=== PATIENT | female | born 1975 | race Caucasian/White ===

== ENCOUNTER 2020-09-12 00:22 | Emergency (ER) | payer OTHER, SELFPAY ==
--- OUTSIDE RECORDS SUMMARY | 2020-09-12 00:25 | XMS REPORT | Continuity of Care Document ---
:1975 Author Organization [facility] t Address [address] [place] [address] Care Team Providers Name Role Phone Du Maldonado DO Attending Clinician Kaiden STANLEY Attending Clinician Ronan SABILLON Attending Clinician Doctor Unassigned, Name Attending Clinician Unavailable Problems This patient has no known problems. Allergies, Adverse Reactions, Alerts This patient has no known allergies or adverse reactions. Medications This patient has no known medications. Procedures This patient has no known procedures. Encounters Start End Encounter Admission Attending Care Care Encounter Source Date/Time Date/Time Type Type Clinicians Facility Department ID 2020-08-12 2020-08-12 Patient ASHER Maldonado [id number] 00:00:00 00:00:00 Outreach [facility] [id number] Du [facility] [id number] [place] [phone] [id number] 2020-08-07 2020-08-07 Emergency ASHER Richey [id number] 08:57:00 09:43:00 Jose L Ray [id number] [place] [id number] [place] [id number] [id number] 2020-06-21 2020-06-21 Patient ASHER Ferraro [id number] 00:00:00 00:00:00 Secure Msg [facility] [id number] [place] [id number] [place] [phone] [place] [address] 2019-12-16 2019-12-16 Refill Doctor [facility] [id number] 00:00:00 00:00:00 Unassigned, [place] [id number] [place] [id number] [place] [phone] [place] [address] Building Results This patient has no known results.
[2020-09-12] MEDS ORDERED: MORPHINE 4 MG/ML SYR ONE (02:38)
[2020-09-12] MEDS ORDERED: NA CHLORIDE 0.9% 1,000 ML ONE (02:38)
[2020-09-12] MEDS ORDERED: ONDANSETRON 4 MG/2 ML VIAL ONE (02:38)
[2020-09-12] MEDS ORDERED: FAMOTIDINE 20 MG/2 ML VIAL IV ONE (02:38)
[2020-09-12 03:23] LABS: Absolute Lymphocytes (CBC) 1.5 K/uL (0.7-4.9); Basophils % 0.4 % (0-1.3); Hematocrit 38.8 % (36.0-45.0); Lymphocytes % 24.4 % (15.3-44.8); MPV 10.5 fL (7.6-11.3); RBC Red Blood Cell Count 4.79 M/uL (3.86-4.86)
[2020-09-12 03:30] LABS: ALT/SGPT 30 U/L (12-78); AST/SGOT 15 U/L (15-37); Albumin 3.5 g/dL (3.4-5.0); Alkaline Phosphatase 114 U/L (45-117); BUN Blood Urea Nitrogen 10 mg/dL (7-18); Bicarbonate 26 mmol/L (21-32); Bilirubin Direct 0.1 mg/dL (0-0.2); Bilirubin Total 0.4 mg/dL (0.2-1.0); Glucose Level 83 mg/dL (74-106); Lipase 172 U/L (73-393); Potassium 3.6 mmol/L (3.5-5.1); Protein, Total 7.1 g/dL (6.4-8.2); Sodium Level 142 mmol/L (136-145)
[2020-09-12 04:20] LABS: Urine Specific Gravity/Preg >1.030 (1.005-1.030)
--- NOTE | 2020-09-12 04:40 | EDPHYS ---
Physician Documentation [facility] Name: Mary Quach Age: 45 yrs Sex: Female : 1975 Arrival Date: 09/12/2020 Time: 00:26 Bed 16 Private MD: ED Physician Ramakrishna Edouard HPI: 09/12 02:30 This 45 yrs old Female presents to ER via Ambulatory with complaints of mh7 Nausea/Vomiting. 02:30 The patient presents to the emergency department with nausea, that is moderate, mh7 vomiting, that is intermittent, described as clear fluid, diarrhea, that is intermittent, 2 times since the onset of symptoms, abdominal pain, of the epigastric area, described as intermittent, vague,\E\ waxing and waning, and does not radiate. Onset: The symptoms/episode began/occurred yesterday. Possible causes: bad food exposure, possibly bad restaurant food. The symptoms are aggravated by nothing. The symptoms are alleviated by nothing. Associated signs and symptoms: Pertinent positives: abdominal pain, diarrhea, nausea, vomiting, Pertinent negatives: anorexia, belching, constipation, dysuria, fever, flatulence, GI bleeding, hematuria, vaginal discharge. Severity of symptoms: At their worst the symptoms were moderate last night, in the emergency department the symptoms are unchanged. 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 - Social history:: Smoking status: Patient denies any tobacco usage or history of. ROS: 02:30 Constitutional: Negative for fever, chills, and weight loss, Eyes: Negative for injury, mh7 pain, redness, and discharge, ENT: Negative for injury, pain, and discharge, Neck: Negative for injury, pain, and swelling, Cardiovascular: Negative for chest pain, palpitations, and edema, Respiratory: Negative for shortness of breath, cough, wheezing, and pleuritic chest pain, Back: Negative for injury and pain, : Negative for injury, bleeding, discharge, and swelling, MS/Extremity: Negative for injury and deformity, Skin: Negative for injury, rash, and discoloration, Neuro: Negative for headache, weakness, numbness, tingling, and seizure, Psych: Negative for depression, anxiety, suicide ideation, homicidal ideation, and hallucinations, Allergy/Immunology: Negative for hives, rash, and allergies, Endocrine: Negative for neck swelling, polydipsia, polyuria, polyphagia, and marked weight changes, Hematologic/Lymphatic: Negative for swollen nodes, abnormal bleeding, and unusual bruising. Exam: 02:30 Constitutional: This is a well developed, well nourished patient who is awake, alert, mh7 and in no acute distress. Head/Face: Normocephalic, atraumatic. Eyes: Pupils equal round and reactive to light, extra-ocular motions intact. Lids and lashes normal. Conjunctiva and sclera are non-icteric and not injected. Cornea within normal limits. Periorbital areas with no swelling, redness, or edema. Neck: Trachea midline, no thyromegaly or masses palpated, and no cervical lymphadenopathy. Supple, full range of motion without nuchal rigidity, or vertebral point tenderness. No Meningismus. Chest/axilla: Normal chest wall appearance and motion. Nontender with no deformity. No lesions are appreciated. Cardiovascular: Regular rate and rhythm with a normal S1 and S2. No gallops, murmurs, or rubs. Normal PMI, no JVD. No pulse deficits. Respiratory: Lungs have equal breath sounds bilaterally, clear to auscultation and percussion. No rales, rhonchi or wheezes noted. No increased work of breathing, no retractions or nasal flaring. 02:30 Back: No spinal tenderness. No costovertebral tenderness. Full range of motion. Skin: Warm, dry with normal turgor. Normal color with no rashes, no lesions, and no evidence of cellulitis. MS/ Extremity: Pulses equal, no cyanosis. Neurovascular intact. Full, normal range of motion. Neuro: Awake and alert, GCS 15, oriented to person, place, time, and situation. Cranial nerves II-XII grossly intact. Motor strength 5/5 in all extremities. Sensory grossly intact. Cerebellar exam normal. Normal gait. Psych: Awake, alert, with orientation to person, place and time. Behavior, mood, and affect are within normal limits. 02:30 Abdomen/GI: Inspection: obese Bowel sounds: normal, in all quadrants, Palpation: moderate abdominal tenderness, in the epigastric area, mass, is not appreciated, rebound tenderness, is not appreciated, voluntary guarding, is not appreciated, involuntary guarding, is not appreciated, no appreciated organomegaly, Rectal exam: the exam is deferred, because of patient request, Indicators: McBurney's point is not tender, Macias's sign is negative, Rovsing's sign is negative, Obturator sign is negative, Psoas sign is negative, Liver: no appreciated palpable abnormalities, Hernia: not appreciated. Vital Signs: 00:51 BP 126 / 72; Pulse 74; Resp 18; Temp 97.8; Pulse Ox 98% on R/A; Weight 72.57 kg; Height em 5 ft. 0 in. (152.40 cm); Pain 9/10; 02:30 BP 127 / 66; Pulse 59; Resp 19; Pulse Ox 98% on R/A; Pain 9/10; em 03:42 BP 154 / 72; Pulse 62; Resp 18; Pulse Ox 98% ; ea 04:37 BP 115 / 66; Pulse 60; Resp 18; Pulse Ox 99% on R/A; ea 00:51 Body Mass Index 31.25 (72.57 kg, 152.40 cm) em MDM: 04:38 Differential diagnosis: Nonspecific abd pain, gastritis, pancreatitis, diverticulitis, mh7 viral gastroenteritis, gastroenteritis. Data reviewed: vital signs, nurses notes, lab test result(s), CBC, electrolytes, urinalysis, EKG, radiologic studies, CT scan. Data interpreted: Pulse oximetry: on room air is 98 %. Interpretation: normal. Counseling: I had a detailed discussion with the patient and/or guardian regarding: the historical points, exam findings, and any diagnostic results supporting the discharge/admit diagnosis, the presence of at least one elevated blood pressure reading (>120/80) during this emergency department visit, lab results, radiology results, the need for outpatient follow up, to return to the emergency department if symptoms worsen or persist or if there are any questions or concerns that arise at home. Response to treatment: the patient's symptoms have resolved after treatment, the patient's blood pressure is in an acceptable range, mental status has returned to baseline, the patient no longer shows bradycardia, the patient is not short of breath, the patient is not tachycardic, the patient's pain is gone, the patient's temperature has normalized. 04:39 Patient medically screened. [facility] 09/12 02:12 Order name: Basic Metabolic Panel; Complete Time: 03:34 [facility] 09/12 02:12 Order name: CBC with Diff; Complete Time: 03:34 09/12 02:12 Order name: Hepatic Function; Complete Time: 03:34 [facility] 09/12 02:12 Order name: Lipase; Complete Time: 03:34 [facility] 09/12 02:20 Order name: Urine --Ancillary (enter results); Complete Time: 04:36 tt3 09/12 03:37 Order name: CT Abd/Pelvis - IV Contrast Only [facility] 09/12 02:12 Order name: IV Saline Lock; Complete Time: 02:38 [facility] 09/12 02:12 Order name: Labs collected and sent; Complete Time: 02:38 [facility] 09/12 02:12 Order name: Urine Dipstick-Ancillary (obtain specimen); Complete Time: 02:19 [facility] 09/12 02:12 Order name: Urine Test (obtain specimen); Complete Time: 02:20 [facility] 09/12 02:12 Order name: EKG - Nurse/Tech; Complete Time: 02:29 Administered Medications: 02:35 Drug: NS 0.9% 1000 ml Route: IV; Rate: 1000 ml; Site: right antecubital; em 04:49 Follow up: IV Status: Completed infusion; IV Intake: 1000ml em 02:35 Drug: Pepcid (famotidine) 20 mg Route: IVP; Site: right antecubital; em 03:10 Follow up: Response: No adverse reaction em 02:37 Drug: Zofran (Ondansetron) 4 mg Route: IVP; Site: right antecubital; em 03:10 Follow up: Response: No adverse reaction em 02:39 Drug: morphine 4 mg Route: IVP; Site: right antecubital; em 03:10 Follow up: Response: No adverse reaction; Marked relief of symptoms; Pain is decreased; em RASS: Alert and Calm (0) Disposition: 09/12/20 04:39 Discharged to Home. Impression: Gastroenteritis. - Condition is Stable. - Discharge Instructions: Viral Gastroenteritis, Adult, [id number]. - Prescriptions for Zofran ODT 4 mg Oral tablet,disintegrating - place 1 tablet by TRANSLINGUAL route every 8 hours As needed; 6 tablet. Bentyl 20 mg Oral Tablet - take 1 tablet by ORAL route every 6 hours As needed; 20 tablet. Pepcid 20 mg Oral Tablet - take 1 tablet by ORAL route every 12 hours for 5 days; 10 tablet. Cipro 500 mg Oral Tablet - take 1 tablet by ORAL route every 12 hours for 5 days; 10 tablet. - Work release form, Medication Reconciliation Form, Thank You Letter, Antibiotic Education, Prescription Opioid Use form. - Follow up: Private Physician; When: 1 - 2 days; Reason: Worsening of condition, Recheck today's complaints, Continuance of care, Re-evaluation by your physician. - Problem is new. - Symptoms have improved. Signatures: Dispatcher [employer] Rashad Matos, RN RN Mitali Kingsley RN RN Ramakrishna Warner MD MD mh7 Corrections: (The following items were deleted from the chart) 04:52 04:39 09/12/2020 04:39 Discharged to Home. Impression: Gastroenteritis. Condition is ea Stable. Forms are Medication Reconciliation Form, Thank You Letter, Antibiotic Education, Prescription Opioid Use. Follow up: Private Physician; When: 1 - 2 days; Reason: Worsening of condition, Recheck today's complaints, Continuance of care, Re-evaluation by your physician. Problem is new. Symptoms have improved. mh7
--- NOTE | 2020-09-12 04:40 | ER ---
Nurse's Notes [facility] Name: Mary Quach Age: 45 yrs Sex: Female : 1975 Arrival Date: 09/12/2020 Time: 00:26 Bed 16 Private MD: Diagnosis: Gastroenteritis Presentation: 09/12 00:51 Chief complaint: Patient states: ate [employer] at 0900 yesterday morning, has had N/V em and some diarrhea, also reports upper abdominal pain, denies fever. Coronavirus screen: Client denies travel out of the [place] in the last 14 days. Ebola Screen: Patient negative for fever greater than or equal to 101.5 degrees Fahrenheit, and additional compatible Ebola Virus Disease symptoms Patient denies exposure to infectious person. Patient denies travel to an Ebola-affected area in the 21 days before illness onset. No symptoms or risks identified at this time. Initial Sepsis Screen: Does the patient meet any 2 criteria? No. Patient's initial sepsis screen is negative. Does the patient have a suspected source of infection? No. Patient's initial sepsis screen is negative. Risk Assessment: Do you want to hurt yourself or someone else? Patient reports no desire to harm self or others. Onset of symptoms was September 12, 2020. 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 - Social history:: Smoking status: Patient denies any tobacco usage or history of. Screenin:51 Abuse screen: Denies threats or abuse. Nutritional screening: No deficits noted. em Tuberculosis screening: No symptoms or risk factors identified. Fall Risk None identified. Assessment: 00:55 General: Appears in no apparent distress. uncomfortable, Behavior is calm, cooperative, em appropriate for age. Pain: Complains of pain in epigastric area, right upper quadrant and left upper quadrant Pain currently is 9 out of 10 on a pain scale. Neuro: Level of Consciousness is awake, alert, obeys commands, Oriented to person, place, time, situation. Cardiovascular: Capillary refill < 3 seconds Patient's skin is warm and dry. Respiratory: Airway is patent Respiratory effort is even, unlabored, Respiratory pattern is regular, symmetrical. GI: Abdomen is round non-distended, Reports diarrhea, nausea, Patient currently denies vomiting. Derm: Skin is intact, is healthy with good turgor, Skin is pink, warm \T\ dry. Musculoskeletal: Capillary refill < 3 seconds, Range of motion: intact in all extremities. 03:42 Reassessment: Patient and/or family updated on plan of care and expected duration. Pain ea level reassessed. Patient is alert, oriented x 3, equal unlabored respirations, skin warm/dry/pink. 04:37 Reassessment: Patient and/or family updated on plan of care and expected duration. Pain ea level reassessed. Patient is alert, oriented x 3, equal unlabored respirations, skin warm/dry/pink. Provider at bedside updating pt on plan of care. 04:46 Reassessment: Patient and/or family updated on plan of care and expected duration. Pain ea level reassessed. Patient is alert, oriented x 3, equal unlabored respirations, skin warm/dry/pink. Discharge instruction given to patient, verbalized the understanding of instruction. Pt left ED ambulatory tolerating well. Vital Signs: 00:51 BP 126 / 72; Pulse 74; Resp 18; Temp 97.8; Pulse Ox 98% on R/A; Weight 72.57 kg; Height em 5 ft. 0 in. (152.40 cm); Pain 9/10; 02:30 BP 127 / 66; Pulse 59; Resp 19; Pulse Ox 98% on R/A; Pain 9/10; em 03:42 BP 154 / 72; Pulse 62; Resp 18; Pulse Ox 98% ; ea 04:37 BP 115 / 66; Pulse 60; Resp 18; Pulse Ox 99% on R/A; ea 00:51 Body Mass Index 31.25 (72.57 kg, 152.40 cm) em ED Course: 00:26 Patient arrived in ED. am4 00:51 Patient has correct armband on for positive identification. Bed in low position. Call em light in reach. Adult w/ patient. 00:54 Triage completed. em 00:55 Arm band placed on. em 01:58 Ramakrishna Edouard MD is Attending Physician. [facility] 02:12 Rashad Franco, RN is Primary Nurse. em 02:26 EKG done, by ED staff, reviewed by Ramakrishna Edouard MD. em 02:35 Initial lab(s) drawn, by me, sent to lab. Inserted saline lock: 20 gauge in right em antecubital area, using aseptic technique. Blood collected. 04:12 CT Abd/Pelvis - IV Contrast Only In Process Unspecified. EDMS 04:45 No provider procedures requiring assistance completed. IV discontinued, intact, ea bleeding controlled, No redness/swelling at site. Pressure dressing applied. Administered Medications: 02:35 Drug: NS 0.9% 1000 ml Route: IV; Rate: 1000 ml; Site: right antecubital; em 04:49 Follow up: IV Status: Completed infusion; IV Intake: 1000ml em 02:35 Drug: Pepcid (famotidine) 20 mg Route: IVP; Site: right antecubital; em 03:10 Follow up: Response: No adverse reaction em 02:37 Drug: Zofran (Ondansetron) 4 mg Route: IVP; Site: right antecubital; em 03:10 Follow up: Response: No adverse reaction em 02:39 Drug: morphine 4 mg Route: IVP; Site: right antecubital; em 03:10 Follow up: Response: No adverse reaction; Marked relief of symptoms; Pain is decreased; em RASS: Alert and Calm (0) Intake: 04:49 IV: 1000ml; Total: 1000ml. em Outcome: 04:39 Discharge ordered by . [facility] 04:46 Discharged to home ambulatory, with family. ea 04:46 Condition: stable 04:46 Discharge instructions given to patient, Instructed on discharge instructions, follow up and referral plans. medication usage, Demonstrated understanding of instructions, follow-up care, medications, Prescriptions given X 3. 04:52 Patient left the ED. ea Signatures: Dispatcher [employer] Rashad Matos RN RN em Antunez, Elena, RN RN ea Holmes, Maurice, MD MD [facility] Melani Jose am4
[2020-09-12 04:58] VITALS: TEMP 97.8
[2020-09-12 05:04] VITALS: BP 115/66; O2SAT 99
--- NOTE | 2020-09-13 11:53 | RAD REPORT ---
EXAM DESCRIPTION: CT - Abdomen Pelvis W Contrast - 09/12/2020 6:28 am CLINICAL HISTORY: 5 years Female, Abd pain;Nausea / vomiting COMPARISON: None TECHNIQUE: Contiguous axial CT images of the abdomen and pelvis were obtained. Sagittal and coronal reformats were reviewed. This exam was performed according to our departmental dose-optimization pr ogram, which includes automated exposure control, adjustment of the mA and/or kV according to patient size and/or use of iterative reconstruction technique. FINDINGS: Lung bases: Clear. Liver: Unremarkable. No focal liver lesion. Gallbladder: Cholecystectomy clips seen in gallbladder fossa. Spleen: Unremarkable Pancreas: Pancreas is unremarkable. Adrenal glands: Within normal limits. Kidneys/ureters: Within normal limits Stomach/small bowel/colon: Small hiatal hernia. Stomach is otherwise unremarkable. A few mildly promi nent fluid-filled loops of small bowel in the left hemiabdomen. No obstruction. Colon is unremarkable . Appendix: No evidence of appendicitis. Peritoneum: No free fluid. Vascular structures: within normal limits Lymph nodes: No abnormal lymph nodes. Bladder: Unremarkable. Pelvic organs: No acute abnormality Bones: No acute osseous abnormality. Soft tissues: Unremarkable.. IMPRESSION: Mildly prominent fluid-filled loops of small bowel are nonspecific but may be related to enteritis. There is no obstruction. No abdominal or pelvic fluid collections. Small hiatal hernia. Electronically signed by: Julius Givens DO 09/12/2020 4:20 AM CDT Due to temporary technical issues with the PACS/Fluency reporting system, reports are being signed by the in house radiologist without review as a courtesy to ensure prompt reporting. The interpreting r adiologist is fully responsible for the content of the report.
[2020-09-13 12:14] LABS: Urine Blood NEGATIVE (Negative); Urine Glucose NEGATIVE (Negative); Urine Protein NEGATIVE (Negative); Urine Specific Gravity >1.030 (1.005-1.030)
[2020-09-14 14:49] LABS: Urine Blood Negative (Negative); Urine Glucose Negative (Negative); Urine Protein Negative (Negative); Urine Specific Gravity >=1.030 (1.005-1.030)
== END 2020-09-12 04:52 | disposition home or self-care (01) ==
LOC: ER 00:22
DX: K52.9 Noninfective gastroenteritis and colitis, unspecified (principal)
CPT/HCPCS: 36415; 74177; 80048; 80076; 81003; 81025; 83690; 85025; 93005; 96361; 96374; 96375; 99284; J2405; J7030; Q9967

== ENCOUNTER 2020-11-07 16:05 | Emergency (ER) | payer SELFPAY ==
--- NOTE | 2020-11-07 17:06 | RAD REPORT ---
EXAM DESCRIPTION: RAD - Chest Single View - 11/07/2020 4:55 pm CLINICAL HISTORY: COUGH Chest pain. COMPARISON: No comparisons FINDINGS: Portable technique limits examination quality. The lungs are grossly clear. The heart is normal in size. No displaced fractures. IMPRESSION: No acute intrathoracic process suspected.
[2020-11-07] MEDS ORDERED: NA CHLORIDE 0.9% 1,000 ML ONE (17:28)
[2020-11-07 17:53] LABS: Absolute Lymphocytes (CBC) 2.5 K/uL (0.7-4.9); Basophils % 1.2 % (0-1.3); Hematocrit 41.6 % (36.0-45.0); Lymphocytes % 29.8 % (15.3-44.8); MPV 10.8 fL (7.6-11.3); RBC Red Blood Cell Count 5.19 M/uL (3.86-4.86)
[2020-11-07 18:10] LABS: ALT/SGPT 40 U/L (12-78); AST/SGOT 20 U/L (15-37); Albumin 3.9 g/dL (3.4-5.0); Alkaline Phosphatase 134 U/L (45-117); BUN Blood Urea Nitrogen 9 mg/dL (7-18); Bicarbonate 24 mmol/L (21-32); Bilirubin Direct < 0.1 mg/dL (0-0.2); Bilirubin Total 0.4 mg/dL (0.2-1.0); Glucose Level 80 mg/dL (74-106); Lipase 143 U/L (73-393); Potassium 3.2 mmol/L (3.5-5.1); Protein, Total 7.9 g/dL (6.4-8.2); Sodium Level 138 mmol/L (136-145)
[2020-11-07 19:55] LABS: Urine Blood Trace-lysed (Negative); Urine Glucose Negative (Negative); Urine Protein Negative (Negative); Urine Specific Gravity >=1.030 (1.005-1.030); Urine pH 5.5 (5.0-7.0)
[2020-11-07 20:14] LABS: Urine Specific Gravity/Preg >1.030 (1.005-1.030)
--- NOTE | 2020-11-07 20:15 | RAD REPORT ---
EXAM DESCRIPTION: CTAbdomen Pelvis W Contrast - 11/07/2020 7:58 pm CLINICAL HISTORY: Abdominal pain. ABD PAIN COMPARISON: Abdomen Pelvis W Contrast dated 09/12/2020 TECHNIQUE: Biphasic CT imaging of the abdomen and pelvis was performed with 100 ml non-ionic IV cont rast. All CT scans are performed using dose optimization technique as appropriate and may include automated exposure control or mA/KV adjustment according to patient size. FINDINGS: The lung bases are clear.Small hiatal hernia. Cholecystectomy clips. The liver, spleen, pancreas, adrenal glands and kidneys are within normal limits. No bowel obstruction, free air, free fluid or abscess. The appendix is normal. No evidence of signi ficant lymphadenopathy. No suspicious bony findings. IMPRESSION: No acute intra-abdominal or pelvic finding.
[2020-11-07 21:30] LABS: Urine Bacteria >50 /HPF (<20); Urine RBC NONE SEEN /HPF (NONE SEEN)
--- NOTE | 2020-11-07 21:40 | ER ---
Nurse's Notes [facility] Name: Mary Quach Age: 45 yrs Sex: Female : 1975 Arrival Date: 11/07/2020 Time: 16:07 Bed 16 Private MD: Diagnosis: Diarrhea, unspecified;Cough;Urinary tract infection, site not specified;Unspecified abdominal pain Presentation: 11/07 16:20 Chief complaint: Patient states: Got her 2nd Pfizer vaccine last . Started to ll1 have green diarrhea on Sunday with abdominal pain. Stool turned black today. Cough started today, dry cough. No fever. Coronavirus screen: Client denies travel out of the [place] in the last 14 days. cough unrelated to allergies, diarrhea, sore throat, Client presents with at least one sign or symptom that may indicate coronavirus-19. Standard/surgical mask placed on the client. Ebola Screen: Patient denies travel to an Ebola-affected area in the 21 days before illness onset. Initial Sepsis Screen: Does the patient meet any 2 criteria? No. Patient's initial sepsis screen is negative. Does the patient have a suspected source of infection? Yes: Productive cough/pneumonia. Risk Assessment: Do you want to hurt yourself or someone else? Patient reports no desire to harm self or others. Onset of symptoms was November 05, 2020. 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 - Social history:: Smoking status: Patient denies any tobacco usage or history of. Screenin:36 Abuse screen: Denies threats or abuse. Denies injuries from another. Nutritional zb screening: No deficits noted. Tuberculosis screening: No symptoms or risk factors identified. Fall Risk None identified. Assessment: 17:36 General: Appears in no apparent distress. uncomfortable, Behavior is calm, cooperative, zb Reports chills for 1-2 days, feeling ill for 1-2 days, fatigue for 1-2 days. Pain: Complains of pain in abdomen and neck. Neuro: Level of Consciousness is awake, alert, obeys commands, Oriented to person, place, time, situation. Cardiovascular: Capillary refill < 3 seconds Patient's skin is warm and dry. Respiratory: Reports cough that is non-productive, hacking, persistent Airway is patent Respiratory effort is even, unlabored, Respiratory pattern is regular, symmetrical, Breath sounds are clear bilaterally. the patient has mild shortness of breath. GI: Abdomen is round Abdomen is tender to palpation in epigastric area and umbilical area Reports lower abdominal pain, upper abdominal pain, bloating, diarrhea, nausea. Derm: Skin is intact, is healthy with good turgor, Skin is dry, Skin is normal, Skin temperature is warm. Musculoskeletal: Circulation, motion, and sensation intact. Range of motion: intact in all extremities. 18:46 Reassessment: Patient appears in no apparent distress at this time. Patient and/or zb family updated on plan of care and expected duration. Pain level reassessed. Patient is alert, oriented x 3, equal unlabored respirations, skin warm/dry/pink. 19:30 Reassessment: Patient appears in no apparent distress at this time. Patient and/or zb family updated on plan of care and expected duration. Pain level reassessed. Patient is alert, oriented x 3, equal unlabored respirations, skin warm/dry/pink. 20:26 Reassessment: Patient appears in no apparent distress at this time. Patient and/or zb family updated on plan of care and expected duration. Pain level reassessed. Patient is alert, oriented x 3, equal unlabored respirations, skin warm/dry/pink. 21:30 Reassessment: Patient appears in no apparent distress at this time. Patient and/or zb family updated on plan of care and expected duration. Pain level reassessed. Patient is alert, oriented x 3, equal unlabored respirations, skin warm/dry/pink. 22:00 Reassessment: Patient appears in no apparent distress at this time. Patient and/or zb family updated on plan of care and expected duration. Pain level reassessed. Patient is alert, oriented x 3, equal unlabored respirations, skin warm/dry/pink. Vital Signs: 16:20 BP 126 / 102; Pulse 79; Resp 17; Temp 98.9; Pulse Ox 100% ; Weight 72.57 kg; Height 4 ll1 ft. 8 in. (142.24 cm); Pain 8/10; 18:00 BP 117 / 81; Pulse 62; Resp 16; Pulse Ox 100% on R/A; zb 18:48 BP 109 / 89; Pulse 64; Resp 16; Pulse Ox 100% on R/A; zb 20:26 BP 129 / 59; Pulse 67; Resp 16; Pulse Ox 98% on R/A; zb 21:30 BP 117 / 80; Pulse 68; Resp 16; Pulse Ox 100% on R/A; zb 16:20 Body Mass Index 35.87 (72.57 kg, 142.24 cm) ll1 ED Course: 16:07 Patient arrived in ED. as 16:18 Arm band placed on Patient placed in an exam room, on a stretcher. ll1 16:23 Triage completed. ll1 16:25 Lambert Johns NP is PHCP. pm1 16:25 Primo Kern MD is Attending Physician. pm1 16:32 Gaye Calvin RN is Primary Nurse. zb 16:55 CXR XRAY In Process Unspecified. EDMS 18:11 Inserted saline lock: 20 gauge in left antecubital area, using aseptic technique. dh3 19:16 Patient has correct armband on for positive identification. Placed in gown. Bed in low zb position. Call light in reach. shelter monitor on. Pulse ox on. NIBP on. 19:58 CT Abd/Pelvis - IV Contrast Only In Process Unspecified. EDMS 22:01 No provider procedures requiring assistance completed. IV discontinued, intact, zb bleeding controlled, No redness/swelling at site. Pressure dressing applied. Administered Medications: 18:23 Drug: NS 0.9% 1000 ml Route: IV; Rate: 1000 ml; Site: right antecubital; zb 21:55 Follow up: Response: No adverse reaction; IV Status: Completed infusion; IV Intake: zb 1000ml 22:01 Not Given (Duplicate Order): Rocephin (cefTRIAXone) 1 grams IV at calculated rate once; zb Given slow IV push per pharmacy instructions 22:01 Drug: Rocephin (cefTRIAXone) 1 grams Route: IM; Site: right gluteus; zb 22:15 Follow up: Response: No adverse reaction zb Intake: 21:55 IV: 1000ml; Total: 1000ml. zb Outcome: 21:39 Discharge ordered by . pm1 22:02 Discharged to home ambulatory. zb 22:02 Condition: stable 22:02 Discharge instructions given to patient, family, Instructed on discharge instructions, follow up and referral plans. medication usage, Demonstrated understanding of instructions, follow-up care, medications, Prescriptions given X 2. 22:09 Patient left the ED. zb Signatures: Dispatcher [employer] Lynne Rodrigues Patrick, FIXED INCOME DIRECTOR FIXED INCOME DIRECTOR pm1 Radha Rock 3 Cedrick Mohamud RN RN ll1 Gaye Calvin RN RN andry
--- NOTE | 2020-11-07 21:40 | EDPHYS ---
Physician Documentation [facility] Name: Mary Quach Age: 45 yrs Sex: Female : 1975 Arrival Date: 11/07/2020 Time: 16:07 Bed 16 Private MD: ED Physician Primo Kern HPI: 11/07 16:49 This 45 yrs old Female presents to ER via Ambulatory with complaints of pm1 Cough, Black/Tarry Stools. 16:49 The patient or guardian reports cough, with no sputum. Onset: The symptoms/episode pm1 began/occurred today. Severity of symptoms: in the emergency department the symptoms are actually worse. Modifying factors: The symptoms are alleviated by nothing, the symptoms are aggravated by patient believes due to second covid vaccine. Associated signs and symptoms: Pertinent positives: Abdominal pain and diarrhea onset Sunday. Reports greenish diarrhea at onset with dark diarrhea today. The patient has not experienced similar symptoms in the past. The patient has not recently seen a physician. 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 - Social history:: Smoking status: Patient denies any tobacco usage or history of. ROS: 16:49 Constitutional: Negative for fever, chills, and weight loss, Eyes: Negative for injury, pm1 pain, redness, and discharge, ENT: Negative for injury, pain, and discharge, Neck: Negative for injury, pain, and swelling, Cardiovascular: Negative for chest pain, palpitations, and edema, Back: Negative for injury and pain, MS/Extremity: Negative for injury and deformity, Skin: Negative for injury, rash, and discoloration, Neuro: Negative for headache, weakness, numbness, tingling, and seizure. 16:49 : Negative for injury, bleeding, discharge, and swelling. 16:49 Respiratory: Positive for cough, Negative for shortness of breath, sputum production, wheezing. 16:49 Abdomen/GI: Positive for abdominal pain, diarrhea, Negative for nausea and vomiting. Exam: 16:49 Constitutional: This is a well developed, well nourished patient who is awake, alert, pm1 and in no acute distress. Head/Face: Normocephalic, atraumatic. Eyes: Pupils equal round and reactive to light, extra-ocular motions intact. Lids and lashes normal. Conjunctiva and sclera are non-icteric and not injected. Cornea within normal limits. Periorbital areas with no swelling, redness, or edema. ENT: Nares patent. No nasal discharge, no septal abnormalities noted. Tympanic membranes are normal and external auditory canals are clear. Oropharynx with no redness, swelling, or masses, exudates, or evidence of obstruction, uvula midline. Mucous membranes moist. 16:49 Back: No spinal tenderness. No costovertebral tenderness. Full range of motion. Skin: Warm, dry with normal turgor. Normal color with no rashes, no lesions, and no evidence of cellulitis. MS/ Extremity: Pulses equal, no cyanosis. Neurovascular intact. Full, normal range of motion. 16:49 Cardiovascular: Rate: normal, Rhythm: regular, Pulses: no pulse deficits are appreciated. 16:49 Respiratory: Exam negative for acute changes, respiratory distress, shortness of breath, Breath sounds: are clear throughout. 16:49 Abdomen/GI: Inspection: obese Palpation: abdomen is soft and non-tender, in all quadrants. 16:49 Neuro: Exam negative for acute changes, Orientation: is normal, Mentation: is normal, Motor: is normal, moves all fours. 20:45 Abdomen/GI: Rectal exam: rectal tone normal, Stool: brown, guaiac negative, pm1 hemorrhoid(s), external, without bleeding, without inflammation, without thrombosis, without pain, tenderness, is not appreciated, Sherry ALANIS Chaperoned. Vital Signs: 16:20 BP 126 / 102; Pulse 79; Resp 17; Temp 98.9; Pulse Ox 100% ; Weight 72.57 kg; Height 4 ll1 ft. 8 in. (142.24 cm); Pain 8/10; 18:00 BP 117 / 81; Pulse 62; Resp 16; Pulse Ox 100% on R/A; zb 18:48 BP 109 / 89; Pulse 64; Resp 16; Pulse Ox 100% on R/A; zb 20:26 BP 129 / 59; Pulse 67; Resp 16; Pulse Ox 98% on R/A; zb 21:30 BP 117 / 80; Pulse 68; Resp 16; Pulse Ox 100% on R/A; zb 16:20 Body Mass Index 35.87 (72.57 kg, 142.24 cm) ll1 MDM: 16:26 Patient medically screened. pm1 21:37 Data reviewed: vital signs. Data interpreted: Pulse oximetry: on room air is 98 %. pm1 Interpretation: normal. 21:37 Counseling: I had a detailed discussion with the patient and/or guardian regarding: the pm1 historical points, exam findings, and any diagnostic results supporting the discharge/admit diagnosis, lab results, radiology results, the need for outpatient follow up, to return to the emergency department if symptoms worsen or persist or if there are any questions or concerns that arise at home. 11/07 16:35 Order name: Flu; Complete Time: 19:33 pm 11/07 16:35 Order name: Strep; Complete Time: 19:33 pm 11/07 16:35 Order name: Basic Metabolic Panel; Complete Time: 18:25 pm 11/07 16:35 Order name: CBC with Diff; Complete Time: 18:25 pm1 11/07 16:35 Order name: Hepatic Function; Complete Time: 18:25 pm 11/07 16:35 Order name: Lipase; Complete Time: 18:25 pm 11/07 18:36 Order name: Throat Culture [facility] 11/07 18:50 Order name: SARS-COV-2 RT PCR; Complete Time: 19:33 [facility] 11/07 19:54 Order name: Urine Dipstick-Ancillary; Complete Time: 19:55 [facility] 11/07 19:56 Order name: Urine --Ancillary (enter results); Complete Time: 20:40 11/07 20:41 Order name: [place] 11/07 20:41 Order name: Urine Microscopic Only; Complete Time: 21:36 pm 11/07 20:42 Order name: Occult Blood--Ancillary [facility] 11/07 16:35 Order name: CXR XRAY; Complete Time: 18:25 pm 11/07 16:35 Order name: Droplet/Contact Precautions; Complete Time: 17:36 pm 11/07 16:35 Order name: Labs collected and sent; Complete Time: 17:36 pm1 11/07 16:35 Order name: O2 Per Protocol; Complete Time: 17:36 pm1 11/07 16:35 Order name: IV Saline Lock; Complete Time: 18:23 pm1 11/07 16:35 Order name: CT Abd/Pelvis - IV Contrast Only; Complete Time: 20:40 pm1 11/07 21:31 Order name: Urine Culture EDMS Administered Medications: 18:23 Drug: NS 0.9% 1000 ml Route: IV; Rate: 1000 ml; Site: right antecubital; zb 21:55 Follow up: Response: No adverse reaction; IV Status: Completed infusion; IV Intake: zb 1000ml 22:01 Not Given (Duplicate Order): Rocephin (cefTRIAXone) 1 grams IV at calculated rate once; zb Given slow IV push per pharmacy instructions 22:01 Drug: Rocephin (cefTRIAXone) 1 grams Route: IM; Site: right gluteus; zb 22:15 Follow up: Response: No adverse reaction zb Disposition: 11/07/20 21:39 Discharged to Home. Impression: Unspecified abdominal pain, Diarrhea, unspecified, Cough, Urinary tract infection, site not specified. - Condition is Stable. - Discharge Instructions: Abdominal Pain, Adult, Food Choices to Help Relieve Diarrhea, Adult, Diarrhea, Adult, Urinary Tract Infection, Adult, Cough, Adult. - Prescriptions for Bentyl 20 mg Oral Tablet - take 1 tablet by ORAL route every 6 hours As needed; 20 tablet. Bactrim DS 800- 160 mg Oral Tablet - take 1 tablet by ORAL route every 12 hours for 10 days; 20 tablet. - Medication Reconciliation Form, Thank You Letter, Antibiotic Education, Prescription Opioid Use, Work release form form. - Follow up: Emergency Department; When: As needed; Reason: Worsening of condition. Follow up: Private Physician; When: 2 - 3 days; Reason: Recheck today's complaints, Continuance of care, Re-evaluation by your physician. - Problem is new. - Symptoms have improved. Addendum: 11/09/2020 19:26 Co-signature as Attending Physician, Primo Kern MD. r n Signatures: Dispatcher [employer] EDMS Primo Kern MD MD rn Marinas, Patrick, DRIVER EDUCATION INSTRUCTOR DRIVER EDUCATION INSTRUCTOR pm1 Cedrick Mohamud RN RN ll1 Brown, Gaye, RN RN zb Corrections: (The following items were deleted from the chart) 11/07 17:58 16:36 CORONAVIRUS+MR.LAB.BRZ ordered. EDMS EDMS 22:09 21:39 11/07/2020 21:39 Discharged to Home. Impression: Unspecified abdominal zb painDiarrhea, unspecified; Cough; Urinary tract infection, site not specified. Condition is Stable. Forms are Medication Reconciliation Form, Thank You Letter, Antibiotic Education, Prescription Opioid Use. Follow up: Emergency Department; When: As needed; Reason: Worsening of condition. Follow up: Private Physician; When: 2 - 3 days; Reason: Recheck today's complaints, Continuance of care, Re-evaluation by your physician. Problem is new. Symptoms have improved. pm1
[2020-11-07] MEDS ORDERED: CEFTRIAXONE/SWI 1gm 1 GM/10 ML SYR ONE (22:03)
[2020-11-07 22:44] VITALS: BP 129/59; O2SAT 98
[2020-11-07 22:46] VITALS: TEMP 98.9
== END 2020-11-07 22:09 | disposition home or self-care (01) ==
LOC: ER 16:05
DX: N39.0 Urinary tract infection, site not specified (principal); R19.7 Diarrhea, unspecified; R05 Cough; Z20.822 Contact with and (suspected) exposure to COVID-19; I10 Essential (primary) hypertension
CPT/HCPCS: 36415; 71045; 74177; 80048; 80076; 81003; 81015; 81025; 83690; 85025; 87070; 87081; 87086; 87088; 87804; 96360; 96361; 96372; 99284; J0696; J7030; Q9967; U0003

== ENCOUNTER 2021-01-04 15:05 | Emergency (ER) | payer SELFPAY ==
--- OUTSIDE RECORDS SUMMARY | 2021-01-04 15:16 | XMS REPORT | Continuity of Care Document ---
:[address] [facility] t Address [address] [place] [address] Care Team Providers Name Role Phone Susana DUFF, A Primary Care Physician Susana DUFF, A Attending Clinician Andree RN, L Attending Clinician Unavailable Doctor Unassigned, Name Attending Clinician Unavailable Problems Condition Condition Condition Status Onset Resolution Last Treating Co mments Source Name Details Category Date Date Treatment Clinician Date Chest pain Chest pain Disease Active U nivers 5-02 ity of 00:00: [place] [facility] Branch Frequent Frequent Disease Active Unive rs headaches headaches 4-03 ity of 00:00: [place] 00 [facility] Hematochez Hematochez Disease Active 2017-05 Overview : Univers ia ia 0-19 Added ity of 00:00: automatic [place] 00 ally from Medical request Branch for surgery [id number] Hydrops of Hydrops of Disease Active 2017-05 Overview : Univers gallbladde gallbladde 0-19 Added it y of r r 00:00: automatic 00 ally from Medical request Branch for surgery [id number] 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 squamous 5-27 hpv ity of cells of cells of 00:00: negative; [place] as undetermin undetermin 00 routine M edical ed ed retesting Branch significan significan in 3 ce (ASCUS) ce (ASCUS) years on on Papanicola Papanicola ou smear ou smear of cervix of cervix Obese Obese Disease Active Univers 5-18 ity of 00:00: [place] [facility] Tobacco Tobacco Disease Active Univers use use 5-18 ity of disorder disorder 00:00: Medical [place] Encounter Encounter Disease Active 2006-05 Overview: Univers for for 0-08 Seeking ity of counseling counseling 00:00: ICD10 Medical Diagnosis Branch Term Clinical Resource Manager Utility Migraines Migraines Disease Active Uni vers ity of [facility] Allergies, Adverse Reactions, Alerts This patient has no known allergies or adverse reactions. Social History Social Habit Start Date Stop Date Quantity Comments Source Exposure to Yes [facility] SARS-CoV-2 [facility] (event) Miranda Tobacco use and 2020-09-30 2020-09-30 Never used Universit y of exposure 00:00:00 00:00:00 [facility] Alcohol intake 2020-09-30 2020-09-30 Ex-drinker [facility] 00:00:00 00:00:00 (finding) [facility] Tobacco Comment 2019-09-27 2019-09-27 second hand smoke Un iversity of 00:00:00 00:00:00 [facility] Alcohol Comment 2015-10-13 2015-10-13 social drinks Univer sity of 00:00:00 00:00:[address] [facility] Sex Ass[birth year] Universit y of 00:00:00 00:00:00 [facility] Smoking Status Start Date Stop Date Source Never smoker [facility] Medications Ordered Filled Start Stop Current Ordering Indication Dosage Frequency Signature Comments Components Source Medication Medication Date Date Medication? Clinician (SIG) Name Name metoclopram Yes Gastroenter 10mg Take 1 Univers jefferson HCl 4-22 itis tablet by ity of (REGLAN) 10 00:00: mouth [place] mg tablet 00 every 6 Medical (six) Branch hours as needed for Nausea and Vomiting (N/V). ciprofloxac Yes TAKE 1 Univ ers in HCl 500 4-18 TABLET BY ity of mg tablet 00:00: MOUTH [place] 00 EVERY 12 Medical HOURS FOR Branch 5 DAYS dicyclomine Yes TAKE 1 Univ ers 20 mg 4-18 TABLET BY ity of tablet 00:00: MOUTH [place] 00 EVERY 6 Medical HOURS Branch NEEDED famotidine Yes TAKE 1 Unive rs 20 mg 4-18 TABLET BY ity of tablet 00:00: MOUTH [place] 00 EVERY 12 Medical HOURS FOR Branch 5 DAYS azithromyci Yes Cat scratch 250mg Take 1 Univers n 250 mg 3-13 tablet by ity of tablet 00:00: mouth [place] 00 daily. Medical Take 500 Branch mg day 1, then 250 mg days 2 to 5. tiZANidine Yes Frequent 2mg Take 1 U nivers 2 mg 8-20 headaches capsule by ity of capsule 00:00: mouth 3 00 (three) Medical times Branch daily as needed for Muscle Spasms (tension headache). ondansetron Yes Vomiting, 4mg Take 1 Univers (ZOFRAN 8-18 intractabil tablet by ity of ODT) 4 mg 00:00: ity of mouth [place] disintegrat 00 vomiting every 8 M edical ing tablet not (eight) Branch specified, hours as presence of needed for nausea not Nausea and specified, Vomiting unspecified (N/V). vomiting type Immunizations Ordered Filled Immunization Date Status Comments [facility] e Immunization Name Name Td 2020-08-07 Completed University of 00:00:00 [facility] Vital Signs Vital Name Observation Time Observation Value Comments Source Systolic blood 2020-10-01 01:49:00 154 mm[Hg] [facility] Diastolic blood 2020-10-01 01:49:00 100 mm[Hg] [facility] Procedures This patient has no known procedures. Plan of Care Planned Activity Planned Date Details Comments Source Future Scheduled 2028-04-01 Screening for [facility] Test 00:00:00 malignant neoplasm Medical B ranch of colon (procedure) [code = 061397205] Future Scheduled 2028-04-01 Screening for [facility] Test 00:00:00 malignant neoplasm Medical B ranch of colon (procedure) [code = 669297366] Future Scheduled 2021-01-26 INFLUENZA VACCINE [facility] Test 00:00:00 (Season Ended) [code Medical Branch = INFLUENZA VACCINE (Season Ended)] Future Scheduled 2018-10-12 Screening for [facility] Test 00:00:00 malignant neoplasm Medical B ranch of cervix (procedure) [code = [id number]] Future Scheduled 2015 Screening for [facility] Test 00:00:00 malignant neoplasm Medical B ranch of breast (procedure) [code = 933193572] Future Scheduled 1994 DTaP,Tdap,and Td Univers [facility] Test 00:00:00 Vaccines (1 - Tdap) Medical Branch [code = DTaP,Tdap,and Td Vaccines (1 - Tdap)] Future Scheduled 1993 Hepatitis C [facility] Test 00:00:00 screening Medical Branch (procedure) [code = [id number]] Future Scheduled 1991 SARS-CoV-2 [facility] Test 00:00:00 (COVID-19) Vaccine Medical B ranch (1) [code = SARS-CoV-2 (COVID-19) Vaccine (1)] Future Scheduled 1987 Depression screening Uni [facility] Test 00:00:00 (procedure) [code = Medical Branch [id number]] Encounters Start End Encounter Admission Attending Care Care Encounter Source Date/Time Date/Time Type Type Clinicians Facility Department ID 2021-01-03 2021-01-03 Telephone Susana, [facility] [id number] 00:00:00 00:00:00 [facility] [id number] [place] [id number] Yolanda [phone] nal [address] 2020-11-30 2020-11-30 Telephone Andree La [id number] 00:00:00 00:00:00 , Pamela Judd [id number] [place] [id number] 2020-11-22 2020-11-22 Orders Doctor KATELIN [id number] 00:00:00 00:00:00 Only Unassigned, VERÓNICA [id number] [place] [facility] [id number] 2020-11-10 2020-11-10 Telephone Susana, [facility] [id number] 00:00:00 00:00:00 [facility] [id number] [place] [id number] Professio [phone] nal [address] Results This patient has no known results.
[2021-01-04 18:29] LABS: SARS-COV-2 RT PCR NEGATIVE (NEGATIVE)
--- NOTE | 2021-01-04 19:00 | EDPHYS ---
Physician Documentation [facility] Name: Maranda Quach Age: 45 yrs Sex: Female : 1975 Arrival Date: 01/04/2021 Time: 15:08 Bed Waiting Private MD: ED Physician Primo Kern HPI: 01/04 16:09 This 45 yrs old Female presents to ER via Ambulatory with complaints of jr8 Congestion, Headache. 16:09 This is a 45-year-old female patient that presented to the emergency room for jr8 congestion, headache, diarrhea for the past 24 hours. Denies any other symptoms at this time. Stated that she has been vaccinated for Covid but has been around positive contacts.. Severity of symptoms: At their worst the symptoms were mild in the emergency department the symptoms are unchanged. The patient has not experienced similar symptoms in the past. The patient has not recently seen a physician. 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 - Social history:: Smoking status: Patient denies any tobacco usage or history of. ROS: 16:09 Constitutional: Negative for fever, chills, and weight loss. jr8 16:09 ENT: Positive for rhinorrhea, sinus congestion. 16:09 Respiratory: Positive for cough, Negative for dyspnea on exertion, shortness of breath, sputum production, wheezing. 16:09 Neuro: Positive for headache. 16:09 All other systems are negative. Exam: 16:09 Constitutional: This is a well developed, well nourished patient who is awake, alert, jr8 and in no acute distress. Eyes: Pupils equal round and reactive to light, extra-ocular motions intact. Lids and lashes normal. Conjunctiva and sclera are non-icteric and not injected. Cornea within normal limits. Periorbital areas with no swelling, redness, or edema. ENT: Nares patent. No nasal discharge, no septal abnormalities noted. Tympanic membranes are normal and external auditory canals are clear. Oropharynx with no redness, swelling, or masses, exudates, or evidence of obstruction, uvula midline. Mucous membranes moist. Neck: Trachea midline, no thyromegaly or masses palpated, and no cervical lymphadenopathy. Supple, full range of motion without nuchal rigidity, or vertebral point tenderness. No Meningismus. Cardiovascular: Regular rate and rhythm with a normal S1 and S2. No gallops, murmurs, or rubs. Normal PMI, no JVD. No pulse deficits. Respiratory: Lungs have equal breath sounds bilaterally, clear to auscultation and percussion. No rales, rhonchi or wheezes noted. No increased work of breathing, no retractions or nasal flaring. Abdomen/GI: Soft, non-tender, with normal bowel sounds. No distension or tympany. No guarding or rebound. No evidence of tenderness throughout. Back: No spinal tenderness. No costovertebral tenderness. Full range of motion. Skin: Warm, dry with normal turgor. Normal color with no rashes, no lesions, and no evidence of cellulitis. MS/ Extremity: Pulses equal, no cyanosis. Neurovascular intact. Full, normal range of motion. Neuro: Awake and alert, GCS 15, oriented to person, place, time, and situation. Cranial nerves II-XII grossly intact. Motor strength 5/5 in all extremities. Sensory grossly intact. Cerebellar exam normal. Normal gait. Vital Signs: 15:31 Pulse 71; Resp 20; Temp 97.8(TE); Pulse Ox 100% on R/A; Weight 74.84 kg; Height 5 ft. 0 kg in. (152.40 cm); Pain 10/10; 15:31 Body Mass Index 32.22 (74.84 kg, 152.40 cm) kg MDM: 15:47 Patient medically screened. [facility] 18:59 Data reviewed: vital signs, nurses notes, lab test result(s), and as a result, I will [facility] discharge patient. Data interpreted: Pulse oximetry: on room air is 100 %. Interpretation: normal. Counseling: I had a detailed discussion with the patient and/or guardian regarding: the historical points, exam findings, and any diagnostic results supporting the discharge/admit diagnosis, lab results, the need for outpatient follow up, a family practitioner, to return to the emergency department if symptoms worsen or persist or if there are any questions or concerns that arise at home. 01/04 18:29 Order name: COVID-19/FLU A+B; Complete Time: 18:59 EDMS Administered Medications: No medications were administered Disposition: 19:01 Co-signature as Attending Physician, Primo Kern MD I agree with the assessment and rn plan of care. Attestation: The patient's history, exam findings, diagnostics, and a summary of any interventions or procedures was reviewed in detail with Zaheer DUFF. Disposition Summary: 01/04/21 19:00 Discharge Ordered Location: Home jr8 Problem: new jr8 Symptoms: have improved jr8 Condition: Stable jr8 Diagnosis - Viral infection, unspecified jr8 Followup: jr8 - With: Private Physician - When: 2 - 3 days - Reason: Recheck today's complaints, Continuance of care, Re-evaluation by your physician Discharge Instructions: - Discharge Summary Sheet jr8 - Viral Respiratory Infection jr8 Forms: - Medication Reconciliation Form jr8 - Thank You Letter jr8 - Antibiotic Education jr8 - Prescription Opioid Use jr8 Prescriptions: - Prednisone 20 mg Oral Tablet - take 1 tablet by ORAL route once daily for 5 days; 5 tablet; Refills: 0, jr8 Product Selection Permitted Signatures: Dispatcher [employer] EDMS Primo Kern MD MD rn Zaheer Greenwood PA PA jr8 Ani Luciano, RN RN kg Corrections: (The following items were deleted from the chart) 16:52 15:37 CORONAVIRUS+MR.LAB.BRZ ordered. EDMS EDMS 16:53 15:37 Influenza Screen (A \T\ B)+BA.LAB.BRZ ordered. EDMS EDMS
--- NOTE | 2021-01-04 19:00 | ER ---
Nurse's Notes [facility] Name: Maranda Quach Age: 45 yrs Sex: Female : 1975 Arrival Date: 01/04/2021 Time: 15:08 Bed Waiting Private MD: Diagnosis: Viral infection, unspecified Presentation: 01/04 15:31 Chief complaint: Patient states: Runny nose, cough, head ache x 1 day. Coronavirus kg screen: Client denies travel out of the [place] in the last 14 days. At this time, unable to obtain information related to travel outside the [place] Client presents with at least one sign or symptom that may indicate coronavirus-19. Standard/surgical mask placed on the client. Provider contacted for isolation considerations. Ebola Screen: Patient negative for fever greater than or equal to 101.5 degrees Fahrenheit, and additional compatible Ebola Virus Disease symptoms Patient denies exposure to infectious person. Patient denies travel to an Ebola-affected area in the 21 days before illness onset. Initial Sepsis Screen: Does the patient meet any 2 criteria? No. Patient's initial sepsis screen is negative. Does the patient have a suspected source of infection? No. Patient's initial sepsis screen is negative. Risk Assessment: Do you want to hurt yourself or someone else? Patient reports no desire to harm self or others. Onset of symptoms was January 04, 2021. 15:31 Method Of Arrival: Ambulatory kg 15:31 Acuity: CHAVEZ 4 kg 15:35 Chief complaint:. kg Triage Assessment: 15:32 General: Appears in no apparent distress. Behavior is calm, cooperative, appropriate kg for age. Pain: Complains of pain in Head Pain currently is 10 out of 10 on a pain scale. at worst was 10 out of 10 on a pain scale. level that patient reports is acceptable is 3 out of 10 on a pain scale. Quality of pain is described as aching, Pain began. Respiratory: Reports cough that is productive, Breath sounds are clear bilaterally. 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 - Social history:: Smoking status: Patient denies any tobacco usage or history of. Screenin:35 Abuse screen: Denies threats or abuse. Denies injuries from another. Nutritional kg screening: No deficits noted. Tuberculosis screening: No symptoms or risk factors identified. Fall Risk None identified. Assessment: 15:35 Cardiovascular: Capillary refill. Respiratory: Airway is patent. kg 19:25 Reassessment: Unable to locate patient for discharge instructions. lp1 Vital Signs: 15:31 Pulse 71; Resp 20; Temp 97.8(TE); Pulse Ox 100% on R/A; Weight 74.84 kg; Height 5 ft. 0 kg in. (152.40 cm); Pain 10/10; 15:31 Body Mass Index 32.22 (74.84 kg, 152.40 cm) kg ED Course: 15:08 Patient arrived in ED. mr 15:17 Zaheer Greenwood PA is PHCP. jr8 15:17 Primo Kern MD is Attending Physician. jr8 15:32 Triage completed. kg 15:32 Arm band placed on right wrist. kg 15:35 Patient has correct armband on for positive identification. kg 15:35 No provider procedures requiring assistance completed. kg Administered Medications: No medications were administered Outcome: 19:00 Discharge ordered by . jr8 19:36 Patient left the ED. lp1 Signatures: Aubree Dahl mr Sunita Layton, RN RN lp1 Zaheer Greenwood PA PA jr8 Ani Luciano RN RN kg
[2021-01-04 19:50] VITALS: TEMP 97.8; O2SAT 100
== END 2021-01-04 19:36 | disposition home or self-care (01) ==
LOC: ER 15:05
DX: B34.9 Viral infection, unspecified (principal); Z20.822 Contact with and (suspected) exposure to COVID-19; I10 Essential (primary) hypertension
CPT/HCPCS: 0240U; 99281

== ENCOUNTER 2021-01-07 05:24 | Emergency (ER) | payer SELFPAY ==
--- OUTSIDE RECORDS SUMMARY | 2021-01-07 05:27 | XMS REPORT | Continuity of Care Document ---
:1975 Author Organization [facility] t Address [address] [place] [address] Care Team Providers Name Role Phone Susana DUFF, A Primary Care Physician Susana DUFF, A Attending Clinician Andree RN, L Attending Clinician Unavailable Doctor Unassigned, Name Attending Clinician Unavailable Problems Condition Condition Condition Status Onset Resolution Last Treating Co mments Source Name Details Category Date Date Treatment Clinician Date Chest pain Chest pain Disease Active 2019- U nivers 5-02 ity of 00:00: [place] 00 Medical Branch Frequent Frequent Disease Active Unive rs headaches headaches 4-03 ity of 00:00: 00 Medical Branch Hematochez Hematochez Disease Active 2017-05 Overview : Univers ia ia 0-19 Added ity of 00:00: automatic [place] 00 ally from Medical request Branch for surgery [id number] Hydrops of Hydrops of Disease Active 2017-05 Overview : Univers gallbladde gallbladde 0-19 Added it y of r r 00:00: automatic ally from Medical request Branch for surgery [id number] 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 squamous 5-27 hpv ity of cells of cells of 00:00: negative; [place] as undetermin undetermin 00 routine M edical ed ed retesting Branch significan significan in 3 ce (ASCUS) ce (ASCUS) years on on Papanicola Papanicola ou smear ou smear of cervix of cervix Obese Obese Disease Active Univers 5-18 ity of 00:00: [place] [facility] Tobacco Tobacco Disease Active Univers use use 5-18 ity of disorder disorder 00:00: [address] Encounter Encounter Disease Active 2006-05 Overview: Univers for for 0-08 Seeking ity of counseling counseling 00:00: ICD10 Medical Diagnosis Branch 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 Social History Social Habit Start Date Stop Date Quantity Comments Source Exposure to Yes [facility] ([facility] [place] Tobacco use and 2020-09-30 2020-09-30 Never used Universit y of exposure 00:00:00 00:00:00 [facility] Alcohol intake 2020-09-30 2020-09-30 Ex-drinker University 00:00:00 00:00:00 (finding) [facility] Tobacco Comment 2019-09-27 2019-09-27 second hand smoke Un iversity of 00:00:00 00:00:00 [facility] Alcohol Comment 2015-10-13 2015-10-13 social drinks Univer sity of 00:00:00 00:00:00 occasionally [facility] Sex Assigned At [birth year] Universit y of 00:00:00 00:00:00 [facility] Smoking Status Start Date Stop Date Source Never smoker [facility] Medications Ordered Filled Start Stop Current [...] by ity of capsule 00:00: mouth 3 [place] 00 (three) Medical times Branch daily as [...] Immunizations Ordered Filled Immunization Date Status Comments [facility] e Immunization Name Name Td 2020-08-07 Completed University of 00:00:00 [facility] Vital Signs Vital Name Observation Time Observation Value Comments Source Systolic blood 2020-10-01 01:49:00 154 mm[Hg] [facility] Diastolic blood 2020-10-01 01:49:00 100 mm[Hg] [facility] Procedures This patient has no known procedures. Plan of Care Planned Activity Planned Date Details Comments Source Future Scheduled 2028-04-01 Screening for [facility] Test 00:00:00 malignant neoplasm Medical B ranch of colon (procedure) [code = 491692214] Future Scheduled 2028-04-01 Screening for [facility] Test 00:00:00 malignant neoplasm Medical B ranch of colon (procedure) [code = [id number]] Future Scheduled 2021-01-26 INFLUENZA VACCINE [facility] Test 00:00:00 (Season Ended) [code Medical Branch = INFLUENZA VACCINE (Season Ended)] Future Scheduled 2018-10-12 Screening for [facility] Test 00:00:00 malignant neoplasm Medical B ranch of cervix (procedure) [code = [id number]] Future Scheduled 2015 Screening for [facility] Test 00:00:00 malignant neoplasm Medical B ranch of breast (procedure) [code = [id number]] Future Scheduled 1994 DTaP,Tdap,and Td Univers [facility] Test 00:00:00 Vaccines (1 - Tdap) Medical Branch [code = DTaP,Tdap,and Td Vaccines (1 - Tdap)] Future Scheduled 1993 Hepatitis C [facility] Test 00:00:00 screening Medical Branch (procedure) [code = [id number]] Future Scheduled 1991 SARS-CoV-2 [facility] Test 00:00:00 (COVID-19) Vaccine Medical B ranch (1) [code = SARS-CoV-2 (COVID-19) Vaccine (1)] Future Scheduled 1987 Depression screening Uni [facility] Test 00:00:00 (procedure) [code = Medical Branch [id number]] Encounters Start End Encounter Admission Attending Care Care Encounter Source Date/Time Date/Time Type Type Clinicians Facility Department ID 2021-01-03 2021-01-03 Telephone Susana, [facility] [id number] 00:00:00 00:00:00 [facility] [id number] [place] [id number] Yolanda [id number] [address] 2020-11-30 2020-11-30 Telephone Andree La [id number] 00:00:00 00:00:00 , Pamela Judd [id number] Danay [id number] 2020-11-22 2020-11-22 Orders Doctor KATELIN [id number] 00:00:00 00:00:00 Only Unassigned, VERÓNICA [id number] [facility] [id number] 2020-11-10 2020-11-10 Telephone Susana, [facility] [id number] 00:00:00 00:00:00 [facility] [id number] [place] [id number] [facility] [phone] [facility] [address] Results This patient has no known results.
[2021-01-07] MEDS ORDERED: HYDROCODONE/CHLORPHEN 5 ML/OSYR ONE (07:42)
[2021-01-07 10:05] LABS: SARS-COV-2 RT PCR NEGATIVE (NEGATIVE)
--- NOTE | 2021-01-07 10:08 | ER ---
Nurse's Notes [facility] Name: Maranda Quach Age: 45 yrs Sex: Female : 1975 Arrival Date: 01/07/2021 Time: 05:27 Bed DIS8 Private MD: Diagnosis: Acute upper respiratory infection, unspecified Presentation: 01/07 06:02 Chief complaint: Patient states: Reports coughing up phlem x2-3 days, pain to right ear lp1 with ringing sensation; Denies fever, previous visit was tested for COVID, negative results. Coronavirus screen: Client denies travel out of the [place] in the last 14 days. The client reports previous COVID testing was negative. Ebola Screen: No symptoms or risks identified at this time. Risk Assessment: Do you want to hurt yourself or someone else? Patient reports no desire to harm self or others. Onset of symptoms was January 07, 2021. 06:02 Method Of Arrival: Ambulatory lp1 06:02 Acuity: CHAVEZ 4 lp1 06:05 Initial Sepsis Screen: Does the patient meet any 2 criteria? No. Patient's initial lp1 sepsis screen is negative. Does the patient have a suspected source of infection? No. Patient's initial sepsis screen is negative. Triage Assessment: 06:07 General: Appears in no apparent distress. Behavior is calm, cooperative. Pain: Denies lp1 pain. Neuro: Level of Consciousness is awake, alert, obeys commands. Cardiovascular: Patient's skin is warm and dry. Respiratory: Reports cough that is persistent Respiratory effort is even, unlabored. Respiratory: Patient reports coughing that makes her vomit the patient has mild shortness of breath. GI: Abdomen is non-distended. Derm: Skin is pink, warm \T\ dry. 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 - Social history:: Smoking status: Patient denies any tobacco usage or history of. Screenin:04 Abuse screen: Denies threats or abuse. Denies injuries from another. Nutritional lp1 screening: No deficits noted. Tuberculosis screening: No symptoms or risk factors identified. Fall Risk None identified. Vital Signs: 06:05 BP 127 / 78; Pulse 71; Resp 18; Temp 97.5(TE); Pulse Ox 100% on R/A; Weight 74.84 kg lp1 (R); Height 5 ft. 0 in. (152.40 cm); Pain 0/10; 06:05 Body Mass Index 32.22 (74.84 kg, 152.40 cm) lp1 ED Course: 05:27 Patient arrived in ED. bp1 06:04 Triage completed. lp1 06:04 Arm band placed on right wrist. lp1 06:08 Patient has correct armband on for positive identification. lp1 06:36 Lambert Johns NP is PHCP. pm1 06:36 Jorge Adames MD is Attending Physician. pm1 07:16 Ayesha Reyes RN is Primary Nurse. ss 10:20 No provider procedures requiring assistance completed. Patient did not have IV access ss during this emergency room visit. Administered Medications: 07:28 Drug: Tussionex Pennkinetic ER (chlorpheniramine-hydrocodone) Suspension 5 ml Route: PO;ss Outcome: 10:08 Discharge ordered by . pm1 10:20 Discharged to home ambulatory. ss 10:20 Condition: good 10:20 Discharge instructions given to patient, Instructed on discharge instructions, follow up and referral plans. medication usage, Demonstrated understanding of instructions, follow-up care, medications, Prescriptions given X 3. 10:21 Patient left the ED. ss Signatures: Ayesha Reyes RN RN Sunita Layton RN RN lp1 Lambert Johns NP TRANSMISSION WORKER pm1 Tiffanie Connell bp1 Corrections: (The following items were deleted from the chart) 06:07 06:02 Chief complaint: Patient states: Reports coughing up phlem, pain to right ear lp1 with ringing sensation; Denies fever, previous visit was tested for COVID, negative results lp1
--- NOTE | 2021-01-07 10:09 | EDPHYS ---
Physician Documentation [facility] Name: Maranda Quach Age: 45 yrs Sex: Female : 1975 Arrival Date: 01/07/2021 Time: 05:27 Bed DIS8 Private MD: ED Physician Jorge Adames HPI: 01/07 06:48 This 45 yrs old Female presents to ER via Ambulatory with complaints of Cough.pm1 06:48 The patient or guardian reports cough, with productive sputum, that is white. Onset: pm1 The symptoms/episode began/occurred 4 day(s) ago. Severity of symptoms: in the emergency department the symptoms are actually worse. Modifying factors: The symptoms are alleviated by nothing, the symptoms are aggravated by smoke, Possible exposure to Covid 4 days ago from coworkers currently. Associated signs and symptoms: Pertinent positives: sore throat, Pertinent negatives: chest pain, ear ache, fever, Shortness of breath. Patient without vomiting, actually reports sputum with coughing. The patient has been recently seen at the [facility] Emergency Department, for similar complaints 3 days ago and swabbed for Covid. Covid result was negative. Patient was seen here in the ER 3 days ago with cough and congestion for 1 day. Patient was swabbed for Covid and result was negative. Patient was discharged home with a prescription for prednisone. Patient did not take the prescription for prednisone. Patient returns back today with cough and congestion for 4 days. Productive cough white sputum. Patient without any shortness of breath chest pain nausea vomiting. Patient reports small quantity of diarrhea. Patient has been vaccinated with two shot vaccine. 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 - Social history:: Smoking status: Patient denies any tobacco usage or history of. ROS: 06:48 Constitutional: Negative for fever, chills, and weight loss. pm1 06:48 Cardiovascular: Negative for chest pain, palpitations, and edema. 06:48 Back: Negative for injury and pain, MS/Extremity: Negative for injury and deformity, Skin: Negative for injury, rash, and discoloration, Neuro: Negative for headache, weakness, numbness, tingling, and seizure. 06:48 ENT: Positive for sore throat, Right ear pain. 06:48 Respiratory: Positive for cough, with white sputum, Negative for shortness of breath. 06:48 Abdomen/GI: Positive for diarrhea, Negative for abdominal pain, vomiting, constipation. 06:48 All other systems are negative. Exam: 06:48 Constitutional: This is a well developed, well nourished patient who is awake, alert, pm1 and in no acute distress. Head/Face: Normocephalic, atraumatic. 06:48 Neck: Trachea midline, no thyromegaly or masses palpated, and no cervical lymphadenopathy. Supple, full range of motion without nuchal rigidity, or vertebral point tenderness. No Meningismus. 06:48 Back: No spinal tenderness. No costovertebral tenderness. Full range of motion. Skin: Warm, dry with normal turgor. Normal color with no rashes, no lesions, and no evidence of cellulitis. MS/ Extremity: Pulses equal, no cyanosis. Neurovascular intact. Full, normal range of motion. 06:48 ENT: External ear(s): are unremarkable, Ear canal(s): are normal, TM's: are normal, Mouth: Lips: normal, moist, Oral mucosa: normal, pink and intact, moist, Posterior pharynx: is normal, airway is patent, Airway: normal, no evidence of obstruction, patent, Tonsils: are normal in appearance, no enlargement, no erythema, no exudate, no ulcerations, peritonsillar mass, is not appreciated, pooling of secretions, is not appreciated. 06:48 Cardiovascular: Exam negative for acute changes, Rate: normal, Rhythm: regular, Pulses: no pulse deficits are appreciated, Heart sounds: normal, normal S1and S2. 06:48 Respiratory: Exam negative for acute changes, respiratory distress, shortness of breath, Breath sounds: are clear throughout. 06:48 Abdomen/GI: Inspection: abdomen appears normal, Palpation: abdomen is soft and non-tender, in all quadrants. 06:48 Neuro: Exam negative for acute changes, Orientation: is normal, Mentation: is normal, Motor: is normal, moves all fours, Gait: is steady, at a normal pace, without difficulty. Vital Signs: 06:05 BP 127 / 78; Pulse 71; Resp 18; Temp 97.5(TE); Pulse Ox 100% on R/A; Weight 74.84 kg lp1 (R); Height 5 ft. 0 in. (152.40 cm); Pain 0/10; 06:05 Body Mass Index 32.22 (74.84 kg, 152.40 cm) lp1 MDM: 06:37 Patient medically screened. [facility] 07:11 Data reviewed: vital signs. Data interpreted: Pulse oximetry: on room air is 100 %. pm1 Interpretation: normal. 09:58 ED course: Discussed with patient strep result, negative. And pending flu and Covid pm1 results. Would like to have those results so patient can self quarantine as necessary prior to discharge. 10:08 Counseling: I had a detailed discussion with the patient and/or guardian regarding: the pm1 historical points, exam findings, and any diagnostic results supporting the discharge/admit diagnosis, lab results, the need for outpatient follow up, to return to the emergency department if symptoms worsen or persist or if there are any questions or concerns that arise at home. 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 No results found. pm1 01/07 06:46 Order name: Strep; Complete Time: 09:53 pm1 01/07 09:50 Order name: Throat Culture EDMS 01/07 10:05 Order name: COVID-19/FLU A+B; Complete Time: 10:08 EDMS Administered Medications: 07:28 Drug: Tussionex Pennkinetic ER (chlorpheniramine-hydrocodone) Suspension 5 ml Route: PO;ss Disposition Summary: 01/07/21 10:08 Discharge Ordered Location: Home pm1 Problem: new pm1 Symptoms: have improved pm1 Condition: Stable pm1 Diagnosis - Acute upper respiratory infection, unspecified pm1 Followup: pm1 - With: Emergency Department - When: As needed - Reason: Worsening of condition Followup: pm1 - With: Private Physician - When: 2 - 3 days - Reason: Recheck today's complaints, Continuance of care, Re-evaluation by your physician Discharge Instructions: - Discharge Summary Sheet pm1 - Upper Respiratory Infection, Adult pm1 Forms: - Medication Reconciliation Form pm1 - Thank You Letter pm1 - Antibiotic Education pm1 - Prescription Opioid Use pm1 Prescriptions: - Ventolin HFA 90 mcg/actuation Inhalation HFA aerosol inhaler - inhale 1 puff by INHALATION route every 4-6 hours As needed; 1 Inhaler; pm1 Refills: 0, Product Selection Permitted - Guaifenesin AC 10-100 mg/5 mL Oral Liquid - take 10 milliliters by ORAL route every 4 hours As needed; 240 milliliter; pm1 Refills: 0, Product Selection Permitted - Prednisone 20 mg Oral Tablet - take 3 tablets by ORAL route once daily for 5 days; 15 tablet; Refills: 0, pm1 Product Selection Permitted Addendum: 01/10/2021 07:05 Co-signature as Attending Physician, Jorge Adames MD I agree with the assessment and c rosa plan of care. Signatures: Dispatcher [employer] EDJorge Hernandez MD MD cha Smirch, Shelby RN RN ss Sunita Layton RN RN lp1 Lambert Johns NP UNDERWRITING CONSULTANT pm1 Corrections: (The following items were deleted from the chart) 01/07 09:23 06:47 CORONAVIRUS+MR.LAB.BRZ ordered. EDMS EDMS 09:24 06:47 Influenza Screen (A \T\ B)+BA.LAB.BRZ ordered. EDMS EDMS
[2021-01-07 10:30] VITALS: BP 127/78; TEMP 97.5; O2SAT 100
== END 2021-01-07 10:21 | disposition home or self-care (01) ==
LOC: ER 05:24
DX: J06.9 Acute upper respiratory infection, unspecified (principal); Z20.822 Contact with and (suspected) exposure to COVID-19; I10 Essential (primary) hypertension
CPT/HCPCS: 0240U; 87070; 87081; 99283

== ENCOUNTER 2021-03-29 03:56 | Emergency (ER) | payer SELFPAY ==
[2021-03-29 04:52] LABS: Absolute Lymphocytes (CBC) 1.8 K/uL (0.7-4.9); Basophils % 0.6 % (0-1.3); Lymphocytes % 33.7 % (15.3-44.8); MPV 9.4 fL (7.6-11.3)
[2021-03-29 05:07] LABS: Albumin 3.9 g/dL (3.4-5.0); Bilirubin Direct 0.1 mg/dL (0-0.2); Bilirubin Total 0.5 mg/dL (0.2-1.0); Protein, Total 7.8 g/dL (6.4-8.2)
[2021-03-29 05:12] LABS: Potassium 3.7 mmol/L (3.5-5.1)
[2021-03-29 05:28] LABS: Urine Blood Negative (Negative); Urine Glucose Negative (Negative); Urine Protein Negative (Negative); Urine Specific Gravity >=1.030 (1.005-1.030)
[2021-03-29 05:38] LABS: Urine Specific Gravity/Preg >1.030 (1.005-1.030)
[2021-03-29] MEDS ORDERED: ONDANSETRON 4 MG/2 ML VIAL ONE (05:39)
[2021-03-29] MEDS ORDERED: NA CHLORIDE 0.9% 1,000 ML ONE (05:39)
[2021-03-29] MEDS ORDERED: CEFTRIAXONE 1000 MG/VIAL ONE (06:24)
[2021-03-29] MEDS ORDERED: MORPHINE 4 MG/ML SYR ONE (06:24)
--- NOTE | 2021-03-29 06:48 | ER ---
Nurse's Notes [facility] Name: Maranda Quach Age: 46 yrs Sex: Female : 1975 Arrival Date: 03/29/2021 Time: 03:59 Bed 14 [facility] MD: Diagnosis: Diarrhea, unspecified Presentation: 03/29 04:12 Chief complaint: Patient states: was working out in the heat today, reports N/V/D and em upper abdominal pain. Coronavirus screen: Vaccine status: Patient reports receiving the 2nd dose of the covid vaccine. Ebola Screen: Patient negative for fever greater than or equal to 101.5 degrees Fahrenheit, and additional compatible Ebola Virus Disease symptoms Patient denies exposure to infectious person. Patient denies travel to an Ebola-affected area in the 21 days before illness onset. No symptoms or risks identified at this time. Initial Sepsis Screen: Does the patient meet any 2 criteria? No. Patient's initial sepsis screen is negative. Does the patient have a suspected source of infection? No. Patient's initial sepsis screen is negative. Risk Assessment: Do you want to hurt yourself or someone else? Patient reports no desire to harm self or others. Onset of symptoms was March 29, 2021. 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 - Social history:: Smoking status: Patient denies any tobacco usage or history of. Patient/guardian denies using alcohol, street drugs, The patient lives with family. - Family history:: not pertinent. Screenin:25 Abuse screen: Denies threats or abuse. Denies injuries from another. Nutritional dc2 screening: No deficits noted. Tuberculosis screening: No symptoms or risk factors identified. Never had TB. Fall Risk None identified. No fall in past 12 months (0 pts). No secondary diagnosis (0 pts). No IV (0 pts). Ambulatory Aid- None/Bed Rest/Nurse Assist (0 pts). Gait- Normal/Bed Rest/Wheelchair (0 pts) Mental Status- Oriented to own ability (0 pts). Total Cohen Fall Scale indicates No Risk (0-24 pts). Assessment: 04:20 General: Appears in no apparent distress. Behavior is calm, cooperative. Pain: dc2 Complains of pain in epigastric area after eating. Neuro: No deficits noted. Level of Consciousness is awake, alert, obeys commands, Oriented to person, place, time, situation. Cardiovascular: No deficits noted. Denies chest pain, shortness of breath. Respiratory: No deficits noted. Airway is patent Breath sounds are clear bilaterally. GI: Abdomen is non-distended, obese, Bowel sounds present X 4 quads. Reports upper abdominal pain, nausea, vomiting, since Eating about 2 hours ago, co pain to epigastric area. 04:20 : No signs and/or symptoms were reported regarding the genitourinary system. Derm: No dc2 deficits noted. No signs and/or symptoms reported regarding the dermatologic system. Musculoskeletal: No deficits noted. No signs and/or symptoms reported regarding the musculoskeletal system. Vital Signs: 04:12 BP 154 / 76; Pulse 84; Resp 16; Temp 97.8; Pulse Ox 100% ; Weight 72.57 kg; Height 5 em ft. 0 in. (152.40 cm); 05:30 BP 121 / 63; Pulse 55; Resp 16; Pulse Ox 100% on R/A; Pain 8/10; dc2 06:30 BP 101 / 46; Pulse 49; Resp 16; Pulse Ox 100% ; Pain 0/10; dc2 04:12 Body Mass Index 31.25 (72.57 kg, 152.40 cm) em ED Course: 03:59 Patient arrived in ED. ja2 04:14 Triage completed. em 04:14 Arm band placed on. em 04:15 Arcelia Mcgarry, RN is Primary Nurse. dc2 04:16 Cassandra Estevez MD is Attending Physician. ma2 04:25 Patient has correct armband on for positive identification. Placed in gown. Bed in low dc2 position. Call light in reach. Side rails up X 1. monitoring tech on. Pulse ox on. NIBP on. 04:25 Door closed. Lights dimmed. dc2 04:25 Inserted saline lock: 20 gauge in left antecubital area, using aseptic technique. Blood dc2 collected. 04:31 Basic Metabolic Panel Sent. dc2 04:31 CBC with Diff Sent. dc2 04:31 Hepatic Function Sent. dc2 04:31 Lipase Sent. dc2 04:35 No provider procedures requiring assistance completed. dc2 05:[address] via wheelchair. dc2 06:08 CT Abd/Pelvis - IV Contrast Only In Process Unspecified. EDMS 06:30 No apparent distress. Resting quietly. Awaiting lab results, Awaiting radiology dc2 results. Awaiting disposition. 06:59 IV discontinued, intact, bleeding controlled, No redness/swelling at site. Pressure dc2 dressing applied. Administered Medications: 04:30 Drug: Zofran (Ondansetron) 4 mg Route: IVP; Site: left antecubital; dc2 05:30 Follow up: Response: Nausea is decreased dc2 04:40 Drug: NS 0.9% 1000 ml Route: IV; Rate: 1 bolus; Infused Over: 1 hrs; Site: left dc2 antecubital; Delivery: Primary tubing; 06:19 Follow up: IV Status: Completed infusion; IV Intake: 1000ml dc2 05:25 Drug: morphine 4 mg Route: IVP; Site: left antecubital; dc2 06:19 Follow up: Response: Pain is decreased dc2 05:25 Drug: Rocephin (cefTRIAXone) 1 grams Route: IV; Rate: calculated rate; Infused Over: 5 dc2 mins; Site: left antecubital; Delivery: Primary tubing; 06:19 Follow up: Response: No adverse reaction dc2 Intake: 06:19 IV: 1000ml; Total: 1000ml. dc2 Outcome: 06:47 Discharge ordered by . ma2 06:59 Discharged to home ambulatory. dc2 06:59 Condition: stable 06:59 Discharge instructions given to patient, Instructed on discharge instructions, follow up and referral plans. Demonstrated understanding of instructions, follow-up care, medications, Prescriptions given X 4. 07:00 Patient left the ED. dc2 Signatures: Dispatcher [employer] Rashad Matos, RN RN Cassandra Messina MD MD ma2 Alexander, Jessica ja2 MalgorzataArcelia RN RN dc2 Corrections: (The following items were deleted from the chart) 05:44 05:30 BP 121 / 163; Pulse 55bpm; Resp 16bpm; Pulse Ox 100% RA; Pain 8/10; dc2 dc2
--- NOTE | 2021-03-29 06:49 | EDPHYS ---
Physician Documentation [facility] Name: Maranda Quach Age: 46 yrs Sex: Female : 1975 Arrival Date: 03/29/2021 Time: 03:59 Bed 14 Private MD: ED Physician Cassandra Estevez HPI: 03/29 05:07 This 46 yrs old Female presents to ER via Ambulatory with complaints of ma2 Nausea/Vomiting. 05:07 The patient presents to the emergency department with nausea, vomiting, diarrhea. ma2 Onset: The symptoms/episode began/occurred gradually, 2 day(s) ago. Associated signs and symptoms: Pertinent negatives: belching, dysuria, GI bleeding, hematuria. Severity of symptoms: At their worst the symptoms were moderate in the emergency department the symptoms are unchanged. The patient has experienced a previous episode. 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 - Social history:: Smoking status: Patient denies any tobacco usage or history of. Patient/guardian denies using alcohol, street drugs, The patient lives with family. - Family history:: not pertinent. ROS: 05:07 Constitutional: Negative for fever, chills, and weight loss. ma2 05:07 All other systems are negative. Exam: 05:07 Constitutional: This is a well developed, well nourished patient who is awake, alert, ma2 and in no acute distress. ENT: Nares patent. No nasal discharge, no septal abnormalities noted. Tympanic membranes are normal and external auditory canals are clear. Oropharynx with no redness, swelling, or masses, exudates, or evidence of obstruction, uvula midline. Mucous membranes moist. Neck: Trachea midline, no thyromegaly or masses palpated, and no cervical lymphadenopathy. Supple, full range of motion without nuchal rigidity, or vertebral point tenderness. No Meningismus. Chest/axilla: Normal chest wall appearance and motion. Nontender with no deformity. No lesions are appreciated. Cardiovascular: Regular rate and rhythm with a normal S1 and S2. No gallops, murmurs, or rubs. Normal PMI, no JVD. No pulse deficits. Respiratory: Lungs have equal breath sounds bilaterally, clear to auscultation and percussion. No rales, rhonchi or wheezes noted. No increased work of breathing, no retractions or nasal flaring. Abdomen/GI: Soft, non-tender, with normal bowel sounds. No distension or tympany. No guarding or rebound. No evidence of tenderness throughout. Skin: Warm, dry with normal turgor. Normal color with no rashes, no lesions, and no evidence of cellulitis. MS/ Extremity: Pulses equal, no cyanosis. Neurovascular intact. Full, normal range of motion. Neuro: Awake and alert, GCS 15, oriented to person, place, time, and situation. Cranial nerves II-XII grossly intact. Motor strength 5/5 in all extremities. Sensory grossly intact. Cerebellar exam normal. Normal gait. Vital Signs: 04:12 BP 154 / 76; Pulse 84; Resp 16; Temp 97.8; Pulse Ox 100% ; Weight 72.57 kg; Height 5 em ft. 0 in. (152.40 cm); 05:30 BP 121 / 63; Pulse 55; Resp 16; Pulse Ox 100% on R/A; Pain 8/10; dc2 06:30 BP 101 / 46; Pulse 49; Resp 16; Pulse Ox 100% ; Pain 0/10; dc2 04:12 Body Mass Index 31.25 (72.57 kg, 152.40 cm) em MDM: 04:16 Patient medically screened. [facility] 05:07 Differential diagnosis: Nonspecific abd pain, gastritis, viral gastroenteritis, ma2 gastroenteritis. 06:47 Data reviewed: vital signs, nurses notes. Counseling: I had a detailed discussion with [facility] the patient and/or guardian regarding: the historical points, exam findings, and any diagnostic results supporting the discharge/admit diagnosis, the presence of at least one elevated blood pressure reading (>120/80) during this emergency department visit, the need for outpatient follow up. Response to treatment: the patient's symptoms have resolved after treatment. 03/29 04:07 Order name: Basic Metabolic Panel; Complete Time: 05:17 [facility] 03/29 04:07 Order name: CBC with Diff; Complete Time: 05:17 [facility] 03/29 04:07 Order name: Hepatic Function; Complete Time: 05:17 va2 03/29 04:07 Order name: Lipase; Complete Time: 05:17 va2 03/29 05:27 Order name: Urine Dipstick-Ancillary; Complete Time: 05:46 EDMS 03/29 05:28 Order name: Urine --Ancillary (enter results); Complete Time: 05:46 2 03/29 04:07 Order name: IV Saline Lock; Complete Time: 04:31 va2 03/29 04:07 Order name: Labs collected and sent; Complete Time: 04:31 va2 03/29 04:07 Order name: Urine Dipstick-Ancillary (obtain specimen); Complete Time: 06:12 va2 03/29 05:04 Order name: CT Abd/Pelvis - IV Contrast Only va2 03/29 04:07 Order name: Urine Test (obtain specimen); Complete Time: 06:12 ma2 Administered Medications: 04:30 Drug: Zofran (Ondansetron) 4 mg Route: IVP; Site: left antecubital; dc2 05:30 Follow up: Response: Nausea is decreased dc2 04:40 Drug: NS 0.9% 1000 ml Route: IV; Rate: 1 bolus; Infused Over: 1 hrs; Site: left dc2 antecubital; Delivery: Primary tubing; 06:19 Follow up: IV Status: Completed infusion; IV Intake: 1000ml dc2 05:25 Drug: morphine 4 mg Route: IVP; Site: left antecubital; dc2 06:19 Follow up: Response: Pain is decreased dc2 05:25 Drug: Rocephin (cefTRIAXone) 1 grams Route: IV; Rate: calculated rate; Infused Over: 5 dc2 mins; Site: left antecubital; Delivery: Primary tubing; 06:19 Follow up: Response: No adverse reaction dc2 Disposition Summary: 03/29/21 06:47 Discharge Ordered Location: Home ma2 Condition: Stable ma2 Diagnosis - Diarrhea, unspecified ma2 Followup: ma2 - With: Private Physician - When: Tomorrow - Reason: If symptoms return, Continuance of care Discharge Instructions: - Discharge Summary Sheet ma2 - Diarrhea, Adult ma2 Forms: - Medication Reconciliation Form ma2 - Thank You Letter ma2 - Antibiotic Education ma2 - Prescription Opioid Use ma2 - Work release form dc2 Prescriptions: - Flagyl 500 mg Oral Tablet - take 1 tablet by ORAL route every 12 hours for 7 days; 14 tablet; Refills: 0, ma2 Product Selection Permitted - Zofran 4 mg Oral Tablet - take 1 tablet by ORAL route every 12 hours As needed; 20 tablet; Refills: 0, ma2 Product Selection Permitted - Cipro 500 mg Oral Tablet - take 1 tablet by ORAL route every 12 hours for 7 days; 14 tablet; Refills: 0, ma2 Product Selection Permitted - Pepcid 20 mg Oral Tablet - take 1 tablet by ORAL route once daily for 10 days; 10 tablet; Refills: 0, ma2 Product Selection Permitted Signatures: Dispatcher [employer] Rashad Matos RN RN em Alzahri, Mohammad, MD MD va2 Arcelia Mcgarry RN RN ar2
[2021-03-29] MEDS ORDERED: ONDANSETRON 4 MG (ODT) TAB ONE (07:23)
[2021-03-29 07:30] VITALS: TEMP 97.8; O2SAT 100
[2021-03-29 07:36] VITALS: BP 101/46
--- NOTE | 2021-03-29 10:26 | RAD REPORT ---
EXAM DESCRIPTION: CT - Abdomen Pelvis W Contrast - 03/29/2021 6:29 am CLINICAL HISTORY: The patient is 46 years old and is Female; ABD PAIN TECHNIQUE: Axial computed tomography images of the abdomen and pelvis with intravenous contrast. S agittal and coronal reformatted images were created and reviewed. This CT exam was performed using one or more of the following dose reduction techniques: automated exposure control, adjustment of t he mA and/or kV according to patient size, and/or use of iterative reconstruction technique. COMPARISON: CT of the abdomen and pelvis November 07, 2020 FINDINGS: LUNG BASES: Unremarkable. No mass. No consolidation. MEDIASTINUM: Small hiatal h ernia is present.ABDOMEN: LIVER: Unremarkable. No mass. GALLBLADDER AND BILE DUCTS: Surgi jake clips are present in the right upper quadrant, consistent with previous cholecystectomy. PANCRE : No ductal dilation. No mass. SPLEEN: A small splenule is present within left upper quadra nt. The spleen is unremarkable. ADRENALS: Unremarkable. No mass. KIDNEYS AND URETERS: Unrem arkable. The kidneys enhance symmetrically. No obstructing renal or ureteral calculus is seen. No hyd ronephrosis or hydroureter. No perinephric fluid or stranding. STOMACH AND BOWEL: The stomach is fluid-filled with fluid and air. The small bowel is normal in caliber. Stool is present throughout co julianne. There is no mucosal thickening or evidence of bowel obstruction.PELVIS: APPENDIX: The appe ndix is normal in caliber without surrounding inflammation. BLADDER: The bladder is incompletely distended. REPRODUCTIVE: Unremarkable as visualized.ABDOMEN and PELVIS: INTRAPERITONEAL SPACE: Unremarkable. No free air. No significant fluid collection. BONES/JOINTS: No acute fractur e. SOFT TISSUES: The soft tissues are normal. VASCULATURE: Unremarkable. No abdominal aorti c aneurysm. LYMPH NODES: Unremarkable. No enlarged lymph nodes. IMPRESSION: No acute findings on this contrasted CT of the abdomen and pelvis to explain the patient 's symptoms. Electronically signed by: Lakisha Ruiz MD 03/29/2021 6:15 AM CDT Due to temporary technical issues with the PACS/Fluency reporting system, reports are being signed by the in house radiologist without review as a courtesy to ensure prompt reporting. The interpreting r adiologist is fully responsible for the content of the report.
== END 2021-03-29 07:00 | disposition home or self-care (01) ==
LOC: ER 03:56
DX: R19.7 Diarrhea, unspecified (principal); I10 Essential (primary) hypertension
CPT/HCPCS: 36415; 74177; 80048; 80076; 81003; 81025; 83690; 85025; 96361; 96374; 96375; 99285; J2405; J7030; Q9967

== ENCOUNTER 2021-04-16 04:44 | Emergency (ER) | payer SELFPAY ==
--- OUTSIDE RECORDS SUMMARY | 2021-04-16 04:47 | XMS REPORT | Continuity of Care Document ---
:1975 Author Organization [facility] t Address [address] [place] [address] Care Team Providers Name Role Phone Israel DUFF, A Primary Care Physician SEDRICK Attending Clinician Unavailable ISRAEL, Annalise Attending Clinician Unavailable Annalise Jiang Attending Clinician Andree RN, L Attending Clinician Unavailable Doctor Unassigned, Name Attending Clinician Unavailable JERRY CARRILLO Attending Clinician Unavailable KING HATHAWAY Attending Clinician Unavailable KING HATHAWAY Attending Clinician Unavailable Evans CRUZ Attending Clinician Unavailable JOHNATHAN, F Attending Clinician Unavailable ROBB ALEGRE Attending Clinician Unavailable CALEB Attending Clinician Unavailable Annalise TERRY Attending Clinician Unavailable TERRI BROWN Attending Clinician Unavailable Silviano SIMS Attending Clinician Unavailable CALEB Admitting Clinician Unavailable Payers Payer Name Policy Type Policy Number Effective Date Expiration Date S ource [employer] [id number] 2019 00:00:00 Problems Condition Condition Condition Status Onset Resolution Last Treating Co mments Source Name Details Category Date Date Treatment Clinician Date Chest pain Chest pain Disease Active 2019- U nivers 5-02 ity of 00:00: [address] Frequent Frequent Disease Active Unive rs headaches headaches 4-03 ity of 00:00: [address] Hematochez Hematochez Disease Active 2017-05 Overview : Univers ia ia 0-19 Added ity of 00:00: automatic ally from Medical request Branch for surgery [id number] Hydrops of Hydrops of Disease Active 2017-05 Overview : Univers delia lin 0-19 Added it y of r r 00:00: automatic 00 ally from Medical request Branch for surgery [id number] 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 squamous 5- hpv ity of cells of cells of 00:00: negative; [place] as undetermin undetermin 00 routine M edical ed ed retesting Branch significan significan in 3 ce (ASCUS) ce (ASCUS) years on on Papanicola Papanicola ou smear ou smear of cervix of cervix Obese Obese Disease Active Univers 5-18 ity of 00:00: [place] 00 Medical [place] Tobacco Tobacco Disease Active Univers use use -18 ity of disorder disorder 00:00: [place] [id number] Medical [place] Encounter Encounter Disease Active 2006-05 Overview: Univers for for 0-08 Seeking ity of counseling counseling 00:00: ICD10 Medical Diagnosis Branch Term 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 Migraines Migraines Disease Active Uni vers ity of [facility] Allergies, Adverse Reactions, Alerts Allergy Allergy Status Severity Reaction(s) Onset Inactive Treating Comm ents Source Name Type Date Date Clinician NO KNOWN Drug Active Univers ALLERGIE Class ity of S [facility] Social History Social Habit Start Date Stop Date Quantity Comments Source Exposure to Yes [place] of SARS-CoV-2 [facility] (event) [place] Tobacco use and 2020-09-30 2020-09-30 Never used Universit y of exposure 00:00:00 00:00:00 [facility] Alcohol intake 2020-09-30 2020-09-30 Ex-drinker University of 00:00:00 00:00:00 (finding) [facility] Tobacco Comment 2019-09-27 2019-09-27 second hand smoke Un iversity of 00:00:00 00:00:00 [facility] Alcohol Comment 2015-10-13 2015-10-13 social drinks Univer sity of 00:00:00 00:00:00 occasionally [facility] Sex Assigned At [birth year] Universit y of 00:00:00 00:00:00 [place] [facility] Smoking Status Start Date Stop Date Source Never smoker [facility] Branch Medications Ordered Filled Start Stop Current Ordering [...] Immunizations Ordered Filled Immunization Date Status Comments [facility] e Immunization Name Name Td 2020-08-07 Completed [facility] 00:00:00 [facility] Vital Signs Vital Name Observation Time Observation Value Comments Source Systolic blood 2020-10-01 01:49:00 154 mm[Hg] Univer sity [facility] Diastolic blood 2020-10-01 01:49:00 100 mm[Hg] Unive rsity of [place] pressure Medical Branch Procedures This patient has no known procedures. Plan of Care Planned Activity Planned Date Details Comments Source Future Scheduled 2028-04-01 Screening for [facility] Test 00:00:00 malignant neoplasm Medical [place] of colon (procedure) [code = 184517054] Future Scheduled 2028-04-01 Screening for [facility] Test 00:00:00 malignant neoplasm Medical [place] of colon (procedure) [code = [id number]] Future Scheduled 2021-01-26 INFLUENZA VACCINE [facility] Test 00:00:00 (Season Ended) [code Medical Branch = INFLUENZA VACCINE (Season Ended)] Future Scheduled 2018-10-12 Screening for [facility] Test 00:00:00 malignant neoplasm Medical [facility] of cervix (procedure) [code = [id number]] Future Scheduled 2015 Screening for [facility] Test 00:00:00 malignant neoplasm Medical [facility] of breast (procedure) [code = [id number]] Future Scheduled 1994 DTaP,Tdap,and Td Univers [facility] Test 00:00:00 Vaccines (1 - Tdap) Medical Branch [code = DTaP,Tdap,and Td Vaccines (1 - Tdap)] Future Scheduled 1993 Hepatitis C [facility] Test 00:00:00 screening Medical Branch (procedure) [code = [id number]] Future Scheduled 1991 SARS-CoV-2 [facility] Test 00:00:00 (COVID-19) Vaccine Medical B ranch (1) [code = SARS-CoV-2 (COVID-19) Vaccine (1)] Future Scheduled 1987 Depression screening [facility] Test 00:00:00 (procedure) [code = Medical Branch [id number]] Encounters Start End Encounter Admission Attending Care Care Encounter Source Date/Time Date/Time Type Type Clinicians Facility Department ID 2021-03-27 Emergency [facility] [id number] [facility] [id number] Univers 09:38:46 ity [facility] 2021-03-25 Emergency [facility] [id number] Univers 13:06:43 ity [facility] 2021-03-25 Emergency [facility] [id number] Univers 04:44:08 ity of [facility] 2021-03-25 Emergency [facility] [id number] Univers 03:20:04 ity of [facility] 2021-03-24 Emergency [facility] [id number] Univers 23:32:49 ity [facility] 2021-03-29 2021-03-29 Outpatient R SEDRICK, [facility] [id number] Univers 15:30:00 15:30:00 ABIMAEL [id number] ity [facility] 2021-03-29 2021-03-29 Outpatient R SEDRICK, [facility] [id number] Univers 15:30:00 15:30:00 ABIMAEL [facility] 2021-01-07 2021-01-07 Outpatient R ISRAEL, [facility] [id number] Univers 11:30:00 11:30:00 SARIKA [facility] 2021-01-07 2021-01-07 Outpatient R ISRAEL, [facility] [id number] Univers 08:30:00 08:30:00 SARIKA [id number] ity [facility] 2021-01-05 2021-01-05 Outpatient R ISRAEL, [facility] [id number] Univers 08:30:00 08:30:00 SARIKA [id number] [facility] 2021-01-05 2021-01-05 Outpatient R ISRAEL, [facility] [id number] Univers 08:30:00 08:30:00 SARIKA [facility] 2021-01-03 2021-01-03 Telephone Israel, [facility] [id number] 00:00:00 00:00:00 Sarika [facility] [id number] [place] [id number] Profjanes [id number] nal [address] 2020-11-30 2020-11-30 Telephone Andree La [id number] 00:00:00 00:00:00 , Pamela Judd [id number] [place] [id number] 2020-11-22 2020-11-22 Orders Doctor KATELIN [id number] 00:00:00 00:00:00 Only Unassigned, VERÓNICA [id number] [place] [facility] [id number] 2020-11-16 2020-11-16 Outpatient R GERARDO [facility] [id number] Univers 11:00:00 11:00:00 KRANTHI [id number] [facility] 2020-11-16 2020-11-16 Outpatient R GERARDO [facility] [id number] Univers 11:00:00 11:00:00 KRANTHI [facility] 2020-11-10 2020-11-10 [facility] [id number] Univers 16:00:00 16:00:00 SARIKA [id number] [facility] 2020-11-10 2020-11-10 [facility] [id number] Univers 16:00:00 16:00:00 [facility] 2020-11-10 2020-11-10 [facility] [id number] 00:00:00 00:00:00 Sarika Woody [facility] [id number] [place] [id number] [facility] [id number] nal 044 [address] 2020-09-30 2020-09-30 Outpatient R ISRAEL [facility] [id number] Univers 16:00:00 16:00:00 SARIKA [id number] [facility] 2020-09-30 2020-09-30 [facility] [id number] Univers 16:00:00 16:00:00 SARIKA [facility] 2020-09-16 2020-09-16 Outpatient R [facility] [id number] Univers 16:40:00 16:40:00 [id number] [facility] 2020-09-16 2020-09-16 Outpatient R [facility] [id number] Univers 16:40:00 16:40:00 ity [facility] 2020-09-10 2020-09-10 Outpatient R [facility] [id number] Univers 08:00:00 08:00:00 [id number] ity [facility] 2020-09-08 2020-09-08 Outpatient R [facility] [id number] Univers 13:00:00 13:00:00 [id number] ity [facility] 2020-09-08 2020-09-08 Outpatient R ISRAEL, [facility] [id number] Univers 13:00:00 13:00:00 SARIKA [facility] 2020-08-20 2020-08-20 Outpatient R ISRAEL, [facility] [id number] Univers 15:00:00 15:00:00 SARIKA [id number] ity [facility] 2020-08-20 2020-08-20 Outpatient R ISRAEL, [facility] [id number] Univers 15:00:00 15:00:00 SARIKA [facility] 2020-03-05 2020-03-05 Outpatient R ISRAEL, [facility] [id number] Univers 08:00:00 08:00:00 SARIKA ity [facility] 2020-03-05 2020-03-05 Outpatient R ISRAEL, [facility] [id number] Univers 08:00:00 08:00:00 SARIKA [facility] 2020-03-04 2020-03-04 Outpatient R ANENE, [facility] [id number] Univers 11:30:00 11:30:00 ABIMAEL ity [facility] 2020-03-04 2020-03-04 Outpatient R ANENE, [facility] [id number] Univers 11:30:00 11:30:00 ABIMAEL y [facility] 2020-03-01 2020-03-01 Outpatient R ANENE, [facility] [id number] Univers 16:15:00 16:15:00 ABIMAEL ity [facility] 2020-03-01 2020-03-01 Outpatient R ANENE, [facility] [id number] Univers 16:15:00 16:15:00 ABIAMEL itazam of [facility] 2020-02-26 2020-02-26 Outpatient ISRAEL, [facility] [id number] Univers 10:40:00 10:40:00 SARIKA ity of [facility] 2020-02-13 2020-02-13 Outpatient DMITRI HATHAWAY [facility] [id number] Univers 13:40:00 13:40:00 DMITRI HATHAWAY [id number] ity [facility] 2020-02-13 2020-02-13 Outpatient R DMITRI HATHAWAY [facility] [id number] Univers 13:40:00 13:40:00 RIVAS, DMITRI ity of [facility] 2020-01-30 2020-01-30 Outpatient R ANTHONY, [facility] [id number] Univers 14:00:00 14:00:00 KARTHIK ity [facility] 2020-01-15 2020-01-15 Outpatient R [facility] [id number] Univers 17:00:00 17:00:00 ity [facility] 2020-01-15 2020-01-15 Outpatient R HUMAN, [facility] [id number] Univers 17:00:00 17:00:00 ADELE ity [facility] 2020-01-09 2020-01-09 Outpatient R CODEY, [facility] [id number] Univers 09:30:00 09:30:00 KATELIN [id number] ity [facility] 2020-01-09 2020-01-09 Outpatient R CODEY, [facility] [id number] Univers 09:30:00 09:30:00 KATELIN ity [facility] 2020-01-07 2020-01-07 Outpatient R [facility] [id number] Univers 09:40:00 09:40:00 [id number] ity of [facility] 2020-01-07 2020-01-07 Outpatient R [facility] [id number] Univers 09:40:00 09:40:00 ity of [facility] 2020-01-07 2020-01-07 Outpatient R SEDRICK, [facility] [id number] Univers 09:40:00 09:40:00 ABIMAEL ity [facility] 2019-12-18 2019-12-18 Outpatient R GERARDO, [facility] [id number] Univers 08:30:00 08:30:00 KRANTHI [id number] ity [facility] 2019-12-18 2019-12-18 Outpatient R GERARDO, [facility] [id number] Univers 08:30:00 08:30:00 KRANTHI ity [facility] 2019-12-14 2019-12-14 Outpatient R [facility] [id number] Univers 16:00:00 16:00:00 [id number] ity [facility] 2019-12-14 2019-12-14 Outpatient R SEDRICK, [facility] [id number] Univers 16:00:00 16:00:00 ABIMAEL rober [facility] 2019-12-05 2019-12-05 Outpatient R CODEY, [facility] [id number] Univers 09:45:00 09:45:00 KATELIN ity [facility] 2019-12-05 2019-12-05 Outpatient R CODEY, [facility] [id number] Univers 09:45:00 09:45:00 KATELIN rober [facility] 2019-11-25 2019-11-25 Outpatient R [facility] [id number] Univers 16:20:00 16:20:00 [id number] ity [facility] 2019-11-25 2019-11-25 Outpatient R [facility] [id number] Univers 16:20:00 16:20:00 ity [facility] 2019-11-25 2019-11-25 Outpatient R SEDRICK, [facility] [id number] Univers 09:40:00 09:40:00 ABIMAEL ity [facility] 2019-11-14 2019-11-14 Outpatient R CODEY, [facility] [id number] Univers 10:15:00 10:15:00 KATELIN rober [facility] 2019-11-14 2019-11-14 Outpatient R CODEY, [facility] [id number] Univers 09:45:00 09:45:00 KATELIN [id number] ity [facility] 2019-11-14 2019-11-14 Outpatient R CODEY, [facility] [id number] Univers 09:45:00 09:45:00 KATELIN ity [facility] 2019-11-13 2019-11-13 Outpatient R [facility] [id number] Univers 08:40:00 08:40:00 [id number] ity of [facility] 2019-11-13 2019-11-13 Outpatient R [facility] [id number] Univers 08:40:00 08:40:00 ity of [facility] 2019-11-06 2019-11-06 Outpatient CODEY [facility] [id number] Univers 08:00:00 08:00:00 KATELIN [id number] ity [facility] 2019-11-06 2019-11-06 Outpatient R CODEY [facility] [id number] Univers 00:00:00 00:00:00 KATELIN ity [facility] 2019-10-31 2019-10-31 Outpatient R CODEY [facility] [id number] Univers 11:15:00 11:15:00 KATELIN ity [facility] 2019-10-31 2019-10-31 [facility] [id number] Univers 11:15:00 11:15:00 [facility] 2019-10-10 Outpatient R GERARDO [facility] [id number] Univers 13:15:00 13:15:00 KRANTHI [id number] ity [facility] 2019-10-10 2019-10-10 Outpatient R LOUISEMERYLPHI [facility] [id number] Univers 13:15:00 13:15:00 KRANTHI [facility] 2019-09-27 2019-09-27 Outpatient X DELFINA ELLIS [facility] [id number] Univers 05:53:51 14:24:00 ity [facility] 2019-09-16 2019-09-16 Outpatient R [facility] [id number] Univers 16:40:00 16:40:00 ity of [facility] 2019-09-16 2019-09-16 Outpatient R [facility] [id number] Univers 16:20:00 16:20:00 [id number] ity of [facility] 2019-09-16 2019-09-16 Outpatient R [facility] [id number] Univers 16:20:00 16:20:00 ity of [facility] 2019-08-29 2019-08-29 Outpatient R HARRISON [facility] [id number] Univers 09:30:00 09:30:00 WONDIFUL [id number] ity o f [facility] 2019-08-29 2019-08-29 Outpatient R HARRISON [facility] [id number] Univers 09:30:00 09:30:00 WONDIFUL ity o f [facility] 2019-08-20 2019-08-20 Outpatient R [facility] [id number] Univers 12:20:00 12:20:00 [id number] [facility] 2019-08-20 Outpatient R [facility] [id number] Univers 12:20:00 12:20:00 [facility] 2019-08-06 2019-08-06 Outpatient R GERARDO [facility] [id number] Univers 16:30:00 16:30:00 KRANTHI [id number] [facility] 2019-08-06 2019-08-06 Outpatient R GERARDO [facility] [id number] Univers 16:30:00 16:30:00 KRANTHI [facility] 2019-07-18 2019-07-18 Emergency X Osmel BROWN [facility] ERT [id number] Univers 13:49:36 15:20:00 [facility] 2019-03-06 2019-03-06 [facility] [id number] Univers 14:55:12 14:55:12 RACIEL [facility] Results This patient has no known results.
[2021-04-16] MEDS ORDERED: TETANUS & DIPHTHERIA TOX,ADULT 0.5 ML VIAL ONE (05:03)
[2021-04-16] MEDS ORDERED: IBUPROFEN 400 MG TAB ONE (05:30)
--- NOTE | 2021-04-16 05:59 | EDPHYS ---
Physician Documentation [facility] Name: Maranda Quach Age: 46 yrs Sex: Female : 1975 Arrival Date: 04/16/2021 Time: 04:48 Bed 20 Private MD: ED Physician Ramakrishna Edouard HPI: 04/16 05:09 This 46 yrs old Female presents to ER via Ambulatory with complaints of Wrist Injury. [facility] 05:10 The patient was bitten on the Left forearm, by a cat, while trying to stop animals from [facility] fighting, at a neighbor's home. Onset: The symptoms/episode began/occurred yesterday. Animal information: The animal was reported to appear healthy. Animal's vaccinations are up to date. The animal is known and can be quarantined. Secondary to the bite the patient reports an abrasion, pain. Associated signs and symptoms: Pertinent positives: pain at site, swelling at site, tenderness, Pertinent negatives: bony tenderness, erythema at site, fever, fluctuance, loss of consciousness, motor deficit, numbness distal to wound, suspected foreign body. Severity of symptoms: At their worst the symptoms were mild, last night, in the emergency department the symptoms have improved, moderately. 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 - Social history:: Smoking status: Patient denies any tobacco usage or history of. ROS: 05:10 Constitutional: Negative for fever, chills, and weight loss, Eyes: Negative for injury, mh7 pain, redness, and discharge, ENT: Negative for injury, pain, and discharge, Neck: Negative for injury, pain, and swelling, Cardiovascular: Negative for chest pain, palpitations, and edema, Respiratory: Negative for shortness of breath, cough, wheezing, and pleuritic chest pain, Abdomen/GI: Negative for abdominal pain, nausea, vomiting, diarrhea, and constipation, Back: Negative for injury and pain, : Negative for injury, bleeding, discharge, and swelling, Neuro: Negative for headache, weakness, numbness, tingling, and seizure, Psych: Negative for depression, anxiety, suicide ideation, homicidal ideation, and hallucinations, Allergy/Immunology: Negative for hives, rash, and allergies, Endocrine: Negative for neck swelling, polydipsia, polyuria, polyphagia, and marked weight changes, Hematologic/Lymphatic: Negative for swollen nodes, abnormal bleeding, and unusual bruising. Exam: 05:10 Constitutional: This is a well developed, well nourished patient who is awake, alert, mh7 and in no acute distress. Head/Face: Normocephalic, atraumatic. Neuro: Awake and alert, GCS 15, oriented to person, place, time, and situation. Cranial nerves II-XII grossly intact. Motor strength 5/5 in all extremities. Sensory grossly intact. Cerebellar exam normal. Normal gait. Psych: Awake, alert, with orientation to person, place and time. Behavior, mood, and affect are within normal limits. 05:10 Musculoskeletal/extremity: Extremities: noted in the Left forearm: abrasion, pain, mh7 tenderness, ROM: intact in all extremities, Circulation is intact in all extremities. Sensation intact. Compartment Syndrome exam of affected extremity: is normal. no numbness, no tingling, no sensation deficit, no palor, no weak pulses, Joints: All joints appear normal with full range of motion. Weight bearing: able to fully bear weight, without difficulty, Tendon exam: specific tendon testing normal through active and passive range of motion 05:10 Skin: injury, abrasion(s), small abrasion noted, of the Left forearm. 7 Vital Signs: 05:00 BP 135 / 55; Pulse 71; Resp 16 S; Temp 98.1(O); Pulse Ox 100% on R/A; Weight 72.57 kg bb (R); Height 5 ft. 0 in. (152.40 cm) (R); Pain 9/10; 06:15 BP 157 / 70; Pulse 67; Resp 20; Temp 98.2; Pulse Ox 100% on R/A; cc4 05:00 Body Mass Index 31.25 (72.57 kg, 152.40 cm) bb MDM: 05:55 Differential diagnosis: superficial laceration, tendon injury, cellulitis, Foreign mh7 body, animal bite. Rabies Status: Rabies immunization is not indicated. Data reviewed: vital signs, nurses notes, radiologic studies, plain films. Counseling: I had a detailed discussion with the patient and/or guardian regarding: the historical points, exam findings, and any diagnostic results supporting the discharge/admit diagnosis, radiology results, the need for outpatient follow up, to return to the emergency department if symptoms worsen or persist or if there are any questions or concerns that arise at home. Response to treatment: the patient's symptoms have markedly improved after treatment. 05:58 Patient medically screened. [facility] 04/16 05:03 Order name: Forearm Left XRAY [facility] Administered Medications: 05:05 Drug: Tetanus-Diphtheria Toxoid Adult 0.5 ml {Client Finance Analyst: Gist. Exp: cc4 10/08/2022. Lot #: [id number]. } Route: IM; Site: right deltoid; 06:15 Follow up: Response: No adverse reaction cc4 05:38 Drug: Motrin (ibuprofen) 800 mg Route: PO; cc4 06:15 Follow up: Response: No adverse reaction; Pain is decreased cc4 06:15 Drug: Augmentin (Amoxicillin-Clavulanate) 500 mg Route: PO; cc4 06:26 Follow up: Response: No adverse reaction 4 Disposition Summary: 04/16/21 05:58 Discharge Ordered Location: Home [facility] Problem: new [facility] Symptoms: have improved [facility] Condition: Stable [facility] Diagnosis - Bitten by cat - Left forearm [facility] Followup: [facility] - With: Private Physician - When: 1 - 2 days - Reason: Worsening of condition, Recheck today's complaints, Continuance of care, Re-evaluation by your physician Followup: [facility] - With: Rodriguez Cooper MD - When: 2 - 3 days - Reason: Worsening of condition, Recheck today's complaints Discharge Instructions: - Discharge Summary Sheet [facility] - Animal Bite, Adult, [id number] Forms: - Medication Reconciliation Form [facility] - Thank You Letter [facility] - Antibiotic Education [facility] - Prescription Opioid Use [facility] - Work release form cc4 Prescriptions: - Augmentin 500-125 mg Oral Tablet - take 1 tablet by ORAL route every 8 hours for 10 days; 30 tablet; Refills: 0, 7 Product Selection Permitted - Ibuprofen 600 mg Oral Tablet - take 1 tablet by ORAL route every 8 hours As needed take with food; 15 tablet; mh7 Refills: 0, Product Selection Permitted Signatures: Dispatcher [employer] Sarah Godfrey, RN RN Ramakrishna Mcdaniel MD MD mh7 Gemma Varela RN RN cc4
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
[2021-04-16] MEDS ORDERED: AMOX/K CLAV 875 MG TAB ONE (06:12)
[2021-04-16 06:53] VITALS: O2SAT 100
[2021-04-16 06:54] VITALS: BP 157/70; TEMP 98.2
--- NOTE | 2021-04-16 10:58 | RAD REPORT ---
EXAM DESCRIPTION: RAD - Forearm Left - 04/16/2021 5:23 am CLINICAL HISTORY: ANIMAL BITE COMPARISON: No comparisons FINDINGS: No fracture, dislocation or radiopaque foreign body is appreciated. No soft tissue gas.
== END 2021-04-16 06:33 | disposition home or self-care (01) ==
LOC: ER 04:44
DX: S50.872A Other superficial bite of left forearm, initial encounter (principal); W55.01XA Bitten by cat, initial encounter; I10 Essential (primary) hypertension; Z23 Encounter for immunization
CPT/HCPCS: 90471; 90714; 99283

== ENCOUNTER 2021-04-17 19:14 | Inpatient (IN) | payer SELFPAY ==
--- OUTSIDE RECORDS SUMMARY | 2021-04-17 19:18 | XMS REPORT | Continuity of Care Document ---
:[address] [facility] t Address 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 [id number] 2019 00:00:00 Problems Condition Condition Condition Status Onset Resolution Last Treating Co mments Source Name Details Category Date Date Treatment Clinician Date Chest pain Chest pain Disease Active 2019- U nivers 5-02 ity of 00:00: [address] Frequent Frequent Disease Active Unive rs headaches headaches 4-03 ity of 00:00: [address] Hematochez Hematochez Disease Active 2017-05 Overview : Univers ia ia 0-19 Added ity of 00:00: automatic ally from Medical request Branch for surgery [id number] Hydrops of Hydrops of Disease Active 2017-05 Overview : Univers delia lin 0-19 Added it y of r r 00:00: automatic 00 ally from Medical request Branch for surgery [id number] Atypical Atypical Disease Active Overview: Un loren [...] 5-18 ity of 00:00: [place] 00 Medical [place] Tobacco Tobacco Disease Active Univers use use -18 ity of disorder disorder 00:00: [place] [address] Medical [place] Encounter Encounter Disease Active 2006-05 Overview: Univers for for 0-08 Seeking ity of counseling counseling 00:00: ICD10 Medical Diagnosis Branch Term [employer] Migraines Migraines Disease Active Uni vers ity of [facility] Allergies, Adverse Reactions, Alerts Allergy Allergy Status Severity Reaction(s) Onset Inactive Treating Comm ents Source Name Type Date Date Clinician NO KNOWN Drug Active Univers ALLERGIE Class ity of S [facility] Social History Social Habit Start Date Stop Date Quantity Comments Source Exposure to Yes [place] of SARS-CoV-2 [facility] (event) [place] Tobacco use and 2020-09-30 2020-09-30 Never used Universit y of exposure 00:00:00 00:00:00 [facility] Alcohol intake 2020-09-30 2020-09-30 Ex-drinker University of 00:00:00 00:00:00 (finding) [facility] Tobacco Comment 2019-09-27 2019-09-27 second hand smoke Un iversity of 00:00:00 00:00:00 [facility] Alcohol Comment 2015-10-13 2015-10-13 social drinks Univer sity of 00:00:00 00:00:00 occasionally [facility] [place] Sex Ass[birth year] At [birth year] Universit y of 00:00:00 00:00:00 [place] [facility] Smoking Status Start Date Stop Date Source Never smoker [facility] Branch Medications Ordered Filled Start Stop Current [...] Immunizations Ordered Filled Immunization Date Status Comments [facility] e Immunization Name Name Td 2020-08-07 Completed [facility] 00:00:00 [facility] Vital Signs Vital Name Observation Time Observation Value Comments Source Systolic blood 2020-10-01 01:49:00 154 mm[Hg] Univer sity [facility] Diastolic blood 2020-10-01 01:49:00 100 mm[Hg] Unive rsity of [place] pressure Medical Branch Procedures This patient has no known procedures. Plan of Care Planned Activity Planned Date Details Comments Source Future Scheduled 2028-04-01 Screening for [facility] Test 00:00:00 malignant neoplasm Medical [place] of colon (procedure) [code = 928511768] Future Scheduled 2028-04-01 Screening for [facility] Test 00:00:00 malignant neoplasm Medical [place] of colon (procedure) [code = 445395976] Future Scheduled 2021-01-26 INFLUENZA VACCINE [facility] Test 00:00:00 (Season Ended) [code Medical Branch = INFLUENZA VACCINE (Season Ended)] Future Scheduled 2018-10-12 Screening for [facility] Test 00:00:00 malignant neoplasm Medical [facility] [place] of cervix (procedure) [code = 514952425] Future Scheduled 2015 Screening for [facility] Test 00:00:00 malignant neoplasm Medical B ranch of breast (procedure) [code = [id number]] Future Scheduled 1994 DTaP,Tdap,and Td Univers [facility] Test 00:00:00 Vaccines (1 - Tdap) Medical Branch [code = DTaP,Tdap,and Td Vaccines (1 - Tdap)] Future Scheduled 1993 Hepatitis C [facility] Test 00:00:00 screening Medical Branch (procedure) [code = 021553566] Future Scheduled 1991 SARS-CoV-2 [facility] Test 00:00:00 (COVID-19) Vaccine Medical B ranch (1) [code = SARS-CoV-2 (COVID-19) Vaccine (1)] Future Scheduled 1987 Depression screening [facility] Test 00:00:00 (procedure) [code = Medical Branch [id number]] Encounters Start End Encounter Admission Attending Care Care Encounter Source Date/Time Date/Time Type Type Clinicians Facility Department ID 2021-03-27 Emergency [facility] [id number] [facility] [id number] Univers 09:38:46 ity [facility] 2021-03-25 Emergency [facility] [id number] Univers 13:06:43 ity [facility] 2021-03-25 Emergency [facility] [id number] Univers 04:44:08 ity of [facility] 2021-03-25 Emergency [facility] [id number] Univers 03:20:04 ity of [facility] 2021-03-24 Emergency [facility] [id number] Univers 23:32:49 ity [facility] 2021-03-29 2021-03-29 Outpatient R SEDRICK, [facility] [id number] Univers 15:30:00 15:30:00 ABIMAEL [id number] ity [facility] 2021-03-29 2021-03-29 Outpatient R SEDRICK, [facility] [id number] Univers 15:30:00 15:30:00 ABIMAEL [facility] 2021-01-07 2021-01-07 Outpatient R ISRAEL, [facility] [id number] Univers 11:30:00 11:30:00 SARIKA [facility] 2021-01-07 2021-01-07 Outpatient R ISRAEL, [facility] [id number] Univers 08:30:00 08:30:00 SARIKA [id number] ity [facility] 2021-01-05 2021-01-05 Outpatient R ISRAEL, [facility] [id number] Univers 08:30:00 08:30:00 SARIKA [id number] [facility] 2021-01-05 2021-01-05 Outpatient R ISRAEL, [facility] [id number] Univers 08:30:00 08:30:00 SARIKA [facility] 2021-01-03 2021-01-03 Telephone [place], [facility] [id number] 00:00:00 00:00:00 Sarika [facility] [id number] [place] [id number] Profjanes [id number] nal [address] 2020-11-30 2020-11-30 Telephone Andree La [id number] 00:00:00 00:00:00 , Pamela Judd [id number] Danay [id number] 2020-11-22 2020-11-22 Orders Doctor KATELIN [id number] 00:00:00 00:00:00 Only Unassigned, VERÓNICA [id number] [place] [facility] [id number] 2020-11-16 2020-11-16 Outpatient R GERARDO [facility] [id number] Univers 11:00:00 11:00:00 KRANTHI [id number] [facility] 2020-11-16 2020-11-16 Outpatient R GERARDO [facility] [id number] Univers 11:00:00 11:00:00 KRANTHI [facility] 2020-11-10 2020-11-10 [facility] [id number] Univers 16:00:00 16:00:00 SARIKA [id number] [facility] 2020-11-10 2020-11-10 [facility] [id number] Univers 16:00:00 16:00:00 [facility] 2020-11-10 2020-11-10 [facility] [id number] 00:00:00 00:00:00 Sarika Woody [facility] [id number] [place] [id number] [facility] [id number] nal 0[address] 2020-09-30 2020-09-30 Outpatient R ISRAEL [facility] [id number] Univers 16:00:00 16:00:00 SARIKA [id number] [facility] 2020-09-30 2020-09-30 [facility] [id number] Univers 16:00:00 16:00:00 SARIKA [facility] 2020-09-16 2020-09-16 Outpatient R [facility] [id number] Univers 16:40:00 16:40:00 [id number] [facility] 2020-09-16 2020-09-16 Outpatient R [facility] [id number] Univers 16:40:00 16:40:00 ity [facility] 2020-09-10 2020-09-10 Outpatient R [facility] [id number] Univers 08:00:00 08:00:00 [id number] ity [facility] 2020-09-08 2020-09-08 Outpatient R [facility] [id number] Univers 13:00:00 13:00:00 [id number] ity [facility] 2020-09-08 2020-09-08 Outpatient R ISRAEL, [facility] [id number] Univers 13:00:00 13:00:00 SARIKA [facility] 2020-08-20 2020-08-20 Outpatient R ISRAEL, [facility] [id number] Univers 15:00:00 15:00:00 SARIKA [id number] ity [facility] 2020-08-20 2020-08-20 Outpatient R ISRAEL, [facility] [id number] Univers 15:00:00 15:00:00 SARIKA [facility] 2020-03-05 2020-03-05 Outpatient R ISRAEL, [facility] [id number] Univers 08:00:00 08:00:00 SARIKA ity [facility] 2020-03-05 2020-03-05 Outpatient R ISRAEL, [facility] [id number] Univers 08:00:00 08:00:00 SARIKA [facility] 2020-03-04 2020-03-04 Outpatient R ANENE, [facility] [id number] Univers 11:30:00 11:30:00 ABIMAEL ity [facility] 2020-03-04 2020-03-04 Outpatient R ANENE, [facility] [id number] Univers 11:30:00 11:30:00 ABIMAEL y [facility] 2020-03-01 2020-03-01 Outpatient R ANENE, [facility] [id number] Univers 16:15:00 16:15:00 ABIMAEL ity [facility] 2020-03-01 2020-03-01 Outpatient R ANENE, [facility] [id number] Univers 16:15:00 16:15:00 ABIMAEL itazam of [facility] 2020-02-26 2020-02-26 Outpatient ISRAEL, [facility] [id number] Univers 10:40:00 10:40:00 SARIKA ity of [facility] 2020-02-13 2020-02-13 Outpatient DMITRI HATHAWAY [facility] [id number] Univers 13:40:00 13:40:00 DMITRI HATHAWAY [id number] ity [facility] 2020-02-13 2020-02-13 Outpatient R DMITRI HATHAWAY [facility] [id number] Univers 13:40:00 13:40:00 RIVAS, DMITRI ity of [facility] 2020-01-30 2020-01-30 Outpatient R ANTHONY, [facility] [id number] Univers 14:00:00 14:00:00 KARTHIK ity [facility] 2020-01-15 2020-01-15 Outpatient R [facility] [id number] Univers 17:00:00 17:00:00 ity [facility] 2020-01-15 2020-01-15 Outpatient R HUMAN, [facility] [id number] Univers 17:00:00 17:00:00 ADELE ity [facility] 2020-01-09 2020-01-09 Outpatient R CODEY, [facility] [id number] Univers 09:30:00 09:30:00 KATELIN [id number] ity [facility] 2020-01-09 2020-01-09 Outpatient R CODEY, [facility] [id number] Univers 09:30:00 09:30:00 KATELIN ity [facility] 2020-01-07 2020-01-07 Outpatient R [facility] [id number] Univers 09:40:00 09:40:00 [id number] ity of [facility] 2020-01-07 2020-01-07 Outpatient R [facility] [id number] Univers 09:40:00 09:40:00 ity of [facility] 2020-01-07 2020-01-07 Outpatient R SEDRICK, [facility] [id number] Univers 09:40:00 09:40:00 ABIMAEL ity [facility] 2019-12-18 2019-12-18 Outpatient R GERARDO, [facility] [id number] Univers 08:30:00 08:30:00 KRANTHI [id number] ity [facility] 2019-12-18 2019-12-18 Outpatient R GERARDO, [facility] [id number] Univers 08:30:00 08:30:00 KRANTHI ity [facility] 2019-12-14 2019-12-14 Outpatient R [facility] [id number] Univers 16:00:00 16:00:00 [id number] ity [facility] 2019-12-14 2019-12-14 Outpatient R SEDRICK, [facility] [id number] Univers 16:00:00 16:00:00 ABIMAEL rober [facility] 2019-12-05 2019-12-05 Outpatient R CODEY, [facility] [id number] Univers 09:45:00 09:45:00 KATELIN ity [facility] 2019-12-05 2019-12-05 Outpatient R CODEY, [facility] [id number] Univers 09:45:00 09:45:00 KATELIN rober [facility] 2019-11-25 2019-11-25 Outpatient R [facility] [id number] Univers 16:20:00 16:20:00 [id number] ity [facility] 2019-11-25 2019-11-25 Outpatient R [facility] [id number] Univers 16:20:00 16:20:00 ity [facility] 2019-11-25 2019-11-25 Outpatient R SEDRICK, [facility] [id number] Univers 09:40:00 09:40:00 ABIMAEL ity [facility] 2019-11-14 2019-11-14 Outpatient R CODEY, [facility] [id number] Univers 10:15:00 10:15:00 KATELIN rober [facility] 2019-11-14 2019-11-14 Outpatient R CODEY, [facility] [id number] Univers 09:45:00 09:45:00 KATELIN [id number] ity [facility] 2019-11-14 2019-11-14 Outpatient R CODEY, [facility] [id number] Univers 09:45:00 09:45:00 KATELIN ity [facility] 2019-11-13 2019-11-13 Outpatient R [facility] [id number] Univers 08:40:00 08:40:00 [id number] ity of [facility] 2019-11-13 2019-11-13 Outpatient R [facility] [id number] Univers 08:40:00 08:40:00 ity of [facility] 2019-11-06 2019-11-06 Outpatient CODEY [facility] [id number] Univers 08:00:00 08:00:00 KATELIN [id number] ity [facility] 2019-11-06 2019-11-06 Outpatient R CODEY [facility] [id number] Univers 00:00:00 00:00:00 KATELIN ity [facility] 2019-10-31 2019-10-31 Outpatient R CODEY [facility] [id number] Univers 11:15:00 11:15:00 KATELIN ity [facility] 2019-10-31 2019-10-31 [facility] [id number] Univers 11:15:00 11:15:[facility] 2019-10-10 Outpatient R GERARDO [facility] [id number] Univers 13:15:00 13:15:00 KRANTHI [id number] ity [facility] 2019-10-10 2019-10-10 Outpatient R LOUISEMERYLPHI [facility] [id number] Univers 13:15:00 13:15:00 KRANTHI [facility] 2019-09-27 2019-09-27 Outpatient X DELFINA [facility]LL[facility] [id number] Univers 05:53:51 14:24:00 ity [facility] 2019-09-16 2019-09-16 Outpatient R [facility] [id number] Univers 16:40:00 16:40:00 ity of [facility] 2019-09-16 2019-09-16 Outpatient R [facility] [id number] Univers 16:20:00 16:20:00 [id number] ity of [facility] 2019-09-16 2019-09-16 Outpatient R [facility] [id number] Univers 16:20:00 16:20:00 ity of [facility] 2019-08-29 2019-08-29 Outpatient R HARRISON [facility] [id number] Univers 09:30:00 09:30:00 WONDIFUL [id number] ity o f [facility] 2019-08-29 2019-08-29 Outpatient R HARRISON [facility] [id number] Univers 09:30:00 09:30:00 WONDIFUL ity o f [facility] 2019-08-20 2019-08-20 Outpatient R [facility] [id number] Univers 12:20:00 12:20:00 [id number] [facility] 2019-08-20 2019-08-20 Outpatient R [facility] [id number] Univers 12:20:00 12:20:00 [facility] 2019-08-06 2019-08-06 Outpatient R GERARDO [facility] [id number] Univers 16:30:00 16:30:00 KRANTHI [id number] [facility] 2019-08-06 2019-08-06 Outpatient R GERARDO [facility] [id number] Univers 16:30:00 16:30:00 KRANTHI [facility] 2019-07-18 2019-07-18 Emergency X Osmel BROWN [facility] ERT [id number] Univers 13:49:36 15:20:00 [facility] 2019-03-06 2019-03-06 [facility] [id number] Univers 14:55:12 14:55:12 RACIEL [facility] Results This patient has no known results.
[2021-04-17] MEDS ORDERED: MORPHINE 2 MG/ML SYR ONE (23:03)
[2021-04-17] MEDS ORDERED: ONDANSETRON 4 MG/2 ML VIAL ONE (23:03)
[2021-04-17] MEDS ORDERED: METRONIDAZOLE 500mg IVPB 500 MG/100 ML BAG IV ONE (23:04)
[2021-04-17] MEDS ORDERED: NA CHLORIDE 0.9% 1,000 ML ONE (23:04)
[2021-04-17] MEDS ORDERED: NA CHLORIDE 0.9% 100 ML ONE (23:04)
[2021-04-17] MEDS ORDERED: CEFTRIAXONE 1000 MG/VIAL ONE (23:04)
--- NOTE | 2021-04-17 23:39 | EDPHYS ---
Physician Documentation [facility] Name: Maranda Quach Age: 46 yrs Sex: Female : 1975 Arrival Date: 04/17/2021 Time: 19:18 Bed 25 Private MD: ED Physician Ramakrishna Edouard HPI: 04/17 22:36 This 46 yrs old Female presents to ER via Ambulatory with complaints of Meds from [facility] yesterday's visit not working. 22:36 The patient presents with cellulitis of the left arm, the patient presents with a mh7 swollen area of the left arm. Description: erythematous, swollen, warm. Onset: The symptoms/episode began/occurred yesterday. Possible cause(s): cat bite. Associated signs and symptoms: Pertinent positives: erythema, fever, nausea, swelling, vomiting, Pertinent negatives: discharge, drainage, foreign body sensation, headache, shortness of breath. Modifying factors: the symptoms are alleviated by nothing, the symptoms are aggravated by movement, touching. Severity of symptoms: At their worst the symptoms were moderate, last night, in the emergency department the symptoms are unchanged. The patient has been recently seen at the [facility] Emergency Department, this week. Historical: - Allergies: 20:02 No Known Allergies; vg1 - Home Meds: 20:02 None [Active]; vg1 - PMHx: 20:02 Cataracts; Hypertension; Seizures; vg1 - PSHx: 20:02 Cholecystectomy; cataract surgery; vg1 - Immunization history:: Client reports receiving the 2nd dose of the Covid vaccine. - Social history:: Smoking status: Patient denies any tobacco usage or history of. ROS: 22:36 Eyes: Negative for injury, pain, redness, and discharge, ENT: Negative for injury, mh7 pain, and discharge, Neck: Negative for injury, pain, and swelling, Cardiovascular: Negative for chest pain, palpitations, and edema, Respiratory: Negative for shortness of breath, cough, wheezing, and pleuritic chest pain, Back: Negative for injury and pain, : Negative for injury, bleeding, discharge, and swelling, Neuro: Negative for headache, weakness, numbness, tingling, and seizure, Psych: Negative for depression, anxiety, suicide ideation, homicidal ideation, and hallucinations, Allergy/Immunology: Negative for hives, rash, and allergies, Endocrine: Negative for neck swelling, polydipsia, polyuria, polyphagia, and marked weight changes, Hematologic/Lymphatic: Negative for swollen nodes, abnormal bleeding, and unusual bruising. Exam: 22:36 Head/Face: Normocephalic, atraumatic. Eyes: Pupils equal round and reactive to light, mh7 extra-ocular motions intact. Lids and lashes normal. Conjunctiva and sclera are non-icteric and not injected. Cornea within normal limits. Periorbital areas with no swelling, redness, or edema. Neck: Trachea midline, no thyromegaly or masses palpated, and no cervical lymphadenopathy. Supple, full range of motion without nuchal rigidity, or vertebral point tenderness. No Meningismus. Chest/axilla: Normal chest wall appearance and motion. Nontender with no deformity. No lesions are appreciated. 22:36 Respiratory: Lungs have equal breath sounds bilaterally, clear to auscultation and percussion. No rales, rhonchi or wheezes noted. No increased work of breathing, no retractions or nasal flaring. Abdomen/GI: Soft, non-tender, with normal bowel sounds. No distension or tympany. No guarding or rebound. No evidence of tenderness throughout. Back: No spinal tenderness. No costovertebral tenderness. Full range of motion. 22:36 Neuro: Awake and alert, GCS 15, oriented to person, place, time, and situation. Cranial nerves II-XII grossly intact. Motor strength 5/5 in all extremities. Sensory grossly intact. Cerebellar exam normal. Normal gait. Psych: Awake, alert, with orientation to person, place and time. Behavior, mood, and affect are within normal limits. 22:36 Constitutional: The patient appears in no acute distress, alert, awake, uncomfortable. 22:36 Cardiovascular: Rate: tachycardic, Rhythm: regular, Pulses: no pulse deficits are appreciated, Heart sounds: normal, normal S1and S2, Edema: is not appreciated, JVD: is not appreciated. 22:36 Musculoskeletal/extremity: Extremities: noted in the Left forearm: abrasion, erythema, pain, swelling, tenderness, ROM: limited active range of motion due to pain, in the Left forearm, limited passive range of motion due to pain, in the Left forearm, Circulation is intact in all extremities. Sensation intact. Compartment Syndrome exam of affected extremity: is normal. no numbness, no tingling, no sensation deficit, no palor, no weak pulses, Joints: All joints appear normal with full range of motion. Weight bearing: able to fully bear weight, without difficulty, Tendon exam: specific tendon testing normal through active and passive range of motion 22:36 Skin: cellulitis, that is moderate, well demarcated, on the Left forearm, induration, is not appreciated. Vital Signs: 19:59 BP 108 / 94; Pulse 105; Resp 18; Temp 99.6; Pulse Ox 99% ; Weight 72.57 kg; Height 5 vg1 ft. 0 in. (152.40 cm); Pain 10/10; 23:26 BP 132 / 78; Pulse 80; Resp 20; Temp 98.7(O); Pulse Ox 100% on R/A; Pain 9/10; kc4 04/18 00:56 BP 103 / 67; Pulse 78; Resp 18; Temp 98.7(O); Pulse Ox 100% on R/A; Pain 4/10; kc4 04/17 19:59 Body Mass Index 31.25 (72.57 kg, 152.40 cm) vg1 [place] Coma Score: 04/17 23:47 Eye Response: spontaneous(4). Verbal Response: oriented(5). Motor Response: obeys kc4 commands(6). Total: 15. MDM: 23:36 Differential diagnosis: abscess, allergic reaction, cellulitis, insect bite. Data [facility] reviewed: vital signs, nurses notes, old medical records, lab test result(s). Data interpreted: Pulse oximetry: on room air is 100 %. Interpretation: normal. Counseling: I had a detailed discussion with the patient and/or guardian regarding: the historical points, exam findings, and any diagnostic results supporting the discharge/admit diagnosis, lab results, radiology results, the need for further work-up and treatment in the hospital. Response to treatment: the patient's symptoms have mildly improved after treatment. 23:38 Patient medically screened. [facility] 04/17 22:36 Order name: CBC with Diff [facility] 04/17 22:36 Order name: Basic Metabolic Panel; Complete Time: 00:25 [facility] 04/17 22:36 Order name: LFT's; Complete Time: 00:25 [facility] 04/17 22:36 Order name: Protime (+inr); Complete Time: 00:25 [facility] 04/17 22:36 Order name: Ptt, Activated; Complete Time: 00:25 [facility] 04/17 22:36 Order name: Blood Culture Adult (2) [facility] 04/17 22:36 Order name: Lactate; Complete Time: 00:25 [facility] 04/17 23:21 Order name: CBC with Automated Diff; Complete Time: 00:25 [facility] 04/17 23:33 Order name: COVID-19 SARS RT PCR (Document "Date of Onset" if Symptomatic) [facility] 04/18 03:37 Order name: CBC with Automated Diff [facility] 04/18 04:06 Order name: Comprehensive Metabolic Panel [facility] 04/18 04:06 Order name: Lipid Profile [facility] 04/18 04:06 Order name: T4 Free [facility] 04/18 04:06 Order name: Magnesium [facility] 04/17 22:36 Order name: Saline Lock; Complete Time: 23:20 [facility] 04/18 04:06 Order name: Thyroid Stimulating Hormone [facility] 04/18 04:08 Order name: Procalcitonin [facility] Administered Medications: 23:20 Drug: NS 0.9% 1000 ml Route: IV; Rate: 1000 ml; Site: right antecubital; [facility] 04/18 01:05 Follow up: Response: No adverse reaction [facility] 01:06 Follow up: IV Status: Completed infusion [facility] 04/17 23:20 Drug: Rocephin (cefTRIAXone) 1 grams Route: IV; Rate: per protocol; Site: right [facility]; 04/18 01:05 Follow up: Response: No adverse reaction [facility] 04/17 23:20 Drug: Flagyl (metroNIDAZOLE) 500 mg Volume: 100 ml; Route: IVPB; Rate: 200 ml/hr; kc4 Infused Over: 30 mins; Site: right antecubital; 04/18 01:04 Follow up: Response: No adverse reaction; IV Status: Completed infusion [facility] 04/17 23:20 Drug: morphine 2 mg Route: IVP; Site: right antecubital; [facility] 04/18 01:04 Follow up: Response: No adverse reaction [facility] 04/17 23:20 Drug: Zofran (Ondansetron) 4 mg Route: IVP; Site: right antecubital; [facility] 04/18 01:04 Follow up: Response: No adverse reaction kc4 Disposition Summary: 04/17/21 23:38 Hospitalization Ordered Hospitalization Status: Inpatient Admission 7 Provider: Easton Abraham Condition: Stable mh7 Problem: new mh7 Symptoms: have improved mh7 Bed/Room Type: Standard [facility] Location: Telemetry/MedSurg (Inpatient)(04/18/21 12:58) dw Room Assignment: 222(04/18/21 12:58) dw Diagnosis - Cellulitis, Left Forearm mh7 Forms: - Medication Reconciliation Form 7 - SBAR form 7 Signatures: Dispatcher [employer] EDCarmen Chong bd Patricia Del Angel RN Nalini Solitario RN RN Eddi Esparza FNP-C FNP-Cla1 Cami Grant RN RN vg1 Ramakrishna Edouard MD MD mh7 Priscilla Sanches kc4 Corrections: (The following items were deleted from the chart) 00:54 04/17 23:38 Telemetry/MedSurg (Inpatient) 7 04/18 00:54 04/17 23:38 7 04/18 12:58 00:54 BR ER HOLD mw bd 12:58 00:54 ERHOLD- mw bd 12:58 12:58 Telemetry/MedSurg (Inpatient) bd dw 12:58 12:58 222 bd dw
--- NOTE | 2021-04-17 23:39 | ER ---
Nurse's Notes [facility] Name: Maranda Quach Age: 46 yrs Sex: Female : 1975 Arrival Date: 04/17/2021 Time: 19:18 Bed 25 Private MD: Diagnosis: Cellulitis, Left Forearm Presentation: 04/17 19:59 Chief complaint: Patient states: Was seen yesterday for a cat bite and was given vg1 antibiotics and Motrin but still states now Left arm and left hand appears to be swollen and red. States nausea, denies vomiting. Coronavirus screen: Vaccine status: Patient reports receiving the 2nd dose of the covid vaccine. Client denies travel out of the [place] in the last 14 days. Ebola Screen: Patient negative for fever greater than or equal to 101.5 degrees Fahrenheit, and additional compatible Ebola Virus Disease symptoms. Initial Sepsis Screen: Does the patient meet any 2 criteria? No. Patient's initial sepsis screen is negative. Does the patient have a suspected source of infection? No. Patient's initial sepsis screen is negative. Risk Assessment: Do you want to hurt yourself or someone else? Patient reports no desire to harm self or others. Onset of symptoms was April 16, 2021. 19:59 Method Of Arrival: Ambulatory vg1 19:59 Acuity: CHAVEZ 3 vg1 Triage Assessment: 20:02 General: Appears in no apparent distress. uncomfortable, Behavior is calm, cooperative. vg1 Pain: Complains of pain in left arm Pain currently is 10 out of 10 on a pain scale. Pain began 1 day ago. Derm: Skin is red, Skin temperature is hot. Historical: - Allergies: 20:02 No Known Allergies; vg1 - Home Meds: 20:02 None [Active]; vg1 - PMHx: 20:02 Cataracts; Hypertension; Seizures; vg1 - PSHx: 20:02 Cholecystectomy; cataract surgery; vg1 - Immunization history:: Client reports receiving the 2nd dose of the Covid vaccine. - Social history:: Smoking status: Patient denies any tobacco usage or history of. Screenin/22 00:57 Abuse screen: Denies threats or abuse. Denies injuries from another. Nutritional kc4 screening: On no prescribed diet Difficulty chewing/swallowing? No. Tuberculosis screening: No symptoms or risk factors identified. Never had TB. Possible symptoms: None Risk factors: None. Fall Risk None identified. No fall in past 12 months (0 pts). No secondary diagnosis (0 pts). No IV (0 pts). Ambulatory Aid- None/Bed Rest/Nurse Assist (0 pts). Gait- Normal/Bed Rest/Wheelchair (0 pts) Mental Status- Oriented to own ability (0 pts). Total Cohen Fall Scale indicates No Risk (0-24 pts). Assessment: 04/17 23:21 General: Appears in no apparent distress. uncomfortable, unkempt, Behavior is calm, kc4 cooperative, appropriate for age. Pain: Complains of pain in left arm Pain does not radiate. Pain radiates to left arm Pain currently is 8 out of 10 on a pain scale. at worst was 9 out of 10 on a pain scale. level that patient reports is acceptable is 2 out of 10 on a pain scale. Quality of pain is described as burning, pulsating, Pain began gradually, Is continuous, Alleviated by. Neuro: No deficits noted. Level of Consciousness is awake, alert, obeys commands, Oriented to person, place, time, situation, Appropriate for age Blind Stitch Machine Operator are equal bilaterally Gait is steady, Reports. Cardiovascular: No deficits noted. Respiratory: No deficits noted. GI: No deficits noted. No signs and/or symptoms were reported involving the gastrointestinal system. : No deficits noted. No signs and/or symptoms were reported regarding the genitourinary system. EENT: No deficits noted. No signs and/or symptoms were reported regarding the EENT system. Derm: Skin is pink, warm \T\ dry. Skin temperature is. Injury Description: left forearm redness and swelling, warm to touch. complaints of 9/10 pain. Vital Signs: 19:59 BP 108 / 94; Pulse 105; Resp 18; Temp 99.6; Pulse Ox 99% ; Weight 72.57 kg; Height 5 vg1 ft. 0 in. (152.40 cm); Pain 10/10; 23:26 BP 132 / 78; Pulse 80; Resp 20; Temp 98.7(O); Pulse Ox 100% on R/A; Pain 9/10; kc4 04/18 00:56 BP 103 / 67; Pulse 78; Resp 18; Temp 98.7(O); Pulse Ox 100% on R/A; Pain 4/10; kc4 04/17 19:59 Body Mass Index 31.25 (72.57 kg, 152.40 cm) 1 [place] Coma Score: 04/17 23:47 Eye Response: spontaneous(4). Verbal Response: oriented(5). Motor Response: obeys kc4 commands(6). Total: 15. ED Course: 19:18 Patient arrived in ED. 20:02 Triage completed. 1 20:02 Arm band placed on. 1 22:20 Priscilla Sanches is Primary Nurse. kc4 22:22 Ramakrishna Edouard MD is Attending Physician. 7 23:00 Inserted saline lock: 20 gauge in right antecubital area, using aseptic technique. kc4 Blood collected. 23:26 No provider procedures requiring assistance completed. kc4 23:27 Patient has correct armband on for positive identification. Placed in gown. Bed in low kc4 position. Call light in reach. Side rails up X 1. 23:27 CBC with Automated Diff Sent. kc4 23:27 Lactate Sent. kc4 23:27 Blood Culture Adult (2) Sent. kc4 23:27 Protime (+inr) Sent. kc4 23:27 Ptt, Activated Sent. kc4 23:27 LFT's Sent. kc4 23:27 Basic Metabolic Panel Sent. kc4 23:27 CBC with Diff Sent. kc4 23:37 Easton Abraham DO is Hospitalizing Provider. [facility] 04/18 00:57 Resting quietly. kc4 01:05 Blood Culture Adult (2) Sent. kc4 Administered Medications: 04/17 23:20 Drug: NS 0.9% 1000 ml Route: IV; Rate: 1000 ml; Site: right antecubital; [facility] 04/18 01:05 Follow up: Response: No adverse reaction [facility] 01:06 Follow up: IV Status: Completed infusion [facility] 04/17 23:20 Drug: Rocephin (cefTRIAXone) 1 grams Route: IV; Rate: per protocol; Site: right 4 antecubital; 04/18 01:05 Follow up: Response: No adverse reaction [facility] 04/17 23:20 Drug: Flagyl (metroNIDAZOLE) 500 mg Volume: 100 ml; Route: IVPB; Rate: 200 ml/hr; kc4 Infused Over: 30 mins; Site: right antecubital; 04/18 01:04 Follow up: Response: No adverse reaction; IV Status: Completed infusion 4 04/17 23:20 Drug: morphine 2 mg Route: IVP; Site: right antecubital; kc4 04/18 01:04 Follow up: Response: No adverse reaction kc4 04/17 23:20 Drug: Zofran (Ondansetron) 4 mg Route: IVP; Site: right antecubital; kc4 04/18 01:04 Follow up: Response: No adverse reaction kc4 Intake: 04/17 23:47 PO: 300ml (Water); Total: 300ml. kc4 Outcome: 23:38 Decision to Hospitalize by Provider. [facility] 04/18 14:18 Patient left the ED. iw Signatures: Madiha Gomez RN RN iw Cami Grant RN RN 1 Ramakrishna Edouadr MD MD [facility] Mis Kraus Kourtney kc4
[2021-04-17 23:55] LABS: Absolute Lymphocytes (CBC) 1.8 K/uL (0.7-4.9); Basophils % 0.4 % (0-1.3); Hematocrit 40.4 % (36.0-45.0); Lymphocytes % 18.1 % (15.3-44.8); MPV 10.2 fL (7.6-11.3); RBC Red Blood Cell Count 4.96 M/uL (3.86-4.86)
[2021-04-17 23:58] LABS: Protime INR 1.12
[2021-04-18 00:06] LABS: ALT/SGPT 30 U/L (12-78); AST/SGOT 15 U/L (15-37); Albumin 3.6 g/dL (3.4-5.0); Alkaline Phosphatase 125 U/L (45-117); BUN Blood Urea Nitrogen 5 mg/dL (7-18); Bicarbonate 24 mmol/L (21-32); Bilirubin Direct 0.2 mg/dL (0-0.2); Bilirubin Total 0.8 mg/dL (0.2-1.0); Glucose Level 96 mg/dL (74-106); Protein, Total 7.9 g/dL (6.4-8.2); Sodium Level 138 mmol/L (136-145)
--- NOTE | 2021-04-18 00:13 | P.HP ---
Certification for Inpatient Patient admitted to: Inpatient With expected LOS: >2 Midnights Patient will require the following post-hospital care: None Practitioner: I am a practitioner with admitting privileges, knowledge of patient current condition, hospital course, and medical plan of care. Services: Services provided to patient in accordance with Admission requirements found in Title 42 Section 412.3 of the Code of Federal Regulations Patient History Date of Service: 04/18/21 Reason for admission: LUE cellulitis History of Present Illness: 46-year-old female with no significant past medical history presents the emergency department after sustaining a cat bite late on the night of 04/16/2021. Patient was seen in the emergency department that night and started on Augmentin, swelling and redness have increased significantly since then. Patient was evaluated in the emergency department white blood cell count 10 patient with significant clinical cellulitis of the left upper extremity including cellulitis left hand with fingers held in passive flexion, tenderness to the palmar aspect of the fingers and resistance to extension, mild swelling noted. Case was discussed with plastic surgery who will see patient in the morning, n.p.o. after midnight and continue with IV antibiotics. - Past Medical/Surgical History -: None -: Cholecystectomy -: Cataract surgery - Family History Family History: Reviewed- Non-Contributory - Social History Smoking Status: Never smoker Alcohol use: No CD- Drugs: No Caffeine use: Yes Place of Residence: Home Review of Systems 10-point ROS is otherwise unremarkable General: Fever, Chills, Malaise Musculoskeletal: Arm Pain, As per HPI Physical Examination - Physical Exam General: Alert, In no apparent distress, Oriented x3 HEENT: Atraumatic, PERRLA, Mucous membr. moist/pink, EOMI, Sclerae nonicteric Neck: Supple, 2+ carotid pulse no bruit, No LAD, Without JVD or thyroid abnormality Respiratory: Clear to auscultation bilaterally, Normal air movement Cardiovascular: Regular rate/rhythm, Normal S1 S2 Gastrointestinal: Normal bowel sounds, No tenderness Musculoskeletal: No tenderness Integumentary: Tenderness/swelling, Erythema, Warmth Neurological: Normal speech, Normal strength at 5/5 x4 extr, Normal tone, Normal affect - Studies Laboratory Data (last 24 hrs) 04/17/21 23:06: PT 12.9 H, INR 1.12, APTT 27.5 04/17/21 23:06: Sodium 138, Potassium 4.0, BUN 5 L, Creatinine 0.61, Glucose 96, Total Bilirubin 0.8, AST 15, ALT 30, Alkaline Phosphatase 125 H 04/17/21 23:06: WBC 10.00, Hgb 13.5, Hct 40.4, Plt Count 187 Assessment and Plan - Plan Assessment: Cellulitis of the left upper extremity status post cat bite 04/16/21failed outpatient therapy with Augmentin Plan Cellulitis of the left upper extremity status post cat bite 04/16/21failed outpatient therapy with Augmentin: Continue broad-spectrum antibiotic therapy with Rocephin 2 g once daily and Flagyl 500 mg IV 3 times daily, as needed pain medications, n.p.o. after midnight for possible surgical intervention with plastic surgery. Anticipate clinical improvement over the course the next 48 to 72 hours. DVT PPX: SCDs Code status: Full code Discharge Plan: Home Plan to discharge in: Greater than 2 days - Advance Directives Does patient have a Living Will: No Does patient have a Durable POA for Healthcare: No - Code Status/Comfort Care Code Status Assessed: Yes (Full code) Critical Care: No Time Spent Managing Pts Care (In Minutes): 55
[2021-04-18] MEDS ORDERED: ACETAMINOPHEN 500 MG TAB PO PRN (01:37)
[2021-04-18] MEDS: METRONIDAZOLE 500mg IVPB 500 MG/100 ML BAG IV SCH ×3 (01:37→18:52)
[2021-04-18] MEDS ORDERED: ONDANSETRON 4 MG/2 ML VIAL IV PRN (01:37)
[2021-04-18] MEDS: NA CHLORIDE 0.9% 1,000 ML IV SCH ×3 (01:37→20:07)
[2021-04-18] MEDS ORDERED: MORPHINE 2 MG/ML SYR IV PRN (01:37)
[2021-04-18 02:57] VITALS: BMI 31.2
[2021-04-18] MEDS ORDERED: NA CHLORIDE 0.9% 1,000 ML ONE ×2 (03:24→12:08)
[2021-04-18 03:36] LABS: Absolute Lymphocytes (CBC) 1.7 K/uL (0.7-4.9); Basophils % 0.5 % (0-1.3); Hematocrit 38.5 % (36.0-45.0); Lymphocytes % 22.1 % (15.3-44.8); RBC Red Blood Cell Count 4.65 M/uL (3.86-4.86)
[2021-04-18 03:58] LABS: ALT/SGPT 28 U/L (12-78); AST/SGOT 12 U/L (15-37); Albumin 3.1 g/dL (3.4-5.0); Alkaline Phosphatase 112 U/L (45-117); BUN Blood Urea Nitrogen 5 mg/dL (7-18); Bicarbonate 23 mmol/L (21-32); Bilirubin Total 0.5 mg/dL (0.2-1.0); Glucose Level 89 mg/dL (74-106); HDL Cholesterol 48 mg/dL (40-60); LDL Cholesterol, Calculated 63 (<130); Magnesium 2.1 mg/dL (1.8-2.4); Potassium 3.8 mmol/L (3.5-5.1); Sodium Level 142 mmol/L (136-145)
--- NOTE | 2021-04-18 06:18 | P.PN ---
Subjective Date of Service: 04/18/21 Primary Care Provider: None Chief Complaint: LUE cellulitis Subjective: Other (Overall stable.) Physical Examination - Vital Signs Temperature: 98.8 F Blood Pressure: 138/80 Pulse: 72 Respirations: 18 Pulse Ox (%): 100 - Studies Laboratory Data (last 24 hrs) 04/17/21 23:06: PT 12.9 H, INR 1.12, APTT 27.5 04/17/21 23:06: Sodium 138, Potassium 4.0, BUN 5 L, Creatinine 0.61, Glucose 96, Total Bilirubin 0.8, AST 15, ALT 30, Alkaline Phosphatase 125 H 04/17/21 23:06: WBC 10.00, Hgb 13.5, Hct 40.4, Plt Count 187 Assessment & Plan Discharge Plan: Home Plan to discharge in: 72 Hours Physician Review Additional Text: COVID: negative Physical exam: General: Alert, In no apparent distress, Oriented x3 HEENT: Atraumatic, PERRLA, Mucous membr. moist/pink, EOMI, Sclerae nonicteric Neck: Supple, 2+ carotid pulse no bruit, No LAD, Without JVD or thyroid abnormality Respiratory: Clear to auscultation bilaterally, Normal air movement Cardiovascular: Regular rate/rhythm, Normal S1 S2 Gastrointestinal: Normal bowel sounds, No tenderness Musculoskeletal: No tenderness Integumentary: Tenderness/swelling, Erythema, Warmth to the left upper extremity. Neurological: Normal speech, Normal strength at 5/5 x4 extr, Normal tone, Normal affect Impression: Cellulitis of the left upper extremity status post cat bite 04/16/21failed outpatient therapy with Augmentin Plan Cellulitis of the left upper extremity status post cat bite 04/16/21failed outpatient therapy with Augmentin: Continue IV antibiotic therapyRocephin and Flagyl. Continue with medication for pain. Patient currently n.p.o. in preparation for evaluation by plastic surgery. Patient will likely require intervention. Await recommendations from plastic surgery. Will consult infectious disease for further recommendation. DVT PPX: SCDs Code status: Full code Discharge Plan: Home at discharge Time Spent Managing Pts Care (In Minutes): 55
[2021-04-18] MEDS ORDERED: HYDROCODONE/APAP 7.5/325 MG TAB PO PRN (10:47)
[2021-04-18] MEDS ORDERED: TRAMADOL HCL 50 MG TAB PO PRN (10:47)
--- NOTE | 2021-04-18 11:21 | P.CNS ---
Date of Consult: 04/18/21 Primary Care Provider: None Chief Complaint: LUE cellulitis History of Present Illness: Patient is a 46 year old female with no significant PMH who presented to the ED secondary to worsening left hand pain and swelling. Patient was bitten by a cat Sunday night, she then presented to the ED on Sunday where she was given a rabies shot and prescribed oral Augmentin. However, her pain continued to worsen and she was unable to move her fingers/wrist and as such represented to the ED today. She denies N/V/D/fevers/chest pain/SOB. Allergies No Known Allergies Allergy (Verified 04/18/21 01:37) Home Medications: NK [No Home Meds] 04/18/21 - Past Medical/Surgical History -: None -: Cholecystectomy -: Cataract surgery - Social History Alcohol use: No CD- Drugs: No Caffeine use: Yes Place of Residence: Home Review of Systems 10-point ROS is otherwise unremarkable Physical Examination Temp Pulse Resp BP Pulse Ox 98.8 F 72 18 138/80 100 04/18/21 10:47 04/18/21 10:47 04/18/21 10:47 04/18/21 10:47 04/18/21 10:47 General: Alert, In no apparent distress, Oriented x3, Oriented x2 HEENT: Atraumatic, Normocephalic Neck: 2+ carotid pulse no bruit Respiratory: Clear to auscultation bilaterally, Normal air movement Cardiovascular: Regular rate/rhythm, Normal S1 S2 Gastrointestinal: Normal bowel sounds, Soft and benign Musculoskeletal: Other (decreased ROM to left fingers and wrist. ) Integumentary: Other (left hand swelling and erythema ) Laboratory Data (last 24 hrs) 04/17/21 23:06: PT 12.9 H, INR 1.12, APTT 27.5 04/17/21 23:06: Sodium 138, Potassium 4.0, BUN 5 L, Creatinine 0.61, Glucose 96, Total Bilirubin 0.8, AST 15, ALT 30, Alkaline Phosphatase 125 H 04/17/21 23:06: WBC 10.00, Hgb 13.5, Hct 40.4, Plt Count 187 Conclusions/Impression: Assessment/Plan: left upper extremity cellulites secondary to cat bite Need to cover Pasterella species, patient failed outpatient treated with oral Augmentin. Recommend started IV Unasyn.3g q6hr. Pending surgery evaluation. -medical management per primary team -Plan of care discuses with Dr. Orta Thank you for consultation
[2021-04-18] MEDS ORDERED: MORPHINE 2 MG/ML SYR ONE (11:55)
[2021-04-18] MEDS ORDERED: METRONIDAZOLE 500mg IVPB 500 MG/100 ML BAG IV ONE (11:56)
[2021-04-18] MEDS: CEFTRIAXONE 2,000 MG in NA CHLORIDE 0.9% 100 ML IV SCH (12:12)
[2021-04-18] MEDS ORDERED: POTASSIUM CL SA 10 MEQ TAB PO ONE (13:00)
[2021-04-18] MEDS ORDERED: KCL 20 MEQ/100 mL IVPB 20 MEQ/100 ML BAG IV SCH (14:00)
[2021-04-19] MEDS: METRONIDAZOLE 500mg IVPB 500 MG/100 ML BAG IV SCH ×3 (01:37→18:14)
[2021-04-19 02:41] LABS: Urine Appearance Clear (Clear); Urine Bilirubin Negative (Negative); Urine Blood Negative (Negative); Urine Color Yellow (Yellow); Urine Glucose Negative (Negative); Urine Protein Negative (Negative); Urine Specific Gravity 1.025 (1.005-1.030); Urine Urobilinogen 0.2 mg/dL (0.2-1.0)
[2021-04-19 02:42] LABS: Urine Microscopic Reflex NO UMIC
[2021-04-19 04:05] LABS: Absolute Lymphocytes (CBC) 1.4 K/uL (0.7-4.9); Basophils % 0.5 % (0-1.3); Hematocrit 34.7 % (36.0-45.0); Lymphocytes % 28.3 % (15.3-44.8); MPV 9.3 fL (7.6-11.3); RBC Red Blood Cell Count 4.24 M/uL (3.86-4.86)
[2021-04-19 04:29] LABS: ALT/SGPT 21 U/L (12-78); AST/SGOT 8 U/L (15-37); Albumin 2.8 g/dL (3.4-5.0); Alkaline Phosphatase 105 U/L (45-117); BUN Blood Urea Nitrogen 8 mg/dL (7-18); Bicarbonate 24 mmol/L (21-32); Bilirubin Total 0.5 mg/dL (0.2-1.0); Glucose Level 85 mg/dL (74-106); Magnesium 2.2 mg/dL (1.8-2.4); Potassium 3.8 mmol/L (3.5-5.1); Protein, Total 6.4 g/dL (6.4-8.2); Sodium Level 142 mmol/L (136-145)
[2021-04-19] MEDS ORDERED: POTASSIUM CL SA 10 MEQ TAB PO ONE (05:00)
--- NOTE | 2021-04-19 05:55 | P.PN ---
Subjective Date of Service: 04/19/21 Primary Care Provider: None Chief Complaint: LUE cellulitis Subjective: Improving Physical Examination - Vital Signs Temperature: 97.7 F Blood Pressure: 115/56 Pulse: 65 Respirations: 18 Pulse Ox (%): 98 Assessment & Plan Discharge Plan: Home Plan to discharge in: 48 Hours Physician Review Additional Text: COVID: negative Physical exam: General: Alert, In no apparent distress, Oriented x3 HEENT: Atraumatic, PERRLA, Mucous membr. moist/pink, EOMI, Sclerae nonicteric Neck: Supple, 2+ carotid pulse no bruit, No LAD, Without JVD or thyroid abnormality Respiratory: Clear to auscultation bilaterally, Normal air movement Cardiovascular: Regular rate/rhythm, Normal S1 S2 Gastrointestinal: Normal bowel sounds, No tenderness Musculoskeletal: No tenderness Integumentary: Swelling to the left upper extremity improved. No significant warmth. Neurological: Normal speech, Normal strength at 5/5 x4 extr, Normal tone, Normal affect Impression: Cellulitis of the left upper extremity status post cat bite 04/16/21failed outpatient therapy with Augmentin Plan Cellulitis of the left upper extremity status post cat bite 04/16/21failed outpatient therapy with Augmentin: Continue IV Rocephin and Flagyl. Continue to elevate left upper extremity when sitting or lying. Continue to provide medication for pain as needed. Plastic surgery planning for surgical intervention today. Await further recommendations from plastic surgery on plan of care. Possible discharge in the next 48 hours. DVT PPX: SCDs Code status: Full code Discharge Plan: Home at discharge Time Spent Managing Pts Care (In Minutes): 55
[2021-04-19] MEDS ORDERED: POTASSIUM CL 40 MEQ in NA CHLORIDE 0.9% 500 ML IV SCH (06:00)
[2021-04-19] MEDS ORDERED: NA CHLORIDE 0.9% 100 ML ONE (08:58)
[2021-04-19] MEDS: NA CHLORIDE 0.9% 1,000 ML IV SCH ×2 (09:12→18:16)
[2021-04-19] MEDS ORDERED: ACETAMINOPHEN 500 MG TAB ONE (11:39)
[2021-04-19] MEDS ORDERED: CELECOXIB 100 MG CAPSULE ONE (11:39)
[2021-04-19] MEDS: CEFTRIAXONE 2,000 MG in NA CHLORIDE 0.9% 100 ML IV SCH (12:16)
--- NOTE | 2021-04-19 12:47 | P.PN ---
Subjective Date of Service: 04/19/21 Primary Care Provider: None Chief Complaint: LUE cellulitis Patient seen examined at bedside, doing better today. Still has the strange motion at risk, unable to extend or flex. However patient has regained all ROM to fingers. Review of Systems 10-point ROS is otherwise unremarkable Physical Examination - Vital Signs Temperature: 98.3 F Blood Pressure: 122/61 Pulse: 71 Respirations: 18 Pulse Ox (%): 100 - Studies Laboratory Last Values WBC 10.00 K/uL (4.3-10.9) 04/17/21 23:06 RBC 4.96 M/uL (3.86-4.86) H 04/17/21 23:06 Hgb 13.5 g/dL (12.0-15.0) 04/17/21 23:06 Hct 40.4 % (36.0-45.0) 04/17/21 23:06 MCV 81.6 fL (80-100) 04/17/21 23:06 MCH 27.3 pg (27.0-35.0) 04/17/21 23:06 MCHC 33.5 g/dL (32.0-36.0) 04/17/21 23:06 RDW 14.1 % (12.1-15.2) 04/17/21 23:06 Plt Count 187 K/uL (152-406) 04/17/21 23:06 MPV 10.2 fL (7.6-11.3) 04/17/21 23:06 Neutrophils % 74.5 % (41.7-73.7) H 04/17/21 23:06 Lymphocytes % 18.1 % (15.3-44.8) 04/17/21 23:06 Monocytes % 6.7 % (3.3-12.3) 04/17/21 23:06 Eosinophils % 0.3 % (0-4.4) 04/17/21 23:06 Basophils % 0.4 % (0-1.3) 04/17/21 23:06 Absolute Neutrophils 7.5 K/uL (1.8-8.0) 04/17/21 23:06 Absolute Lymphocytes 1.8 K/uL (0.7-4.9) 04/17/21 23:06 Absolute Monocytes 0.7 K/uL (0.1-1.3) 04/17/21 23:06 Absolute Eosinophils 0.0 K/uL (0-0.5) 04/17/21 23:06 Absolute Basophils 0.0 K/uL (0-0.5) 04/17/21 23:06 PT 12.9 SECONDS (9.5-12.5) H 04/17/21 23:06 INR 1.12 04/17/21 23:06 APTT 27.5 SECONDS (24.3-36.9) 04/17/21 23:06 Sodium 138 mmol/L (136-145) 04/17/21 23:06 Potassium 4.0 mmol/L (3.5-5.1) 04/17/21 23:06 Chloride 106 mmol/L (98-107) 04/17/21 23:06 Carbon Dioxide 24 mmol/L (21-32) 04/17/21 23:06 BUN 5 mg/dL (7-18) L 04/17/21 23:06 Creatinine 0.61 mg/dL (0.55-1.3) 04/17/21 23:06 Estimated GFR > 90 mL/min (=/>90) 04/17/21 23:06 Glucose 96 mg/dL (74-106) 04/17/21 23:06 Lactic Acid 0.8 mmol/L (0.4-2.0) 04/17/21 22:36 Calcium 9.1 mg/dL (8.5-10.1) 04/17/21 23:06 Total Bilirubin 0.8 mg/dL (0.2-1.0) 04/17/21 23:06 Direct Bilirubin 0.2 mg/dL (0-0.2) 04/17/21 23:06 AST 15 U/L (15-37) 04/17/21 23:06 ALT 30 U/L (12-78) 04/17/21 23:06 Alkaline Phosphatase 125 U/L (45-117) H 04/17/21 23:06 Serum Total Protein 7.9 g/dL (6.4-8.2) 04/17/21 23:06 Albumin 3.6 g/dL (3.4-5.0) 04/17/21 23:06 Globulin 4.3 g/dL (2.3-3.5) H 04/17/21 23:06 Albumin/Globulin Ratio 0.8 (1.1-1.8) L 04/17/21 23:06 SARS-CoV-2 Rap RNA(RT-PCR) Negative (NEGATIVE) 04/17/21 00:00 Assessment And Plan - Plan Physical exam: General: Alert, In no apparent distress, Oriented x3, Oriented x2 HEENT: Atraumatic, Normocephalic Neck: 2+ carotid pulse no bruit Respiratory: Clear to auscultation bilaterally, Normal air movement Cardiovascular: Regular rate/rhythm, Normal S1 S2 Gastrointestinal: Normal bowel sounds, Soft and benign Musculoskeletal: Other (decreased ROM to left fingers and wrist. ) Integumentary: Other (left hand swelling and erythema ) Conclusions/Impression: Assessment/Plan: left upper extremity cellulites secondary to cat bite Need to cover Pasterella species, patient failed outpatient treated with oral Augmentin. Recommend started IV Unasyn 3g q6hr. Pending surgery evaluation. -medical management per primary team -Plan of care discuses with Dr. Orta Thank you for consultation Physician Review Additional Text: COVID: negative Physical exam: General: Alert, In no apparent distress, Oriented x3 HEENT: Atraumatic, PERRLA, Mucous membr. moist/pink, EOMI, Sclerae nonicteric Neck: Supple, 2+ carotid pulse no bruit, No LAD, Without JVD or thyroid abnormality Respiratory: Clear to auscultation bilaterally, Normal air movement Cardiovascular: Regular rate/rhythm, Normal S1 S2 Gastrointestinal: Normal bowel sounds, No tenderness Musculoskeletal: No tenderness Integumentary: Swelling to the left upper extremity improved. No significant warmth. Neurological: Normal speech, Normal strength at 5/5 x4 extr, Normal tone, Normal affect Impression: Cellulitis of the left upper extremity status post cat bite 04/16/21failed outpatient therapy with Augmentin Plan Cellulitis of the left upper extremity status post cat bite 04/16/21failed outpatient therapy with Augmentin: Continue IV Rocephin and Flagyl. Continue to elevate left upper extremity when sitting or lying. Continue to provide medication for pain as needed. Plastic surgery planning for surgical intervention today. Await further recommendations from plastic surgery on plan of care. Possible discharge in the next 48 hours. DVT PPX: SCDs Code status: Full code Discharge Plan: Home at discharge
[2021-04-19] MEDS ORDERED: MIDAZOLAM HCL 2 MG/2 ML INJ ONE (13:20)
[2021-04-19] MEDS ORDERED: propofoL 200 MG/20 ML VIAL IV ONE (13:20)
[2021-04-19] MEDS ORDERED: LIDOCAINE 2% MPF 5 ML VIAL ONE (13:21)
[2021-04-19] MEDS ORDERED: FENTANYL CITR 100 MCG/2 ML ONE (13:21)
[2021-04-19] MEDS ORDERED: ONDANSETRON 4 MG/2 ML VIAL ONE (13:27)
[2021-04-19] MEDS ORDERED: dexAMETHasone 10 MG/ML VIAL ONE (13:42)
[2021-04-19] MEDS ORDERED: SILVER SULFADIAZINE 1% 25 GM TOP ONE (13:48)
[2021-04-19] MEDS: HYDROMORPHONE HCL 1 MG/ML INJ ONE ×2 (14:26→14:36)
[2021-04-19] MEDS ORDERED: CODEINE 30MG/APAP 300MG TAB PO PRN (14:44)
[2021-04-20] MEDS: METRONIDAZOLE 500mg IVPB 500 MG/100 ML BAG IV SCH (00:38)
--- NOTE | 2021-04-20 00:40 | OP ---
Surgeon: Rodriguez Cooper MD Preoperative Diagnosis: Cat bite to the left hand. Postoperative Diagnosis: Cat bite to the left hand with tenosynovitis of fourth and fifth apartments . Procedure Performed: Debridement of skin and subcutaneous tissue, fourth and fifth compartments. Anesthesia: General. Description Of Procedure: After satisfactory general anesthesia, left hand was prepped with Betadine scrub, Betadine paint, dry sterile drapes applied in usual manner. Arm was elevated. Tourniquet wa s inflated to 250. Hand was placed on Roto Lock table. An incision was made cutting out the 3 cat b ites. Then proximal and distal extension was made. tissue was encountered, cultured for aerobes and anaerobes. Fourth and fifth compartment were opened that level. Then the wou nd was irrigated with 3 L of Betadine solution. Tourniquet was released. Electrocautery was used fo r hemostasis. Wound was covered with Silvadene cream, 2 inch Maxi, Kerlix. The patient tolerated p rocedure well and returned to Recovery. JACK/AYANA Voice ID: [id number] Report ID: [id number]
[2021-04-20 04:45] LABS: Absolute Lymphocytes (CBC) 0.8 K/uL (0.7-4.9); Basophils % 0.1 % (0-1.3); Hematocrit 34.7 % (36.0-45.0); Lymphocytes % 9.7 % (15.3-44.8); MPV 9.4 fL (7.6-11.3); RBC Red Blood Cell Count 4.23 M/uL (3.86-4.86)
[2021-04-20 04:55] LABS: ALT/SGPT 21 U/L (12-78); AST/SGOT 8 U/L (15-37); Albumin 2.6 g/dL (3.4-5.0); Alkaline Phosphatase 107 U/L (45-117); BUN Blood Urea Nitrogen 11 mg/dL (7-18); Bicarbonate 22 mmol/L (21-32); Bilirubin Total 0.2 mg/dL (0.2-1.0); Glucose Level 130 mg/dL (74-106); Magnesium 2.2 mg/dL (1.8-2.4); Potassium 4.3 mmol/L (3.5-5.1); Protein, Total 6.4 g/dL (6.4-8.2); Sodium Level 141 mmol/L (136-145)
[2021-04-20 05:35] LABS: Blood Morphology Comment NOT SEEN (NOT SEEN); Platelet Estimate ADEQ
--- NOTE | 2021-04-20 05:57 | P.PN ---
Subjective Date of Service: 04/20/21 Primary Care Provider: None Chief Complaint: LUE cellulitis Subjective: Improving, Doing well Physical Examination - Vital Signs Temperature: 97.1 F Blood Pressure: 112/58 Pulse: 54 Respirations: 16 Pulse Ox (%): 96 Assessment & Plan Discharge Plan: Home Plan to discharge in: 48 Hours Physician Review Additional Text: COVID: negative Surgery 04/19/2021: Surgeon: Rodriguez Cooper MD Preoperative Diagnosis: Cat bite to the left hand. Postoperative Diagnosis: Cat bite to the left hand with tenosynovitis of fourth and fifth apartments. Procedure Performed: Debridement of skin and subcutaneous tissue, fourth and fifth compartments. Anesthesia: General. Physical exam: General: Alert, In no apparent distress, Oriented x3 HEENT: Atraumatic, PERRLA, Mucous membr. moist/pink, EOMI, Sclerae nonicteric Neck: Supple, 2+ carotid pulse no bruit, No LAD, Without JVD or thyroid abnormality Respiratory: Clear to auscultation bilaterally, Normal air movement Cardiovascular: Regular rate/rhythm, Normal S1 S2 Gastrointestinal: Normal bowel sounds, No tenderness Musculoskeletal: No tenderness Integumentary: Left upper extremity bandaged. Bandages in place. Edema to the hand improved. Neurological: Normal speech, Normal strength at 5/5 x4 extr, Normal tone, Normal affect Impression: Cat bite to the left hand with tenosynovitis of the fourth and fifth compartmentsfailed outpatient therapy status post debridement of skin/subcutaneous tissue particularly to the fourth and fifth compartments Plan Cat bite to the left hand with tenosynovitis of the fourth and fifth compartmentsfailed outpatient therapy status post debridement of skin/subcutaneous tissue particularly to the fourth and fifth compartments: Spoke with plastic surgery and infectious disease yesterday. Infectious disease recommends to change IV antibiotic therapy to Unasyn. Patient had debridement yesterday. Patient to have another debridement on Sunday with closure. This morning patient was adamant about leaving today. She needed to be with her family for the . I explained the importance of staying in the hospital to continue IV antibiotic therapy and eventual debridement with closure. This was addressed in detail with plastic surgery. He recommended patient to remain in the hospital. Patient plans to leave AGAINST MEDICAL ADVICE. It will be important for the patient to return on Sunday to the ER for debridement and closure. Patient will need to be n.p.o. after midnight on . Will provide Augmentin oral when the patient leaves AGAINST MEDICAL ADVICE. DVT PPX: SCDs Code status: Full code Discharge Plan: Home at discharge Time Spent Managing Pts Care (In Minutes): 55
[2021-04-20] MEDS: NA CHLORIDE 0.9% 1,000 ML IV SCH (06:46)
--- NOTE | 2021-04-20 07:42 | P.DS ---
Admission Date: 04/18/21 Discharge Date: 04/20/21 Primary Care Provider: None Disposition: AMA-LEFT AGAINST MEDICAL ADVIC Discharge Condition: GOOD Reason for Admission: LUE cellulitis Consultations: Plastic Surgery-Dr. Cooper Infectious disease-Dr. Orta Procedures: COVID: negative Surgery 04/19/2021: Surgeon: Rodriguez Cooper MD Preoperative Diagnosis: Cat bite to the left hand. Postoperative Diagnosis: Cat bite to the left hand with tenosynovitis of fourth and fifth apartments. Procedure Performed: Debridement of skin and subcutaneous tissue, fourth and fifth compartments. Anesthesia: General. Medical Problem List: Cat bite to the left hand with tenosynovitis of the fourth and fifth compartmentsfailed outpatient therapy status post debridement of skin/subcutaneous tissue particularly to the fourth and fifth compartments Brief History of Present Illness: 46-year-old female presented to the emergency room after a cat bite that occurred on 04/16/2021. She was seen in the emergency room at that time. She was sent home with Augmentin. Patient continued to have increased redness and swelling. The patient was reevaluated in the emergency room. Patient was admitted for IV antibiotic therapy and plastic surgery evaluation. Hospital Course: Patient presented with cat bite to the left hand. Patient was initially treated in the emergency room and sent home with antibiotic therapy. Pain, swelling persisted. Patient was reevaluated in the emergency room and admitted for IV antibiotic therapy and further evaluation with plastic surgery. Patient found to have tenosynovitis of the fourth and fifth compartments of the left hand. Plastic surgery recommended surgical intervention. Patient had debridement of skin and subcutaneous tissue particularly to the fourth and fifth compartments. Patient continued to do well with IV antibiotic therapy. Patient wanted to leave AGAINST MEDICAL ADVICE as she wanted to be with her family during the . This was addressed with plastic surgery. Plastic surgery recommended that the patient remain in the hospital to continue current plan of care. I addressed this in detail with the patient. I explained the importance of continued IV antibiotic therapy and to remain in the hospital until she had further debridement and closure on Sunday. Patient understood the risks of leaving the hospital but preferred to leave AGAINST MEDICAL ADVICE. Patient will be sent home with Augmentin 875 mg 1 pill twice daily for 7 days. The patient will need to return to the ER early Sunday morning around 5 or 6 AM for admission to plastic surgery for eventual debridement and closure of the wound. Patient will need to be nothing by mouth after midnight on in preparation for procedure. Vital Signs/Physical Exam: Temp Pulse Resp BP Pulse Ox 97.1 F 54 16 112/58 L 96 04/20/21 07:40 04/20/21 07:40 04/20/21 07:40 04/20/21 07:40 04/20/21 07:40 General: Alert, In no apparent distress, Oriented x3, Cooperative HEENT: Atraumatic Neck: Supple Respiratory: Clear to auscultation bilaterally, Normal air movement Cardiovascular: Normal pulses, Regular rate/rhythm Gastrointestinal: Normal bowel sounds Integumentary: Other (Wound to the left hand bandage. Less swelling noted to the left hand.) Neurological: Normal speech, Normal strength at 5/5 x4 extr, Normal tone Laboratory Data at Discharge: WBC 8.30 K/uL (4.3-10.9) D 04/20/21 04:05 Hgb 11.7 g/dL (12.0-15.0) L 04/20/21 04:05 Hct 34.7 % (36.0-45.0) L 04/20/21 04:05 Plt Count 168 K/uL (152-406) D 04/20/21 04:05 PT 12.9 SECONDS (9.5-12.5) H 04/17/21 23:06 INR 1.12 04/17/21 23:06 APTT 27.5 SECONDS (24.3-36.9) 04/17/21 23:06 Sodium 141 mmol/L (136-145) 04/20/21 04:05 Potassium 4.3 mmol/L (3.5-5.1) 04/20/21 04:05 BUN 11 mg/dL (7-18) 04/20/21 04:05 Creatinine 0.56 mg/dL (0.55-1.3) 04/20/21 04:05 Glucose 130 mg/dL (74-106) H 04/20/21 04:05 Magnesium 2.2 mg/dL (1.8-2.4) 04/20/21 04:05 Total Bilirubin 0.2 mg/dL (0.2-1.0) 04/20/21 04:05 AST 8 U/L (15-37) L 04/20/21 04:05 ALT 21 U/L (12-78) 04/20/21 04:05 Alkaline Phosphatase 107 U/L (45-117) 04/20/21 04:05 Triglycerides 78 mg/dL (<150) 04/18/21 03:08 Cholesterol 127 mg/dL (<200) 04/18/21 03:08 HDL Cholesterol 48 mg/dL (40-60) 04/18/21 03:08 Cholesterol/HDL Ratio 2.65 04/18/21 03:08 Home Medications: Amoxicillin/Potassium Clav [Augmentin 875-125 Tablet] 1 each PO BID #14 tablet 04/20/21 New Medications: Amoxicillin/Potassium Clav [Augmentin 875-125 Tablet] 1 each PO BID #14 tablet Physician Discharge Instructions: Patient presented with cat bite to the left hand. Patient was initially treated in the emergency room and sent home with antibiotic therapy. Pain, swelling persisted. Patient was reevaluated in the emergency room and admitted for IV antibiotic therapy and further evaluation with plastic surgery. Patient found to have tenosynovitis of the fourth and fifth compartments of the left hand. Plastic surgery recommended surgical intervention. Patient had debridement of skin and subcutaneous tissue particularly to the fourth and fifth compartments. Patient continued to do well with IV antibiotic therapy. Patient wanted to leave AGAINST MEDICAL ADVICE as she wanted to be with her family during the . This was addressed with plastic surgery. Plastic surgery recommended that the patient remain in the hospital to continue current plan of care. I addressed this in detail with the patient. I explained the importance of continued IV antibiotic therapy and to remain in the hospital until she had further debridement and closure on Sunday. Patient understood the risks of leaving the hospital but preferred to leave AGAINST MEDICAL ADVICE. Patient will be sent home with Augmentin 875 mg 1 pill twice daily for 7 days. The patient will need to return to the ER early Sunday morning around 5 or 6 AM for admission to plastic surgery for eventual debridement and closure of the wound. Patient will need to be nothing by mouth after midnight on in preparation for procedure. Diet: AHA Activity: Ad mary Followup: NONE,NONE [Primary Care Provider] - Time spent managing pt's care (in minutes): 55
[2021-04-20 08:54] VITALS: BP 132/74; TEMP 98.1
[2021-04-20] MEDS ORDERED: AMPICILLIN/SULBACT 3 GM in NA CHLORIDE 0.9% 100 ML IVPB SCH (09:00)
[2021-04-20 13:15] VITALS: O2SAT 100
--- NOTE | 2021-04-25 15:11 | OP ---
Surgeon: Rodriguez Cooper MD Preoperative Diagnosis: Open wound of the left hand. Postoperative Diagnosis: Open wound of the left hand. Procedure Performed: Debridement of skin and subcutaneous tissue, simple closure, 10 cm wound. Anesthesia: General. Description Of Procedure: After satisfactory induction of general anesthesia, left arm was prepped w ith Betadine scrub, Betadine paint, dry sterile drapes applied in usual manner. The arm was elevated , exsanguinated with an Esmarch, tourniquet inflated to 250 mmHg. Hand was placed on Roto Lock table . Tenotomy scissors were used to debride skin and subcutaneous tissue as needed. The wound was cure tted and jet lavage, irrigated with 3 L of Betadine solution. Tourniquet released. Electrocautery w as used for hemostasis. Wound was closed with 4-0 Prolene vertical mattress, dressed with Xeroform a nd Kerlix. The patient tolerated the procedure well and returned to Recovery. JACK/AYANA Voice ID: [id number] Report ID: [id number]
== END 2021-04-20 10:16 | disposition left against medical advice (07) | DRG 983 ==
LOC: ER 19:14 → ERHOLD 04-18 00:16 → 2ND 04-18 13:45
PROVIDERS: ADMIT Family Medicine; ATTEND Family Medicine
PROC: 0LD80ZZ Extraction of Left Hand Tendon, Open Approach (ICD-10-PCS; 2021-04-19)
PROC: 0JDK3ZZ Extraction of Left Hand Subcutaneous Tissue and Fascia, Percutaneous Approach (ICD-10-PCS; principal; 2021-04-19 12:30)
DX: L03.114 Cellulitis of left upper limb (principal); S41.152A Open bite of left upper arm, initial encounter; M65.9 Synovitis and tenosynovitis, unspecified; W55.01XA Bitten by cat, initial encounter; Z20.822 Contact with and (suspected) exposure to COVID-19; Z53.29 Procedure and treatment not carried out because of patient's decision for other reasons
CPT/HCPCS: 36415; 80048; 80053; 80061; 80076; 81003; 81025; 83605; 83735; 84145; 84439; 84443; 85025; 85610; 85730; 87040; 87070; 87075; 87205; 88304; 96365; 96366; 96375; 99283; J0295; J0696; J1100; J1170; J2250; J2270; J2405; J2704; J3010; J3480; J7030; J7040; U0003

== ENCOUNTER 2021-04-22 06:00 | Day surgery (SDC) | payer SELFPAY ==
--- OUTSIDE RECORDS SUMMARY | 2021-04-22 06:03 | XMS REPORT | Continuity of Care Document ---
:1975 Author Organization [facility] t Address 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 [id number] 2019 00:00:00 Problems Condition Condition Condition Status Onset Resolution Last Treating Co mments Source Name Details Category Date Date Treatment Clinician Date Chest pain Chest pain Disease Active 2019- U nivers 5-02 ity of 00:00: [address] Frequent Frequent Disease Active Unive rs headaches headaches 4-03 ity of 00:00: [address] Hematochez Hematochez Disease Active 2017-05 Overview : Univers ia ia 0-19 Added ity of 00:00: automatic [place] 00 ally from Medical request Branch for surgery [id number] Hydrops of Hydrops of Disease Active 2017-05 Overview : Univers delia lin 0-19 Added it y of r r 00:00: automatic 00 ally from Medical request Branch for surgery [id number] Atypical Atypical Disease Active Overview: Un loren [...] 5-18 ity of 00:00: [place] 00 [facility] [place] Tobacco Tobacco Disease Active Univers use use -18 ity of disorder disorder 00:00: [place] [address] [facility] [place] Encounter Encounter Disease Active 2006-05 Overview: Univers for for 0-08 Seeking ity of counseling counseling 00:00: ICD10 Medical Diagnosis 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 (event) [place] Tobacco use and 2020-09-30 2020-09-30 Never used Universit y of exposure 00:00:00 00:00:00 [facility] Alcohol intake 2020-09-30 2020-09-30 Ex-drinker University of 00:00:00 00:00:00 (finding) [facility] Tobacco Comment 2019-09-27 2019-09-27 second hand smoke Un iversity of 00:00:00 00:00:00 [facility] Alcohol Comment 2015-10-13 2015-10-13 social drinks Univer sity of 00:00:00 00:00:00 occasionally [facility] Sex Assigned At [birth year] Universit y of 00:00:00 00:00:00 [facility] Smoking Status Start Date Stop Date Source Never smoker [facility] Branch Medications Ordered Filled Start Stop Current [...] Immunizations Ordered Filled Immunization Date Status Comments Sour e Immunization Name Name Td 2020-08-07 Completed [facility] 00:00:00 [facility] Vital Signs Vital Name Observation Time Observation Value Comments Source Systolic blood 2020-10-01 01:49:00 154 mm[Hg] Univer sity [facility] Branch Diastolic blood 2020-10-01 01:49:00 100 mm[Hg] Unive rsity of [place] pressure Medical Branch Procedures This patient has no known procedures. Plan of Care Planned Activity Planned Date Details Comments Source Future Scheduled 2028-04-01 Screening for [facility] Test 00:00:00 malignant neoplasm Medical [facility] ranch of colon (procedure) [code = 684683809] Future Scheduled 2028-04-01 Screening for [facility] Test 00:00:00 malignant neoplasm Medical B ranch of colon (procedure) [code = [id number]] Future Scheduled 2021-01-26 INFLUENZA VACCINE Univer [facility] Test 00:00:00 (Season Ended) [code Medical Branch = INFLUENZA VACCINE (Season Ended)] Future Scheduled 2018-10-12 Screening for [facility] Test 00:00:00 malignant neoplasm Medical B ranch of cervix (procedure) [code = [id number]] Future Scheduled 2015 Screening for [facility] Test 00:00:00 malignant neoplasm Medical B ranch of breast (procedure) [code = [id number]] Future Scheduled 1994 DTaP,Tdap,and Td Univers [facility] Test 00:00:00 Vaccines (1 - Tdap) Medical Branch [code = DTaP,Tdap,and Td Vaccines (1 - Tdap)] Future Scheduled 1993 Hepatitis C [facility] Test 00:00:00 screening Medical Branch (procedure) [code = [id number]] Future Scheduled 1991 SARS-CoV-2 [facility] Test 00:00:00 (COVID-19) Vaccine Medical B ranch (1) [code = SARS-CoV-2 (COVID-19) Vaccine (1)] Future Scheduled 1987 Depression screening [facility] Test 00:00:00 (procedure) [code = Medical Branch [id number]] Encounters Start End Encounter Admission Attending Care Care Encounter Source Date/Time Date/Time Type Type Clinicians Facility Department ID 2021-03-27 Emergency [facility] [id number] Univers 05:46:[address] [facility] 2021-03-26 Emergency [facility] [id number] Univers 09:38:[address] [facility] 2021-03-25 Emergency [facility] [id number] Univers 13:06:[address] [facility] 2021-03-25 Emergency [facility] [id number] Univers 04:44:[address] [facility] 2021-03-25 Emergency [facility] [id number] Univers 03:20:[address] [facility] 2021-03-24 Emergency [facility] [id number] [facility]-29 2021-03-29 Outpatient R SEDRICK, [facility] [id number] Univers 15:30:00 15:30:00 [facility] [id number] [facility] 2021-03-29 Outpatient R SEDRICK, [facility] [id number] Univers 15:30:00 15:30:00 ABIMAEL [facility] 2021-01-07 2021-01-07 Outpatient R ISRAEL, [facility] [id number] Univers 11:30:00 11:30:00 SARIKA [facility] 2021-01-07 2021-01-07 Outpatient R ISRAEL, [facility] [id number] Univers 08:30:00 08:30:00 SARIKA [id number] [facility] 2021-01-05 2021-01-05 Outpatient R ISRAEL, [facility] [id number] Univers 08:30:00 08:30:00 SARIKA [id number] [facility] 2021-01-05 2021-01-05 Outpatient R ISRAEL, [facility] [id number] Univers 08:30:00 08:30:00 SARIKA [facility] 2021-01-03 2021-01-03 [facility] [id number] 00:00:00 00:00:00 Sarika [facility] [id number] [place] [id number] Profjanes [id number] nal [address] 2020-11-30 2020-11-30 Telephone Andree [place] [id number] 00:00:00 00:00:00 , Pamela Judd [id number] Danay [id number] 2020-11-22 2020-11-22 Orders Doctor KATELIN [id number] 00:00:00 00:00:00 Only Unassigned, VERÓNICA [id number] [place] [facility] [id number] 2020-11-16 2020-11-16 Outpatient R GERARDO [facility] [id number] Univers 11:00:00 11:00:00 KRANTHI [id number] [facility] 2020-11-16 2020-11-16 Outpatient R GERARDO [facility] [id number] Univers 11:00:00 11:00:00 KRANTHI [facility] 2020-11-10 2020-11-10 Outpatient R ISRAEL [facility] [id number] Univers 16:00:00 16:00:00 SARIKA [id number] [facility] 2020-11-10 2020-11-10 [facility] [id number] Univers 16:00:00 16:00:00 SARIKA [facility] 2020-11-10 2020-11-10 [facility] [id number] 00:00:00 00:00:00 Sarika Annalise [facility] [id number] [place] [id number] Yolanda [id number] nal 0[address] 2020-09-30 2020-09-30 Outpatient R ISRAEL [facility] [id number] Univers 16:00:00 16:00:00 SARIKA [id number] [facility] 2020-09-30 2020-09-30 [facility] [id number] Univers 16:00:00 16:00:00 SARIKA [facility] 2020-09-16 2020-09-16 Outpatient R [facility] [id number] Univers 16:40:00 16:40:00 [id number] [facility] 2020-09-16 2020-09-16 Outpatient R [facility] [id number] Univers 16:40:00 16:40:00 ity of [facility] 2020-09-10 2020-09-10 Outpatient R [facility] [id number] Univers 08:00:00 08:00:00 [id number] ity of [facility] 2020-09-08 2020-09-08 Outpatient R [facility] [id number] Univers 13:00:00 13:00:00 [id number] ity of [facility] 2020-09-08 2020-09-08 Outpatient R ISRAEL, [facility] [id number] Univers 13:00:00 13:00:[address] [facility] 2020-08-20 2020-08-20 Outpatient R ISRAEL, [facility] [id number] Univers 15:00:00 15:00:[id number] [facility] 2020-08-20 2020-08-20 Outpatient R ISRAEL, [facility] [id number] Univers 15:00:00 15:00:[address] [facility] 2020-03-05 2020-03-05 Outpatient R ISRAEL, [facility] [id number] Univers 08:00:00 08:00:[address] [facility] 2020-03-05 2020-03-05 Outpatient R ISRAEL, [facility] [id number] Univers 08:00:00 08:00:[address] [facility] 2020-03-04 2020-03-04 Outpatient R ANENE, [facility] [id number] Univers 11:30:00 11:30:[address] [facility] 2020-03-04 2020-03-04 Outpatient R ANENE, [facility] [id number] Univers 11:30:00 11:30:[address] [facility] 2020-03-01 2020-03-01 Outpatient R ANENE, [facility] [id number] Univers 16:15:00 16:15:[address] [facility] 2020-03-01 2020-03-01 Outpatient R ANENE, [facility] [id number] Univers 16:15:00 16:15:[address] [facility] 2020-02-26 2020-02-26 Outpatient ISRAEL, [facility] [id number] Univers 10:40:00 10:40:00 SARIKA ity of [facility] 2020-02-13 2020-02-13 Outpatient DMITRI HATHAWAY [facility] [id number] Univers 13:40:00 13:40:[address] [id number] ity [facility] 2020-02-13 2020-02-13 Outpatient R DMITRI HATHAWAY [facility] [id number] Univers 13:40:00 13:40:[address] [facility] 2020-01-30 2020-01-30 Outpatient R ANTHONY, [facility] [id number] Univers 14:00:00 14:00:[address] [facility] 2020-01-15 2020-01-15 Outpatient R [facility] [id number] Univers 17:00:00 17:00:[address] [facility] 2020-01-15 2020-01-15 Outpatient R HUMAN, [facility] [id number] Univers 17:00:00 17:00:[address] [facility] 2020-01-09 2020-01-09 Outpatient R CODEY, [facility] [id number] Univers 09:30:00 09:30:[id number] [facility] 2020-01-09 2020-01-09 Outpatient R CODEY, [facility] [id number] Univers 09:30:00 09:30:[address] [facility] 2020-01-07 2020-01-07 Outpatient R [facility] [id number] Univers 09:40:00 09:40:00 [id number] ity of [facility] 2020-01-07 2020-01-07 Outpatient R [facility] [id number] Univers 09:40:00 09:40:00 ity of [facility] 2020-01-07 2020-01-07 Outpatient R SEDRICK, [facility] [id number] Univers 09:40:00 09:40:[address] [facility] 2019-12-18 2019-12-18 Outpatient R GERARDO [facility] [id number] Univers 08:30:00 08:30:[id number] [facility] 2019-12-18 2019-12-18 Outpatient R GERARDO [facility] [id number] Univers 08:30:00 08:30:[address] [facility] 2019-12-14 2019-12-14 Outpatient R [facility] [id number] Univers 16:00:00 16:00:[id number] [facility] 2019-12-14 2019-12-14 Outpatient R SEDRICK, [facility] [id number] Univers 16:00:00 16:00:[address] [facility] 2019-12-05 2019-12-05 Outpatient R CODEY, [facility] [id number] Univers 09:45:00 09:45:[id number] [facility] 2019-12-05 2019-12-05 Outpatient R CODEY, [facility] [id number] Univers 09:45:00 09:45:[address] [facility] 2019-11-25 2019-11-25 Outpatient R [facility] [id number] Univers 16:20:00 16:20:[address] [facility] 2019-11-25 2019-11-25 Outpatient R [facility] [id number] Univers 16:20:00 16:20:[address] [facility] 2019-11-25 2019-11-25 Outpatient R SEDRICK [facility] [id number] Univers 09:40:00 09:40:[address] [facility] 2019-11-14 2019-11-14 Outpatient R CODEY, [facility] [id number] Univers 10:15:00 10:15:[address] [facility] 2019-11-14 2019-11-14 Outpatient R CODEY, [facility] [id number] Univers 09:45:00 09:45:[id number] [facility] 2019-11-14 2019-11-14 Outpatient R CODEY, [facility] [id number] Univers 09:45:00 09:45:[address] [facility] 2019-11-13 2019-11-13 Outpatient R [facility] [id number] Univers 08:40:00 08:40:00 [id number] ity of [facility] 2019-11-13 2019-11-13 Outpatient R [facility] [id number] Univers 08:40:00 08:40:00 ity of [facility] 2019-11-06 2019-11-06 Outpatient CODEY [facility] [id number] Univers 08:00:00 08:00:[id number] [facility] 2019-11-06 2019-11-06 [facility] [id number] Univers 00:00:00 00:00:[address] [facility] 2019-10-31 2019-10-31 Outpatient R CODEY [facility] [id number] Univers 11:15:00 11:15:00 KATELIN ity of [facility] 2019-10-31 2019-10-31 [facility] [id number] Univers 11:15:00 11:15:00 KATELIN [facility] 2019-10-10 2019-10-10 Outpatient R GERARDO [facility] [id number] Univers 13:15:00 13:15:00 KRANTHI [id number] [facility] 2019-10-10 2019-10-10 Outpatient R LOUISEMERYLPHI [facility] [id number] Univers 13:15:00 13:15:00 KRANTHI [facility] 2019-09-27 2019-09-27 Outpatient X DELFINA ELLIS [facility] [id number] Univers 05:53:51 14:24:[address] [facility] 2019-09-16 2019-09-16 Outpatient R [facility] [id number] Univers 16:40:00 16:40:00 ity of [facility] 2019-09-16 2019-09-16 Outpatient R [facility] [id number] Univers 16:20:00 16:20:00 [id number] ity of [facility] 2019-09-16 2019-09-16 Outpatient R [facility] [id number] Univers 16:20:00 16:20:00 ity of [facility] 2019-08-29 2019-08-29 Outpatient R HARRISON, [facility] [id number] Univers 09:30:00 09:30:00 WONDIFUL [id number] ity o f [facility] 2019-08-29 2019-08-29 Outpatient R HARRISON [facility] [id number] Univers 09:30:00 09:30:00 WONDIFUL ity o f [facility] 2019-08-20 2019-08-20 Outpatient R [facility] [id number] Univers 12:20:00 12:20:00 [id number] [facility] 2019-08-20 2019-08-20 Outpatient R [facility] [id number] Univers 12:20:00 12:20:00 [facility] 2019-08-06 2019-08-06 Outpatient R HANYPHI [facility] [id number] Univers 16:30:00 16:30:00 KRANTHI [id number] [facility] 2019-08-06 2019-08-06 Outpatient R GERARDO [facility] [id number] Univers 16:30:00 16:30:00 KRANTHI [facility] 2019-07-18 2019-07-18 Emergency X Osmel BROWN [facility] ERT [id number] Univers 13:49:36 15:20:00 [facility] 2019-03-06 2019-03-06 [facility] [id number] Univers 14:55:12 14:55:12 RACIEL [facility] Results This patient has no known results.
--- NOTE | 2021-04-22 07:08 | ER ---
Nurse's Notes [facility] Name: Maranda Quach Age: 46 yrs Sex: Female : 1975 Arrival Date: 04/22/2021 Time: 06:05 Bed 20 Private MD: Diagnosis: Arm Laceration Left/ Open wound of forearm Presentation: 04/22 06:21 Chief complaint: Patient states: she is here to have surgery to left arm by Dr carlie Gray at 0830 she was told by Dr Sena to check into the ED between 5 and 6 am. Coronavirus screen: At this time, the client does not indicate any symptoms associated with coronavirus-19. Ebola Screen: No symptoms or risks identified at this time. 06:21 Method Of Arrival: Ambulatory carlie 06:30 Acuity: CHAVEZ 4 cc4 07:15 Initial Sepsis Screen: Does the patient meet any 2 criteria? No. Patient's initial vg1 sepsis screen is negative. Does the patient have a suspected source of infection? No. Patient's initial sepsis screen is negative. Risk Assessment: Do you want to hurt yourself or someone else? Patient reports no desire to harm self or others. Onset of symptoms was April 22, 2021. Triage Assessment: 08:03 Bite description: bite sustained to Left forearm by a cat, animal information: vg1 vaccination(s) is unknown. General: Appears in no apparent distress. comfortable. Historical: - Allergies: 06:24 No Known Allergies; bb - Home Meds: 06:24 None [Active]; bb - PMHx: 06:24 Cataracts; Hypertension; Seizures; bb - PSHx: 06:24 cataract surgery; Cholecystectomy; bb - Immunization history:: Adult Immunizations up to date, Client reports receiving the 2nd dose of the Covid vaccine. - Social history:: Smoking status: unknown. Screenin:30 Abuse screen: Denies threats or abuse. Nutritional screening: No deficits noted. cc4 Tuberculosis screening: No symptoms or risk factors identified. Fall Risk None identified. Assessment: 06:30 General: Appears in no apparent distress. comfortable, Reports being here for surgery cc4 this am; reports being NPO since 2330 04/21/2021; reports s/p I \T\ D surgery of left wrist \T\ left forearm 04/20/2021 \T\ here for debridement \T\ closure this morning; michael dressing CDI left forearm \T\ hand; reports being bitten \T\ scratched by cats last week; moving left fingers freely with no difficulty.. Behavior is calm, cooperative. Pain: Complains of pain in left wrist Pain does not radiate. Pain currently is 7 out of 10 on a pain scale. Quality of pain is described as aching, Pain began one week ago with bites \T\ scratches by cat. Is chronic, Alleviated by medications. Neuro: No deficits noted. Level of Consciousness is awake, alert, obeys commands, Oriented to person, place, time, situation. Cardiovascular: No deficits noted. Heart tones S1 S2. Respiratory: No deficits noted. Airway is patent Respiratory effort is even, unlabored, Respiratory pattern is regular, symmetrical. GI: No signs and/or symptoms were reported involving the gastrointestinal system. : No signs and/or symptoms were reported regarding the genitourinary system. EENT: No signs and/or symptoms were reported regarding the EENT system. Derm: Skin Michael dressing CDI to left forearm/hand with no drainage noted. Musculoskeletal: Capillary refill < 3 seconds, Range of motion: intact in all extremities, Moving left fingers freely with no difficulty. 06:40 Reassessment: # 20 g angiocath inserted left AC x 1 attempt \T\ converted to saline lock, cc4 vangie. well. 07:00 Reassessment: Report given to ANNABELLE Almanza. cc4 07:15 Reassessment: Patient appears in no apparent distress at this time. No changes from vg1 previously documented assessment. Patient and/or family updated on plan of care and expected duration. Pain level reassessed. Patient is alert, oriented x 3, equal unlabored respirations, skin warm/dry/pink. Vital Signs: 06:21 BP 139 / 94; Pulse 76; Resp 16 S; Temp 98.1(O); Pulse Ox 100% on R/A; Weight 68.04 kg bb (R); Height 5 ft. 0 in. (152.40 cm) (R); Pain 7/10; 06:30 BP 149 / 92; Pulse 78; Resp 20 S; Pulse Ox 100% on R/A; cc4 06:21 Body Mass Index 29.29 (68.04 kg, 152.40 cm) ED Course: 06:05 Patient arrived in ED. 06:12 Jorge Hannah PA is PHCP. cp 06:12 Ramakrishna Edouard MD is Attending Physician. cp 06:24 Arm band placed on Patient placed in an exam room, on a stretcher, on oxygen. bb 06:34 Gemma Varela, RN is Primary Nurse. cc4 06:55 Jorge Hannah PA is PHCP. cp 06:55 Ramakrishna Edouard MD is Attending Physician. cp 07:02 Inserted saline lock: 20 gauge in right antecubital area, using aseptic technique. oe 07:06 Rodriguez Cooper MD is Hospitalizing Provider. cp 07:11 Triage completed. cc4 07:48 BMP Sent. mh5 07:48 CBC with Diff Sent. mh5 07:48 EKG done, by ED staff, reviewed by Jorge DUFF. mh5 07:49 Patient has correct armband on for positive identification. Placed in gown. Call light mh5 in reach. Side rails up X 1. Pulse ox on. NIBP on. 07:50 Initial lab(s) drawn, by general labor forklift operator, sent to lab. Urine collected: clean catch specimen, mh5 clear. 08:02 No provider procedures requiring assistance completed. Patient admitted, IV remains in vg1 place. Administered Medications: No medications were administered Outcome: 07:08 Decision to Hospitalize by Provider. cp 08:03 Admitted to OR accompanied by nurse, via wheelchair. vg1 08:03 Condition: stable 08:03 Instructed on the need for admit. 08:04 Patient left the ED. vg1 Signatures: Sarah Petty, RN RN Jorge Gonzalez PA PA cp Espinosa, Orlando oe Martinez, Maria 5 Cami Grant RN RN vg1 Mis Kraus Gemma Varela, RN RN cc4
--- NOTE | 2021-04-22 07:08 | EDPHYS ---
Physician Documentation [facility] Name: Maranda Quach Age: 46 yrs Sex: Female : 1975 Arrival Date: 04/22/2021 Time: 06:05 Bed 20 Private MD: ED Physician Ramakrishna Edouard HPI: 04/22 06:30 This 46 yrs old Female presents to ER via Ambulatory with complaints of Open Wound to cp Left Wrist. 06:30 Patient presents to ED for recheck of: open wound to left wrist from infected cat bite cp sustained 04-15-2021. Patient reports having surgery by DR Cooper several days ago and returns for surgery today by DR Cooper. Historical: - Allergies: 06:24 No Known Allergies; bb - Home Meds: 06:24 None [Active]; bb - PMHx: 06:24 Cataracts; Hypertension; Seizures; bb - PSHx: 06:24 cataract surgery; Cholecystectomy; bb - Immunization history:: Adult Immunizations up to date, Client reports receiving the 2nd dose of the Covid vaccine. - Social history:: Smoking status: unknown. ROS: 06:33 Skin: Positive for open wound to left wrist. cp 06:33 Eyes: Negative for injury, pain, redness, and discharge. cp 06:33 Constitutional: Negative for body aches, chills, fever. 06:33 Cardiovascular: Negative for chest pain, palpitations. 06:33 Respiratory: Negative for cough, shortness of breath, wheezing. 06:33 Neuro: Negative for altered mental status, headache, weakness. 06:33 All other systems are negative. Exam: 06:35 Constitutional: The patient appears in no acute distress, alert, awake, cp non-diaphoretic, non-toxic, well developed, well nourished. 06:35 Head/Face: Normocephalic, atraumatic. cp 06:35 Eyes: Periorbital structures: appear normal, Conjunctiva: normal, no exudate, no injection, Lids and lashes: appear normal, bilaterally. 06:35 ENT: External ear(s): are unremarkable, Nose: is normal, Mouth: Lips: moist, Oral mucosa: moist, Posterior pharynx: Airway: no evidence of obstruction, patent. 06:35 Chest/axilla: Inspection: normal, Palpation: is normal, no crepitus, no tenderness. 06:35 Cardiovascular: Rate: normal, Rhythm: regular. 06:35 Respiratory: the patient does not display signs of respiratory distress, Respirations: normal, no use of accessory muscles, no retractions, labored breathing, is not present, Breath sounds: are clear throughout, no decreased breath sounds, no stridor, no wheezing. 06:35 Abdomen/GI: Exam negative for discomfort, distension, guarding, Inspection: abdomen appears normal. 06:35 Musculoskeletal/extremity: large open wound noted to dorsum of left wrist, packed, noted mild erythema and purulent drainage. 06:35 Neuro: Orientation: to person, place \T\ time. Mentation: is normal. 07:47 ECG was reviewed by the Attending Physician. Vital Signs: 06:21 BP 139 / 94; Pulse 76; Resp 16 S; Temp 98.1(O); Pulse Ox 100% on R/A; Weight 68.04 kg bb (R); Height 5 ft. 0 in. (152.40 cm) (R); Pain 7/10; 06:30 BP 149 / 92; Pulse 78; Resp 20 S; Pulse Ox 100% on R/A; cc4 06:21 Body Mass Index 29.29 (68.04 kg, 152.40 cm) bb MDM: 06:59 Patient medically screened. 07:02 Physician consultation: Rodriguez Cooper MD was called at 07:02, was contacted at 07:02, regarding patient's condition, wants patient admitted to outpatient surgery. 07:08 Data reviewed: vital signs, nurses notes, and as a result, I will admit patient. 04/22 06:59 Order name: CBC with Diff 04/22 06:59 Order name: BMP 04/22 06:59 Order name: PT-INR; Complete Time: 17:51 04/22 06:59 Order name: Ptt, Activated; Complete Time: 17:51 04/22 07:00 Order name: CBC with Automated Diff; Complete Time: 17:51 EDMS 04/22 17:51 Interpretation: Normal except: MCH 26.8. 04/22 07:00 Order name: Basic Metabolic Panel; Complete Time: 17:51 EDMS 04/22 17:51 Interpretation: Reviewed. 04/22 06:59 Order name: Urine Dipstick-Ancillary (obtain specimen); Complete Time: 07:31 cp 04/22 06:59 Order name: Urine Test (obtain specimen); Complete Time: 07:31 cp 04/22 06:59 Order name: IV; Complete Time: 07:08 cp 04/22 07:08 Order name: EKG; Complete Time: 07:09 cp 04/22 07:08 Order name: EKG - Nurse/Tech; Complete Time: 07:48 cp 04/22 07:31 Order name: Urine Dipstick-Ancillary; Complete Time: 17:51 EDCT 04/22 07:32 Order name: Urine --Ancillary (enter results); Complete Time: 17:51 em1 EC:47 Rate is 65 beats/min. Rhythm is regular. NV interval is normal. QRS interval is normal. cp QT interval is normal. T waves are Inverted in leads III, aVR. Interpreted by me. Reviewed by me. Administered Medications: No medications were administered Disposition: 04/23 06:09 Co-signature as Attending Physician, Ramakrishna Edouard MD. [email or web address] Disposition Summary: 04/22/21 07:08 Hospitalization Ordered Hospitalization Status: Observation cp Provider: Rodriguez Cooper cp Location: DAY SURGERY OTHER cp Condition: Stable cp Problem: an ongoing problem cp Symptoms: are unchanged cp Bed/Room Type: Standard cp Room Assignment: cp Diagnosis - Arm Laceration Left/ Open wound of forearm cp Forms: - Medication Reconciliation Form cp - SBAR form cp Addendum: 05/26/2021 20:31 Co-signature as Attending Physician, Ramakrishna Edouard MD. [facility] Signatures: Dispatcher [employer] Sarah Godfrey RN RN Jorge Gonzalez PA PA cp Ramakrishna Edouard MD MD [email or web address] Corrections: (The following items were deleted from the chart) 04/22 17:50 17:46 Patient presents to ED for recheck of: open wound to left wrist from infected cat cp bite sustained, cp
[2021-04-22 07:31] LABS: Urine Blood Negative (Negative); Urine Glucose Negative (Negative); Urine Protein Negative (Negative); Urine Specific Gravity >=1.030 (1.005-1.030); Urine pH 6.5 (5.0-7.0)
[2021-04-22 07:38] LABS: Absolute Lymphocytes (CBC) 1.7 K/uL (0.7-4.9); Hematocrit 38.8 % (36.0-45.0); Lymphocytes % 26.8 % (15.3-44.8); MPV 9.6 fL (7.6-11.3); RBC Red Blood Cell Count 4.74 M/uL (3.86-4.86)
[2021-04-22 07:50] LABS: Urine Specific Gravity/Preg >1.030 (1.005-1.030)
[2021-04-22 07:54] LABS: BUN Blood Urea Nitrogen 9 mg/dL (7-18); Bicarbonate 26 mmol/L (21-32); Glucose Level 82 mg/dL (74-106); Potassium 3.9 mmol/L (3.5-5.1); Sodium Level 141 mmol/L (136-145)
[2021-04-22] MEDS ORDERED: Ringers Lactate 1,000 ML IV ONE (07:56)
[2021-04-22 08:01] LABS: Protime INR 1.07
[2021-04-22] MEDS ORDERED: propofoL 200 MG/20 ML VIAL IV ONE ×2 (08:21→08:37)
[2021-04-22] MEDS ORDERED: FENTANYL CITR 100 MCG/2 ML ONE ×2 (08:22→08:58)
[2021-04-22] MEDS ORDERED: LIDOCAINE 2% MPF 5 ML VIAL ONE ×2 (08:22→08:37)
[2021-04-22] MEDS ORDERED: dexAMETHasone 10 MG/ML VIAL ONE (08:45)
[2021-04-22] MEDS ORDERED: ONDANSETRON 4 MG/2 ML VIAL ONE ×2 (08:45→09:49)
[2021-04-22] MEDS ORDERED: KETOROLAC 30 MG/ML INJ ONE (08:46)
[2021-04-22] MEDS ORDERED: GLYCOPYRROLATE 0.2 MG/ML SYR ONE (08:48)
[2021-04-22] MEDS ORDERED: EPHEDRINE SULF 50 MG/ML VIAL ONE (08:50)
[2021-04-22] MEDS: HYDROMORPHONE HCL 1 MG/ML INJ ONE ×2 (09:34→09:39)
[2021-04-22] MEDS ORDERED: HYDROMORPHONE HCL 1 MG/ML INJ ONE (09:49)
[2021-04-22 09:55] VITALS: TEMP 96.4
[2021-04-22 10:01] VITALS: BP 133/87; O2SAT 99
--- NOTE | 2021-05-30 09:50 | OP ---
Surgeon: Rodriguez Cooper MD Preoperative Diagnosis: Open wound of the left hand. Postoperative Diagnosis: Open wound of the left hand. Procedure Performed: Debridement of skin and subcu tissue, simple closure. Anesthesia: General. Description Of Procedure: After satisfactory of general anesthesia, the hand was prepped with Betadi ne scrub, Betadine paint, dry sterile drapes applied in usual manner. The hand placed on Roto Lock t able. Scalpel was used to debride skin edges and the wound was closed with 4 Prolene vertical mattre ss simple sutures. Dressed with Xeroform, 2 inch Maxi. The patient tolerated procedure well and re turned to recovery. JACK/MODEvans Voice ID: [id number] Report ID: [id number]
== END 2021-04-22 11:44 | disposition home or self-care (01) ==
LOC: ER 06:00 → OR 07:08 → ER 11:45 → OR 17:00
PROVIDERS: ATTEND Specialist
PROC: 0HDGXZZ Extraction of Left Hand Skin, External Approach (ICD-10-PCS; principal; 2021-04-22 08:30)
DX: S61.402A Unspecified open wound of left hand, initial encounter (principal)
CPT/HCPCS: 36415; 80048; 81003; 81025; 85025; 85610; 85730; 93005; 99285; J1100; J1170; J2405; J2704; J3010; J7120

== ENCOUNTER 2021-05-31 03:59 | Emergency (ER) | payer SELFPAY ==
--- OUTSIDE RECORDS SUMMARY | 2021-05-31 04:03 | XMS REPORT | Continuity of Care Document ---
:1975 Author Organization [facility] t Address [address] [place] [address] Care Team Providers Name Role Phone Annalise Jiang Primary Care Physician DARRYN, R Attending Clinician Unavailable Darryn HAWKNP, R Attending Clinician Elie ALANIS Attending Clinician Unavailable Reji ZHONG Attending Clinician Unavailable Jerrod WICK AND BASE ASSEMBLER, G Attending Clinician Annalise Jiang Attending Clinician SEDRICK Attending Clinician Unavailable Annalise WOOD Attending Clinician Unavailable Andree ALANIS, L Attending Clinician Unavailable Doctor Unassigned, Name Attending Clinician Unavailable JERRY CARRILLO Attending Clinician Unavailable KING HATHAWAY Attending Clinician Unavailable KING HATHAWAY Attending Clinician Unavailable Evans CRUZ Attending Clinician Unavailable Hemant MANN Attending Clinician Unavailable ROBB ALEGRE Attending Clinician Unavailable CALEB Attending Clinician Unavailable Annalise TERRY Attending Clinician Unavailable TERRI BROWN Attending Clinician Unavailable Silviano SIMS Attending Clinician Unavailable CALEB Admitting Clinician Unavailable Payers Payer Name Policy Type Policy Number Effective Date Expiration Date S ource [employer] [id number] 2019 00:00:00 Problems Condition Condition Condition Status Onset Resolution Last Treating Co mments Source Name Details Category Date Date Treatment Clinician Date Chest pain Chest pain Disease Active U nivers 5-02 ity of 00:00: [place] 00 Medical Branch Frequent Frequent Disease Active Unive rs headaches headaches 4-03 ity of 00:00: Medical Branch Hematochez Hematochez Disease Active 2017-05 Overview : Univers ia ia 0-19 Formattin ity of 00:00: g of this 00 note Medical might be Branch different from the original. Added automatic ally from request for surgery [id number] Hydrops of Hydrops of Disease Active 2017-05 Overview : Univers gallbladde gallbladde 0-19 Formattin ity of r r 00:00: g of this note Medical might be Branch different from the original. 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 Papanicola Papanicola hpv ou smear ou smear negative; of cervix of cervix routine retesting in 3 years Obese Obese Disease Active Univers 5-18 ity of 00:00: Medical Branch Tobacco Tobacco Disease Active Univers use use 5-18 ity of disorder disorder 00:00: Medical We[place] Encounter Encounter Disease Active 2006-05 Overview: Univers for for 0-08 Formattin ity of counseling counseling 00:00: g of this note Medical might be Branch different from the original. 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 Migraines Migraines Disease Active Uni vers ity of [facility] Allergies, Adverse Reactions, Alerts Allergy Allergy Status Severity Reaction(s) Onset Inactive Treating Comm ents Source Name Type Date Date Clinician NO KNOWN Drug Active Univers ALLERGIE Class ity of S [facility] Social History Social Habit Start Date Stop Date Quantity Comments Source History SDOH University o f Alcohol Frequency [place] M edical Branch History SDOH University o f Alcohol Std [place] Medical Drinks Branch History SDOK University o f Alcohol Binge [place] Medic al Branch Exposure to Yes University of SARS-CoV-2 [place] Medical (event) Branch Alcohol intake 2021-05-30 2021-05-30 0 /d University of 00:00:00 00:00:00 [facility] Tobacco Comment 2019-09-27 2019-09-27 second hand smoke Un iversity of 00:00:00 00:00:00 [facility] Tobacco use and 2019-03-01 2019-03-01 Never used Universit y of exposure 00:00:00 00:00:00 [facility] Alcohol Comment 2015-10-13 2015-10-13 social drinks Univ sity of 00:00:00 00:00:00 occasionally [facility] Sex Assigned At [birth year] Universit y of 00:00:00 00:00:00 [facility] Smoking Status Start Date Stop Date Source Never smoker [facility] Medications Ordered Filled Start Stop Current Ordering Indication Dosage Frequency Signature Comments Components Source Medication Medication Date Date Medication? Clinician (SIG) Name Name ondansetron 2021- No 4mg 4 mg, Univ ers (ZOFRAN-ODT 1-03 01-03 Oral, ity of ) 19:15: 19:15 ONCE, 1 [place] disintegrat 00 :00 dose, On Medi jake ing tablet 05/30/21 Bra nch 4 mg at 1315, Routine albuterol Yes [id number] 2{puff} Inhale 2 Univers 90 1-03 Puffs ity of mcg/actuati 00:00: every 4 [place] as on inhaler 00 (four) Medical hours as Branch needed for Wheezing or Shortness of Breath. benzonatate Yes [id number] 100mg Take 1 Univers 100 mg 1-03 capsule by ity of capsule 00:00: mouth 3 [place] 00 (three) Medical times Branch daily as needed for Cough. albuterol Yes [id number] 2{puff} Inhale 2 Univers 90 1-03 Puffs ity of mcg/actuati 00:00: every 4 [place] as on inhaler 00 (four) Medical hours as Branch needed for Wheezing or Shortness of Breath. benzonatate Yes [id number] 100mg Take 1 Univers 100 mg 1-03 capsule by ity of capsule 00:00: mouth 3 [place] 00 (three) Medical times Branch daily as needed for Cough. acetaminoph 2020-05 No 650mg 650 mg, U nivers en - Oral, ity of (TYLENOL) 18:45: 17:46 ONCE, 1 [place] tablet 650 00 :00 dose, On Medic al mg Wed Branch 05/25/21 at 1245, ARIANNA sulfamethox 2020-0 Yes 1{tbl} Take 1 Un loren azole-trime 6-16 tablet by ity of thoprim 16:17: mouth 2 [place] (BACTRIM 06 (two) Medical DS) 800-160 times Branch mg per daily. tablet sulfamethox 2020-0 Yes 1{tbl} Take 1 Un loren azole-trime 6-16 tablet by ity of thoprim 16:17: mouth 2 [place] (BACTRIM 06 (two) Medical DS) 800-160 times Branch mg per daily. tablet sulfamethox 2020-0 Yes 1{tbl} Take 1 Un loren azole-trime 6-16 tablet by ity of thoprim 16:17: mouth 2 [place] (BACTRIM 06 (two) Medical DS) 800-160 times Branch mg per daily. tablet sulfamethox 2020-0 Yes 1{tbl} Take 1 Un loren azole-trime 6-16 tablet by ity of thoprim 16:17: mouth 2 [place] (BACTRIM 06 (two) Medical DS) 800-160 times Branch mg per daily. tablet ondansetron 2020-0 Yes [id number] 4mg Take 1 Univers (ZOFRAN) 4 6-16 tablet by ity of mg tablet 00:00: mouth [place] 00 every 8 Medical (eight) Branch hours as needed for Nausea and Vomiting (N/V). ondansetron 2020-0 Yes [id number] 4mg Take 1 Univers (ZOFRAN) 4 6-16 tablet by ity of mg tablet 00:00: mouth [place] 00 every 8 Medical (eight) Branch hours as needed for Nausea and Vomiting (N/V). ondansetron 2020-0 Yes [id number] 4mg Take 1 Univers (ZOFRAN) 4 6-16 tablet by ity of mg tablet 00:00: mouth [place] 00 every 8 Medical (eight) Branch hours as needed for Nausea and Vomiting (N/V). ondansetron 2020-0 Yes [id number] 4mg Take 1 Univers (ZOFRAN) 4 6-16 tablet by ity of mg tablet 00:00: mouth [place] 00 every 8 Medical (eight) Branch hours as needed for Nausea and Vomiting (N/V). metoclopram Yes Gastroenter 10mg Take 1 Univers [...] 250 mg days 2 to 5. tiZANidine 2019-0 Yes Frequent 2mg Take 1 U nivers 2 mg 8-20 headaches capsule by ity of capsule 00:00: mouth 3 [place] 00 (three) Medical times Branch daily as needed for Muscle Spasms (tension headache). ondansetron 2019-0 Yes Vomiting, 4mg Take 1 Univers (ZOFRAN 8-18 intractabil tablet by ity of ODT) 4 mg 00:00: ity of mouth [place] disintegrat 00 vomiting every 8 M edical ing tablet not (eight) Branch specified, hours as presence of needed for nausea not Nausea and specified, Vomiting unspecified (N/V). vomiting type Immunizations Ordered Filled Immunization Date Status Comments [facility] e Immunization Name Name SARS-COV-2 COVID-19 2020-11-04 Completed Unive rsity of PFIZER VACCINE 00:00:00 [facility] SARS-COV-2 COVID-19 2020-11-04 Completed Unive rsity of PFIZER VACCINE 00:00:00 [facility] SARS-COV-2 COVID-19 2020-11-04 Completed Unive rsity of PFIZER VACCINE 00:00:00 [facility] SARS-COV-2 COVID-19 2020-11-04 Completed Unive rsity of PFIZER VACCINE 00:00:00 [facility] SARS-COV-2 COVID-19 2020-10-14 Completed Unive rsity of PFIZER VACCINE 00:00:00 [facility] SARS-COV-2 COVID-19 2020-10-14 Completed Unive rsity of PFIZER VACCINE 00:00:00 [facility] SARS-COV-2 COVID-19 2020-10-14 Completed Unive rsity of PFIZER VACCINE 00:00:00 [facility] SARS-COV-2 COVID-19 2020-10-14 Completed Unive rsity of PFIZER VACCINE 00:00:00 [facility] Td 2020-08-07 Completed University of 00:00:00 [facility] Td 2020-08-07 Completed University of 00:00:00 [facility] Td 2020-08-07 Completed University of 00:00:00 [facility] Td 2020-08-07 Completed University of 00:00:00 [facility] Td 2020-08-07 Completed University of 00:00:00 [facility] Vital Signs Vital Name Observation Time Observation Value Comments Source Systolic blood 2021-05-30 17:55:00 105 mm[Hg] Univer sity of pressure [facility] Diastolic blood 2021-05-30 17:55:00 87 mm[Hg] Unive rsity of pressure [facility] Heart rate 2021-05-30 17:55:00 73 /min [facility] Body temperature 2021-05-30 17:55:00 36.67 Elle [facility] Respiratory rate 2021-05-30 17:55:00 18 /min [facility] Body weight 2021-05-30 17:55:00 72.576 kg [facility] BMI 2021-05-30 17:55:00 31.25 kg/m2 [facility] Oxygen saturation in 2021-05-30 17:55:00 99 /min [facility] Arterial blood by [facility] Pulse oximetry Branch Systolic blood 2021-05-25 16:22:00 150 mm[Hg] Univer sity of pressure [facility] Diastolic blood 2021-05-25 16:22:00 105 mm[Hg] Unive rsity of [facility] Heart rate 2021-05-25 16:22:00 98 /min [facility] Body temperature 2021-05-25 16:22:00 37.89 Elle [facility] Respiratory rate 2021-05-25 16:22:00 18 /min [facility] Body weight 2021-05-25 16:22:00 72.576 kg [facility] BMI 2021-05-25 16:22:00 31.25 kg/m2 [facility] Oxygen saturation in 2021-05-25 16:22:00 99 /min [facility] Arterial blood by [facility] Pulse oximetry Branch Systolic blood 2020-10-01 01:49:00 154 mm[Hg] Univer sity of [facility] Diastolic blood 2020-10-01 01:49:00 100 mm[Hg] [facility] Procedure Date / Time Performed Performing Clinician Sour e XR CHEST 2 VW 2021-05-30 18:20:11 Michael Senior [place] o [facility] CONSENT/REFUSAL FOR 2021-05-30 17:42:16 Doctor Unassigned, No [facility] [place] DIAGNOSIS AND Name Medical Branch TREATMENT CONSENT/REFUSAL FOR 2021-05-25 16:17:07 Doctor Unassigned, No [facility] [place] DIAGNOSIS AND Name Medical Branch TREATMENT Plan of Care Planned Activity Planned Date Details Comments Source Future Scheduled 2028-04-01 Screening for University [facility] [place] [facility] Test 00:00:00 malignant neoplasm Medical B ranch of colon (procedure) [code = 089748367] Future Scheduled 2028-04-01 Screening for University [facility] [place] [facility] Test 00:00:00 malignant neoplasm Medical B ranch of colon (procedure) [code = [id number]] Future Scheduled 2021-01-26 [facility]:00 (Season Ended) [code Medical Branch = INFLUENZA VACCINE (Season Ended)] Future Scheduled 2018-10-12 Screening for University [facility] [place] [facility] Test 00:00:00 malignant neoplasm Medical B ranch of cervix (procedure) [code = 549942824] Future Scheduled 2015 Screening for University [facility] [place] [facility] Test 00:00:00 malignant neoplasm Medical B ranch of breast (procedure) [code = [id number]] Future Scheduled 1994 DTaP,Tdap,and Td [facility] 00:00:00 Vaccines (1 - Tdap) Medical Branch [code = DTaP,Tdap,and Td Vaccines (1 - Tdap)] Future Scheduled 1993 Hepatitis C [facility] Test 00:00:00 screening Medical Branch (procedure) [code = [id number]] Future Scheduled 1991 SARS-CoV-2 [facility] Test 00:00:00 (COVID-19) Vaccine Medical B ranch (1) [code = SARS-CoV-2 (COVID-19) Vaccine (1)] Future Scheduled 1987 Depression screening Uni [facility] Test 00:00:00 (procedure) [code = Medical Branch [id number]] Encounters Start End Encounter Admission Attending Care Care Encounter Source Date/Time Date/Time Type Type Clinicians Facility Department ID 2021-03-27 Emergency [facility] [id number] Univers 05:46:40 ity of [facility] 2021-03-26 Emergency [facility] [id number] Univers 09:38:46 ity of [facility] 2021-03-25 Emergency [facility] [id number] Univers 13:06:43 ity of [facility] 2021-03-25 Emergency [facility] [id number] Univers 04:44:08 ity of [facility] 2021-03-25 Emergency [facility] [id number] Univers 03:20:04 ity of [facility] 2021-03-24 Emergency [facility] [id number] Univers 23:32:49 ity of [facility] 2021-05-30 2021-05-30 Outpatient R [facility] [id number] Univers 14:45:00 14:45:00 [id number] ity of [facility] 2021-05-30 2021-05-30 Outpatient R [facility] [id number] Univers 14:45:00 14:45:00 ity of [facility] 2021-05-30 2021-05-30 Emergency X DARRYN, [facility] ERT [id number] Univers 11:57:00 13:19:00 MICHAEL ity of [place] [facility] 2021-05-30 2021-05-30 Emergency [facility] [id number] Univers 11:57:00 13:19:00 Michael Lashanda MATHEW [id number] i ty of [facility] [id number] [place] [phone] [address] 2021-05-30 2021-05-30 KATELIN Herrera [id number] Univers 00:00:00 00:00:00 (Out) Mango SANCHES [id number] ity of [facility] [id number] [place] [phone] [address] 2021-05-25 2021-05-25 Emergency [facility] [id number] Univers 10:23:00 12:28:00 ROSALBA [facility] 2021-05-25 2021-05-25 Emergency [facility] [id number] Univers 10:23:00 12:28:00 Rosalba CARMONA [id number] ity of [place] [id number] [id number] [address] 2021-05-04 2021-05-04 [facility] [id number] Univers 00:00:00 00:00:00 Sarika A [facility] [id number] i ty of [place] [id number] [place] as ANNABELLA?BLEA [phone] [address] MEDICAL OFFICE BUILDING 2021-03-29 2021-03-29 [facility] [id number] Univers 15:30:00 15:30:00 ABIMAEL [id number] [facility] 2021-03-29 2021-03-29 Outpatient [facility] [id number] Univers 15:30:00 15:30:00 ABIMAEL [facility] 2021-01-07 2021-01-07 [facility] [id number] Univers 11:30:00 11:30:00 SARIKA [facility] 2021-01-07 2021-01-07 Outpatient R ISRAEL [facility] [id number] Univers 08:30:00 08:30:00 SARIKA [id number] [facility] 2021-01-05 2021-01-05 Outpatient R ISRAEL, [facility] [id number] Univers 08:30:00 08:30:00 SARIKA [id number] [facility] 2021-01-05 2021-01-05 [facility] [id number] Univers 08:30:00 08:30:00 SARIKA [facility] 2021-01-03 2021-01-03 Telephone [facility] [id number] 00:00:00 00:00:00 Sarika Formerly [facility] [id number] [place] [id number] Professio [phone] nal [address] 2020-11-30 2020-11-30 Telephone Andree La [id number] 00:00:00 00:00:00 , Pamela Judd [id number] [place] [id number] [id number] [id number] 2020-11-22 2020-11-22 Orders Doctor KATELIN [id number] 00:00:00 00:00:00 Only Unassigned, VERÓNICA [id number] [place] [facility] [id number] [id number] [id number] 2020-11-16 2020-11-16 Outpatient Lashanda CARRILLO [facility] [id number] Univers 11:00:00 11:00:00 KRANTHI [id number] [facility] 2020-11-16 2020-11-16 Outpatient Lashanda CARRILLO [facility] [id number] Univers 11:00:00 11:00:00 KRANTHI [facility] 2020-11-10 2020-11-10 Outpatient R ISRAEL [facility] [id number] Univers 16:00:00 16:00:00 SARIKA [id number] [facility] 2020-11-10 2020-11-10 Outpatient R ISRAEL [facility] [id number] Univers 16:00:00 16:00:00 SARIKA [facility] 2020-11-10 2020-11-10 [place] [facility] [id number] 00:00:00 00:00:00 Sarika [facility]ly [facility] [id number] [place] [id number] Professio [phone] nal [address] 2020-09-30 2020-09-30 Outpatient R ISRAEL [facility] [id number] Univers 16:00:00 16:00:00 SARIKA [id number] [facility] 2020-09-30 2020-09-30 [facility] [id number] Univers 16:00:00 16:00:00 SARIKA [facility] 2020-09-16 2020-09-16 Outpatient R [facility] [id number] Univers 16:40:00 16:40:00 [id number] [facility] 2020-09-16 2020-09-16 Outpatient R [facility] [id number] Univers 16:40:00 16:40:00 [facility] 2020-09-10 2020-09-10 Outpatient R [facility] [id number] Univers 08:00:00 08:00:00 [id number] [facility] 2020-09-08 2020-09-08 Outpatient R [facility] [id number] Univers 13:00:00 13:00:00 [id number] [facility] 2020-09-08 2020-09-08 [facility] [id number] Univers 13:00:00 13:00:00 SARIKA [facility] 2020-08-20 2020-08-20 [facility] [id number] Univers 15:00:00 15:00:00 SARIKA [id number] ity [facility] 2020-08-20 2020-08-20 Outpatient R ISRAEL, [facility] [id number] Univers 15:00:00 15:00:00 SARIKA ity [facility] 2020-03-05 2020-03-05 Outpatient R ISRAEL, [facility] [id number] Univers 08:00:00 08:00:00 SARIKA ity [facility] 2020-03-05 2020-03-05 Outpatient R ISRAEL, [facility] [id number] Univers 08:00:00 08:00:00 SARIKA ity [facility] 2020-03-04 2020-03-04 Outpatient R SEDRICK, [facility] [id number] Univers 11:30:00 11:30:00 ABIMAEL ity [facility] 2020-03-04 2020-03-04 Outpatient R CHAITANYANE, [facility] [id number] Univers 11:30:00 11:30:00 ABIMAEL ity [facility] 2020-03-01 2020-03-01 Outpatient R CHAITANYANE, [facility] [id number] Univers 16:15:00 16:15:00 ABIMAEL ity [facility] 2020-03-01 2020-03-01 Outpatient R ANENE, [facility] [id number] Univers 16:15:00 16:15:00 ABIMAEL ity [facility] 2020-02-26 2020-02-26 Outpatient ISRAEL, [facility] [id number] Univers 10:40:00 10:40:00 SARIKA ity [facility] 2020-02-13 2020-02-13 Outpatient DMITRI HATHAWAY [facility] [id number] Univers 13:40:00 13:40:00 DMITRI HATHAWAY [id number] ity [facility] 2020-02-13 2020-02-13 Outpatient DMITRI CAIN [facility] [id number] Univers 13:40:00 13:40:00 DMITRI HATHAWAY ity [facility] 2020-01-30 2020-01-30 Outpatient Lashanda CRUZ [facility] [id number] Univers 14:00:00 14:00:00 KARTHIK ity [facility] 2020-01-15 2020-01-15 Outpatient R [facility] [id number] Univers 17:00:00 17:00:00 ity of [facility] 2020-01-15 2020-01-15 Outpatient R HUMAN, [facility] [id number] Univers 17:00:00 17:00:00 ADELE ity [facility] 2020-01-09 2020-01-09 Outpatient R CODEY, [facility] [id number] Univers 09:30:00 09:30:00 KATELIN [id number] ity [facility] 2020-01-09 2020-01-09 Outpatient R CODEY, [facility] [id number] Univers 09:30:00 09:30:00 KATELIN ity [facility] 2020-01-07 2020-01-07 Outpatient R [facility] [id number] Univers 09:40:00 09:40:00 [id number] ity [facility] 2020-01-07 2020-01-07 Outpatient R [facility] [id number] Univers 09:40:00 09:40:00 ity of [facility] 2020-01-07 2020-01-07 Outpatient R SEDRICK, [facility] [id number] Univers 09:40:00 09:40:00 ABIMAEL itazam [facility] 2019-12-18 2019-12-18 Outpatient R GERARDO, [facility] [id number] Univers 08:30:00 08:30:00 KRANTHI [id number] ity [facility] 2019-12-18 2019-12-18 Outpatient R GERARDO, [facility] [id number] Univers 08:30:00 08:30:00 KRANTHI ity [facility] 2019-12-14 2019-12-14 Outpatient R [facility] [id number] Univers 16:00:00 16:00:00 Lloyd ity [facility] 2019-12-14 2019-12-14 Outpatient R SEDRICK, [facility] [id number] Univers 16:00:00 16:00:00 ABIMAEL ity [facility] 2019-12-05 2019-12-05 Outpatient R CODEY, [facility] [id number] Univers 09:45:00 09:45:00 KATELIN ity [facility] 2019-12-05 2019-12-05 Outpatient R CODEY [facility] [id number] Univers 09:45:00 09:45:00 KATELIN rober [facility] 2019-11-25 2019-11-25 Outpatient R [facility] [id number] Univers 16:20:00 16:20:00 [id number] ity [facility] 2019-11-25 2019-11-25 Outpatient R [facility] [id number] Univers 16:20:00 16:20:00 ity [facility] 2019-11-25 2019-11-25 Outpatient R SEDRICK, [facility] [id number] Univers 09:40:00 09:40:00 ABIMAEL itazam [facility] 2019-11-14 2019-11-14 Outpatient R CODEY [facility] [id number] Univers 10:15:00 10:15:00 KATELIN rober [facility] 2019-11-14 2019-11-14 Outpatient R CODEY [facility] [id number] Univers 09:45:00 09:45:00 KATELIN [id number] ity [facility] 2019-11-14 2019-11-14 Outpatient R CODEY [facility] [id number] Univers 09:45:00 09:45:00 KATELIN rober [facility] 2019-11-13 2019-11-13 Outpatient R [facility] [id number] Univers 08:40:00 08:40:00 [id number] ity [facility] 2019-11-13 2019-11-13 Outpatient R [facility] [id number] Univers 08:40:00 08:40:00 ity [facility] 2019-11-06 2019-11-06 Outpatient CODEY [facility] [id number] Univers 08:00:00 08:00:00 KATELIN [id number] ity [facility] 2019-11-06 2019-11-06 Outpatient R CODEY, [facility] [id number] Univers 00:00:00 00:00:00 KATELIN itazam [facility] 2019-10-31 2019-10-31 Outpatient R CODEY, [facility] [id number] Univers 11:15:00 11:15:00 KATELIN ity [facility] 2019-10-31 2019-10-31 Outpatient R CODEY [facility] [id number] Univers 11:15:00 11:15:00 [facility] 2019-10-10 Outpatient R GERARDO [facility] [id number] Univers 13:15:00 13:15:00 KRANTHI [id number] ity [facility] 2019-10-10 2019-10-10 Outpatient R GERARDO [facility] [id number] Univers 13:15:00 13:15:00 [facility] 2019-09-27 2019-09-27 Outpatient X CALEB DELFINA [facility] [id number] Univers 05:53:51 14:24:00 ity [facility] 2019-09-16 2019-09-16 Outpatient R [facility] [id number] Univers 16:40:00 16:40:00 ity of [facility] 2019-09-16 2019-09-16 Outpatient R [facility] [id number] Univers 16:20:00 16:20:00 [id number] ity [facility] 2019-09-16 2019-09-16 Outpatient R [facility] [id number] Univers 16:20:00 16:20:00 ity of [facility] 2019-08-29 2019-08-29 Outpatient R HARRISON [facility] [id number] Univers 09:30:00 09:30:00 WONDIFUL [id number] ity o f [facility] 2019-08-29 2019-08-29 Outpatient R HARRISON [facility] [id number] Univers 09:30:00 09:30:00 WONDIFUL ity o f [facility] 2019-08-20 2019-08-20 Outpatient R [facility] [id number] Univers 12:20:00 12:20:00 [id number] ity [facility] 2019-08-20 2019-08-20 Outpatient R [facility] [id number] Univers 12:20:00 12:20:00 ity [facility] 2019-08-06 2019-08-06 Outpatient R LOUISEMERYLPHI [facility] [id number] Univers 16:30:00 16:30:00 KRANTHI [id number] [facility] 2019-08-06 2019-08-06 Outpatient Lashanda CARRILLO [facility] [id number] Univers 16:30:00 16:30:00 KRANTHI [facility] 2019-07-18 2019-07-18 Emergency X Osmel BROWN [facility] ERT [id number] Univers 13:49:36 15:20:00 [facility] 2019-03-06 2019-03-06 Outpatient Lashanda SIMS [facility] [id number] Univers 14:55:12 14:55:12 RACIEL [facility] Results This patient has no known results.
[2021-05-31 04:53] LABS: Absolute Lymphocytes (CBC) 1.8 K/uL (0.7-4.9); Hematocrit 43.6 % (36.0-45.0); Lymphocytes % 34.4 % (15.3-44.8); MPV 9.6 fL (7.6-11.3); RBC Red Blood Cell Count 5.32 M/uL (3.86-4.86)
[2021-05-31 04:54] LABS: Protime INR 0.98
[2021-05-31] MEDS ORDERED: ONDANSETRON 4 MG/2 ML VIAL ONE (07:25)
[2021-05-31] MEDS ORDERED: MORPHINE 4 MG/ML SYR ONE (07:25)
[2021-05-31 07:40] LABS: ALT/SGPT 33 U/L (12-78); AST/SGOT 14 U/L (15-37); Albumin 3.3 g/dL (3.4-5.0); Alkaline Phosphatase 123 U/L (45-117); BUN Blood Urea Nitrogen 7 mg/dL (7-18); Bicarbonate 28 mmol/L (21-32); Bilirubin Direct 0.1 mg/dL (0-0.2); Bilirubin Total 0.4 mg/dL (0.2-1.0); Glucose Level 121 mg/dL (74-106); Magnesium 2.3 mg/dL (1.8-2.4); NT PRO-BNP 44 pg/mL (<125); Potassium 4.4 mmol/L (3.5-5.1); Protein, Total 7.2 g/dL (6.4-8.2); Sodium Level 139 mmol/L (136-145); Troponin (Emerg Dept Use Only) < 0.02 ng/mL (0.0-0.045)
--- NOTE | 2021-05-31 07:46 | ER ---
Nurse's Notes [facility] Name: Maranda Quach Age: 46 yrs Sex: Female : 1975 Arrival Date: 05/31/2021 Time: 04:02 Bed 10 Private MD: Diagnosis: Coronavirus infection, unspecified;Chest pain, unspecified Presentation: 05/31 04:09 Chief complaint: Patient states: sternal chest pain that started yesterday morning. as6 Coronavirus screen: Client presents with at least one sign or symptom that may indicate coronavirus-19. Standard/surgical mask placed on the client. Ebola Screen: No symptoms or risks identified at this time. Initial Sepsis Screen: Does the patient meet any 2 criteria? No. Patient's initial sepsis screen is negative. Does the patient have a suspected source of infection? No. Patient's initial sepsis screen is negative. Risk Assessment: Do you want to hurt yourself or someone else? Patient reports no desire to harm self or others. Onset of symptoms was May 30, 2021. 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 - Social history:: Smoking status: Patient denies any tobacco usage or history of. Screenin:02 Abuse screen: Denies threats or abuse. Nutritional screening: No deficits noted. al4 Tuberculosis screening: No symptoms or risk factors identified. Fall Risk No fall in past 12 months (0 pts). IV access (20 points). Ambulatory Aid- None/Bed Rest/Nurse Assist (0 pts). Gait- Normal/Bed Rest/Wheelchair (0 pts) Mental Status- Oriented to own ability (0 pts). Total Cohen Fall Scale indicates No Risk (0-24 pts). Assessment: 05:59 General: Appears in no apparent distress. comfortable, Behavior is calm, cooperative, al4 appropriate for age, patient states she has been coughing up yellow phlegm for a couple days and her chest hurts worse when she coughs. patient thinks pain could be related to coughing. pain is described as soreness and does not radiate. pt denies n/v/d. pain started yesterday around 0800. Pain: Complains of pain in chest Pain does not radiate. Pain began yesterday. Neuro: Level of Consciousness is awake, alert, obeys commands, Oriented to person, place, time, situation. Cardiovascular: Heart tones present Capillary refill < 3 seconds Patient's skin is warm and dry. Chest pain is aggravated by coughing. Respiratory: Airway is patent Respiratory effort is even, unlabored, Respiratory pattern is regular, symmetrical. GI: No signs and/or symptoms were reported involving the gastrointestinal system. : No signs and/or symptoms were reported regarding the genitourinary system. EENT: No signs and/or symptoms were reported regarding the EENT system. Derm: No signs and/or symptoms reported regarding the dermatologic system. Musculoskeletal: No signs and/or symptoms reported regarding the musculoskeletal system. 07:00 Reassessment: Patient is alert, oriented x 3, equal unlabored respirations, skin al4 warm/dry/pink. 07:43 Reassessment: Patient and/or family updated on plan of care and expected duration. Pain jd3 level reassessed. Patient is alert, oriented x 3, equal unlabored respirations, skin warm/dry/pink. General: Appears in no apparent distress. comfortable, Behavior is calm, cooperative, appropriate for age. Pain: Complains of pain in chest. Neuro: Level of Consciousness is awake, alert, obeys commands, Oriented to person, place, time, situation. Cardiovascular: Capillary refill < 3 seconds Patient's skin is warm and dry. Chest pain is aggravated by coughing. Respiratory: Reports cough that is non-productive, dry, persistent Airway is patent Respiratory effort is even, unlabored, Respiratory pattern is regular, symmetrical. 08:19 Reassessment: Patient appears in no apparent distress at this time. Patient and/or jd3 family updated on plan of care and expected duration. Pain level reassessed. Patient is alert, oriented x 3, equal unlabored respirations, skin warm/dry/pink. Patient states feeling better. Vital Signs: 04:09 BP 113 / 60; Pulse 61; Resp 18 S; Temp 97.2(TE); Pulse Ox 100% on R/A; Weight 72.57 kg as6 (R); Height 5 ft. 3 in. (160.02 cm) (R); Pain 7/10; 06:05 BP 111 / 65; Pulse 60; Resp 18 S; Pulse Ox 100% on R/A; al4 07:44 BP 106 / 61; Pulse 71; Resp 18 S; Pulse Ox 98% on R/A; jd3 04:09 Body Mass Index 28.34 (72.57 kg, 160.02 cm) as6 ED Course: 04:02 Patient arrived in ED. ag3 04:12 Triage completed. as6 04:13 Arm band placed on. as6 04:33 Inserted saline lock: 20 gauge in right antecubital area, using aseptic technique. as6 Blood collected. 05:31 XRAY Chest (1 view) In Process Unspecified. EDMS 06:01 Stacy Boudreaux FNP-C is PHCP. kb 06:01 Domo Mo MD is Attending Physician. kb 06:02 Patient has correct armband on for positive identification. Pulse ox on. NIBP on. al4 06:02 Patient maintains SpO2 saturation greater than 95% on room air. al4 06:33 COVID-19 SARS RT PCR (Document "Date of Onset" if Symptomatic) Sent. al4 07:08 Raghavendra Adame RN is Primary Nurse. jd3 07:44 Attending Physician role handed off by Domo Mo MD rn 07:44 Primo Kern MD is Attending Physician. rn 08:18 No provider procedures requiring assistance completed. IV discontinued, intact, jd3 bleeding controlled, No redness/swelling at site. Pressure dressing applied. 08:26 Primary Nurse role handed off by Raghavendra Adame RN jd3 Administered Medications: 07:29 Drug: morphine 4 mg Route: IVP; Site: right antecubital; jd3 08:19 Follow up: Response: No adverse reaction; RASS: Alert and Calm (0) jd3 07:29 Drug: Zofran (Ondansetron) 4 mg Route: IVP; Site: right antecubital; jd3 08:20 Follow up: Response: No adverse reaction jd3 Outcome: 07:45 Discharge ordered by . kb 08:19 Discharged to home ambulatory, with family. jd3 08:19 Condition: stable 08:19 Discharge instructions given to patient, Instructed on discharge instructions, follow up and referral plans. Demonstrated understanding of instructions, follow-up care. 08:19 Patient left the ED. jd3 08:26 Patient left the ED. jd3 Signatures: Dispatcher [employer] EDMS Stacy Boudreaux, THREAD MACHINE OPERATOR-C THREAD MACHINE OPERATOR-Ckb Primo Kern MD MD rn Davies, Jonathon, RN RN jRachna Villalobos3 Ortiz Pace RN RN as6 Henry Cruz al4 Corrections: (The following items were deleted from the chart) 07:10 05:59 Respiratory: Airway is patent Respiratory effort is even, unlabored, Respiratory al4 pattern is regular, symmetrical, Breath sounds are clear bilaterally. al4
--- NOTE | 2021-05-31 07:46 | EDPHYS ---
Physician Documentation [facility] Name: Maranda Quach Age: 46 yrs Sex: Female : 1975 Arrival Date: 05/31/2021 Time: 04:02 Bed 10 Private MD: ED Physician Primo Kern HPI: 05/31 06:14 This 46 yrs old Female presents to ER via Ambulatory with complaints of Chest Pain. kb 06:14 The patient or guardian reports chest pain that is located primarily in the substernal kb area. Onset: yesterday. The pain does not radiate. Associated signs and symptoms: Pertinent positives: cough, vomiting. The chest pain is described as aching. Duration: The patient or guardian reports a single episode, that is still ongoing. Modifying factors: The symptoms are alleviated by nothing. the symptoms are aggravated by nothing. Severity of pain: At its worst the pain was mild moderate in the emergency department the pain is unchanged. The patient has experienced a previous episode. The patient has not recently seen a physician. Pt reports chest pain since 0800 yesterday. States the pain is better if she rubs her chest. Reports cough that causes vomiting with phlem. 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 - Social history:: Smoking status: Patient denies any tobacco usage or history of. ROS: 06:14 Constitutional: Negative for fever, chills, and weight loss. kb 06:14 Cardiovascular: Positive for chest pain, Negative for edema, orthopnea, palpitations, paroxysmal nocturnal dyspnea. 06:14 Respiratory: Positive for cough, Negative for dyspnea on exertion, hemoptysis, orthopnea, pleurisy, shortness of breath, wheezing. 06:14 Abdomen/GI: Positive for vomiting, Negative for abdominal pain. 06:14 All other systems are negative. Exam: 06:14 Constitutional: This is a well developed, well nourished patient who is awake, alert, kb and in no acute distress. Head/Face: Normocephalic, atraumatic. ENT: Moist Mucous membranes Cardiovascular: Regular rate and rhythm with a normal S1 and S2. No gallops, murmurs, or rubs. No pulse deficits. Respiratory: Respirations even and unlabored. No increased work of breathing. Talking in full sentences Abdomen/GI: Soft, non-tender. No distention Skin: Warm, dry with normal turgor. Normal color. MS/ Extremity: Pulses equal, no cyanosis. Neurovascular intact. Full, normal range of motion. Neuro: Awake and alert, GCS 15, oriented to person, place, time, and situation. Moves all extremities. Normal gait. Psych: Awake, alert, with orientation to person, place and time. Behavior, mood, and affect are within normal limits. Vital Signs: 04:09 BP 113 / 60; Pulse 61; Resp 18 S; Temp 97.2(TE); Pulse Ox 100% on R/A; Weight 72.57 kg as6 (R); Height 5 ft. 3 in. (160.02 cm) (R); Pain 7/10; 06:05 BP 111 / 65; Pulse 60; Resp 18 S; Pulse Ox 100% on R/A; al4 07:44 BP 106 / 61; Pulse 71; Resp 18 S; Pulse Ox 98% on R/A; jd3 04:09 Body Mass Index 28.34 (72.57 kg, 160.02 cm) as6 MDM: 06:01 Patient medically screened. kb 06:14 Data reviewed: vital signs, nurses notes. Data interpreted: Pulse oximetry: on room air kb is 100 %. Interpretation: normal. 07:44 Counseling: I had a detailed discussion with the patient and/or guardian regarding: the kb historical points, exam findings, and any diagnostic results supporting the discharge/admit diagnosis, lab results, radiology results, the need for outpatient follow up, a family practitioner, to return to the emergency department if symptoms worsen or persist or if there are any questions or concerns that arise at home. 05/31 04:13 Order name: Basic Metabolic Panel; Complete Time: 07:41 as6 05/31 04:13 Order name: CBC with Diff; Complete Time: 06:01 as6 05/31 04:13 Order name: LFT's; Complete Time: 07:41 as6 /04 04:13 Order name: Magnesium; Complete Time: 07:41 05/31 04:13 Order name: NT PRO-BNP; Complete Time: 07:41 05/31 04:13 Order name: PT-INR; Complete Time: 06:01 05/31 04:13 Order name: Troponin (emerg Dept Use Only); Complete Time: 07:41 05/31 04:13 Order name: XRAY Chest (1 view); Complete Time: 08:16 05/31 04:13 Order name: EKG; Complete Time: 04:14 05/31 04:37 Order name: COVID-19 SARS RT PCR (Document "Date of Onset" if Symptomatic) [facility] 05/31 04:38 Order name: SARS-COV-2 RT PCR; Complete Time: 06:01 [facility] 05/31 04:13 Order name: Cardiac monitoring; Complete Time: 05:59 05/31 04:13 Order name: EKG - Nurse/Tech; Complete Time: 05:59 05/31 04:13 Order name: IV Saline Lock; Complete Time: 05:59 05/31 04:13 Order name: Labs collected and sent; Complete Time: 05:59 05/31 04:13 Order name: O2 Per Protocol; Complete Time: 05:59 05/31 04:13 Order name: O2 Sat Monitoring; Complete Time: 05:59 05/31 05:13 Order name: Labs - recollect needed: Green tube; Complete Time: 05:59 05/31 06:11 Order name: Labs - recollect needed: green top; Complete Time: 07:08 mw2 Administered Medications: 07:29 Drug: morphine 4 mg Route: IVP; Site: right antecubital; jd3 08:19 Follow up: Response: No adverse reaction; RASS: Alert and Calm (0) jd3 07:29 Drug: Zofran (Ondansetron) 4 mg Route: IVP; Site: right antecubital; jd3 08:20 Follow up: Response: No adverse reaction jd3 Disposition: 07:46 Co-signature as Attending Physician, Primo Kern MD I agree with the assessment and rn plan of care. Attestation: The patient's history, exam findings, diagnostics, and a summary of any interventions or procedures was reviewed in detail with Stacy GUSMAN. Disposition Summary: 05/31/21 07:45 Discharge Ordered Location: Home kb Condition: Stable kb Diagnosis - Coronavirus infection, unspecified kb - Chest pain, unspecified kb Followup: kb - With: Emergency Department - When: As needed - Reason: Worsening of condition Followup: kb - With: Private Physician - When: 2 - 3 days - Reason: Recheck today's complaints, Continuance of care, Re-evaluation by your physician Discharge Instructions: - Discharge Summary Sheet kb - Nonspecific Chest Pain, Adult, [id number] kb - Viral Respiratory Infection, [id number] kb - COVID-19 kb - Form - Return To Work dh3 Forms: - Medication Reconciliation Form kb - Thank You Letter kb - Antibiotic Education kb - Prescription Opioid Use kb - Work release form jd3 Signatures: Dispatcher [employer] Stacy Garcia FNP-C FNP-Primo Aquino MD MD rn Pena, Laura RN RN lp1 Raghavendra Adame RN RN jd3 John Murphy mw2 Ortiz Pace, RN RN as6
--- NOTE | 2021-05-31 08:07 | RAD REPORT ---
EXAM DESCRIPTION: Afia Single View05/31/2021 5:31 am CLINICAL HISTORY: Chest pain COMPARISON: October 2020 FINDINGS: The lungs appear clear of acute infiltrate. The heart is normal size IMPRESSION: No acute abnormalities displayed
[2021-05-31 08:29] VITALS: TEMP 97.2
[2021-05-31 08:32] VITALS: BP 106/61; O2SAT 98
--- NOTE | 2021-05-31 11:15 | EKG ---
Test Date: 2021-05-31 Test Time: 04:21:14 Drilling Fluids Specialist: MEASUREMENT RESULTS: Intervals: Rate: 67 AL: 148 QRSD: 80 QT: 422 QTc: 445 Spencer: P: 14 AL: 148 QRS: 33 T: 46 INTERPRETIVE STATEMENTS: Normal sinus rhythm Possible Anterior infarct, age undetermined Abnormal ECG Compared to ECG 05/31/2021 04:20:40 Atrial premature complex(es) no longer present Aberrant conduction of supraventricular beat(s) no longer present Myocardial infarct finding still present Electronically Signed On 05-31-21 11:14:01 BROKE WORKER by David Robert
== END 2021-05-31 08:26 | disposition home or self-care (01) ==
LOC: ER 03:59
DX: U07.1 COVID-19 (principal); I10 Essential (primary) hypertension
CPT/HCPCS: 36415; 71045; 80048; 80076; 83735; 83880; 84484; 85025; 85610; 93005; 96374; 96375; 99284; J2405; U0003

== ENCOUNTER 2021-06-05 21:18 | Emergency (ER) | payer SELFPAY ==
--- OUTSIDE RECORDS SUMMARY | 2021-06-05 21:21 | XMS REPORT | Continuity of Care Document ---
:1975 Author Organization [facility] t Address [address] [place] [address] Care Team Providers Name Role Phone Annalise Jiang Primary Care Physician CATES, R Attending Clinician Unavailable Darryn JULIO R Attending Clinician Elie ALANIS Attending Clinician Unavailable Reji ZHONG Attending Clinician Unavailable Jerrod EVENT TECHNICIAN, G Attending Clinician Annalise Jiang Attending Clinician [...] Clinician Unavailable TERRI BROWN Attending Clinician Unavailable Malik SIMS Attending Clinician Unavailable CATES, R Admitting Clinician Unavailable CALEB Admitting Clinician Unavailable Payers Payer Name Policy Type Policy Number Effective Date Expiration Date S ource [employer] [id number] 2019 00:00:00 Problems Condition Condition Condition Status [...] Formattin ity of 00:00: g of this [place] 00 note Medical might be Branch different from the original. Added automatic ally from request for surgery [id number] Hydrops of Hydrops of Disease Active 2017-05 Overview : Univers gallbladde gallbladde 0-19 Formattin ity of r r 00:00: g of this [place] 00 note Medical might be Branch different from the original. Added automatic ally from request for surgery [id number] Atypical Atypical Disease Active Overview: Un loren [...] 5-18 ity of 00:00: [place] 00 Medical Branch Tobacco Tobacco Disease Active Univers use use 5-18 ity of disorder disorder 00:00: 00 Medical Branch Encounter Encounter Disease Active 2006-05 Overview: Univers for for 0-08 Formattin ity of counseling counseling 00:00: g of this [place] 00 note Medical might be Branch different from the original. Seeking ICD10 Diagnosis Term Home Care Physical Therapist Utility Migraines Migraines Disease Active Uni vers ity of [facility] Allergies, Adverse Reactions, Alerts Allergy Allergy Status Severity Reaction(s) Onset Inactive Treating Comm ents Source Name Type Date Date Clinician NO KNOWN Drug Active Univers ALLERGIE Class ity of S [facility] Social History Social Habit Start Date Stop Date Quantity Comments Source History SDOH University o f Alcohol Frequency [place] M edical Branch History SDOH University o f Alcohol Std [place] Medical Drinks Branch History SDNM University o f Alcohol Binge [place] Medic al Branch Exposure to Yes University of SARS-CoV-2 [place] Medical (event) Branch Alcohol intake 2021-05-30 2021-05-30 0 /d University of 00:00:00 00:00:00 [facility] Tobacco Comment 2019-09-27 2019-09-27 second hand smoke Un iversity of 00:00:00 00:00:00 [facility] Tobacco use and 2019-03-01 2019-03-01 Never used Universit y of exposure 00:00:00 00:00:00 [facility] Alcohol Comment 2015-10-13 2015-10-13 social drinks Univer sity of 00:00:00 00:00:00 occasionally [facility] Sex Assigned At [birth year] Universit y of 00:00:00 00:00:00 [facility] Smoking Status Start Date Stop Date Source Never smoker [facility] Medications Ordered Filled Start Stop Current Ordering Indication Dosage Frequency Signature Comments Components Source Medication Medication Date Date Medication? Clinician (SIG) Name Name ondansetron 2021- No 4mg 4 mg, Univ ers (ZOFRAN-ODT 05-30- Oral, ity of ) 19:15: 19:15 ONCE, 1 [place] disintegrat 00 :00 dose, On Medi jake ing tablet 05/30/21 Bra nch 4 mg at 1315, Routine albuterol Yes [id number] 2{puff} Inhale 2 Univers 90 1-03 Puffs ity of mcg/actuati 00:00: every 4 [place] as on inhaler 00 (four) Medical hours as Branch needed for Wheezing or Shortness of Breath. benzonatate Yes [id number] 100mg Take 1 Univers 100 mg 1-03 capsule by ity of capsule 00:00: mouth 3 [place] 00 (three) Medical times Branch daily as needed for Cough. albuterol Yes [id number] 2{puff} Inhale 2 Univers 90 1-03 Puffs ity of mcg/actuati 00:00: every 4 [place] as on inhaler 00 (four) Medical hours as Branch needed for Wheezing or Shortness of Breath. benzonatate Yes [id number] 100mg Take 1 Univers 100 mg 1-03 capsule by ity of capsule 00:00: mouth 3 [place] 00 (three) Medical times Branch daily as needed for Cough. acetaminoph 2020-05- No 650mg 650 mg, U nivers en 05-25 Oral, ity of (TYLENOL) 18:45: 17:46 ONCE, 1 [place] tablet 650 00 :00 dose, On Medic al mg Wed Branch 05/25/21 at 1245, ARIANNA sulfamethox Yes 1{tbl} Take 1 Un loren azole-trime 6-16 tablet by ity of thoprim 16:17: mouth 2 [place] (BACTRIM 06 (two) Medical DS) 800-160 times Branch mg per daily. tablet sulfamethox 2020-0 Yes 1{tbl} Take 1 Un loren azole-trime 6-16 tablet by ity of thoprim 16:17: mouth 2 [place] (BACTRIM 06 (two) Medical DS) 800-160 times Branch mg per daily. tablet sulfamethox 0 Yes 1{tbl} Take 1 Un loren azole-trime 6-16 tablet by ity of thoprim 16:17: mouth 2 [place] (BACTRIM 06 (two) Medical DS) 800-160 times Branch mg per daily. tablet sulfamethox 0 Yes 1{tbl} Take 1 Un loren azole-trime 6-16 tablet by ity of thoprim 16:17: mouth 2 [place] (BACTRIM 06 (two) Medical DS) 800-160 times Branch mg per daily. tablet ondansetron 2020-0 Yes [id number] 4mg Take 1 Univers (ZOFRAN) 4 6-16 tablet by ity of mg tablet 00:00: mouth [place] 00 every 8 Medical (eight) Branch hours as needed for Nausea and Vomiting (N/V). ondansetron 2020-0 Yes [id number] 4mg Take 1 Univers (ZOFRAN) 4 6-16 tablet by ity of mg tablet 00:00: mouth [place] 00 every 8 Medical (eight) Branch hours as needed for Nausea and Vomiting (N/V). ondansetron 2020-0 Yes [id number] 4mg Take 1 Univers (ZOFRAN) 4 6-16 tablet by ity of mg tablet 00:00: mouth [place] 00 every 8 Medical (eight) Branch hours as needed for Nausea and Vomiting (N/V). ondansetron 2020-0 Yes [id number] 4mg Take 1 Univers (ZOFRAN) 4 6-16 [...] 250 mg days 2 to 5. tiZANidine 0 Yes Frequent 2mg Take 1 U nivers 2 mg 8-20 headaches capsule by ity of capsule 00:00: mouth 3 [place] 00 (three) Medical times Branch daily as needed for Muscle Spasms (tension headache). ondansetron 0 Yes Vomiting, 4mg Take 1 Univers (ZOFRAN 8-18 intractabil tablet by ity of ODT) 4 mg 00:00: ity of mouth [place] disintegrat 00 vomiting every 8 M edical ing tablet not (eight) Branch specified, hours as presence of needed for nausea not Nausea and specified, Vomiting unspecified (N/V). vomiting type Immunizations Ordered Filled Immunization Date Status Comments [facility] e Immunization Name Name SARS-COV-2 COVID-19 2020-11-04 Completed Unive rsity of PFIZER VACCINE 00:00:00 [facility] [facility] SARS-COV-2 COVID-19 2020-11-04 Completed Unive rsity of PFIZER VACCINE 00:00:00 [facility] [facility] SARS-COV-2 COVID-19 2020-11-04 Completed Unive rsity of PFIZER VACCINE 00:00:00 [facility] [facility] SARS-COV-2 COVID-19 2020-11-04 Completed Unive rsity of PFIZER VACCINE 00:00:00 [facility] [facility] SARS-COV-2 COVID-19 2020-10-14 Completed Unive rsity of PFIZER VACCINE 00:00:00 [facility] [facility] SARS-COV-2 COVID-19 2020-10-14 Completed Unive rsity of PFIZER VACCINE 00:00:00 [facility] [facility] SARS-COV-2 COVID-19 2020-10-14 Completed Unive rsity of PFIZER VACCINE 00:00:00 [facility] [facility] SARS-COV-2 COVID-19 2020-10-14 Completed Unive rsity of PFIZER VACCINE 00:00:00 [facility] [facility] Td 2020-08-07 Completed University of 00:00:00 [facility] Td 2020-08-07 Completed University of 00:00:00 [facility] Td 2020-08-07 Completed University of 00:00:00 [facility] Td 2020-08-07 Completed University of 00:00:00 [facility] Td 2020-08-07 Completed University of 00:00:00 [facility] Vital Signs Vital Name Observation Time Observation Value Comments Source Systolic blood 2021-05-30 17:55:00 105 mm[Hg] Univer sity of pressure [facility] Diastolic blood 2021-05-30 17:55:00 87 mm[Hg] Unive rsity of pressure [facility] Heart rate 2021-05-30 17:55:00 73 /min [facility] Body temperature 2021-05-30 17:55:00 36.67 Elle [facility] Respiratory rate 2021-05-30 17:55:00 18 /min [facility] Body weight 2021-05-30 17:55:00 72.576 kg [facility] BMI 2021-05-30 17:55:00 31.25 kg/m2 [facility] Oxygen saturation in 2021-05-30 17:55:00 99 /min University of Arterial blood by [facility] Pulse oximetry Branch Systolic blood 2021-05-25 16:22:00 150 mm[Hg] Univer sity of pressure [facility] Diastolic blood 2021-05-25 16:22:00 105 mm[Hg] Unive rsity of [facility] Heart rate 2021-05-25 16:22:00 98 /min [facility] Body temperature 2021-05-25 16:22:00 37.89 Elle [facility] Respiratory rate 2021-05-25 16:22:00 18 /min [facility] Body weight 2021-05-25 16:22:00 72.576 kg [facility] BMI 2021-05-25 16:22:00 31.25 kg/m2 [facility] Oxygen saturation in 2021-05-25 16:22:00 99 /min [facility] Arterial blood by [facility] Pulse oximetry Branch Systolic blood 2020-10-01 01:49:00 154 mm[Hg] Univer sity of [facility] Diastolic blood 2020-10-01 01:49:00 100 mm[facility]Hg] [facility] Procedure Date / Time Performed Performing Clinician Sourmalik e XR CHEST 2 VW 2021-05-30 18:20:11 Michael Cates [place] o f [facility] CONSENT/REFUSAL FOR 2021-05-30 17:42:16 Doctor Unassigned, No Un iversity of [place] DIAGNOSIS AND Name [place] TREATMENT CONSENT/REFUSAL FOR 2021-05-25 16:17:07 Doctor Unassigned, No Un [facility] of [place] DIAGNOSIS AND Name [facility] [place] TREATMENT Plan of Care Planned Activity Planned Date Details Comments Source Future Scheduled 2028-04-01 Screening for University [facility] Test 00:00:00 malignant neoplasm Medical B [place] of colon (procedure) [code = 894374131] Future Scheduled 2028-04-01 Screening for University [facility] Test 00:00:00 malignant neoplasm Medical B ranch of colon (procedure) [code = 553556335] Future Scheduled 2021-01-26 INFLUENZA VACCINE Univer [facility] [place] [facility] Test 00:00:00 (Season Ended) [code Medical Branch = INFLUENZA VACCINE (Season Ended)] Future Scheduled 2018-10-12 Screening for University [facility] Test 00:00:00 malignant neoplasm Medical B [place] of cervix (procedure) [code = 550783321] Future Scheduled 2015 Screening for [facility] [place] Test 00:00:00 malignant neoplasm Medical B ranch of breast (procedure) [code = 262234615] Future Scheduled 1994 DTaP,Tdap,and Td Univers [facility] Test 00:00:00 Vaccines (1 - Tdap) Medical Branch [code = DTaP,Tdap,and Td Vaccines (1 - Tdap)] Future Scheduled 1993 Hepatitis C [facility] Test 00:00:00 screening Medical Branch (procedure) [code = 934037630] Future Scheduled 1991 SARS-CoV-2 [facility] Test 00:00:00 (COVID-19) Vaccine Medical B ranch (1) [code = SARS-CoV-2 (COVID-19) Vaccine (1)] Future Scheduled 1987 Depression screening Uni [facility] Test 00:00:00 (procedure) [code = Medical Branch [id number]] Encounters Start End Encounter Admission Attending Care Care Encounter Source Date/Time Date/Time Type Type Clinicians Facility Department ID 2021-03-27 Emergency [facility] [id number] Univers 05:46:[address] [facility] 2021-03-26 Emergency [facility] [id number] Univers 09:38:[address] [facility] 2021-03-25 Emergency [facility] [id number] Univers 13:06:[address] [facility] 2021-03-25 Emergency [facility] [id number] Univers 04:44:[address] [facility] 2021-03-25 Emergency [facility] [id number] Univers 03:20:[address] [facility] 2021-03-24 Emergency [facility] [id number] Univers 23:32:[address] [facility] 2021-05-30 2021-05-30 Outpatient R [facility] [id number] Univers 14:45:00 14:45:[id number] [facility] 2021-05-30 2021-05-30 Outpatient R [facility] [id number] Univers 14:45:00 14:45:[address] [facility] 2021-05-30 2021-05-30 Emergency X DARRYN, [facility] ERT [id number] Univers 11:57:00 13:19:[address] [facility] 2021-05-30 2021-05-30 Emergency [facility] [id number] Univers 11:57:00 13:19:00 Michael Lashanda MATHEW [id number] i ty of [facility] [id number] [phone] [address] 2021-05-30 2021-05-30 KATELIN Herrera [id number] Univers 00:00:00 00:00:00 (Out) Mango VERÓNICA [id number] [facility] [id number] [place] [id number] [address] 2021-05-25 2021-05-[address] [facility] ERT [id number] Univers 10:23:00 12:28:00 ROSALBA [facility] 2021-05-25 2021-05-25 Emergency [facility] [id number] Univers 10:23:00 12:28:00 Rosalba G MATHEW [id number] ity of [place] [id number] [facility] [id number] [address] 2021-05-04 2021-05-04 [place] [facility] [id number] Univers 00:00:00 00:00:00 Sarika A [facility] [id number] i ty of [place] [id number] [place] as ANNABELLA?BLEA [id number] [address] MEDICAL OFFICE BUILDING 2021-03-29 2021-03-29 Outpatient Lashanda DUBOSE [facility] [id number] Univers 15:30:00 15:30:00 ABIMAEL [id number] [facility] 2021-03-29 2021-03-29 [facility] [id number] Univers 15:30:00 15:30:00 ABIMAEL [facility] 2021-01-07 2021-01-07 Outpatient R ISRAEL [facility] [id number] Univers 11:30:00 11:30:00 SARIKA [facility] 2021-01-07 2021-01-07 Outpatient R ISRAEL [facility] [id number] Univers 08:30:00 08:30:00 SARIKA [id number] [facility] 2021-01-05 2021-01-05 Outpatient R ISRAEL, [facility] [id number] Univers 08:30:00 08:30:00 SARIKA [id number] [facility] 2021-01-05 2021-01-05 [facility] [id number] Univers 08:30:00 08:30:00 SARIKA [facility] 2021-01-03 2021-01-03 [facility]phone [facility] [id number] 00:00:00 00:00:00 Sarika [facility] [id number] [place] [id number] Professio [phone] nal [address] 2020-11-30 2020-11-30 Telephone Andree La [id number] 00:00:00 00:00:00 , Pamela Judd [id number] [place] [id number] [id number] 2020-11-22 2020-11-22 Orders Doctor KATELIN [id number] 00:00:00 00:00:00 Only Unassigned, VERÓNICA [id number] [place] [facility] [id number] 2020-11-16 2020-11-16 Outpatient Lashanda CARRILLO [facility] [id number] Univers 11:00:00 11:00:00 KRANTHI [id number] [facility] 2020-11-16 2020-11-16 Outpatient Lashanda CARRILLO [facility] [id number] Univers 11:00:00 11:00:00 KRANTHI [facility] 2020-11-10 2020-11-10 Outpatient R ISRAEL [facility] [id number] Univers 16:00:00 16:00:00 SARIKA [id number] [facility] 2020-11-10 2020-11-10 Outpatient R ISRAEL [facility] [id number] Univers 16:00:00 16:00:00 SARIKA [facility] 2020-11-10 2020-11-10 [place] [facility] [id number] 00:00:00 00:00:00 Sarika [facility] [id number] [place] [id number] [facility] [phone] nal [address] 2020-09-30 2020-09-30 [facility] [id number] Univers 16:00:00 16:00:00 SARIKADORI [id number] [facility] 2020-09-30 2020-09-30 [facility] [id number] Univers 16:00:00 16:00:00 SARIKA [facility] 2020-09-16 2020-09-16 Outpatient R [facility] [id number] Univers 16:40:00 16:40:00 [id number] [facility] 2020-09-16 2020-09-16 Outpatient R [facility] [id number] Univers 16:40:00 16:40:00 [facility] 2020-09-10 2020-09-10 Outpatient R [facility] [id number] Univers 08:00:00 08:00:00 [id number] [facility] 2020-09-08 2020-09-08 Outpatient R [facility] [id number] Univers 13:00:00 13:00:00 [id number] [facility] 2020-09-08 2020-09-08 [facility] [id number] Univers 13:00:00 13:00:00 SARIKA [facility] 2020-08-20 2020-08-20 [facility] [id number] Univers 15:00:00 15:00:[id number] [facility] 2020-08-20 2020-08-20 Outpatient R ISRAEL, [facility] [id number] Univers 15:00:00 15:00:[address] [facility] 2020-03-05 2020-03-05 Outpatient R ISRAEL, [facility] [id number] Univers 08:00:00 08:00:[address] [facility] 2020-03-05 2020-03-05 Outpatient R ISRAEL, [facility] [id number] Univers 08:00:00 08:00:[address] [facility] 2020-03-04 2020-03-04 Outpatient R SEDRICK, [facility] [id number] Univers 11:30:00 11:30:[address] [facility] 2020-03-04 2020-03-04 Outpatient R SEDRICK, [facility] [id number] Univers 11:30:00 11:30:[address] [facility] 2020-03-01 2020-03-01 Outpatient R ANENE, [facility] [id number] Univers 16:15:00 16:15:[address] [facility] 2020-03-01 2020-03-01 Outpatient R ANENE, [facility] [id number] Univers 16:15:00 16:15:[address] [facility] 2020-02-26 2020-02-26 Outpatient ISRAEL, [facility] [id number] Univers 10:40:00 10:40:[address] [facility] 2020-02-13 2020-02-13 Outpatient DMITRI HATHAWAY [facility] [id number] Univers 13:40:00 13:40:[address] [id number] ity [facility] 2020-02-13 2020-02-13 Outpatient R DMITRI HATHAWAY [facility] [id number] Univers 13:40:00 13:40:[address] [facility] 2020-01-30 2020-01-30 Outpatient R ANTHONY, [facility] [id number] Univers 14:00:00 14:00:[address] [facility] 2020-01-15 2020-01-15 Outpatient R [facility] [id number] Univers 17:00:00 17:00:[address] [facility] 2020-01-15 2020-01-15 Outpatient R HUMAN, [facility] [id number] Univers 17:00:00 17:00:[address] [facility] 2020-01-09 2020-01-09 Outpatient R CODEY, [facility] [id number] Univers 09:30:00 09:30:[id number] [facility] 2020-01-09 2020-01-09 Outpatient R CODEY, [facility] [id number] Univers 09:30:00 09:30:[address] [facility] 2020-01-07 2020-01-07 Outpatient R [facility] [id number] Univers 09:40:00 09:40:[id number] [facility] 2020-01-07 2020-01-07 Outpatient R [facility] [id number] Univers 09:40:00 09:40:[address] [facility] 2020-01-07 2020-01-07 Outpatient R SEDRICK, [facility] [id number] Univers 09:40:00 09:40:[address] [facility] 2019-12-18 2019-12-18 Outpatient R GERARDO, [facility] [id number] Univers 08:30:00 08:30:[id number] [facility] 2019-12-18 2019-12-18 Outpatient R GERARDO, [facility] [id number] Univers 08:30:00 08:30:[address] [facility] 2019-12-14 2019-12-14 Outpatient R [facility] [id number] Univers 16:00:00 16:00:[id number] [facility] 2019-12-14 2019-12-14 Outpatient R SEDRICK, [facility] [id number] Univers 16:00:00 16:00:[address] [facility] 2019-12-05 2019-12-05 Outpatient R CODEY, [facility] [id number] Univers 09:45:00 09:45:[address] [facility] 2019-12-05 2019-12-05 Outpatient R WALKER, [facility] [id number] Univers 09:45:00 09:45:[address] [facility] 2019-11-25 2019-11-25 Outpatient R [facility] [id number] Univers 16:20:00 16:20:[id number] [facility] 2019-11-25 2019-11-25 Outpatient R [facility] [id number] Univers 16:20:00 16:20:[address] [facility] 2019-11-25 2019-11-25 Outpatient R SEDRICK, [facility] [id number] Univers 09:40:00 09:40:[address] [facility] 2019-11-14 2019-11-14 Outpatient R CODEY, [facility] [id number] Univers 10:15:00 10:15:[address] [facility] 2019-11-14 2019-11-14 Outpatient R CODEY, [facility] [id number] Univers 09:45:00 09:45:[id number] [facility] 2019-11-14 2019-11-14 Outpatient R WALKER, [facility] [id number] Univers 09:45:00 09:45:[address] [facility] 2019-11-13 2019-11-13 Outpatient R [facility] [id number] Univers 08:40:00 08:40:[id number] [facility] 2019-11-13 2019-11-13 Outpatient R [facility] [id number] Univers 08:40:00 08:40:[address] [facility] 2019-11-06 2019-11-06 Outpatient WALKER, [facility] [id number] Univers 08:00:00 08:00:[id number] [facility] 2019-11-06 2019-11-06 Outpatient R CODEY, [facility] [id number] Univers 00:00:00 00:00:[address] [facility] 2019-10-31 2019-10-31 Outpatient R CODEY, [facility] [id number] Univers 11:15:00 11:15:[address] [facility] 2019-10-31 2019-10-31 Outpatient Lashanda ALEGRE [facility] [id number] Univers 11:15:00 11:15:00 [facility] 2019-10-10 2019-10-10 Outpatient R GERARDO [facility] [id number] Univers 13:15:00 13:15:00 KRANTHI [id number] [facility] 2019-10-10 2019-10-10 Outpatient R GERARDO [facility] [id number] Univers 13:15:00 13:15:00 KRANTHI [facility] 2019-09-27 2019-09-27 Outpatient Jonathan CALEB [facility] [id number] Univers 05:53:51 14:24:[address] [facility] 2019-09-16 2019-09-16 Outpatient R [facility] [id number] Univers 16:40:00 16:40:[address] [facility] 2019-09-16 2019-09-16 Outpatient R [facility] [id number] Univers 16:20:00 16:20:00 [id number] [facility] 2019-09-16 2019-09-16 Outpatient R [facility] [id number] Univers 16:20:00 16:20:[address] [facility] 2019-08-29 2019-08-29 [facility] [id number] Univers 09:30:00 09:30:00 WONDIFUL ity o f [facility] 2019-08-29 2019-08-29 Outpatient R HARRISON [facility] [id number] Univers 09:30:00 09:30:00 W[address]IF[address] ity o f [facility] 2019-08-20 2019-08-20 Outpatient R [facility] [id number] -20 Univers 12:20:00 12:20:[id number] [facility] 2019-08-20 2019-08-20 Outpatient R [facility] [id number] [facility] 12:20:00 12:20:[address] [facility] 2019-08-06 2019-08-06 [facility] [id number] [facility] 16:30:00 16:30:00 KRANTHI [id number] [facility] 2019-08-06 2019-08-06 Outpatient Lashanda CARRILLO [facility] [id number] [facility] 16:30:00 16:30:00 KRANTHI [facility] 2019-07-18 2019-07-18 Emergency X Osmel BROWN [facility] ERT [id number] [facility] 13:49:36 15:20:00 [facility] 2019-03-06 2019-03-06 Outpatient R BETHANY [facility] [id number] [facility] 14:55:12 14:55:12 RACIEL [facility] Results This patient has no known results.
--- NOTE | 2021-06-05 23:01 | ER ---
Nurse's Notes [facility] Name: Maranda Quach Age: 46 yrs Sex: Female : 1975 Arrival Date: 06/05/2021 Time: 21:20 Bed Waiting Private MD: Diagnosis: Presentation: 06/05 21:46 Chief complaint: Patient states: pt tested positive for covid on 05/31/21. worsening lg3 symptoms. cough, congestion, SOB and tightness when coughing. reports hot and cold flashes but denies fever. currently taking 2 Tylenol every 2 hours at home with no relief. Coronavirus screen: Client denies travel out of the [place] in the last 14 days. chills, congestion, cough unrelated to allergies, fatigue, headache, muscle pain, runny nose, shortness of breath, Client presents with at least one sign or symptom that may indicate coronavirus-19. Standard/surgical mask placed on the client. Client reports previous positive COVID test result. Date of collection: May 31, 2021. Ebola Screen: No symptoms or risks identified at this time. Initial Sepsis Screen: Does the patient meet any 2 criteria? No. Patient's initial sepsis screen is negative. Does the patient have a suspected source of infection? No. Patient's initial sepsis screen is negative. Risk Assessment: Do you want to hurt yourself or someone else? Patient reports no desire to harm self or others. Onset of symptoms was May 25, 2021. 21:46 Method Of Arrival: Ambulatory lg3 21:46 Acuity: CHAVEZ 4 lg3 Triage Assessment: 21:51 General: Appears in no apparent distress. uncomfortable, Behavior is calm, cooperative. lg3 Pain: Complains of pain in mid-sternal area Pain does not radiate. Pain currently is 8 out of 10 on a pain scale. Neuro: Level of Consciousness is awake, alert, obeys commands, Oriented to person, place, time, situation, Gait is steady, Speech is normal. Cardiovascular: Capillary refill < 3 seconds JVD is absent Patient's skin is warm and dry. Respiratory: Airway is patent Trachea midline Respiratory effort is even, unlabored, Respiratory pattern is regular, symmetrical. GI: No signs and/or symptoms were reported involving the gastrointestinal system. : No signs and/or symptoms were reported regarding the genitourinary system. Derm: No signs and/or symptoms reported regarding the dermatologic system. Musculoskeletal: No signs and/or symptoms reported regarding the musculoskeletal system. 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 - Social history:: Smoking status: Patient denies any tobacco usage or history of. Vital Signs: 21:46 BP 138 / 76; Pulse 81; Resp 16; Temp 97.4(TE); Pulse Ox 100% on R/A; Weight 72.57 kg lg3 (R); Height 5 ft. 0 in. (152.40 cm) (R); Pain 8/10; 21:46 Body Mass Index 31.25 (72.57 kg, 152.40 cm) lg3 ED Course: 21:20 Patient arrived in ED. bp1 21:51 Triage completed. lg3 21:51 Arm band placed on Patient notified of wait time. lg3 Administered Medications: No medications were administered Outcome: 22:59 Patient left the ED. lg3 Signatures: Mary Worrell, RN RN lg3 Tiffanie Connell
[2021-06-05 23:05] VITALS: BP 138/76; TEMP 97.4; O2SAT 100
== END 2021-06-05 22:59 | disposition left against medical advice (07) ==
LOC: ER 21:18
DX: Z53.21 Procedure and treatment not carried out due to patient leaving prior to being seen by health care provider (principal)
CPT/HCPCS: 99281

== ENCOUNTER 2021-08-23 14:06 | Emergency (ER) | payer SELFPAY ==
--- OUTSIDE RECORDS SUMMARY | 2021-08-23 14:10 | XMS REPORT | Continuity of Care Document ---
:1975 Author Organization [facility] t Address [address] [place] [address] Care Team Providers Name Role Phone Annalise Jiang Primary Care Physician CATES, R Attending Clinician Unavailable Darryn JULIO R Attending Clinician Elie ALANIS Attending Clinician Unavailable Reji ZHONG Attending Clinician Unavailable Jerrod NEONATAL DOCTOR, G Attending Clinician Annalise Jiang Attending Clinician [...] Clinician Unavailable Silviano SIMS Attending Clinician Unavailable CATES, R Admitting Clinician Unavailable CALEB Admitting Clinician Unavailable Payers Payer Name Policy Type Policy Number Effective Date Expiration Date S ource [employer] [id number] 2019 00:00:00 Problems Condition Condition Condition Status [...] Formattin ity of 00:00: g of this note Medical might be Branch different from the original. Added automatic ally from request for surgery [id number] Hydrops of Hydrops of Disease Active 2017-05 Overview : Univers gallbladde gallbladde 0-19 Formattin ity of r r 00:00: g of this [place] note Medical might be Branch different from the original. Added automatic ally from request for surgery [id number] Atypical Atypical Disease Active Overview: Un loren [...] Active Univers 5-18 ity of 00:00: [place] [facility] Tobacco Tobacco Disease Active Univers use use 5-18 ity of disorder disorder 00:00: [place] [facility] [place] Encounter Encounter Disease Active 2006-05 Overview: Univers for for 0-08 Formattin ity of counseling counseling 00:00: g of this note Medical might be Branch different from the original. 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 Migraines Migraines Disease Active Uni vers ity of [facility] Allergies, Adverse Reactions, Alerts Allergy Allergy Status Severity Reaction(s) Onset Inactive Treating Comm ents Source Name Type Date Date Clinician NO KNOWN Drug Active Univers ALLERGIE Class ity of S [facility] Social History Social Habit Start Date Stop Date Quantity Comments Source History SDOH University o f Alcohol Frequency [place] [facility] ed[facility] History SDOH University o f Alcohol Std [place] [facility] Drinks Branch History [facility] University o f Alcohol Binge [place] [facility] al Branch Exposure to Yes University of SARS-CoV-2 [place] [facility] (event) Branch Alcohol intake 2021-05-30 2021-05-30 0 /d University of 00:00:00 00:00:00 [facility] Tobacco Comment 2019-09-27 2019-09-27 second hand smoke Un iversity of 00:00:00 00:00:00 [facility] Tobacco use and 2019-03-01 2019-03-01 Never used Universit y of exposure 00:00:00 00:00:00 [facility] Alcohol Comment 2015-10-13 2015-10-13 social drinks [facility] sity of 00:00:00 00:00:00 occasionally [facility] Sex Assigned At [birth year] Universit y of 00:00:00 00:00:00 [facility] Smoking Status Start Date Stop Date Source Never smoker [facility] Medications Ordered Filled Start Stop Current Ordering Indication Dosage Frequency Signature Comments Components Source Medication Medication Date Date Medication? Clinician (SIG) Name Name ondansetron No 4mg 4 mg, Univ ers (ZOFRAN-ODT 05-30-03 Oral, ity of ) 19:15: 19:15 ONCE, 1 [place] disintegrat 00 :00 dose, On Medi jake ing tablet 05/30/21 Bra nch 4 mg at 1315, Routine albuterol Yes [id number] 2{puff} Inhale 2 Univers 90 1-03 Puffs ity of mcg/actuati 00:00: every 4 [place] as on inhaler 00 (four) Medical hours as Branch needed for Wheezing or Shortness of Breath. benzonatate Yes [id number] 100mg Take 1 Univers 100 mg 1-03 capsule by ity of capsule 00:00: mouth 3 [place] 00 (three) Medical times Branch daily as needed for Cough. albuterol Yes [id number] 2{puff} Inhale 2 Univers 90 1-03 Puffs ity of mcg/actuati 00:00: every 4 [place] as on inhaler 00 (four) Medical hours as Branch needed for Wheezing or Shortness of Breath. benzonatate Yes [id number] 100mg Take 1 Univers 100 mg 1-03 capsule by ity of capsule 00:00: mouth 3 [place] 00 (three) Medical times Branch daily as needed for Cough. acetaminoph 2020-05- No 650mg 650 mg, U nivers en 2 12- Oral, ity of (TYLENOL) 18:45: 17:46 ONCE, 1 [place] tablet 650 00 :00 dose, On Medic al mg Wed Branch 05/25/21 at 1245, ARIANNA sulfamethox Yes 1{tbl} Take 1 Un loren azole-trime 6-16 tablet by ity of thoprim 16:17: mouth 2 [place] (BACTRIM 06 (two) Medical DS) 800-160 times Branch mg per daily. tablet sulfamethox 0 Yes 1{tbl} Take 1 Un loren azole-trime 6-16 tablet by ity of thoprim 16:17: mouth 2 [place] (BACTRIM 06 (two) Medical DS) 800-160 times Branch mg per daily. tablet sulfamethox 0 Yes 1{tbl} Take 1 Un loren azole-trime 6-16 tablet by ity of thoprim 16:17: mouth 2 [place] (BACTRIM 06 (two) Medical DS) 800-160 times Branch mg per daily. tablet sulfamethox 2020-0 Yes 1{tbl} Take 1 Un loren azole-trime 6-16 tablet by ity of thoprim 16:17: mouth 2 [place] (BACTRIM 06 (two) Medical DS) 800-160 times Branch mg per daily. tablet ondansetron 2020-0 Yes [id number] 4mg Take 1 Univers (ZOFRAN) 4 6-16 tablet by ity of mg tablet 00:00: mouth [place] 00 every 8 Medical (eight) Branch hours as needed for Nausea and Vomiting (N/V). ondansetron 2020-0 Yes [id number] 4mg Take 1 Univers (ZOFRAN) 4 6-16 tablet by ity of mg tablet 00:00: mouth [place] 00 every 8 Medical (eight) Branch hours as needed for Nausea and Vomiting (N/V). ondansetron 2020-0 Yes [id number] 4mg Take 1 Univers (ZOFRAN) 4 6-16 tablet by ity of mg tablet 00:00: mouth [place] 00 every 8 Medical (eight) Branch hours as needed for Nausea and Vomiting (N/V). ondansetron 2020-0 Yes [id number] 4mg Take 1 Univers (ZOFRAN) 4 6-16 [...] Immunizations Ordered Filled Immunization Date Status Comments [facility] e Immunization Name Name SARS-COV-2 COVID-19 2020-11-04 Completed Unive rsity of PFIZER VACCINE 00:00:00 [facility] [place] [facility] SARS-COV-2 COVID-19 2020-11-04 Completed Unive rsity of Fidus Writer VACCINE 00:00:00 [facility] [place] [facility] SARS-COV-2 COVID-19 2020-11-04 Completed Unive rsity of PFIZER VACCINE 00:00:00 [facility] [place] [facility] SARS-COV-2 COVID-19 2020-11-04 Completed Unive rsity of PFIZER VACCINE 00:00:00 [facility] [place] [facility] SARS-COV-2 COVID-19 2020-10-14 Completed Unive rsity of PFIZER VACCINE 00:00:00 [facility] [place] [facility] SARS-COV-2 COVID-19 2020-10-14 Completed Unive rsity of PFIZER VACCINE 00:00:00 [facility] [place] [facility] SARS-COV-2 COVID-19 2020-10-14 Completed Unive rsity of PFIZER VACCINE 00:00:00 [facility] [place] [facility] SARS-COV-2 COVID-19 2020-10-14 Completed Unive rsity of PFIZER VACCINE 00:00:00 [facility] [place] [facility] Td 2020-08-07 Completed University of 00:00:00 [facility] Td 2020-08-07 Completed University of 00:00:00 [facility] Td 2020-08-07 Completed University of 00:00:00 [facility] Td 2020-08-07 Completed University of 00:00:00 [facility] Td 2020-08-07 Completed University of 00:00:00 [facility] Vital Signs Vital Name Observation Time Observation Value Comments Source Systolic blood 2021-05-30 17:55:00 105 mm[Hg] Univer sity of pressure [facility] Diastolic blood 2021-05-30 17:55:00 87 mm[Hg] Unive rsity of pressure [facility] Heart rate 2021-05-30 17:55:00 73 /min [facility] Body temperature 2021-05-30 17:55:00 36.67 Elle [facility] Respiratory rate 2021-05-30 17:55:00 18 /min [facility] [place] [facility] Body weight 2021-05-30 17:55:00 72.576 kg [facility] BMI 2021-05-30 17:55:00 31.25 kg/m2 [facility] Oxygen saturation in 2021-05-30 17:55:00 99 /min [facility] Arterial blood by [facility] Pulse oximetry Branch Systolic blood 2021-05-25 16:22:00 150 mm[Hg] Univer sity of pressure [facility] Diastolic blood 2021-05-25 16:22:00 105 mm[Hg] Unive rsity of [facility] Heart rate 2021-05-25 16:22:00 98 /min [facility] Body temperature 2021-05-25 16:22:00 37.89 Elle [facility] [place] [facility] Respiratory rate 2021-05-25 16:22:00 18 /min [facility] [place] [facility] Body weight 2021-05-25 16:22:00 72.576 kg [facility] BMI 2021-05-25 16:22:00 31.25 kg/m2 [facility] Oxygen saturation in 2021-05-25 16:22:00 99 /min [facility] Arterial blood by [facility] Pulse oximetry Branch Systolic blood 2020-10-01 01:49:00 154 mm[Hg] Univer sity of [facility] Diastolic blood 2020-10-01 01:49:00 100 mm[Hg] Unive rsity [facility] Procedures Procedure Date / Time Performed Performing Clinician Sour e XR CHEST 2 VW 2021-05-30 18:20:11 Michael Cates [place] o f [facility] CONSENT/REFUSAL FOR 2021-05-30 17:42:16 Doctor Unassigned, No Un iversity of [place] DIAGNOSIS AND Name Medical Branch TREATMENT CONSENT/REFUSAL FOR 2021-05-25 16:17:07 Doctor Unassigned, No Un iversity of [place] DIAGNOSIS AND Name Medical Branch TREATMENT Plan of Care Planned Activity Planned Date Details Comments Source Future Scheduled 2028-04-01 Screening for [facility] Test 00:00:00 malignant neoplasm Medical B ranch of colon (procedure) [code = 053677725] Future Scheduled 2028-04-01 Screening for [facility] Test 00:00:00 malignant neoplasm Medical B ranch of colon (procedure) [code = 049374135] Future Scheduled 2021-01-26 [facility] (Season Ended) [code Medical Branch = INFLUENZA VACCINE (Season Ended)] Future Scheduled 2018-10-12 Screening for [facility] Test 00:00:00 malignant neoplasm Medical B ranch of cervix (procedure) [code = [id number]] Future Scheduled 2015 Screening for [facility] Test 00:00:00 malignant neoplasm Medical B ranch of breast (procedure) [code = 515623909] Future Scheduled 1994 DTaP,Tdap,and Td Univers [facility] Test 00:00:00 Vaccines (1 - Tdap) Medical Branch [code = DTaP,Tdap,and Td Vaccines (1 - Tdap)] Future Scheduled 1993 Hepatitis C [facility] Test 00:00:00 screening Medical Branch (procedure) [code = 890399448] Future Scheduled 1991 SARS-CoV-2 [facility] Test 00:00:00 (COVID-19) Vaccine Medical B ranch (1) [code = SARS-CoV-2 (COVID-19) Vaccine (1)] Future Scheduled 1987 Depression screening Uni [facility] Test 00:00:00 (procedure) [code = Medical Branch 174049246] Encounters Start End Encounter Admission Attending Care Care Encounter Source Date/Time Date/Time Type Type Clinicians Facility Department ID 2021-03-27 Emergency [facility] [id number] Univers 05:46:40 ity of [facility] 2021-03-26 Emergency [facility] [id number] Univers 09:38:46 ity of [facility] 2021-03-25 Emergency [facility] [id number] Univers 13:06:43 ity of [facility] 2021-03-25 Emergency [facility] [id number] Univers 04:44:08 ity of [facility] 2021-03-25 Emergency [facility] [id number] Univers 03:20:04 ity of [facility] 2021-03-24 Emergency [facility] [id number] Univers 23:32:49 ity [facility] 2021-05-30 2021-05-30 Outpatient R [facility] [id number] Univers 14:45:00 14:45:00 [id number] ity of [facility] 2021-05-30 2021-05-30 Outpatient R [facility] [id number] Univers 14:45:00 14:45:00 ity of [facility] 2021-05-30 2021-05-30 Emergency X DARRYN [facility] ERT [id number] Univers 11:57:00 13:19:00 [facility] 2021-05-30 2021-05-30 Emergency [facility] [id number] Univers 11:57:00 13:19:00 Michael Lashanda QUINONESNINO [id number] i ty of [id number] [phone] [address] 2021-05-30 2021-05-30 KATELIN Herrera [id number] Univers 00:00:00 00:00:00 (Out) Mango SANCHES [id number] ity of [facility] [id number] [place] [phone] [address] 2021-05-25 2021-05-25 Emergency X [facility] ERT [id number] Univers 10:23:00 12:28:00 YFN [facility] [place] [facility] 2021-05-25 2021-05-25 Emergency [facility] [id number] Univers 10:23:00 12:28:00 Yfn Mendoza MATHEW [id number] ity of [place] [id number] [facility] [id number] [address] 2021-05-04 2021-05-[address] [facility] [id number] Univers 00:00:00 00:00:00 Sarika A [facility] [id number] i ty of [place] [id number] [place] as ANNABELLA?BLEA [phone] Wi mjamy [address] MEDICAL OFFICE BUILDING 2021-03-29 2021-03-29 Outpatient Lashanda DUBOSE [facility] [id number] Univers 15:30:00 15:30:00 ABIMAEL [id number] [facility] [place] [facility] 2021-03-29 2021-03-29 Outpatient Lashanda DUBOSE [facility] [id number] Univers 15:30:00 15:30:00 ABIMAEL [facility] [place] [facility] 2021-01-07 2021-01-07 Outpatient R ISRAEL [facility] [id number] Univers 11:30:00 11:30:00 SARIKA [facility] [place] [facility] 2021-01-07 2021-01-07 Outpatient R ISRAEL [facility] [id number] Univers 08:30:00 08:30:00 SARIKA [id number] [facility] [place] [facility] 2021-01-05 2021-01-05 Outpatient R ISRAEL [facility] [id number] Univers 08:30:00 08:30:00 SARIKA [id number] [facility] [place] [facility] 2021-01-05 2021-01-05 Outpatient R ISRAEL, [facility] [id number] Univers 08:30:00 08:30:00 SARIKA [facility] [place] [facility] 2021-01-03 2021-01-03 [facility] [id number] 00:00:00 00:00:00 Sarika [facility] [id number] [place] [id number] Professio [phone] nal [address] 2020-11-30 2020-11-30 Telephone Andree La [id number] 00:00:00 00:00:00 , Pamela Judd [id number] [place] [id number] [id number] 2020-11-22 2020-11-22 Orders Doctor KATELIN [id number] 00:00:00 00:00:00 Only Unassigned, VERÓNICA [id number] [place] [facility] [id number] [id number] 2020-11-16 2020-11-16 Outpatient Lashanda CARRILLO [facility] [id number] Univers 11:00:00 11:00:00 KRANTHI [id number] [facility] [place] [facility] 2020-11-16 2020-11-16 Outpatient Lashanda CARRILLO [facility] [id number] Univers 11:00:00 11:00:00 KRANTHI [facility] [place] [facility] 2020-11-10 2020-11-10 Outpatient R ISRAEL [facility] [id number] Univers 16:00:00 16:00:00 SARIKA [id number] [facility] 2020-11-10 2020-11-10 Outpatient R ISRAEL [facility] [id number] Univers 16:00:00 16:00:00 SARIKA azam [facility] 2020-11-10 2020-11-10 [place] [facility] [id number] 00:00:00 00:00:00 Sarika A [facility] [id number] [place] [id number] [facility] [phone] nal [address] 2020-09-30 2020-09-30 [facility] [id number] Univers 16:00:00 16:00:00 SARIKA [id number] [facility] [place] [facility] 2020-09-30 2020-09-30 [facility] [id number] Univers 16:00:00 16:00:00 SARIKA [facility] [place] [facility] 2020-09-16 2020-09-16 Outpatient R [facility] [id number] Univers 16:40:00 16:40:00 [id number] [facility] [place] [facility] 2020-09-16 2020-09-16 Outpatient R [facility] [id number] Univers 16:40:00 16:40:00 [facility] 2020-09-10 2020-09-10 Outpatient R [facility] [id number] Univers 08:00:00 08:00:00 [id number] [facility] [place] [facility] 2020-09-08 2020-09-08 Outpatient R [facility] [id number] Univers 13:00:00 13:00:00 [id number] [facility] [place] [facility] 2020-09-08 2020-09-08 [facility] [id number] Univers 13:00:00 13:00:00 SARIKA [facility] [place] [facility] 2020-08-20 2020-08-20 [facility] [id number] Univers 15:00:00 15:00:00 SARIKA [id number] ity [facility] 2020-08-20 2020-08-20 Outpatient R ISRAEL, [facility] [id number] Univers 15:00:00 15:00:00 SARIKA ity [facility] 2020-03-05 2020-03-05 Outpatient R ISRAEL, [facility] [id number] Univers 08:00:00 08:00:00 SARIKA ity [facility] 2020-03-05 2020-03-05 Outpatient R ISRAEL, [facility] [id number] Univers 08:00:00 08:00:00 SARIKA ity [facility] 2020-03-04 2020-03-04 Outpatient R SEDRICK, [facility] [id number] Univers 11:30:00 11:30:00 ABIMAEL ity [facility] 2020-03-04 2020-03-04 Outpatient R ANENE, [facility] [id number] Univers 11:30:00 11:30:00 ABIMAEL ity [facility] 2020-03-01 2020-03-01 Outpatient R ANENE, [facility] [id number] Univers 16:15:00 16:15:00 ABIMAEL ity [facility] 2020-03-01 2020-03-01 Outpatient R ANENE, [facility] [id number] Univers 16:15:00 16:15:00 ABIMAEL ity [facility] 2020-02-26 2020-02-26 Outpatient ISRAEL, [facility] [id number] Univers 10:40:00 10:40:00 SARIKA ity [facility] 2020-02-13 2020-02-13 Outpatient DMITRI HATHAWAY [facility] [id number] Univers 13:40:00 13:40:00 DMITRI HATHAWAY [id number] ity [facility] 2020-02-13 2020-02-13 Outpatient DMITRI CAIN [facility] [id number] Univers 13:40:00 13:40:00 DMITRI HATHAWAY ity [facility] 2020-01-30 2020-01-30 Outpatient R ANTHONY, [facility] [id number] Univers 14:00:00 14:00:00 KARTHIK ity of [facility] 2020-01-15 2020-01-15 Outpatient R [facility] [id number] Univers 17:00:00 17:00:00 ity of [facility] 2020-01-15 2020-01-15 Outpatient R HUMAN, [facility] [id number] Univers 17:00:00 17:00:00 ADELE ity of [facility] 2020-01-09 2020-01-09 Outpatient R CODEY, [facility] [id number] Univers 09:30:00 09:30:00 KATELIN [id number] ity of [facility] 2020-01-09 2020-01-09 Outpatient R CODEY, [facility] [id number] Univers 09:30:00 09:30:00 KATELIN ity of [facility] 2020-01-07 2020-01-07 Outpatient R [facility] [id number] Univers 09:40:00 09:40:00 [id number] ity of [facility] 2020-01-07 2020-01-07 Outpatient R [facility] [id number] Univers 09:40:00 09:40:00 ity of [facility] 2020-01-07 2020-01-07 Outpatient R SEDRICK, [facility] [id number] Univers 09:40:00 09:40:00 ABIMAEL ity [facility] 2019-12-18 2019-12-18 Outpatient R LOUISEMERYLPHI, [facility] [id number] Univers 08:30:00 08:30:00 KRANTHI [id number] ity of [facility] 2019-12-18 2019-12-18 Outpatient R LOUISEMERYLPHI, [facility] [id number] Univers 08:30:00 08:30:00 KRANTHI ity of [facility] 2019-12-14 2019-12-14 Outpatient R [facility] [id number] Univers 16:00:00 16:00:00 Lloyd ity of [facility] 2019-12-14 2019-12-14 Outpatient R SEDRICK, [facility] [id number] Univers 16:00:00 16:00:00 ABIMAEL ity of [facility] 2019-12-05 2019-12-05 Outpatient R CODEY, [facility] [id number] Univers 09:45:00 09:45:00 KATELIN ity of [facility] 2019-12-05 2019-12-05 Outpatient R WALKER, [facility] [id number] Univers 09:45:00 09:45:00 KATELIN rober of [facility] 2019-11-25 2019-11-25 Outpatient R [facility] [id number] Univers 16:20:00 16:20:00 [id number] ity of [facility] 2019-11-25 2019-11-25 Outpatient R [facility] [id number] Univers 16:20:00 16:20:00 ity of [facility] 2019-11-25 2019-11-25 Outpatient R SEDRICK, [facility] [id number] Univers 09:40:00 09:40:00 ABIMAEL itazam [facility] 2019-11-14 2019-11-14 Outpatient R CODEY, [facility] [id number] Univers 10:15:00 10:15:00 KATELIN anastasiyay [facility] 2019-11-14 2019-11-14 Outpatient R WALKER, [facility] [id number] Univers 09:45:00 09:45:00 KATELIN [id number] ity [facility] 2019-11-14 2019-11-14 Outpatient R WALKER, [facility] [id number] Univers 09:45:00 09:45:00 KATELIN rober [facility] 2019-11-13 2019-11-13 Outpatient R [facility] [id number] Univers 08:40:00 08:40:00 Henrry ity of [facility] 2019-11-13 2019-11-13 Outpatient R [facility] [id number] Univers 08:40:00 08:40:00 ity of [facility] 2019-11-06 2019-11-06 Outpatient WALKER, [facility] [id number] Univers 08:00:00 08:00:00 KATELIN [id number] ity of [facility] 2019-11-06 2019-11-06 Outpatient R WALKER, [facility] [id number] Univers 00:00:00 00:00:00 KATELIN ity [facility] 2019-10-31 2019-10-31 Outpatient R WALKER, [facility] [id number] Univers 11:15:00 11:15:00 KATELIN ity [facility] 2019-10-31 2019-10-31 Outpatient R CODEY [facility] [id number] Univers 11:15:00 11:15:00 KATELIN ity [facility] 2019-10-10 2019-10-10 Outpatient R GERARDO [facility] [id number] Univers 13:15:00 13:15:00 KRANTHI [id number] ity [facility] 2019-10-10 2019-10-10 Outpatient R GERARDO [facility] [id number] Univers 13:15:00 13:15:00 [facility] 2019-09-27 2019-09-27 Outpatient Jonathan ELLIS DELFINA [facility] [id number] Univers 05:53:51 14:24:00 ity [facility] 2019-09-16 2019-09-16 Outpatient R [facility] [id number] Univers 16:40:00 16:40:00 ity [facility] 2019-09-16 2019-09-16 Outpatient R [facility] [id number] Univers 16:20:00 16:20:00 [id number] ity [facility] 2019-09-16 2019-09-16 Outpatient R [facility] [id number] Univers 16:20:00 16:20:00 ity [facility] 2019-08-29 2019-08-29 Outpatient R HARRISON [facility] [id number] Univers 09:30:00 09:30:00 WONDIFUL ity o f [facility] 2019-08-29 2019-08-29 Outpatient R HARRISON [facility] [id number] Univers 09:30:00 09:30:00 WONDIFUL ity o f [facility] 2019-08-20 2019-08-20 Outpatient R [facility] [id number] Univers 12:20:00 12:20:00 [id number] ity [facility] 2019-08-20 2019-08-20 Outpatient R [facility] [id number] Univers 12:20:00 12:20:00 ity [facility] 2019-08-06 2019-08-06 Outpatient R GERARDO [facility] [id number] P-20 Univers 16:30:00 16:30:00 KRANTHI [id number] [facility] 2019-08-06 2019-08-06 Outpatient Lashanda CARRILLO [facility] [id number] Univers 16:30:00 16:30:00 KRANTHI [facility] 2019-07-18 2019-07-18 Emergency X Osmel [facility] ERT [id number] Univers 13:49:36 15:20:00 [facility] 2019-03-06 2019-03-06 Outpatient Lashanda SIMS [facility] [id number] Univers 14:55:12 14:55:12 RACIEL [facility] Results This patient has no known results.
[2021-08-23] MEDS ORDERED: NA CHLORIDE 0.9% 1,000 ML ONE (15:39)
[2021-08-23] MEDS ORDERED: FAMOTIDINE 20 MG/2 ML VIAL IV ONE (15:39)
[2021-08-23] MEDS ORDERED: MORPHINE 4 MG/ML SYR ONE (15:39)
[2021-08-23] MEDS ORDERED: ONDANSETRON 4 MG/2 ML VIAL ONE (15:39)
[2021-08-23 15:43] LABS: Absolute Lymphocytes (CBC) 1.6 K/uL (0.7-4.9); Hematocrit 39.5 % (36.0-45.0); Lymphocytes % 23.5 % (15.3-44.8); MPV 10.5 fL (7.6-11.3); RBC Red Blood Cell Count 4.82 M/uL (3.86-4.86)
[2021-08-23 15:56] LABS: Albumin 3.4 g/dL (3.4-5.0); Bilirubin Total 0.4 mg/dL (0.2-1.0); Potassium 4.1 mmol/L (3.5-5.1)
--- NOTE | 2021-08-23 16:09 | RAD REPORT ---
EXAM DESCRIPTION: RAD - Chest Pa And Lat (2 Views) - 08/23/2021 3:59 pm CLINICAL HISTORY: Cough;SOB Chest pain. COMPARISON: Chest Single View dated 05/31/2021; Chest Single View dated 11/07/2020 FINDINGS: The lungs are clear. The heart is normal in size. No displaced fractures. IMPRESSION: No acute or concerning finding suspected.
--- NOTE | 2021-08-23 16:18 | RAD REPORT ---
EXAM DESCRIPTION: CTAbdomen Pelvis W Contrast - 08/23/2021 4:06 pm CLINICAL HISTORY: Abdominal pain. ABD PAIN COMPARISON: Abdomen Pelvis W Contrast dated 03/29/2021; Abdomen Pelvis W Contrast dated 11/07/2020 ; Abdomen Pelvis W Contrast dated 09/12/2020 TECHNIQUE: Biphasic CT imaging of the abdomen and pelvis was performed with 100 ml non-ionic IV cont rast. All CT scans are performed using dose optimization technique as appropriate and may include automated exposure control or mA/KV adjustment according to patient size. FINDINGS: The lung bases are clear.Cholecystectomy. The liver, spleen, pancreas, adrenal glands and kidneys are within normal limits. No bowel obstruction, free air, free fluid or abscess. The appendix is normal. No evidence of signi ficant lymphadenopathy. No suspicious bony findings. IMPRESSION: No acute intra-abdominal or pelvic finding.
[2021-08-23 16:32] LABS: SARS-COV-2 RT PCR NEGATIVE (NEGATIVE)
--- NOTE | 2021-08-23 16:54 | ER ---
Nurse's Notes [facility] Name: Maranda Quach Age: 46 yrs Sex: Female : 1975 Arrival Date: 08/23/2021 Time: 14:12 Bed 17 Private MD: Diagnosis: Vomiting;Diarrhea, unspecified;Acute upper respiratory infection, unspecified Presentation: 08/23 14:24 Chief complaint: Patient states: SOB, NAUSEA, VOMITING AND DIARRHEA x2 DAYS. bp Coronavirus screen: diarrhea, nausea, shortness of breath, vomiting. Client presents with at least one sign or symptom that may indicate coronavirus-19. Standard/surgical mask placed on the client. Ebola Screen: No symptoms or risks identified at this time. Initial Sepsis Screen: Does the patient meet any 2 criteria? No. Patient's initial sepsis screen is negative. Does the patient have a suspected source of infection? No. Patient's initial sepsis screen is negative. Risk Assessment: Do you want to hurt yourself or someone else? Patient reports no desire to harm self or others. Note NEGATIVE [facility]. Onset of symptoms is unknown. 14:24 Method Of Arrival: Ambulatory bp 14:24 Acuity: CHAVEZ 3 bp Historical: - Allergies: 14:26 No Known Allergies; bp - Home Meds: 14:26 None [Active]; bp - PMHx: 14:26 Cataracts; Hypertension; Seizures; bp - PSHx: 14:26 cataract surgery; Cholecystectomy; hand; left; bp - Immunization history:: Client reports receiving the 2nd dose of the Covid vaccine. - Social history:: Smoking status: unknown. Screenin:15 Abuse screen: Denies threats or abuse. Nutritional screening: No deficits noted. aa5 Tuberculosis screening: No symptoms or risk factors identified. Fall Risk None identified. Assessment: 15:15 General: Appears uncomfortable, Behavior is calm, cooperative. Pain: Complains of pain aa5 in right upper quadrant and left upper quadrant Pain currently is 8 out of 10 on a pain scale. Quality of pain is described as crampy, Pain began 2-3 days ago. Is intermittent. Neuro: Level of Consciousness is awake, alert, obeys commands, Oriented to person, place, time, situation. Cardiovascular: Heart tones S1 S2 present Rhythm is regular. Respiratory: Reports SOB and nonproductive cough Airway is patent Respiratory effort is even, unlabored, Respiratory pattern is regular, symmetrical, Breath sounds are clear bilaterally. GI: Abdomen is round non-distended, Bowel sounds present X 4 quads. Abd is soft and non tender X 4 quads. Reports diarrhea, nausea, vomiting. : No signs and/or symptoms were reported regarding the genitourinary system. EENT: Reports nasal congestion. Derm: Skin is pink, warm \T\ dry. Musculoskeletal: Range of motion: intact in all extremities. 16:00 Reassessment: Patient is alert, oriented x 3, equal unlabored respirations, skin aa5 warm/dry/pink. Patient states feeling better. 16:30 Reassessment: Patient is alert, oriented x 3, equal unlabored respirations, skin aa5 warm/dry/pink. 17:50 Reassessment: Patient is alert, oriented x 3, equal unlabored respirations, skin aa5 warm/dry/pink. Vital Signs: 14:24 BP 120 / 54; Pulse 87; Resp 17; Temp 98.7; Pulse Ox 100% ; Weight 72.57 kg; Height 4 bp ft. 10 in. (147.32 cm); 16:30 BP 122 / 64; Pulse 84; Resp 16 S; Pulse Ox 100% on R/A; aa5 14:24 Body Mass Index 33.44 (72.57 kg, 147.32 cm) bp ED Course: 14:12 Patient arrived in ED. ds1 14:26 Triage completed. bp 14:26 Arm band placed on. bp 14:57 Daniela Valencia, RN is Primary Nurse. aa5 15:01 Lambert Johns NP is PHCP. pm1 15:02 Garland Banegas DO is Attending Physician. pm1 15:15 Patient has correct armband on for positive identification. Placed in gown. Bed in low aa5 position. Call light in reach. Side rails up X2. 16:01 Chest Pa And Lat (2 Views) XRAY In Process Unspecified. EDMS 16:08 CT Abd/Pelvis - IV Contrast Only In Process Unspecified. EDMS 17:50 No provider procedures requiring assistance completed. IV discontinued, intact, aa5 bleeding controlled, No redness/swelling at site. Pressure dressing applied. Administered Medications: 15:32 Drug: NS 0.9% 1000 ml Route: IV; Rate: 1 bolus; Site: right antecubital; aa5 16:00 Follow up: Response: No adverse reaction aa5 16:30 Follow up: IV Status: Completed infusion; IV Intake: 1000ml aa5 15:32 Drug: Pepcid (famotidine) 20 mg Route: IVP; Site: right antecubital; aa5 16:00 Follow up: Response: No adverse reaction aa5 15:32 Drug: Zofran (Ondansetron) 4 mg Route: IVP; Site: right antecubital; aa5 16:00 Follow up: Response: No adverse reaction aa5 15:32 Drug: morphine 4 mg Route: IVP; Site: right antecubital; aa5 16:00 Follow up: Response: No adverse reaction; Pain is decreased aa5 Intake: 16:30 IV: 1000ml; Total: 1000ml. aa5 Outcome: 16:53 Discharge ordered by MD. pm1 17:50 Discharged to home ambulatory. aa5 17:50 Condition: stable 17:50 Discharge instructions given to patient, Instructed on discharge instructions, follow up and referral plans. medication usage, Demonstrated understanding of instructions, follow-up care, medications, Prescriptions given X 3. 17:52 Patient left the ED. dw3 Signatures: Dispatcher [employer] EDOH Elisa Mcrae ds1 Daniela Valencia, RN RN aa5 Lambert Johns, [employer] pm1 Jamir Ochoa RN RN bp Wallace, Danielle, RN RN dw3
--- NOTE | 2021-08-23 16:54 | EDPHYS ---
Physician Documentation [facility] Name: Maranda Quach Age: 46 yrs Sex: Female : 1975 Arrival Date: 08/23/2021 Time: 14:12 Bed 17 Private MD: ED Physician Garland Banegas HPI: 08/23 15:23 This 46 yrs old Female presents to ER via Ambulatory with complaints of Vomiting, pm1 Diarrhea, Cough. 15:23 The patient presents to the emergency department with nausea, vomiting, diarrhea, pm1 abdominal pain, of the abdomen diffusely, described as crampy. 15:23 Onset: The symptoms/episode began/occurred 2 day(s) ago. Possible causes: sick pm1 contacts, by co-worker(s). The symptoms are aggravated by nothing. The symptoms are alleviated by nothing. Associated signs and symptoms: Pertinent positives: Shortness of breath, cough, chest pain with coughing, Pertinent negatives: dysuria, fever. Severity of symptoms: in the emergency department the symptoms are unchanged. The patient has not experienced similar symptoms in the past. The patient has not recently seen a physician. Historical: - Allergies: 14:26 No Known Allergies; bp - Home Meds: 14:26 None [Active]; bp - PMHx: 14:26 Cataracts; Hypertension; Seizures; bp - PSHx: 14:26 cataract surgery; Cholecystectomy; hand; left; bp - Immunization history:: Client reports receiving the 2nd dose of the Covid vaccine. - Social history:: Smoking status: unknown. ROS: 15:23 Constitutional: Negative for fever, chills, and weight loss, Eyes: Negative for injury, pm1 pain, redness, and discharge. 15:23 Back: Negative for injury and pain, MS/Extremity: Negative for injury and deformity, Skin: Negative for injury, rash, and discoloration, Neuro: Negative for headache, weakness, numbness, tingling, and seizure. 15:23 Cardiovascular: Positive for chest pain, with cough. 15:23 Respiratory: Positive for cough, shortness of breath. 15:23 Abdomen/GI: Positive for abdominal pain, nausea, vomiting, and diarrhea, Negative for constipation. 15:23 All other systems are negative. Exam: 15:23 Constitutional: This is a well developed, well nourished patient who is awake, alert, pm1 and in no acute distress. Head/Face: Normocephalic, atraumatic. 15:23 Back: No spinal tenderness. No costovertebral tenderness. Full range of motion. Skin: Warm, dry with normal turgor. Normal color with no rashes, no lesions, and no evidence of cellulitis. MS/ Extremity: Pulses equal, no cyanosis. Neurovascular intact. Full, normal range of motion. 15:23 Cardiovascular: Exam negative for acute changes, Rate: normal, Rhythm: regular, Pulses: no pulse deficits are appreciated, Heart sounds: normal. 15:23 Respiratory: Exam negative for acute changes, respiratory distress, shortness of breath. 15:23 Abdomen/GI: Inspection: abdomen appears normal, Palpation: soft, in all quadrants, mild abdominal tenderness, in the abdomen diffusely. 15:23 Neuro: Exam negative for acute changes, Orientation: is normal, Mentation: is normal, Motor: is normal, moves all fours. Vital Signs: 14:24 BP 120 / 54; Pulse 87; Resp 17; Temp 98.7; Pulse Ox 100% ; Weight 72.57 kg; Height 4 bp ft. 10 in. (147.32 cm); 16:30 BP 122 / 64; Pulse 84; Resp 16 S; Pulse Ox 100% on R/A; aa5 14:24 Body Mass Index 33.44 (72.57 kg, 147.32 cm) bp MDM: 15:06 Patient medically screened. pm1 16:51 Data reviewed: vital signs. Data interpreted: Pulse oximetry: on room air is 100 %. pm1 Interpretation: normal. Counseling: I had a detailed discussion with the patient and/or guardian regarding: the historical points, exam findings, and any diagnostic results supporting the discharge/admit diagnosis, lab results, radiology results, the need for outpatient follow up, a family practitioner, to return to the emergency department if symptoms worsen or persist or if there are any questions or concerns that arise at home. 08/23 15:23 Order name: CBC with Diff; Complete Time: 16:19 pm1 08/23 15:23 Order name: CMP; Complete Time: 16:19 pm1 08/23 15:23 Order name: Chest Pa And Lat (2 Views) XRAY; Complete Time: 16:19 pm1 08/23 15:23 Order name: Lipase; Complete Time: 16:19 pm1 08/23 15:23 Order name: CT Abd/Pelvis - IV Contrast Only; Complete Time: 16:19 pm1 08/23 15:23 Order name: COVID-19/FLU A+B (Document "Date of Onset" if Symptomatic); Complete Time: pm1 16:47 08/23 15:23 Order name: IV Saline Lock; Complete Time: 15:30 pm1 08/23 15:23 Order name: Labs collected and sent; Complete Time: 15:30 pm1 Administered Medications: 15:32 Drug: NS 0.9% 1000 ml Route: IV; Rate: 1 bolus; Site: right antecubital; aa5 16:00 Follow up: Response: No adverse reaction aa5 16:30 Follow up: IV Status: Completed infusion; IV Intake: 1000ml aa5 15:32 Drug: Pepcid (famotidine) 20 mg Route: IVP; Site: right antecubital; aa5 16:00 Follow up: Response: No adverse reaction aa5 15:32 Drug: Zofran (Ondansetron) 4 mg Route: IVP; Site: right antecubital; aa5 16:00 Follow up: Response: No adverse reaction aa5 15:32 Drug: morphine 4 mg Route: IVP; Site: right antecubital; aa5 16:00 Follow up: Response: No adverse reaction; Pain is decreased aa5 Disposition: 22:09 Co-signature as Attending Physician, Garland DESIR was immediately available on-site ms3 in the Emergency Department for consultation in the care of the patient.. Disposition Summary: 08/23/21 16:53 Discharge Ordered Location: Home pm1 Problem: new pm1 Symptoms: have improved pm1 Condition: Stable pm1 Diagnosis - Vomiting pm1 - Diarrhea, unspecified pm1 - Acute upper respiratory infection, unspecified pm1 Followup: pm1 - With: Emergency Department - When: As needed - Reason: Worsening of condition Followup: pm1 - With: Private Physician - When: 2 - 3 days - Reason: Recheck today's complaints, Continuance of care, Re-evaluation by your physician Discharge Instructions: - Discharge Summary Sheet pm1 - Food Choices to Help Relieve Diarrhea, Adult pm1 - Diarrhea, Adult pm1 - Upper Respiratory Infection, Adult pm1 - Viral Gastroenteritis, Adult pm1 - Vomiting, Adult pm1 Forms: - Medication Reconciliation Form pm1 - Thank You Letter pm1 - Antibiotic Education pm1 - Prescription Opioid Use pm1 - Work release form pm1 Prescriptions: - ondansetron 8 mg Oral tablet,disintegrating - take 1 tablet by ORAL route every 8 hours As needed; 12 tablet; Refills: 0, pm1 Product Selection Permitted - Guaifenesin AC 10-100 mg/5 mL Oral Liquid - take 10 milliliters by ORAL route every 4 hours As needed; 240 milliliter; pm1 Refills: 0, Product Selection Permitted - dicyclomine 20 mg Oral Tablet - take 1 tablet by ORAL route every 6 hours As needed; 20 tablet; Refills: 0, pm1 Product Selection Permitted Signatures: Dispatcher [employer] EDDaniela Bates RN RN aa5 Lambert Johns, [employer] pm1 Jamir Ochoa RN RN bp Garland Banegas DO DO ms3
[2021-08-23 17:56] VITALS: BP 120/54; TEMP 98.7; O2SAT 100
== END 2021-08-23 17:52 | disposition home or self-care (01) ==
LOC: ER 14:06
DX: R19.7 Diarrhea, unspecified (principal); J06.9 Acute upper respiratory infection, unspecified; I10 Essential (primary) hypertension; Z20.822 Contact with and (suspected) exposure to COVID-19
CPT/HCPCS: 0240U; 36415; 71046; 74177; 80053; 83690; 85025; 96361; 96374; 96375; 99283; J2405; J7030; Q9967

== ENCOUNTER 2022-01-28 15:53 | Emergency (ER) | payer SELFPAY ==
--- OUTSIDE RECORDS SUMMARY | 2022-01-28 15:58 | XMS REPORT | Continuity of Care Document ---
:1975 Author Organization [facility] t Address [address] [place] [address] Care Team Providers Name Role Phone Sarika Jiang Primary Care Physician SARIKA WOOD Attending Clinician Unavailable Osmel BROWN Attending Clinician Unavailable Osmel Newell Attending Clinician Karly Bennett Attending Clinician Beena Cotto Attending Clinician BEENA OSBORN Attending Clinician Unavailable Doctor Unassigned, [place] Attending Clinician Unavailable MICHAEL CATES Attending Clinician Unavailable Michael Sewell Attending Clinician Mango Delgadillo RN Attending Clinician Unavailable YFN ZHONG Attending Clinician Unavailable Yfn Zhong NP Attending Clinician Sarika Jiang Attending Clinician ABIMAEL DUBOSE Attending Clinician Unavailable Pamela Candelario RN Attending Clinician Unavailable KRANTHI CARRILLO Attending Clinician Unavailable DMITRI HATHAWAY Attending Clinician Unavailable DMITRI HATHAWAY Attending Clinician Unavailable KARTHIK CRUZ Attending Clinician Unavailable ADELE MANN Attending Clinician Unavailable KATELIN ALEGRE Attending Clinician Unavailable DELFINA ELLIS Attending Clinician Unavailable ABDIRASHID TERRY Attending Clinician Unavailable RACIEL SIMS Attending Clinician Unavailable Osmel BROWN Admitting Clinician Unavailable MICHAEL CATES Admitting Clinician Unavailable DELFINA ELLIS Admitting Clinician Unavailable Payers Payer Name Policy Type Policy Number Effective Date Expiration Date S amina [employer] [id number] 2019 00:00:00 Problems Condition Condition Condition Status Onset Resolution Last Treating Co mments Source Name Details Category Date Date Treatment Clinician Date Chest pain Chest pain Disease Active U nivers 5-02 ity of 00:00: Medical Branch Frequent Frequent Disease Active Unive rs headaches headaches 4-03 ity of 00:00: Medical Branch Hematochez Hematochez Disease Active 2017-05 Overview : Univers ia ia 0-19 Formattin ity of 00:00: g of this [place] note Medical might be Branch different from the original. Added automatic ally from request for surgery [id number] Hydrops of Hydrops of Disease Active 2017-05 Overview : Univers gallbladde gallbladde 0-19 Formattin ity of r r 00:00: g of this [place] note Medical might be Branch different from the original. 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 Migraines Migraines Disease Active Uni vers ity [facility] Allergies, Adverse Reactions, Alerts Allergy Allergy Status Severity Reaction(s) Onset Inactive Treating Comm ents Source Name Type Date Date Clinician NO KNOWN Drug Active Univers ALLERGIE Class ity of S [facility] Social History Social Habit Start Date Stop Date Quantity Comments Source History SDOH University o f Alcohol Frequency [place] M edical Branch History SDOH University o f Alcohol Std [place] Medical Drinks Branch History [facility] University o f Alcohol Binge [place] Medic al Branch Exposure to 2021-10-04 2021-10-14 Not sure [facility] SARS-CoV-2 00:00:00 15:15:00 [facility] (event) [place] Alcohol intake 2021-09-08 2021-09-08 0 /d University of 00:00:00 00:00:00 [facility] Tobacco Comment 2019-09-27 2019-09-27 second hand smoke Un iversity of 00:00:00 00:00:00 [facility] Tobacco use and 2019-03-01 2019-03-01 Never used Universit y of exposure 00:00:00 00:00:00 [facility] Alcohol Comment 2015-10-13 2015-10-13 social drinks Univer sity of 00:00:00 00:00:00 occasionally [place] Medica l [place] Sex Ass[birth year] At [birth year] Universit y of 00:00:00 00:00:00 [facility] Smoking Status Start Date Stop Date Source Never smoker [facility] Medications Ordered Filled Start Stop Current Ordering Indication Dosage Frequency Signature Comments Components Source Medication Medication Date Date Medication? Clinician (SIG) Name Name benzonatate No 200mg 200 mg, U nivers (TESSALON 5-20 05-20 Oral, ity of PERLES) 23:00: 22:09 ONCE, 1 [place] capsule 200 00 :00 dose, On Medi jake mg Fri Branch 10/14/21 at 1800, ARIANNA azithromyci No 500mg 500 mg, U nivers n 5-20 05-20 Oral, ity of (ZITHROMAX) 23:00: 22:09 [place]CE[place] 1 [place] tablet 500 00 :00 dose, On Medic al mg Fri [place] 10/14/21 at 1800, ARIANNA
Re ason for Anti-Infec tive: Empiric Therapy for Suspected Infection< br>Empiric Therapy Site: Respirator y
Durat ion of therapy: 7 days ipratropium 2021- No 3mL 3 mL, Univ ers -albuteroL 5-20 05-20 Inhalation it y of (DUONEB) 21:00: 20:14 , ONCE, 1 [place] as 0.5 mg-3 00 :00 dose, On Medical mg(2.5 mg Fri Branch base)/3 mL 10/14/21 at nebulizer 1600, solution 3 Routine mL albuterol Yes [id number] 2.5mg Inhale 3 Univers 2.5 mg /3 5-20 mL every 4 ity of mL (0.083 00:00: (four) [place] %) 00 hours as Medical nebulizer needed for Bran ch solution Wheezing or Shortness of Breath. albuterol Yes [id number] 2{puff} Inhale 2 Univers 90 5-20 Puffs ity of mcg/actuati 00:00: every 4 [place] as on inhaler 00 (four) Medical hours as Branch needed for Wheezing or Shortness of Breath. azithromyci Yes [id number] 250mg Take 1 Univers n 5-20 tablet by ity of (ZITHROMAX 00:00: mouth [place] Z-NANI) 250 00 SEE-INSTRU Med ical mg tablet CTIONS. Branch Take 500 mg day 1, then 250 mg days 2 to 5. ibuprofen 2021- No [id number] 400mg U nivers (IBU) 09-08 ity of tablet 400 17:00: 04:59 [place] mg 00 :00 [facility] ibuprofen 2021- No [id number] 400mg U nivers (IBU) 09-08 ity of tablet 400 17:00: 15:57 [place] mg 00 :00 [facility] ibuprofen 2021- No [id number] 400mg 400 mg, Univers (IBU) 09-08 Oral, ity of tablet 400 17:00: 15:57 ONCE, 1 [place] as mg 00 :00 dose, On Medical Su Branch 09/08/21 at 1200, Routine ibuprofen 2021- No [id number] 600mg U nivers (IBU) 09-08 ity of tablet 600 16:45: 15:48 [place] mg 00 :11 Medical Branch ondansetron 2021- No [id number] 8mg U nivers (ZOFRAN-ODT 09-08 ity of ) 16:30: 15:34 [place] disintegrat 00 :00 Medical ing tablet Branch 8 mg ibuprofen 2021- No [id number] 600mg U nivers (IBU) 09-08 ity of tablet 600 16:30: 15:30 [place] mg 00 :59 Medical Branch ondansetron 2021- No [id number] 8mg 8 mg, Univers (ZOFRAN-ODT 09-08 Oral, ity of ) 16:30: 15:34 ONCE, 1 [place] disintegrat 00 :00 dose, On Medi jake ing tablet Su Branch 8 mg 09/08/21 at 1130, Routine ondansetron Yes [id number] 4mg Take 1 Univers 4 mg 4-14 tablet by ity of disintegrat 00:00: mouth [place] ing tablet 00 every 8 Medica l (eight) Branch hours as needed for Nausea and Vomiting (N/V). bromphenira Yes [id number] 5mL Take 5 mL Univers mine-pseudo 4-14 by mouth 4 it y of ephedrine-D 00:00: (four) [place] (BROMFED 00 times Medical DM) 2-30-10 daily as Bran ch mg/5 mL needed for syrup Congestion /Allergies or Cold symptoms. ondansetron Yes [id number] 4mg Take 1 Univers 4 mg 4-14 tablet by ity of disintegrat 00:00: mouth [place] ing tablet 00 every 8 Medica l (eight) Branch hours as needed for Nausea and Vomiting (N/V). bromphenira Yes [id number] 5mL Take 5 mL Univers mine-pseudo 4-14 by mouth 4 it y of ephedrine-D 00:00: (four[place] (BROMFED 00 times Medical DM) 2-30-10 daily as Bran ch mg/5 mL needed for syrup Congestion /Allergies or Cold symptoms. ondansetron 2021- No 4mg 4 mg, Univ ers (ZOFRAN-ODT 1-03 01-03 Oral, ity of ) 19:15: 19:15 ONCE, 1 [place] disintegrat 00 :00 dose, On Medi jake ing tablet 05/30/21 Bra nch 4 mg at 1315, Routine albuterol 2021-0 Yes [id number] 2{puff} Inhale 2 Univers 90 1-03 Puffs ity of mcg/actuati 00:00: every 4 [place] as on inhaler 00 (four) Medical hours as Branch needed for Wheezing or Shortness of Breath. benzonatate 0 Yes [id number] 100mg Take 1 Univers 100 mg 1-03 capsule by ity of capsule 00:00: mouth 3 [place] (three) Medical times Branch daily as needed for Cough. albuterol 2021-0 Yes [id number] 2{puff} Inhale 2 Univers 90 1-03 Puffs ity of mcg/actuati 00:00: every 4 [place] as on inhaler 00 (four) Medical hours as Branch needed for Wheezing or Shortness of Breath. benzonatate 2021-0 Yes [id number] 100mg Take 1 Univers 100 mg 1-03 capsule by ity of capsule 00:00: mouth 3 [place] (three) Medical times Branch daily as needed for Cough. albuterol 2021-0 Yes [id number] 2{puff} Inhale 2 Univers 90 1-03 Puffs ity of mcg/actuati 00:00: every 4 [place] on inhaler 00 (four) Medical hours as Branch needed for Wheezing or Shortness of Breath. benzonatate 2021-0 Yes [id number] 100mg Take 1 Univers 100 mg 1-03 capsule by ity of capsule 00:00: mouth 3 [place] 00 (three) Medical times Branch daily as needed for Cough. albuterol 2021-0 Yes [id number] 2{puff} Inhale 2 Univers 90 1-03 Puffs ity of mcg/actuati 00:00: every 4 [place] on inhaler 00 (four) Medical hours as Branch needed for Wheezing or Shortness of Breath. benzonatate 2021-0 Yes [id number] 100mg Take 1 Univers 100 mg 1-03 capsule by ity of capsule 00:00: mouth 3 [place] 00 (three) Medical times Branch daily as needed for Cough. albuterol Yes [id number] 2{puff} Inhale 2 Univers 90 1-03 Puffs ity of mcg/actuati 00:00: every 4 [place] as on inhaler 00 (four) Medical hours as Branch needed for Wheezing or Shortness of Breath. benzonatate Yes [id number] 100mg Take 1 Univers 100 mg 1-03 [...] by ity of thoprim 16:17: mouth 2 [place] (BACTRIM 06 (two) Medical DS) 800-160 times Branch mg per daily. tablet sulfamethox Yes 1{tbl} Take 1 Un loren azole-trime 6-16 tablet by ity of thoprim 16:17: mouth 2 [place] (BACTRIM 06 (two) Medical DS) 800-160 times Branch mg per daily. tablet sulfamethox Yes 1{tbl} Take 1 Un loren azole-trime 6-16 tablet by ity of thoprim 16:17: mouth 2 [place] (BACTRIM 06 (two) Medical DS) 800-160 times Branch mg per daily. tablet sulfamethox Yes 1{tbl} Take 1 Un loren azole-trime 6-16 tablet by ity of thoprim 16:17: mouth 2 [place] (BACTRIM 06 (two) Medical DS) 800-160 times Branch mg per daily. tablet sulfamethox 0 Yes 1{tbl} Take 1 Un loren azole-trime 6-16 tablet by ity of thoprim 16:17: mouth 2 [place] (BACTRIM 06 (two) Medical DS) 800-160 times [...] times Branch mg per daily. tablet ondansetron 0 Yes [id number] 4mg Take 1 Univers (ZOFRAN) 4 6-16 tablet by ity of mg tablet 00:00: mouth [place] 00 every 8 Medical (eight) Branch hours as needed for Nausea and Vomiting (N/V). ondansetron 2020-0 Yes [id number] 4mg Take 1 Univers (ZOFRAN) 4 6-16 tablet by ity of mg tablet 00:00: mouth [place] 00 every 8 Medical (eight) Branch hours as needed for Nausea and Vomiting (N/V). ondansetron Yes [id number] 4mg Take 1 Univers (ZOFRAN) 4 6-16 tablet by ity of mg tablet 00:00: mouth [place] 00 every 8 Medical (eight) Branch hours as needed for Nausea and Vomiting (N/V). ondansetron 0 Yes [id number] 4mg Take 1 Univers (ZOFRAN) 4 6-16 tablet by ity of mg tablet 00:00: mouth [place] 00 every 8 Medical (eight) Branch hours as needed for Nausea and Vomiting (N/V). ondansetron 2020-0 Yes [id number] 4mg Take 1 Univers (ZOFRAN) 4 6-16 tablet by ity of mg tablet 00:00: mouth [place] 00 every 8 Medical (eight) Branch hours as needed for Nausea and Vomiting (N/V). ondansetron 2020-0 Yes [id number] 4mg Take 1 Univers (ZOFRAN) 4 6-16 tablet by ity of mg tablet 00:00: mouth [place] 00 every 8 Medical (eight) Branch hours as needed for Nausea and Vomiting (N/V). ondansetron 2020-0 Yes [id number] 4mg Take 1 Univers (ZOFRAN) 4 6-16 [...] Ordered Filled Immunization Date Status Comments [facility] e Immunization Name Name SARS-COV-2 COVID-19 2020-11-04 Completed Unive rsity of PFIZER VACCINE 00:00:00 [facility] SARS-COV-2 COVID-19 2020-11-04 Completed Unive rsity of PFIZER VACCINE 00:00:00 [facility] SARS-COV-2 COVID-19 2020-11-04 Completed Unive rsity of PFIZER VACCINE 00:00:00 [facility] SARS-COV-2 COVID-19 2020-11-04 Completed Unive rsity of PFIZER VACCINE 00:00:00 [facility] SARS-COV-2 COVID-19 2020-11-04 Completed Unive rsity of PFIZER VACCINE 00:00:00 [facility] SARS-COV-2 COVID-19 2020-11-04 Completed Unive rsity of PFIZER VACCINE 00:00:00 [facility] SARS-COV-2 COVID-19 2020-11-04 Completed Unive rsity of PFIZER VACCINE 00:00:00 [facility] SARS-COV-2 COVID-19 2020-10-14 Completed Unive rsity of PFIZER VACCINE 00:00:00 [facility] SARS-COV-2 COVID-19 2020-10-14 Completed Unive rsity of PFIZER VACCINE 00:00:00 [facility] SARS-COV-2 COVID-19 2020-10-14 Completed Unive rsity of PFIZER VACCINE 00:00:00 [facility] SARS-COV-2 COVID-19 2020-10-14 Completed Unive rsity of PFIZER VACCINE 00:00:00 [facility] SARS-COV-2 COVID-19 2020-10-14 Completed Unive rsity of PFIZER VACCINE 00:00:00 [facility] SARS-COV-2 COVID-19 2020-10-14 Completed Unive rsity of PFIZER VACCINE 00:00:00 [facility] SARS-COV-2 COVID-19 2020-10-14 Completed Unive rsity of PFIZER VACCINE 00:00:00 [facility] Td 2020-08-07 Completed University of 00:00:00 [facility] Td 2020-08-07 Completed University of 00:00:00 [facility] Td 2020-08-07 Completed University of 00:00:00 [facility] Td 2020-08-07 Completed University of 00:00:00 [facility] Td 2020-08-07 Completed University of 00:00:00 [facility] Td 2020-08-07 Completed University of 00:00:00 [facility] Td 2020-08-07 Completed University of 00:00:00 [facility] Td 2020-08-07 Completed University of 00:00:00 [place] [facility] Vital Signs Vital Name Observation Time Observation Value Comments Source Systolic blood 2021-10-14 22:00:00 145 mm[Hg] Univer sity of pressure [place] [facility] Diastolic blood 2021-10-14 22:00:00 99 mm[Hg] Unive rsity of pressure [place] [facility] Heart rate 2021-10-14 22:00:00 79 /min Universi ty of [place] [facility] Respiratory rate 2021-10-14 22:00:00 22 /min Univ ersity of [place] [facility] Oxygen saturation in 2021-10-14 22:00:00 97 /min University of Arterial blood by [place] [employer] jake Pulse oximetry Branch Body temperature 2021-10-14 19:21:00 37.61 Elle Univ ersity of [place] [facility] Body weight 2021-10-14 19:21:00 85.73 kg Universi ty of [place] [facility] BMI 2021-10-14 19:21:00 36.91 kg/m2 Universi ty of [place] [facility] Systolic blood 2021-09-08 15:09:00 145 mm[Hg] Univer sity of pressure [place] [facility] Diastolic blood 2021-09-08 15:09:00 92 mm[Hg] Unive rsity of pressure [place] [facility] Heart rate 2021-09-08 15:09:00 94 /min Universi ty of [place] [facility] Body temperature 2021-09-08 15:09:00 38.78 Elle Univ ersity of [place] [facility] Respiratory rate 2021-09-08 15:09:00 22 /min Univ ersity of [place] [facility] Body height 2021-09-08 15:09:00 152.4 cm Universi ty of [place] [facility] Body weight 2021-09-08 15:09:00 85.957 kg Universi ty of [place] [facility] BMI 2021-09-08 15:09:00 37.01 kg/m2 Universi ty of [place] [facility] Oxygen saturation in 2021-09-08 15:09:00 99 /min University of Arterial blood by [place] [employer] jake Pulse oximetry Branch Systolic blood 2021-05-30 17:55:00 105 mm[Hg] Univer sity of pressure [place] [facility] Diastolic blood 2021-05-30 17:55:00 87 mm[Hg] Unive rsity of pressure [place] [facility] Heart rate 2021-05-30 17:55:00 73 /min Universi ty of [place] [facility] Body temperature 2021-05-30 17:55:00 36.67 Elle Univ ersity of [place] [facility] Respiratory rate 2021-05-30 17:55:00 18 /min Univ ersity of [place] [facility] Body weight 2021-05-30 17:55:00 72.576 kg Universi ty of [place] [facility] BMI 2021-05-30 17:55:00 31.25 kg/m2 Universi ty of [place] [facility] [place] Oxygen saturation in 2021-05-30 17:55:00 99 /min University of Arterial blood by [facility] Pulse oximetry Branch Systolic blood 2021-05-25 16:22:00 150 mm[Hg] Univer sity of pressure [place] Medical [place] Diastolic blood 2021-05-25 16:22:00 105 mm[Hg] Unive rsity of [facility] Medical [place] Heart rate 2021-05-25 16:22:00 98 /min Universi ty of [place] Medical [place] Body temperature 2021-05-25 16:22:00 37.89 Elle Univ ersity of [place] [facility] Respiratory rate 2021-05-25 16:22:00 18 /min Univ ersity of [place] [facility] Body weight 2021-05-25 16:22:00 72.576 kg Universi ty of [place] [facility] BMI 2021-05-25 16:22:00 31.25 kg/m2 Universi ty of [place] [facility] Oxygen saturation in 2021-05-25 16:22:00 99 /min University of Arterial blood by [facility] Pulse oximetry Branch Systolic blood 2020-10-01 01:49:00 154 mm[Hg] Univer sity of [facility] Medical Branch Diastolic blood 2020-10-01 01:49:00 100 mm[Hg] Unive rsity of [facility] Procedures Procedure Date / Time Performed Performing Clinician Sourc e XR CHEST 2 VW 2021-10-14 20:12:23 Osmel Brown [place] o f [facility] RAPID INFLUENZA A/B 2021-10-14 19:25:[address] [facility] of [facility] COVID-19 (ID NOW 2021-10-14 19:25:00 Osmel Brown [facility] RAPID TESTING) Medical Branch NOTICE OF PRIVACY 2021-10-14 19:16:11 Doctor Unassigned, No [facility] Medical Branch CONSENT/REFUSAL FOR 2021-10-14 19:15:51 Doctor Unassigned, No Un iversity of [place] DIAGNOSIS AND Name Medical Branch TREATMENT CONSENT/REFUSAL FOR 2021-09-08 15:00:43 Doctor Unassigned, No Un iversity of [place] DIAGNOSIS AND Name Medical Branch TREATMENT XR CHEST 2 VW 2021-05-30 18:20:11 Michael Cates [place] o f [place] [facility] CONSENT/REFUSAL FOR 2021-05-30 17:42:16 Doctor Unassigned, No Un iversity of [place] DIAGNOSIS AND Name Medical Branch TREATMENT CONSENT/REFUSAL FOR 2021-05-25 16:17:07 Doctor Unassigned, No Un iversity of [place] DIAGNOSIS AND Name Medical Branch TREATMENT Plan of Care Planned Activity Planned Date Details Comments Source Future Scheduled 2028-04-01 Screening for [facility] Test 00:00:00 malignant neoplasm Medical B ranch of colon (procedure) [code = 833603076] Future Scheduled 2028-04-01 Screening for [facility] Test 00:00:00 malignant neoplasm Medical B ranch of colon (procedure) [code = 174382160] Future Scheduled 2021-01-26 INFLUENZA VACCINE [facility] Test 00:00:00 (Season Ended) [code Medical Branch = INFLUENZA VACCINE (Season Ended)] Future Scheduled 2018-10-12 Screening for [facility] Test 00:00:00 malignant neoplasm Medical B ranch of cervix (procedure) [code = 984334964] Future Scheduled 2015 Screening for [facility] Test 00:00:00 malignant neoplasm Medical B ranch of breast (procedure) [code = 336164556] Future Scheduled 1994 DTaP,Tdap,and Td Univers [facility] Test 00:00:00 Vaccines (1 - Tdap) Medical Branch [code = DTaP,Tdap,and Td Vaccines (1 - Tdap)] Future Scheduled 1993 Hepatitis C [facility] Test 00:00:00 screening Medical Branch (procedure) [code = 523880921] Future Scheduled 1991 SARS-CoV-2 [facility] Test 00:00:00 (COVID-19) Vaccine Medical B ranch (1) [code = SARS-CoV-2 (COVID-19) Vaccine (1)] Future Scheduled 1987 Depression screening [facility] Test 00:00:00 (procedure) [code = Medical Branch [id number]] Encounters Start End Encounter Admission Attending Care Care Encounter Source Date/Time Date/Time Type Type Clinicians Facility Department ID 2021-03-27 Emergency [facility] [id number] Univers 05:46:40 ity of [facility] 2021-03-26 Emergency [facility] [id number] Univers 09:38:46 ity of [facility] 2021-03-25 Emergency [facility] [id number] Univers 13:06:43 ity of [facility] 2021-03-25 Emergency [facility] [id number] Univers 04:44:08 ity of [facility] 2021-03-25 Emergency [facility] [id number] Univers 03:20:04 ity of [facility] 2021-03-24 Emergency [facility] [id number] Univers 23:32:49 ity [facility] 2022-01-12 2022-01-12 Outpatient R [place], [facility] [id number] Univers 13:00:00 13:00:00 SARIKA [id number] ity [facility] 2022-01-12 2022-01-12 Outpatient R [place], [facility] [id number] Univers 13:00:00 13:00:00 [facility] 2021-10-14 2021-10-14 Emergency X Osmel BROWN [facility] ERT [id number] Univers 14:26:00 17:13:00 ity [facility] 2021-10-14 2021-10-14 Emergency Osmel Brown [facility] [id number] Univers 14:26:00 17:13:00 Marii CARMONA [id number] baltazar Palacios [id number] [facility] [phone] [facility] 084 Branch 2021-09-08 2021-09-08 Outpatient R [facility] [id number] Univers 14:00:00 14:00:00 [id number] ity [facility] 2021-09-08 2021-09-08 Urgent GreenKarly [facility] [id number] Univers 14:00:00 14:00:00 Care Beena [facility] [id number] ity of [place] [id number] [place] as ANNABELLA?BLEA [phone] [address] MEDICAL OFFICE BUILDING 2021-09-08 2021-09-08 [facility] [id number] Univers 14:00:00 10:40:07 [facility] ity [facility] 2021-09-08 2021-09-08 Orders Doctor THOMASON [id number] Univers 00:00:00 00:00:00 Only Unassigned, VERÓNICA [id number] ity of [place] [facility] [id number] [place] as [phone] [facility] 009 [place] 2021-05-30 2021-05-30 Outpatient R [facility] [id number] Univers 14:45:00 14:45:00 [id number] ity [facility] 2021-05-30 2021-05-30 Outpatient R [facility] [id number] Univers 14:45:00 14:45:00 ity [facility] 2021-05-30 2021-05-30 Emergency X [facility] ERT [id number] Univers 11:57:00 13:19:00 [facility] 2021-05-30 2021-05-30 Emergency [facility] [id number] Univers 11:57:00 13:19:00 Michael CARMONA [id number] i ty of [place] [id number] [place] [facility] [phone] [facility] 084 [place] 2021-05-30 2021-05-30 KATELIN Herrera [id number] Univers 00:00:00 00:00:00 (Out) Mango SANCHES [id number] ity of [facility] [id number] [place] as [phone] [facility] 019 Branch 2021-05-25 2021-05-25 Emergency X TREVIN, [facility] ERT [id number] Univers 10:23:00 12:28:00 YFN itazam [facility] 2021-05-25 2021-05-25 Emergency Trevin, [facility] [id number] Univers 10:23:00 12:28:00 Yfn CARMONA [id number] ity [facility] [id number] [place] [facility] [id number] [facility] [facility] [address] 2021-05-04 2021-05-04 Telephone [facility] [id number] Univers 00:00:00 00:00:00 Sarika [facility] [id number] i ty of [place] [id number] [place] as ANNABELLA?BLEA [phone] Ct [address] MEDICAL OFFICE BUILDING 2021-03-29 2021-03-29 Outpatient Lashanda DUBOSE [facility] [id number] -[id number] Univers 15:30:00 15:30:00 ABIMAEL [id number] [facility] 2021-03-29 2021-03-29 Outpatient Lashanda DUBOSE [facility] [id number] Univers 15:30:00 15:30:00 ABIMAEL [facility] 2021-01-07 2021-01-07 Outpatient Lashanda WOOD [facility] [id number] Univers 11:30:00 11:30:00 SARIKA [facility] 2021-01-07 2021-01-07 Outpatient Lashanda WOOD [facility] [id number] -[id number] Univers 08:30:00 08:30:00 SARIKA [id number] [facility] 2021-01-05 2021-01-05 Outpatient Lashanda WOOD [facility] [id number] -[id number] Univers 08:30:00 08:30:00 SARIKA [id number] [facility] 2021-01-05 2021-01-05 [facility] [id number] Univers 08:30:00 08:30:00 SARIKA [facility] 2021-01-03 2021-01-03 Telephone [place] [facility] [id number] 00:00:00 00:00:00 Sarika [facility] [id number] [place] [id number] Professio [phone] nal [address] 2020-11-30 2020-11-30 Telephone Andree La [id number] 00:00:00 00:00:00 , Pamela Judd [id number] [place] [id number] [id number] 2020-11-22 2020-11-22 Orders Doctor KATELIN [id number] 00:00:00 00:00:00 Only Unassigned, VERÓNICA [id number] [place] [facility] [id number] [id number] 2020-11-16 2020-11-16 Outpatient Lashanda CARRILLO [facility] [id number] Univers 11:00:00 11:00:00 KRANTHI [id number] [facility] 2020-11-16 2020-11-16 Outpatient Lashanda CARRILLO [facility] [id number] Univers 11:00:00 11:00:00 KRANTHI [facility] 2020-11-10 2020-11-10 Outpatient Lashanda WOOD [facility] [id number] -[id number] Univers 16:00:00 16:00:00 SARIKA [id number] [facility] 2020-11-10 2020-11-10 [facility] [id number] Univers 16:00:00 16:00:00 SARIKA [facility] 2020-11-10 2020-11-10 Telephone [facility] [id number] 00:00:00 00:00:00 Sarika [facility] [id number] [place] [id number] Professio [phone] nal [address] 2020-09-30 2020-09-30 Outpatient R ISRAEL, [facility] [id number] -[id number] Univers 16:00:00 16:00:00 SARIKA [id number] ity [facility] 2020-09-30 2020-09-30 Outpatient R ISRAEL, [facility] [id number] Univers 16:00:00 16:00:00 SARIKA ity [facility] 2020-09-16 2020-09-16 Outpatient R [facility] [id number] -[id number] Univers 16:40:00 16:40:00 [id number] ity [facility] 2020-09-16 2020-09-16 Outpatient R [facility] [id number] Univers 16:40:00 16:40:00 ity [facility] 2020-09-10 2020-09-10 Outpatient R [facility] [id number] -[id number] Univers 08:00:00 08:00:00 [id number] ity [facility] 2020-09-08 2020-09-08 Outpatient R [facility] [id number] -[id number] Univers 13:00:00 13:00:00 [id number] ity [facility] 2020-09-08 2020-09-08 Outpatient R ISRAEL, [facility] [id number] Univers 13:00:00 13:00:00 SARIKA [facility] 2020-08-20 2020-08-20 Outpatient R ISRAEL, [facility] [id number] -[id number] Univers 15:00:00 15:00:00 SARIKA [id number] ity [facility] 2020-08-20 2020-08-20 Outpatient R ISRAEL, [facility] [id number] Univers 15:00:00 15:00:00 [facility]-03-05 2020-03-05 Outpatient R ISRAEL, [facility] [id number] -[id number] Univers 08:00:00 08:00:00 SARIKA [id number] ity [facility] 2020-03-05 2020-03-05 Outpatient R ISRAEL, [facility] [id number] Univers 08:00:00 08:00:00 [facility] 2020-03-04 2020-03-04 Outpatient R SEDRICK, [facility] [id number] -[id number] Univers 11:30:00 11:30:00 ABIMAEL ity of [facility] 2020-03-04 2020-03-04 Outpatient R SEDRICK, [facility] [id number] Univers 11:30:00 11:30:00 ABIMAEL ity [facility] 2020-03-01 2020-03-01 Outpatient R SEDRICK, [facility] [id number] -[id number] Univers 16:15:00 16:15:00 ABIMAEL ity of [facility] 2020-03-01 2020-03-01 Outpatient R SEDRICK, [facility] [id number] Univers 16:15:00 16:15:00 ABIMAEL ity [facility] 2020-02-26 2020-02-26 Outpatient ISRAEL, [facility] [id number] -[id number] Univers 10:40:00 10:40:00 SARIKA ity [facility] 2020-02-13 2020-02-13 Outpatient DMITRI HATHAWAY [facility] [id number] Univers 13:40:00 13:40:00 DMITRI HATHAWAY [id number] ity [facility] 2020-02-13 2020-02-13 Outpatient R DMITRI HATHAWAY [facility] [id number] Univers 13:40:00 13:40:00 DMITRI HATHAWAY ity [facility] 2020-01-30 2020-01-30 Outpatient R ANTHONY, [facility] [id number] -[id number] Univers 14:00:00 14:00:00 KARTHIK ity [facility] 2020-01-15 2020-01-15 Outpatient R [facility] [id number] -[id number] Univers 17:00:00 17:00:00 ity [facility] 2020-01-15 2020-01-15 Outpatient R HUMAN, [facility] [id number] Univers 17:00:00 17:00:00 ADELE ity [facility] 2020-01-09 2020-01-09 Outpatient R WALKER, [facility] [id number] -[id number] Univers 09:30:00 09:30:00 KATELIN [id number] ity [facility] 2020-01-09 2020-01-09 Outpatient R CODEY, [facility] [id number] Univers 09:30:00 09:30:00 KATELIN ity of [facility] 2020-01-07 2020-01-07 Outpatient R [facility] [id number] Univers 09:40:00 09:40:00 [id number] ity of [facility] 2020-01-07 2020-01-07 Outpatient R [facility] [id number] Univers 09:40:00 09:40:00 ity of [facility] 2020-01-07 2020-01-07 Outpatient R SEDRICK, [facility] [id number] Univers 09:40:00 09:40:00 ABIMAEL ity of [facility] 2019-12-18 2019-12-18 Outpatient R LOUISEMERYLPHI [facility] [id number] Univers 08:30:00 08:30:00 KRANTHI [id number] ity [facility] 2019-12-18 2019-12-18 Outpatient R HANYPHI [facility] [id number] Univers 08:30:00 08:30:00 KRANTHI ity [facility] 2019-12-14 2019-12-14 Outpatient R [facility] [id number] Univers 16:00:00 16:00:00 [id number] ity of [facility] 2019-12-14 2019-12-14 Outpatient R CHAITANYARUBEN, [facility] [id number] Univers 16:00:00 16:00:00 ABIMAEL ity of [facility] 2019-12-05 2019-12-05 Outpatient R CODEY [facility] [id number] -[id number] Univers 09:45:00 09:45:00 KATELIN ity of [facility] 2019-12-05 2019-12-05 Outpatient R CODEY [facility] [id number] Univers 09:45:00 09:45:00 KATELIN ity of [facility] 2019-11-25 2019-11-25 Outpatient R [facility] [id number] Univers 16:20:00 16:20:00 ity of [facility] 2019-11-25 2019-11-25 Outpatient R [facility] [id number] Univers 16:20:00 16:20:00 ity of [facility] 2019-11-25 2019-11-25 Outpatient R SEDRICK, [facility] [id number] Univers 09:40:00 09:40:00 ABIMAEL itazam [facility] 2019-11-14 2019-11-14 Outpatient R CODEY [facility] [id number] Univers 10:15:00 10:15:00 KATELIN itazam of [facility] 2019-11-14 2019-11-14 Outpatient R CODEY [facility] [id number] -[id number] Univers 09:45:00 09:45:00 KATELIN [id number] ity [facility] 2019-11-14 2019-11-14 Outpatient R CODEY [facility] [id number] Univers 09:45:00 09:45:00 KATELIN ity [facility] 2019-11-13 2019-11-13 Outpatient R [facility] [id number] Univers 08:40:00 08:40:00 Henrry ity [facility] 2019-11-13 2019-11-13 Outpatient R [facility] [id number] Univers 08:40:00 08:40:00 ity [facility] 2019-11-06 2019-11-06 Outpatient WALKER [facility] [id number] -[id number] Univers 08:00:00 08:00:00 KATELIN [id number] ity [facility] 2019-11-06 2019-11-06 Outpatient R CODEY [facility] [id number] Univers 00:00:00 00:00:00 KATELIN itazam [facility] 2019-10-31 2019-10-31 Outpatient R CODEY [facility] [id number] Univers 11:15:00 11:15:00 KATELIN ity [facility] 2019-10-31 2019-10-31 Outpatient R CODEY [facility] [id number] Univers 11:15:00 11:15:00 KATELIN y [facility] 2019-10-10 2019-10-10 Outpatient R GERARDO [facility] [id number] Univers 13:15:00 13:15:00 KRANTHI [id number] ity [facility] 2019-10-10 2019-10-10 Outpatient R GERARDO [facility] [id number] Univers 13:15:00 13:15:00 KRANTHI ity [facility] 2019-09-27 2019-09-27 Outpatient X DELFINA ELLIS [facility] [id number] Univers 05:53:51 14:24:00 ity of [facility] 2019-09-16 2019-09-16 Outpatient R [facility] [id number] Univers 16:40:00 16:40:00 ity of [facility] 2019-09-16 2019-09-16 Outpatient R [facility] [id number] Univers 16:20:00 16:20:00 [id number] ity of [facility] 2019-09-16 2019-09-16 Outpatient R [facility] [id number] Univers 16:20:00 16:20:00 ity of [facility] 2019-08-29 2019-08-29 Outpatient R HARRISON, [facility] [id number] Univers 09:30:00 09:30:00 WONDIFUL [id number] ity o f [facility] 2019-08-29 2019-08-29 Outpatient R HARRISON [facility] [id number] Univers 09:30:00 09:30:00 WONDIFUL ity o f [facility] 2019-08-20 2019-08-20 Outpatient R [facility] [id number] Univers 12:20:00 12:20:00 [id number] ity of [facility] 2019-08-20 2019-08-20 Outpatient R [facility] [id number] Univers 12:20:00 12:20:00 ity of [facility] 2019-08-06 2019-08-06 Outpatient R LOUISEMERYLPHI [facility] [id number] Univers 16:30:00 16:30:00 KRANTHI [id number] ity of [facility] 2019-08-06 2019-08-06 Outpatient R HANYPHI [facility] [id number] Univers 16:30:00 16:30:00 [facility] 2019-07-18 2019-07-18 Emergency X Osmel BROWN [facility] E[facility] [id number] Univers 13:49:36 15:20:00 ity [facility] 2019-03-06 2019-03-06 [facility] [id number] Univers 14:55:12 14:55:12 RACIEL [facility] Results Test Description Test Time Test Comments Results Result Comments Source TSH, THIRD GENERATION 2021-09-09 05:03:14 Test Item Value Reference Range Interpretation Comme nts TSH, THIRD GENERATION (test 1.690 UIU/ML 0.400-4.100 UNLESS OTHERWISE INDICATED, code = 2821) ALL TESTING PER FORMED [facility], [place] [address] [address] 5072 DELICATE [employer] PRESSER: Desirae AMOS [id number] [facility] [place] [id number] HEMOGLOBIN [id number] 04:21:58 Test Item Value Reference Range Interpretation Comments HEMOGLOBIN A1c (test code = 72677) 5.3 % 4.2-5.6 CBC W/AUTO DIFF WITH [id number] 03:33:21 Test Item Value Reference Range Interpretation Comments WBC (test code = 5.5 K/UL 3.5-11.0 1001) RBC (test code = 5.22 M/UL 3.80-5.40 1002) HEMOGLOBIN (test code 14.5 G/DL 11.5-15.5 = 1003) HEMATOCRIT (test code 42.7 % 34.0-45.0 = 1004) MCV (test code = 81.8 fL 80.0-99.0 1005) MCH (test code = 27.8 PG 25.0-33.0 1006) MCHC (test code = 34.0 G/DL 31.0-36.0 1007) RDW (test code = 13.4 % 11.5-15.0 1038) NEUTROPHILS (test 79.5 % code = 1008) LYMPHOCYTES (test 10.2 % code = 1010) MONOCYTES (test code 6.8 % = 1011) EOSINOPHILS (test 2.4 % code = 1012) BASOPHILS (test code 0.7 % = 1013) IMMATURE GRANULOCYTES 0.4 % (test code = 1036) NUCLEATED RBCS (test 0.0 /100 WBC'S See_Comment [Aut omated code = 1065) message] The sy stem which generated this result transmitted reference range : 0.0. The refere nce range was not u sed to interpret th is result as normal/abnormal . PLATELET COUNT (test 183 K/UL 130-400 code = 1015) ABSOLUTE NEUTROPHILS 4.35 K/UL 1.50-7.50 (test code = 1066) ABSOLUTE LYMPHOCYTES 0.56 K/UL 1.00-4.00 L (test code = 1067) ABSOLUTE MONOCYTES 0.37 K/UL 0.20-1.00 (test code = 1068) ABSOLUTE EOSINOPHILS 0.13 K/UL 0.00-0.50 (test code = 1040) ABSOLUTE BASOPHILS 0.04 K/UL 0.00-0.20 (test code = 1069) ABS IMMATURE 0.02 K/UL 0.00-0.10 GRANULOCYTES (test code = 1020) ABS NUCLEATED RBCS 0.00 K/UL 0.00-0.11 (test code = 68534) COMPREHENSIVE METABOLIC [id number] 03:25:43 Test Item Value Reference Range Interpretation Comments GLUCOSE (test code = 91 MG/DL 70-99 2216) BUN (test code = 8 MG/DL 6-20 2207) CREATININE (test 0.70 MG/DL 0.60-1.30 code = 221) eGFR (2020 CKD-EPI) 108 >60 (test code = 98468) ML/MIN/1.73 CALC BUN/CREAT (test 11 RATIO 6-28 code = 2235) SODIUM (test code = 139 MEQ/L 427-051 8961) POTASSIUM (test code 4.4 MEQ/L 3.5-5.4 = 2227) CHLORIDE (test code 100 MEQ/L 95-107 = 2215) CARBON DIOXIDE (test 23 MEQ/L 19-31 code = 2206) CALCIUM (test code = 9.7 MG/DL 8.5-10.5 2208) PROTEIN, TOTAL (test 7.7 G/DL 6.1-8.3 code = 222) ALBUMIN (test code = 4.8 G/DL 3.5-5.2 2200) CALC GLOBULIN (test 2.9 G/DL 1.9-3.7 code = 2240) CALC A/G RATIO (test 1.7 RATIO 1.0-2.6 code = 2234) BILIRUBIN, TOTAL 0.9 MG/DL See_Comment [Automated message] (test code = 2207) The syste m which generated this result transmit krish reference range : <=1.2. The refe rence range was not u sed to interpret th is result as normal/abnormal . ALKALINE PHOSPHATASE 130 U/L 40-118 H (test code = 2203) AST (test code = 18 U/L -2217) ALT (test code = 19 U/L -40 2218) LIPID [id number] 03:25:43 Test Item Value Reference Range Interpretation Comments CHOLESTEROL (test 188 MG/DL <200 code = 2210) TRIGLYCERIDES (test 140 MG/DL <150 code = 2232) HDL CHOLESTEROL (test 47 MG/DL >39 code = 2220) CALC LDL CHOL (test 116 MG/DL <100 H NOTE: C ALCULATED LDL code = 2237) IS BASED ON ROHIT-CHAVEZ METHOD WHICHINCLUDES ADJUSTABLE TRIGLYCERIDE:VL DL CHOLESTEROL RAT IO.THIS FACTOR VARIES B Y MEASURED TRIGLY CERIDE AND NON-HDLCHOL ESTEROL CONCENTRATIONS WITH INCREASED CALCU LATED LDL SEENIN HIGH ER TRIGLYCERIDE OR LOWER NON-HDL SPECIME NS. FOR MOREINFORMATION , SEE CLIENT ANNOUNCE MENT AT [email or web address] RISK RATIO LDL/HDL 2.47 RATIO <3.22 (test code = 2238)
[2022-01-28] MEDS ORDERED: ONDANSETRON 4 MG/2 ML VIAL ONE (16:38)
[2022-01-28] MEDS ORDERED: ACETAMINOPHEN 500 MG TAB ONE (16:38)
[2022-01-28] MEDS ORDERED: NA CHLORIDE 0.9% 250 ML ONE (16:38)
[2022-01-28] MEDS ORDERED: NA CHLORIDE 0.9% 2,000 ML ONE (16:39)
--- NOTE | 2022-01-28 16:42 | RAD REPORT ---
EXAM DESCRIPTION: CT - Head Brain Wo Cont - 01/28/2022 4:27 pm CLINICAL HISTORY: headache, blurred vision COMPARISON: No comparisons TECHNIQUE: All CT scans are performed using dose optimization technique as appropriate and may inclu de automated exposure control or mA/KV adjustment according to patient size. FINDINGS: No intracranial hemorrhage, hydrocephalus or extra-axial fluid collection.No areas of brai n edema or evidence of midline shift. The paranasal sinuses and mastoids are clear. The calvarium is intact. IMPRESSION: No acute intracranial abnormality.
[2022-01-28 17:00] LABS: Absolute Lymphocytes (CBC) 0.9 K/uL (0.7-4.9); Hematocrit 40.8 % (36.0-45.0); Lymphocytes % 28.8 % (15.3-44.8); MCV 81.9 fL (80-100); MPV 9.4 fL (7.6-11.3); RBC Red Blood Cell Count 4.98 M/uL (3.86-4.86)
[2022-01-28 17:03] LABS: Protime INR 1.16
[2022-01-28 17:13] LABS: Albumin 3.7 g/dL (3.4-5.0); Bilirubin Total 0.5 mg/dL (0.2-1.0); Potassium 3.8 mmol/L (3.5-5.1); Protein, Total 7.4 g/dL (6.4-8.2)
[2022-01-28 17:46] LABS: Urine Blood Negative (Negative); Urine Glucose Negative (Negative); Urine Protein Negative (Negative); Urine pH 6.5 (5.0-7.0)
[2022-01-28] MEDS ORDERED: KETOROLAC 30 MG/ML INJ ONE (18:12)
--- NOTE | 2022-01-28 18:39 | RAD REPORT ---
EXAM DESCRIPTION: CTAbdomen Pelvis W Contrast - 01/28/2022 6:27 pm CLINICAL HISTORY: abd pain, n/v/d COMPARISON: Abdomen Pelvis W Contrast dated 08/23/2021; Abdomen Pelvis W Contrast dated 03/29/2021 ; Abdomen Pelvis W Contrast dated 11/07/2020; Abdomen Pelvis W Contrast dated 09/12/2020 TECHNIQUE: CT of the abdomen and pelvis was performed. All CT scans are performed using dose optimization technique as appropriate and may include automated exposure control or mA/KV adjustment according to patient size. FINDINGS: Lower chest: No acute abnormality. Small hiatal hernia. Liver: No acute abnormality or suspicious lesions. Biliary: Cholecystectomy Stomach: No significant focal abnormality. Duodenum: No significant focal abnormality. Pancreas: No significant abnormality. Spleen: No significant abnormality. Adrenal: No suspicious lesions. Kidney/ureter: No hydronephrosis. No renal calculi. Retroperitoneum: No retroperitoneal adenopathy. Vascular: No aneurysm. Bowel: No significant focal abnormality. Normal appendix. Peritoneum: No ascites or free air. Bladder: Grossly unremarkable. Reproductive: No adnexal masses. Bones: No acute fracture. Other: n/a IMPRESSION: No acute intra-abdominal or pelvic finding. Normal appendix.
--- NOTE | 2022-01-28 19:46 | ER ---
Nurse's Notes [facility] Name: Maranda Quach Age: 46 yrs Sex: Female : 1975 Arrival Date: 01/28/2022 Time: 15:56 Bed 20 Private MD: Diagnosis: Nausea with vomiting, unspecified;Fever, unspecified;Diarrhea, unspecified Presentation: 01/28 16:03 Coronavirus screen: Client presents with at least one sign or symptom that may indicate bm7 coronavirus-19. Standard/surgical mask placed on the client. Ebola Screen: No symptoms or risks identified at this time. Initial Sepsis Screen: Does the patient meet any 2 criteria? RR > 20 per min. Temp <36.0*C (96.8*F)) or > 38.3*C (100.9*F). Yes Does the patient have a suspected source of infection? No. Patient's initial sepsis screen is negative. Risk Assessment: Do you want to hurt yourself or someone else? Patient reports no desire to harm self or others. Onset of symptoms was January 27, 2022. Care prior to arrival: Medication(s) given: tylenol and motrin early this morning. 16:03 Method Of Arrival: Ambulatory bm7 16:05 Chief complaint: Patient states: I started having nausea, vomiting, diarrhea last night bm7 and this morning I started running a fever and having a really bad headache. 16:05 Acuity: CHAVEZ 3 bm7 Triage Assessment: 16:05 Headache History: Denies prior headaches. General: Appears in no apparent distress. bm7 uncomfortable, Behavior is cooperative, appropriate for age. Pain: Complains of pain in forehead Pain does not radiate. Pain currently is 10 out of 10 on a pain scale. Pain began gradually, Also complains of nausea, photophobia, sleeplessness. EENT: No deficits noted. Neuro: Level of Consciousness is awake, alert, obeys commands, Oriented to person, place, time, situation, Heat And Vent Aircraft Mechanic are equal bilaterally Moves all extremities. Gait is steady, Speech is normal, Facial symmetry appears normal, Pupils are PERRLA, Reports blurred vision in left eye headache weakness. Cardiovascular: No deficits noted. Chest pain is denied. Respiratory: Reports shortness of breath on exertion Airway is patent Respiratory effort is even, unlabored, Respiratory pattern is tachypnea Breath sounds are clear bilaterally. GI: Reports nausea, vomiting. : No deficits noted. No signs and/or symptoms were reported regarding the genitourinary system. Derm: No deficits noted. No signs and/or symptoms reported regarding the dermatologic system. Musculoskeletal: No deficits noted. No signs and/or symptoms reported regarding the musculoskeletal system. 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 - Social history:: Smoking status: Patient denies any tobacco usage or history of. Screenin:07 Abuse screen: Denies threats or abuse. Denies injuries from another. Nutritional mb8 screening: No deficits noted. Tuberculosis screening: No symptoms or risk factors identified. Fall Risk No fall in past 12 months (0 pts). Secondary diagnosis (15 points) IV access (20 points). Ambulatory Aid- None/Bed Rest/Nurse Assist (0 pts). Gait- Normal/Bed Rest/Wheelchair (0 pts) Mental Status- Oriented to own ability (0 pts). Total Cohen Fall Scale indicates No Risk (0-24 pts). Assessment: 16:40 General: Appears uncomfortable, ill, Behavior is calm, cooperative, appropriate for mb8 age. Pain: Complains of pain in head Pain does not radiate. Pain currently is 10 out of 10 on a pain scale. Quality of pain is described as aching. Cardiovascular: Denies chest pain, shortness of breath. Respiratory: Breath sounds are clear bilaterally. 17:47 Reassessment: Patient and/or family updated on plan of care and expected duration. Pain mb8 level reassessed. Patient is alert, oriented x 3, equal unlabored respirations, skin warm/dry/pink. fever coming down along with the nausea, reports VO still 10/10 unchanged. . 19:23 General: Appears in no apparent distress. Behavior is calm, cooperative. Neuro: Level kd3 of Consciousness is awake, alert, obeys commands, Oriented to person, place, time, situation. Respiratory: Airway is patent Trachea midline Respiratory effort is even, unlabored, Respiratory pattern is regular, symmetrical. 19:28 Reassessment: Patient denies pain at this time. Patient states feeling better. Patient kd3 states symptoms have improved. General: pt tolerated PO challenge. . Vital Signs: 16:01 BP 125 / 70; Pulse 90; Resp 22; Temp 102.1(O); Pulse Ox 100% on R/A; Weight 73.94 kg bm7 (R); Height 5 ft. 0 in. (152.40 cm); Pain 10/10; 17:08 BP 109 / 73; Pulse 83; Resp 20; Pulse Ox 97% ; Pain 10/10; mb8 17:30 BP 103 / 52; Pulse 81; Resp 20; Pulse Ox 97% ; mb8 17:36 Temp 100.2(O); Pain 10/10; mb8 18:17 BP 108 / 48; Pulse 76; Resp 22; Pulse Ox 96% ; Pain 8/10; mb8 18:54 Pulse 78; Resp 20; Pulse Ox 96% ; Pain 6/10; mb8 19:50 BP 102 / 75; Pulse 72; Resp 18; Temp 97.5(O); Pulse Ox 100% on R/A; kd3 16:01 Body Mass Index 31.83 (73.94 kg, 152.40 cm) bm7 ED Course: 15:56 Patient arrived in ED. am2 15:57 Stacy Boudreaux FNP-C is [facility]. kb 15:57 Chilango Anthony MD is Attending Physician. kb 16:01 Arm band placed on left wrist. bm7 16:06 Triage completed. bm7 16:22 Sean Barriga, ANNABELLE is Primary Nurse. mb8 16:28 CT Head Brain wo Cont In Process Unspecified. EDMS 16:40 First set of blood cultures drawn by me, COVID swab sent to lab. Flu and/or RSV swab mb8 sent to lab. Inserted saline lock: 20 gauge in right antecubital area, using aseptic technique. Blood collected. 16:44 Flu Sent. mb8 16:54 Second set of blood cultures drawn by me. mb8 16:57 EKG done, by ED staff, reviewed by Stacy GUSMAN. em1 17:03 Flu Sent. mb8 17:03 COVID-19 SARS RT PCR (Document "Date of Onset" if Symptomatic) Sent. mb8 17:08 Patient has correct armband on for positive identification. Bed in low position. Call mb8 light in reach. Side rails up X2. Client placed on continuous cardiac and pulse oximetry monitoring. NIBP monitoring applied. macaroni maker on. 17:08 No provider procedures requiring assistance completed. mb8 18:06 Glucose, Ancillary Testing Sent. mb8 18:29 CT Abd/Pelvis - IV Contrast Only In Process Unspecified. EDMS 19:51 IV discontinued, intact, bleeding controlled, No redness/swelling at site. Pressure kd3 dressing applied. Administered Medications: 16:50 Drug: Acetaminophen 1000 mg Route: PO; mb8 18:05 Follow up: Response: No adverse reaction; Other; Other: fever decreased, Headache mb8 unchanged 16:50 Drug: NS 0.9% (30 ml/kg) 30 ml/kg Route: IV; Rate: bolus; Site: right antecubital; mb8 19:57 Follow up: Response: No adverse reaction; Rate change 1000 ml; IV Status: Completed kd3 infusion 17:02 Drug: Zofran (Ondansetron) 4 mg Route: IVP; Site: right antecubital; mb8 17:34 Follow up: Response: No adverse reaction; Nausea is decreased mb8 18:05 Drug: Ketorolac 30 mg Route: IVP; Site: right antecubital; mb8 18:58 Follow up: Response: No adverse reaction; Pain is decreased mb8 19:57 Follow up: Response: No adverse reaction kd3 Medication: 17:07 VIS not applicable for this client. mb8 Outcome: 19:45 Discharge ordered by . kb 19:51 Discharged to home ambulatory. kd3 19:51 Condition: stable 19:51 Discharge instructions given to patient, family, Instructed on discharge instructions, follow up and referral plans. medication usage, Demonstrated understanding of instructions, follow-up care, medications, Prescriptions given X 1. 19:56 Patient left the ED. kd3 Signatures: Dispatcher [employer] EDGA Stacy Boudreaux, NASEEM SABILLON-Jose A Puri em1 Katy Amanda am2 Tiffanie Corbin, RN RN bm7 Rajni Rosa RN RN kd3 Barriga, Sean, RN RN mb8
--- NOTE | 2022-01-28 19:46 | EDPHYS ---
Physician Documentation [facility] Name: Maranda Quach Age: 46 yrs Sex: Female : 1975 Arrival Date: 01/28/2022 Time: 15:56 Bed 20 Private MD: ED Physician Chilango Anthony HPI: 01/28 18:31 This 46 yrs old Female presents to ER via Ambulatory with complaints of Headache, kb Nausea/Vomiting/Diarrhea. 18:31 The patient presents to the emergency department with nausea, vomiting, diarrhea. kb Onset: The symptoms/episode began/occurred last night. Possible causes: unknown. The symptoms are aggravated by nothing. The symptoms are alleviated by nothing. Associated signs and symptoms: Pertinent positives: diarrhea, nausea, vomiting. Severity of symptoms: At their worst the symptoms were moderate in the emergency department the symptoms are unchanged. The patient has not experienced similar symptoms in the past. The patient has not recently seen a physician. Patient reports nausea, vomiting, diarrhea since last night with headache that started this morning.. 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 - Social history:: Smoking status: Patient denies any tobacco usage or history of. ROS: 18:31 Constitutional: Negative for fever, chills, and weight loss. kb 18:31 Abdomen/GI: Positive for nausea, vomiting, and diarrhea, Negative for abdominal pain. 18:31 Neuro: Positive for headache, visual changes. 18:31 All other systems are negative. Exam: 16:55 ECG was reviewed by the Attending Physician. kb 18:31 Constitutional: This is a well developed, well nourished patient who is awake, alert, kb and in no acute distress. Head/Face: Normocephalic, atraumatic. ENT: Moist Mucous membranes Cardiovascular: Regular rate and rhythm with a normal S1 and S2. No gallops, murmurs, or rubs. No pulse deficits. Respiratory: Respirations even and unlabored. No increased work of breathing. Talking in full sentences Abdomen/GI: Soft, non-tender. No distention Skin: Warm, dry with normal turgor. Normal color. MS/ Extremity: Pulses equal, no cyanosis. Neurovascular intact. Full, normal range of motion. Neuro: Awake and alert, GCS 15, oriented to person, place, time, and situation. Moves all extremities. Normal gait. Psych: Awake, alert, with orientation to person, place and time. Behavior, mood, and affect are within normal limits. 18:31 Eyes: Exam is negative for acute changes. Vital Signs: 16:01 BP 125 / 70; Pulse 90; Resp 22; Temp 102.1(O); Pulse Ox 100% on R/A; Weight 73.94 kg bm7 (R); Height 5 ft. 0 in. (152.40 cm); Pain 10/10; 17:08 BP 109 / 73; Pulse 83; Resp 20; Pulse Ox 97% ; Pain 10/10; mb8 17:30 BP 103 / 52; Pulse 81; Resp 20; Pulse Ox 97% ; mb8 17:36 Temp 100.2(O); Pain 10/10; mb8 18:17 BP 108 / 48; Pulse 76; Resp 22; Pulse Ox 96% ; Pain 8/10; mb8 18:54 Pulse 78; Resp 20; Pulse Ox 96% ; Pain 6/10; mb8 19:50 BP 102 / 75; Pulse 72; Resp 18; Temp 97.5(O); Pulse Ox 100% on R/A; kd3 16:01 Body Mass Index 31.83 (73.94 kg, 152.40 cm) bm7 MDM: 16:08 Patient medically screened. 18:32 Data reviewed: vital signs, nurses notes. Data interpreted: Pulse oximetry: on room air kb is 96 %. Interpretation: normal. 19:00 Data reviewed: I have discussed the patient's presentation/case with the attending Emergency Department Physician;. Counseling: I had a detailed discussion with the patient and/or guardian regarding: the historical points, exam findings, and any diagnostic results supporting the discharge/admit diagnosis, lab results, radiology results, the need for outpatient follow up, a family practitioner, to return to the emergency department if symptoms worsen or persist or if there are any questions or concerns that arise at home. ED course: Pt feeling better, headache has resolved. Tolerating po intake. 01/28 16:08 Order name: Blood Culture Adult (2) kb 01/28 16:08 Order name: CBC with Diff; Complete Time: 17:08 kb 01/28 16:08 Order name: CMP; Complete Time: 17:23 kb 01/28 16:08 Order name: Lactate; Complete Time: 17:37 kb 01/28 16:08 Order name: Protime (+inr); Complete Time: 17:08 kb 01/28 16:08 Order name: Ptt, Activated; Complete Time: 17:08 kb 01/28 16:09 Order name: Flu; Complete Time: 17:23 kb 01/28 16:09 Order name: COVID-19 SARS RT PCR (Document "Date of Onset" if Symptomatic); Complete kb Time: 17:23 01/28 16:12 Order name: CT Head Brain wo Cont; Complete Time: 16:53 kb 01/28 17:17 Order name: Glucose, Ancillary Testing; Complete Time: 17:23 EDMS 01/28 17:19 Order name: Glucose, Ancillary Testing EDMS 01/28 17:38 Order name: CT Abd/Pelvis - IV Contrast Only; Complete Time: 18:45 kb 01/28 17:46 Order name: Urine Dipstick-Ancillary; Complete Time: 17:48 EDMS 01/28 16:08 Order name: Accucheck; Complete Time: 17:06 kb 01/28 16:08 Order name: Cardiac monitoring; Complete Time: 17:04 kb 01/28 16:08 Order name: EKG - Nurse/Tech; Complete Time: 16:57 kb 01/28 16:08 Order name: IV Saline Lock - Large Bore; Complete Time: 17:04 kb 01/28 16:08 Order name: Labs collected and sent; Complete Time: 17:04 kb 01/28 16:08 Order name: O2 Per Protocol; Complete Time: 17:03 kb 01/28 16:08 Order name: O2 Sat Monitoring; Complete Time: 17:03 kb 01/28 16:08 Order name: Urine Dipstick-Ancillary (obtain specimen); Complete Time: 17:46 kb EC:55 Rate is 85 beats/min. Rhythm is regular. QRS Lando is Normal. TN interval is normal at kb 130 msec. QRS interval is normal at 86 msec. QT interval is normal at 418 msec. Administered Medications: 16:50 Drug: Acetaminophen 1000 mg Route: PO; mb8 18:05 Follow up: Response: No adverse reaction; Other; Other: fever decreased, Headache mb8 unchanged 16:50 Drug: NS 0.9% (30 ml/kg) 30 ml/kg Route: IV; Rate: bolus; Site: right antecubital; mb8 19:57 Follow up: Response: No adverse reaction; Rate change 1000 ml; IV Status: Completed kd3 infusion 17:02 Drug: Zofran (Ondansetron) 4 mg Route: IVP; Site: right antecubital; mb8 17:34 Follow up: Response: No adverse reaction; Nausea is decreased mb8 18:05 Drug: Ketorolac 30 mg Route: IVP; Site: right antecubital; mb8 18:58 Follow up: Response: No adverse reaction; Pain is decreased mb8 19:57 Follow up: Response: No adverse reaction kd3 Disposition: 01/29 11:57 Co-signature as Attending Physician, Chilango Anthony MD I agree with the assessment and kdr plan of care. Disposition Summary: 01/28/22 19:45 Discharge Ordered Location: Home kb Condition: Stable kb Diagnosis - Nausea with vomiting, unspecified kb - Fever, unspecified kb - Diarrhea, unspecified kb Followup: kb - With: Emergency Department - When: As needed - Reason: Worsening of condition Followup: kb - With: Private Physician - When: 2 - 3 days - Reason: Recheck today's complaints, Continuance of care, Re-evaluation by your physician Discharge Instructions: - Discharge Summary Sheet kb - Food Choices to Help Relieve Diarrhea, Adult kb - Viral Gastroenteritis, Adult, [id number] kb Forms: - Medication Reconciliation Form kb - Thank You Letter kb - Antibiotic Education kb - Prescription Opioid Use kb - Work release form kd3 Prescriptions: - Zofran 4 mg Oral Tablet - take 1 tablet by ORAL route every 6 hours As needed; 20 tablet; Refills: 0, kb Product Selection Permitted Signatures: Dispatcher [employer] EDTN Stacy Boudreaux FNP-C FNP-Chilango Santos MD MD kdr McCarthy, Brittany RN RN bm7 Sean Barriga RN RN mb8 Shelley, Rajni RN kd3
[2022-01-28 20:45] VITALS: BP 102/75; TEMP 97.5; O2SAT 100
--- NOTE | 2022-01-31 14:37 | EKG ---
Test Date: 2022-01-28 Test Time: 16:15:54 Pony Trimmer: ANA PAULA MEASUREMENT RESULTS: Intervals: Rate: 85 CO: 130 QRSD: 86 QT: 352 QTc: 418 [place]: P: 51 CO: 130 QRS: 41 T: 58 INTERPRETIVE STATEMENTS: Normal sinus rhythm Normal ECG Compared to ECG 05/31/2021 04:21:14 Myocardial infarct finding no longer present Electronically Signed On 01-31-22 14:32:55 CDT by Matthew Kaplan
== END 2022-01-28 19:56 | disposition home or self-care (01) ==
LOC: ER 15:53
DX: R11.2 Nausea with vomiting, unspecified (principal); R50.9 Fever, unspecified; R19.7 Diarrhea, unspecified; R51.9 Headache, unspecified; Z20.822 Contact with and (suspected) exposure to COVID-19; I10 Essential (primary) hypertension
CPT/HCPCS: 36415; 70450; 74177; 80053; 81003; 82947; 83605; 85025; 85610; 85730; 87040; 87804; 93005; 96365; 96366; 96375; 99284; J2405; J7030; J7050; Q9967; U0003

== ENCOUNTER 2022-10-07 17:24 | Emergency (ER) | payer SELFPAY ==
--- OUTSIDE RECORDS SUMMARY | 2022-10-07 17:28 | XMS REPORT | Continuity of Care Document ---
:[address] [facility] t Address [address] [facility] [address] [place] [address] Care Team Providers Name Role Phone ASRIKA WOOD Primary Care Physician Unavailable JOAO WETZEL Attending Clinician Unavailable JOAO WETZEL Attending Clinician Unavailable Doctor Unassigned, [place] Attending Clinician Unavailable Sarika Jiang Attending Clinician SARIKA WOOD Attending Clinician Unavailable Osmel BROWN Attending Clinician Unavailable Osmel Newell Attending Clinician Karly Bennett Attending Clinician Beena Cotto Attending Clinician BEENA JACOB Attending Clinician Unavailable MICHAEL CATES Attending Clinician Unavailable Michael Sewell Attending Clinician Mango Delgadillo RN Attending Clinician Unavailable YFN ZHONG Attending Clinician Unavailable Yfn Zhong NP Attending Clinician ABIMAEL DUBOSE Attending Clinician Unavailable Pamela Candelario RN Attending Clinician Unavailable KRANTHI CARRILLO Attending Clinician Unavailable DMITRI HATHAWAY Attending Clinician Unavailable DMITRI HATHAWAY Attending Clinician Unavailable ADELE MANN Attending Clinician Unavailable KATELIN ALEGRE Attending Clinician Unavailable DELFINA ELLIS Attending Clinician Unavailable ABDIRASHID TERRY Attending Clinician Unavailable RACIEL SIMS Attending Clinician Unavailable Osmel BROWN Admitting Clinician Unavailable MICHAEL CATES Admitting Clinician Unavailable DELFINA ELLIS Admitting Clinician Unavailable Payers Payer Name Policy Type Policy Number Effective Date Expiration Date S amina [employer] [id number] 2019 00:00:00 Problems Condition Condition Condition Status [...] Formattin ity of 00:00: g of this [place] note Medical might be Branch different from the original. Added automatic ally from request for surgery [id number] Hydrops of Hydrops of Disease Active 2017-05 Overview : Univers gallbladde gallbladde 0-19 Formattin ity of r r 00:00: g of this [place] note Medical might be Branch different from the original. 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 Migraines Migraines Disease Active Uni vers [facility] Allergies, Adverse Reactions, Alerts Allergy Allergy Status Severity Reaction(s) Onset Inactive Treating Comm ents Source Name Type Date Date Clinician NO KNOWN Drug Active [facility] [place] [facility] Social History Social Habit Start Date Stop Date Quantity Comments Source History SDAR University o f Alcohol Frequency [place] [facility] History SDAR University o f Alcohol Std [place] [facility] Drinks [facility] History [facility] o f Alcohol Binge [place] [facility] History of Cigarette Smoker Universi ty of tobacco use [facility] Exposure to 2021-10-04 2021-10-14 Not sure [facility] SARS-CoV-2 00:00:00 15:15:00 [facility] (event) [place] Alcohol intake 2021-09-08 2021-09-08 0 /d University of 00:00:00 00:00:[address] [facility] Tobacco use and 2019-09-27 2019-09-27 Smokeless tobacco Un iversity of exposure 00:00:00 00:00:00 non-user [facility] Tobacco Comment 2019-09-27 2019-09-27 second hand smoke Un iversity of 00:00:00 00:00:[address] [facility] Alcohol Comment 2015-10-13 2015-10-13 social drinks Univer sity of 00:00:00 00:00:00 occasionally [facility] l [place] Sex Ass[birth year] Universit y of 00:00:00 00:00:[address] [facility] Smoking Status Start Date Stop Date Source Never smoked tobacco [facility] Medications Ordered Filled Start Stop Current Ordering Indication Dosage Frequency Signature Comments Components Source Medication Medication Date Date Medication? Clinician (SIG) Name Name TAKE 1 2021-05 No TABLET BY 1-14 MOUTH THREE 00:00: TIMES DAILY 00 WITH FOOD NEEDED INHALE 2 No PUFFS BY 8-22 MOUTH EVERY 00:00: 4 HOURS 00 NEEDED FOR WHEEZING FOR SHORTNESS OF BREATH INHALE 2 No PUFFS BY 8-22 MOUTH EVERY 00:00: 4 HOURS 00 NEEDED FOR WHEEZING FOR SHORTNESS OF BREATH benzonatate 200mg 200 mg, U nivers (TESSALON 5-20 05-20 Oral, ity of TONY) 23:00: 22:09 ONCE, 1 [place] capsule 200 00 :00 dose, On Medi jake mg Fri Branch 10/14/21 at 1800, ARIANNA azithromyci 2021- No 500mg 500 mg, U nivers n 5-20 05-20 Oral, ity of (ZITHROMAX) 23:00: 22:09 ONCE[place] 1 [place] tablet 500 00 :00 dose, On Medic al mg Sun Branch 10/14/21 at 1800, ARIANNA
Re ason for Anti-Infec tive: Empiric Therapy for Suspected Infection< br>Empiric Therapy Site: Respirator y
Durat ion of therapy: 7 days ipratropium 2021- No 3mL 3 mL, Univ ers -albuteroL 10-14 05-20 Inhalation it y of (DUONEB) 21:00: 20:14 , ONCE, 1 [place] as 0.5 mg-3 00 :00 dose, On Medical mg(2.5 mg Sun Branch base)/3 mL 10/14/21 at nebulizer 1600, solution 3 Routine mL albuterol Yes [id number] 2.5mg Inhale 3 Univers 2.5 mg /3 5-20 mL every 4 ity of mL (0.083 00:00: (four) [place] %) 00 hours as Medical nebulizer needed for Bran ch solution Wheezing or Shortness of Breath. albuterol Yes [id number] 2{puff} Inhale 2 Univers 90 5-20 Puffs ity of mcg/actuati 00:00: every 4 [place] as on inhaler 00 (four) Medical hours as Branch needed for Wheezing or Shortness of Breath. azithromyci Yes [id number] 250mg Take 1 Univers n 5-20 tablet by ity of (ZITHROMAX 00:00: mouth [place] Z-NANI) 250 00 SEE-INSTRU Med ical mg tablet CTIONS. Branch Take 500 mg day 1, then 250 mg days 2 to 5. albuterol Yes [id number] 2.5mg Inhale 3 Univers 2.5 mg /3 5-20 mL every 4 ity of mL (0.083 00:00: (four) [place] %) 00 hours as Medical nebulizer needed for Bran ch solution Wheezing or Shortness of Breath. albuterol Yes [id number] 2{puff} Inhale 2 Univers 90 5-20 Puffs ity of mcg/actuati 00:00: every 4 [place] on inhaler 00 (four) Medical hours as Branch needed for Wheezing or Shortness of Breath. azithromyci Yes [id number] 250mg Take 1 Univers n 5-20 tablet by ity of (ZITHROMAX 00:00: mouth [place] Z-NANI) 250 00 SEE-INSTRU Med ical mg tablet CTIONS. Branch Take 500 mg day 1, then 250 mg days 2 to 5. albuterol Yes [id number] 2.5mg Inhale 3 Univers 2.5 mg /3 5-20 mL every 4 ity of mL (0.083 00:00: (four) [place] %) 00 hours as Medical nebulizer needed for Bran ch solution Wheezing or Shortness of Breath. albuterol Yes [id number] 2{puff} Inhale 2 Univers 90 5-20 Puffs ity of mcg/actuati 00:00: every 4 [place] on inhaler 00 (four) Medical hours as Branch needed for Wheezing or Shortness of Breath. azithromyci Yes [id number] 250mg Take 1 Univers n 5-20 tablet by ity of (ZITHROMAX 00:00: mouth [place] Z-NANI) 250 00 SEE-INSTRU Med ical mg tablet CTIONS. Branch Take 500 mg day 1, then 250 mg days 2 to 5. prednisone 0 No 1mg 20 mg 5-18 tablet 00:00: 00 amoxicillin 2021-0 No 1mg 875 5-18 mg-potassiu 00:00: m 00 clavulanate 125 mg tablet Bromfed DM 0 No 10mg/5 2 mg-30 5-18 mL mg-10 mg/5 00:00: mL oral 00 syrup Dose 2021-0 No Unknown 5-18 00:00: 00 Dose 2021-0 No Unknown 5-18 00:00: 00 Dose 2021-0 No Unknown 5-18 00:00: 00 Dose 2021-0 No Unknown 5-18 00:00: 00 Dose 2021-0 No Unknown 5-18 00:00: 00 prednisone 2022-0 No 1mg 20 mg 5-18 tablet 00:00: 00 amoxicillin 2022-0 No 1mg 875 5-18 mg-potassiu 00:00: m 00 clavulanate 125 mg tablet Bromfed DM 2-0 No 10mg/5 2 mg-30 5-18 mL mg-10 mg/5 00:00: mL oral 00 syrup Dose 2-0 No Unknown 5-18 00:00: 00 Dose 2022-0 No Unknown 5-18 00:00: 00 Dose 2022-0 No Unknown 5-18 00:00: 00 Dose 2022-0 No Unknown 5-18 00:00: 00 Dose 2022-0 No Unknown 5-18 00:00: 00 Dose 2-0 No Unknown 5-06 00:00: 00 Dose 2-0 No Unknown 5-06 00:00: 00 Dose 2-0 No Unknown 5-06 00:00: 00 Dose 2022-0 No Unknown 5-06 00:00: 00 Dose 2-0 No Unknown 5-06 00:00: 00 Dose 2022-0 No Unknown 5-06 00:00: 00 diclofenac 2-0 No 1% 3 % topical 5-04 gel 00:00: 00 cyclobenzap 2022-0 No 1mg rine 5 mg 5-04 tablet 00:00: 00 ibuprofen 2-0 No 1mg 800 mg 5-04 tablet 00:00: 00 Dose 2022-0 No Unknown 5-04 00:00: 00 Dose 2022-0 No Unknown 5-04 00:00: 00 Dose 2022-0 No Unknown 5-04 00:00: 00 Dose 2022-0 No Unknown 5-04 00:00: 00 cyclobenzap 2022-0 No 1mg rine 5 mg 5-04 tablet 00:00: 00 ibuprofen 2022-0 No 1mg 800 mg 5-04 tablet 00:00: 00 Dose 2022-0 No Unknown 5-04 00:00: 00 Dose 2022-0 No Unknown 5-04 00:00: 00 Dose 2022-0 No Unknown 5-04 00:00: 00 ibuprofen 2022-0 2022- No [id number] 400mg U nivers (IBU) 4-14 04-15 ity of tablet 400 17:00: 04:59 [place] mg 00 :00 Medical Branch ibuprofen 2021- No [id number] 400mg U nivers (IBU) 09-08 ity of tablet 400 17:00: 15:57 [place] mg 00 :00 Medical Branch ibuprofen 2021- No [id number] 400mg 400 mg, Univers (IBU) 09-08 Oral, ity of tablet 400 17:00: 15:57 ONCE, 1 [place] as mg 00 :00 dose, On Medical Su Branch 09/08/21 at 1200, Routine ibuprofen 2021- No [id number] 600mg U nivers (IBU) 09-08 ity of tablet 600 16:45: 15:48 [place] mg 00 :11 Medical Branch ondansetron 2021- No [id number] 8mg U nivers (ZOFRAN-ODT 09-08 ity of ) 16:30: 15:34 [place] disintegrat 00 :00 Medical ing tablet Branch 8 mg ibuprofen 2021- No [id number] 600mg U nivers (IBU) 09-08 ity of tablet 600 16:30: 15:30 [place] mg 00 :59 Medical Branch ondansetron 2021- No [id number] 8mg 8 mg, Univers (ZOFRAN-ODT 09-08 Oral, ity of ) 16:30: 15:34 ONCE, 1 [place] disintegrat 00 :00 dose, On Medi jake ing tablet [facility] 8 mg 09/08/21 at 1130, Routine ondansetron Yes [id number] 4mg Take 1 Univers 4 mg 4-14 tablet by ity of disintegrat 00:00: mouth [place] ing tablet 00 every 8 Medica l (eight) Branch hours as needed for Nausea and Vomiting (N/V). bromphenira Yes [id number] 5mL Take 5 mL Univers mine-pseudo 4-14 by mouth 4 it y of ephedrine-D 00:00: (four[place] (BROMFED 00 times Medical DM) 2-30-10 daily as Bran ch mg/5 mL needed for syrup Congestion /Allergies or Cold symptoms. ondansetron Yes [id number] 4mg Take 1 Univers 4 mg 4-14 tablet by ity of disintegrat 00:00: mouth [place] ing tablet 00 every 8 Medica l (eight) Branch hours as needed for Nausea and Vomiting (N/V). bromphenira 2021-0 Yes [id number] 5mL Take 5 mL Univers mine-pseudo 4-14 by mouth 4 it y of ephedrine-D 00:00: (four[place] (BROMFED 00 times Medical DM) 2-30-10 daily as Bran ch mg/5 mL needed for syrup Congestion /Allergies or Cold symptoms. ondansetron 2021-0 Yes [id number] 4mg Take 1 Univers 4 mg 4-14 tablet by ity of disintegrat 00:00: mouth [place] ing tablet 00 every 8 Medica l (eight) Branch hours as needed for Nausea and Vomiting (N/V). bromphenira 2021-0 Yes [id number] 5mL Take 5 mL Univers mine-pseudo 4-14 by mouth 4 it y of ephedrine-D 00:00: (four[place] (BROMFED 00 times Medical DM) 2-30-10 daily as Bran ch mg/5 mL needed for syrup Congestion /Allergies or Cold symptoms. ondansetron 0 Yes [id number] 4mg Take 1 Univers 4 mg 4-14 tablet by ity of disintegrat 00:00: mouth [place] ing tablet 00 every 8 Medica l (eight) Branch hours as needed for Nausea and Vomiting (N/V). bromphenira 2021-0 Yes [id number] 5mL Take 5 mL Univers mine-pseudo 4-14 by mouth 4 it y of ephedrine-D 00:00: (four[place] (BROMFED 00 times Medical DM) 2-30-10 daily as Bran ch mg/5 mL needed for syrup Congestion /Allergies or Cold symptoms. ondansetron 2021-0 2021- No 4mg 4 mg, Univ ers (ZOFRAN-ODT 1-03 01-03 Oral, ity of ) 19:15: 19:15 ONCE, 1 [place] disintegrat 00 :00 dose, On Medi jake ing tablet 05/30/21 Bra nch 4 mg at 1315, Routine albuterol 2021-0 Yes [id number] 2{puff} Inhale 2 Univers 90 1-03 Puffs ity of mcg/actuati 00:00: every 4 [place] on inhaler 00 (four) Medical hours as Branch needed for Wheezing or Shortness of Breath. benzonatate 2-0 Yes [id number] 100mg Take 1 Univers 100 mg 1-03 capsule by ity of capsule 00:00: mouth 3 (three) Medical times Branch daily as needed for Cough. albuterol 2021-0 Yes [id number] 2{puff} Inhale 2 Univers 90 1-03 Puffs ity of mcg/actuati 00:00: every 4 [place] on inhaler 00 (four) Medical hours as Branch needed for Wheezing or Shortness of Breath. benzonatate 2021-0 Yes [id number] 100mg Take 1 Univers 100 mg 1-03 capsule by ity of capsule 00:00: mouth (three) Medical times Branch daily as needed for Cough. albuterol 2021-0 Yes [id number] 2{puff} Inhale 2 Univers 90 1-03 Puffs ity of mcg/actuati 00:00: every 4 [place] on inhaler 00 (four) Medical hours as Branch needed for Wheezing or Shortness of Breath. benzonatate 2021-0 Yes [id number] 100mg Take 1 Univers 100 mg 1-03 capsule by ity of capsule 00:00: mouth (three) Medical times Branch daily as needed for Cough. albuterol 2-0 Yes [id number] 2{puff} Inhale 2 Univers 90 1-03 Puffs ity of mcg/actuati 00:00: every 4 [place] on inhaler 00 (four) Medical hours as Branch needed for Wheezing or Shortness of Breath. benzonatate 2-0 Yes [id number] 100mg Take 1 Univers 100 mg 1-03 capsule by ity of capsule 00:00: mouth 3 (three) Medical times Branch daily as needed for Cough. albuterol 2022-0 Yes [id number] 2{puff} Inhale 2 Univers 90 1-03 Puffs ity of mcg/actuati 00:00: every 4 [place] on inhaler 00 (four) Medical hours as Branch needed for Wheezing or Shortness of Breath. benzonatate 2022-0 Yes [id number] 100mg Take 1 Univers 100 mg 1-03 capsule by ity of capsule 00:00: mouth 3 (three) Medical times Branch daily as needed for Cough. albuterol Yes [id number] 2{puff} Inhale 2 Univers 90 1-03 Puffs ity of mcg/actuati 00:00: every 4 [place] on inhaler 00 (four) Medical hours as Branch needed for Wheezing or Shortness of Breath. benzonatate Yes [id number] 100mg Take 1 Univers 100 mg 1-03 capsule by ity of capsule 00:00: mouth 3 [place] (three) Medical times Branch daily as needed for Cough. albuterol Yes [id number] 2{puff} Inhale 2 Univers 90 1-03 Puffs ity of mcg/actuati 00:00: every 4 [place] on inhaler 00 (four) Medical hours as Branch needed for Wheezing or Shortness of Breath. benzonatate Yes [id number] 100mg Take 1 Univers 100 mg 1-03 capsule by ity of capsule 00:00: mouth 3 [place] (three) Medical times Branch daily as needed for Cough. acetaminoph 2020-05 No 650mg 650 mg, U nivers en 05-25 Oral, ity of (TYLENOL) 18:45: 17:46 ONCE, 1 [place] tablet 650 00 :00 dose, On Medic al mg Wed Branch 05/25/21 at 1245, ARIANNA sulfamethox Yes 1{tbl} Take 1 Un loren azole-trime 6-16 tablet by ity of thoprim 16:17: mouth 2 [place] (BACTRIM 06 (two) Medical DS) 800-160 times Branch mg per daily. tablet sulfamethox 0 Yes 1{tbl} Take 1 Un loren azole-trime 6-16 tablet by ity of thoprim 16:17: mouth 2 [place] (BACTRIM 06 (two) Medical DS) 800-160 times Branch mg per daily. tablet sulfamethox 0 Yes 1{tbl} Take 1 Un loren azole-trime 6-16 tablet by ity of thoprim 16:17: mouth 2 [place] (BACTRIM 06 (two) Medical DS) 800-160 times [...] mg per daily. tablet ondansetron 2020-0 Yes [id number] 4mg Take 1 Univers (ZOFRAN) 4 6-16 tablet by ity of mg tablet 00:00: mouth [place] 00 every 8 Medical (eight) Branch hours as needed for Nausea and Vomiting (N/V). ondansetron 2020-0 Yes [id number] 4mg Take 1 Univers (ZOFRAN) 4 6-16 tablet by ity of mg tablet 00:00: mouth [place] 00 every 8 Medical (eight) Branch hours as needed for Nausea and Vomiting (N/V). ondansetron 2020-0 Yes [id number] 4mg Take 1 Univers (ZOFRAN) 4 6-16 tablet by ity of mg tablet 00:00: mouth [place] 00 every 8 Medical (eight) Branch hours as needed for Nausea and Vomiting (N/V). ondansetron Yes [id number] 4mg Take 1 Univers (ZOFRAN) 4 6-16 tablet by ity of mg tablet 00:00: mouth [place] 00 every 8 Medical (eight) Branch hours as needed for Nausea and Vomiting (N/V). ondansetron Yes [id number] 4mg Take 1 Univers (ZOFRAN) 4 6-16 tablet by ity of mg tablet 00:00: mouth [place] 00 every 8 Medical (eight) Branch hours as needed for Nausea and Vomiting (N/V). ondansetron Yes [id number] 4mg Take 1 Univers (ZOFRAN) 4 6-16 tablet by ity of mg tablet 00:00: mouth [place] 00 every 8 Medical (eight) Branch hours as needed for Nausea and Vomiting (N/V). ondansetron Yes [id number] 4mg Take 1 Univers (ZOFRAN) 4 6-16 tablet by ity of mg tablet 00:00: mouth [place] 00 every 8 Medical (eight) Branch hours as needed for Nausea and Vomiting (N/V). ondansetron Yes [id number] 4mg Take 1 Univers (ZOFRAN) 4 6-16 tablet by ity of mg tablet 00:00: mouth [place] 00 every 8 Medical (eight) Branch hours as needed for Nausea and Vomiting (N/V). ondansetron Yes [id number] 4mg Take 1 Univers (ZOFRAN) 4 6-16 tablet by ity of mg tablet 00:00: mouth [place] 00 every 8 Medical (eight) Branch hours as needed for Nausea and Vomiting (N/V). Immunizations Ordered Filled Immunization Date Status Comments [facility] e Immunization Name Name SARS-COV-2 COVID-19 2020-11-04 Completed Unive rsity of PFIZER VACCINE 00:00:00 [facility] SARS-COV-2 COVID-19 2020-11-04 Completed Unive rsity of PFIZER VACCINE 00:00:00 [facility] SARS-COV-2 COVID-19 2020-11-04 Completed Unive rsity of PFIZER VACCINE 00:00:00 [facility] SARS-COV-2 COVID-19 2020-11-04 Completed Unive rsity of PFIZER VACCINE 00:00:00 [facility] SARS-COV-2 COVID-19 2020-11-04 Completed Unive rsity of PFIZER VACCINE 00:00:00 [facility] SARS-COV-2 COVID-19 2020-11-04 Completed Unive rsity of PFIZER VACCINE 00:00:00 [facility] SARS-COV-2 COVID-19 2020-11-04 Completed Unive rsity of PFIZER VACCINE 00:00:00 [facility] SARS-COV-2 COVID-19 2020-11-04 Completed Unive rsity of PFIZER VACCINE 00:00:00 [facility] SARS-COV-2 COVID-19 2020-11-04 Completed Unive rsity of PFIZER VACCINE 00:00:00 [facility] SARS-COV-2 COVID-19 2020-10-14 Completed Unive rsity of PFIZER VACCINE 00:00:00 [facility] SARS-COV-2 COVID-19 2020-10-14 Completed Unive rsity of PFIZER VACCINE 00:00:00 [facility] SARS-COV-2 COVID-19 2020-10-14 Completed Unive rsity of PFIZER VACCINE 00:00:00 [facility] SARS-COV-2 COVID-19 2020-10-14 Completed Unive rsity of PFIZER VACCINE 00:00:00 [facility] SARS-COV-2 COVID-19 2020-10-14 Completed Unive rsity of PFIZER VACCINE 00:00:00 [facility] SARS-COV-2 COVID-19 2020-10-14 Completed Unive rsity of PFIZER VACCINE 00:00:00 [facility] SARS-COV-2 COVID-19 2020-10-14 Completed Unive rsity of PFIZER VACCINE 00:00:00 [facility] SARS-COV-2 COVID-19 2020-10-14 Completed Unive rsity of PFIZER VACCINE 00:00:00 [facility] SARS-COV-2 COVID-19 2020-10-14 Completed Unive rsity of PFIZER VACCINE 00:00:00 [facility] Td 2020-08-07 Completed University of 00:00:[address] [facility] Td 2020-08-07 Completed University of 00:00:00 [place] [facility] Td 2020-08-07 Completed University of 00:00:00 [place] [facility] Td 2020-08-07 Completed University of 00:00:00 [place] [facility] Td 2020-08-07 Completed University of 00:00:00 [place] [facility] Td 2020-08-07 Completed University of 00:00:00 [place] [facility] Td 2020-08-07 Completed University of 00:00:00 [place] [facility] Td 2020-08-07 Completed University of 00:00:00 [place] [facility] Td 2020-08-07 Completed University of 00:00:[address] [facility] Vital Signs Vital Name Observation Time Observation Value Comments Source Systolic blood 2021-10-14 22:00:00 145 mm[Hg] Univer sity of pressure [facility] Diastolic blood 2021-10-14 22:00:00 99 mm[Hg] Unive rsity of pressure [facility] Heart rate 2021-10-14 22:00:00 79 /min [facility] Respiratory rate 2021-10-14 22:00:00 22 /min [facility] Oxygen saturation in 2021-10-14 22:00:00 97 /min [facility] Arterial blood by [facility] Pulse oximetry [place] Body temperature 2021-10-14 19:21:00 37.61 Elle [facility] Body weight 2021-10-14 19:21:00 85.73 kg [facility] BMI 2021-10-14 19:21:00 36.91 kg/m2 [facility] Systolic blood 2021-09-08 15:09:00 145 mm[Hg] Univer sity of pressure [facility] Diastolic blood 2021-09-08 15:09:00 92 mm[Hg] Unive rsity of pressure [facility] Heart rate 2021-09-08 15:09:00 94 /min [facility] Body temperature 2021-09-08 15:09:[address] [facility] rate 2021-09-08 15:09:00 22 /min [facility] Body height 2021-09-08 15:09:00 152.4 cm [facility] Body weight 2021-09-08 15:09:00 85.957 kg Universi ty [facility] [place] [facility] BMI 2021-09-08 15:09:00 37.01 kg/m2 [facility]i ty [facility] [place] [facility] Oxygen saturation in 2021-09-08 15:09:00 99 /min University of Arterial blood by [facility] jake Pulse oximetry Branch Systolic blood 2021-05-30 17:55:00 105 mm[Hg] Univer sity of pressure [place] [facility] Diastolic blood 2021-05-30 17:55:00 87 mm[Hg] Unive rsity of pressure [place] [facility] Heart rate 2021-05-30 17:55:00 73 /min Universi ty of [place] [facility] Body temperature 2021-05-30 17:55:00 36.67 Elle Univ ersity of [place] [facility] Respiratory rate 2021-05-30 17:55:00 18 /min Univ ersity of [place] [facility] Body weight 2021-05-30 17:55:00 72.576 kg [facility] [place] [facility] BMI 2021-05-30 17:55:00 31.25 kg/m2 [facility] [place] [facility] Oxygen saturation in 2021-05-30 17:55:00 99 /min University of Arterial blood by [facility] Pulse oximetry Branch Systolic blood 2021-05-25 16:22:00 150 mm[Hg] Univer sity of pressure [place] [facility] Diastolic blood 2021-05-25 16:22:00 105 mm[Hg] Unive rsity of pressure [place] [facility] Heart rate 2021-05-25 16:22:00 98 /min Universi ty of [place] [facility] Body temperature 2021-05-25 16:22:00 37.89 Elle Univ ersity of [place] [facility] Respiratory rate 2021-05-25 16:22:00 18 /min Univ ersity of [place] [facility] Body weight 2021-05-25 16:22:00 72.576 kg Universi ty [facility] [place] [facility] BMI 2021-05-25 16:22:00 31.25 kg/m2 [facility]i ty [facility] [place] [facility] Oxygen saturation in 2021-05-25 16:22:00 99 /min University of Arterial blood by [facility] Pulse oximetry Branch BP Systolic 2022-04-10 09:23:00 BP Diastolic 2022-04-10 09:23:00 Weight Measured 2022-04-10 09:23:00 185.00 pounds Height Measured 2022-04-10 09:23:00 53.00 inches Body Temperature 2022-04-10 09:23:00 Heart Rate 2022-04-10 09:23:00 Respiratory Rate 2022-04-10 09:23:00 BP Systolic 2022-01-30 08:17:00 108 mm[Hg] BP Diastolic 2022-01-30 08:17:00 67 mm[Hg] Weight Measured 2022-01-30 08:17:00 185.40 pounds Height Measured 2022-01-30 08:17:00 53.00 inches Body Temperature 2022-01-30 08:17:00 98.00 degrees Heart Rate 2022-01-30 08:17:00 61.00 /min Respiratory Rate 2022-01-30 08:17:00 20.00 /min BP Systolic 2021-10-12 11:15:00 143 mm[Hg] BP Diastolic 2021-10-12 11:15:00 87 mm[Hg] Weight Measured 2021-10-12 11:15:00 188.40 pounds Height Measured 2021-10-12 11:15:00 53.00 inches Body Temperature 2021-10-12 11:15:00 101.50 degrees Heart Rate 2021-10-12 11:15:00 89.00 /min Respiratory Rate 2021-10-12 11:15:00 BP Systolic 2021-09-28 11:01:00 123 mm[Hg] BP Diastolic 2021-09-28 11:01:00 72 mm[Hg] Weight Measured 2021-09-28 11:01:00 192.20 pounds Height Measured 2021-09-28 11:01:00 53.00 inches Body Temperature 2021-09-28 11:01:00 98.40 degrees Heart Rate 2021-09-28 11:01:00 76.00 /min Respiratory Rate 2021-09-28 11:01:00 BP Systolic 2021-09-06 15:55:00 126 mm[Hg] BP Diastolic 2021-09-06 15:55:00 74 mm[Hg] Weight Measured 2021-09-06 15:55:00 190.80 pounds Height Measured 2021-09-06 15:55:00 53.00 inches Body Temperature 2021-09-06 15:55:00 97.60 degrees Heart Rate 2021-09-06 15:55:00 70.00 /min Respiratory Rate 2021-09-06 15:55:00 BP Systolic 2021-09-06 15:09:00 126 mm[Hg] BP Diastolic 2021-09-06 15:09:00 74 mm[Hg] Weight Measured 2021-09-06 15:09:00 190.80 pounds Height Measured 2021-09-06 15:09:00 60.00 inches Body Temperature 2021-09-06 15:09:00 97.60 degrees Heart Rate 2021-09-06 15:09:00 70.00 /min Respiratory Rate 2021-09-06 15:09:00 Procedures Procedure Date / Time Performed Performing Clinician Sourc e EXTERNAL PROVIDER 2022-03-30 05:01:00 Doctor Unassigned, No [facility] [place] RECORDS Name Medical Branch XR CHEST 2 VW 2021-10-14 20:12:23 Osmel Brown [place] o [facility] RAPID INFLUENZA A/B 2021-10-14 19:25:00 Osmel Brown [facility] Medical Branch COVID-19 (ID NOW 2021-10-14 19:25:00 Osmel Brown Marii [facility] RAPID TESTING) Medical Branch NOTICE OF PRIVACY 2021-10-14 19:16:11 Doctor Unassigned, No [facility] [place] PRACTICES Name Medical Branch CONSENT/REFUSAL FOR 2021-10-14 19:15:51 Doctor Unassigned, No [facility] [place] DIAGNOSIS AND Name Medical Branch TREATMENT CONSENT/REFUSAL FOR 2021-09-08 15:00:43 Doctor Unassigned, No [facility] [place] DIAGNOSIS AND Name Medical Branch TREATMENT XR CHEST 2 VW 2021-05-30 18:20:11 Michael Cates [place] [facility] [place] [facility] CONSENT/REFUSAL FOR 2021-05-30 17:42:16 Doctor Unassigned, No [facility] [place] DIAGNOSIS AND Name Medical Branch TREATMENT CONSENT/REFUSAL FOR 2021-05-25 16:17:07 Doctor Unassigned, No [facility] [place] DIAGNOSIS AND Name Medical Branch TREATMENT Plan of Care Planned Activity Planned Date Details Comments Source Goal Plan of Care Note [code = 25475-0] Goal Plan of Care Note [code = 40341-6] Goal Plan of Care Note [code = 99359-3] Goal Plan of Care Note [code = 69819-9] Goal Plan of Care Note [code = 32066-7] Goal Plan of Care Note [code = 98951-6] Goal Plan of Care Note [code = 43124-9] Goal Plan of Care Note [code = 99177-9] Goal Plan of Care Note [code = 83593-3] Goal Plan of Care Note [code = 39129-1] Goal Plan of Care Note [code = 87726-9] Goal Plan of Care Note [code = 34315-8] Goal Plan of Care Note [code = 37074-6] Goal Plan of Care Note [code = 99155-0] Goal Plan of Care Note [code = 51337-4] Goal Plan of Care Note [code = 17381-6] Goal Plan of Care Note [code = 77770-8] Goal Plan of Care Note [code = 35193-8] Goal Plan of Care Note [code = 44468-8] Encounters Start End Encounter Admission Attending Care Care Encounter Source Date/Time Date/Time Type Type Clinicians Facility Department ID 2021-03-27 Emergency [facility] [id number] Univers 05:46:40 ity [facility] 2021-03-26 Emergency [facility] [id number] Univers 09:38:46 ity [facility] 2021-03-25 Emergency [facility] [id number] Univers 13:06:43 ity [facility] 2021-03-25 Emergency [facility] [id number] Univers 04:44:08 ity [facility] 2021-03-25 Emergency [facility] [id number] Univers 03:20:04 ity [facility] 2021-03-24 Emergency [facility] [id number] Univers 23:32:49 ity [facility] 2022-10-05 2022-10-05 Outpatient [facility] [id number] Adarsh 09:48:46 09:48:46 [id number] F Adam 2022-09-05 2022-09-05 Outpatient R KLEY, JOAO [facility] [id number] Univers 14:00:00 14:00:00 JOAO WETZEL azam [facility] 2022-07-12 2022-07-12 Outpatient [facility] [id number] Adarsh 14:04:27 14:04:27 [id number] F Adam 2022-05-11 2022-05-11 Outpatient [facility] [id number] Adarsh 13:41:04 13:41:04 [id number] F Adam 2022-04-10 2022-04-10 Outpatient [id number] ab [id number] 00:00:00 00:00:00 Visit [id number] 2022-03-30 2022-03-30 Orders Doctor KATELIN [id number] Univers 00:00:00 00:00:00 Only Unassigned, VERÓNICA [id number] ity of [place] [facility] 4.2.7.2.686 [place] as [phone] [address] 2022-01-31 2022-01-31 [facility] [id number] Univers 00:00:00 00:00:00 Sarika Annalise [facility] [id number] i ty of [place] [id number] [place] ANNABELLA?BLEA [id number] Fl ruben [address] MEDICAL OFFICE BUILDING 2022-01-30 2022-01-30 Outpatient [id number] 00:00:00 00:00:00 Visit [id number] -[id number] [id number] 2022-01-12 2022-01-12 Outpatient Lashanda WOOD [facility] [id number] Univers 13:00:00 13:00:00 SARIKA richter [facility] 2021-10-14 2021-10-14 Emergency X Osmel BROWN [facility] ERT [id number] Univers 14:26:00 17:13:[address] [facility] 2021-10-14 2021-10-14 Emergency Osmel Brown [facility] 1.2.840.114 [id number] Univers 14:26:00 17:13:00 Marii CARMONA 350.1.13.10 i ty of [place] 4.2.7.2.[place] [id number] [facility] 084 Branch 2021-09-08 2021-09-08 Urgent Karly Mendez [facility] [id number] Univers 14:00:00 14:00:00 Care AnuragFormerly [facility] [id number] ity of [place] 4.2.7.2.686 [place] ANNABELLA?BLEA [phone] [address] MEDICAL OFFICE BUILDING 2021-09-08 2021-09-08 Outpatient R ANURAG [facility] [id number] Univers 14:00:00 10:40:07 BEENA ity [facility] 2021-09-08 2021-09-08 Orders Doctor THOMASON 1.2.840.114 [id number] Univers 00:00:00 00:00:00 Only Unassigned, VERÓNICA [id number] ity of [place] [facility] 4.2.7.2.686 [place] [phone] [facility] 00[address] [place] 2021-05-30 2021-05-30 Outpatient R [facility] [id number] Univers 14:45:00 14:45:[address] [facility] 2021-05-30 2021-05-30 Emergency X [facility] ERT [id number] Univers 11:57:00 13:19:00 MICHAEL ity of [facility] 2021-05-30 2021-05-30 Emergency [facility] [id number] Univers 11:57:00 13:19:00 Michael CARMONA 350.1.13.10 i ty of [place].2.[place] [id number] [facility] 084 Branch 2021-05-30 2021-05-30 KATELIN Herrera 1.2.840.114 [id number] Univers 00:00:00 00:00:00 (Out) Mango DOOLEYY 350.1.13.[address] [facility] 4.2.7.2.686 [place] [phone] [facility] 019 [place] 2021-05-25 2021-05-25 Emergency X [facility] ERT [id number] Univers 10:23:00 12:28:00 YFN langfordy [facility] 2021-05-25 2021-05-[address] [facility] [id number] Univers 10:23:00 12:28:00 Yfn CARMONA 350.1.13.10 ity [facility] [id number] [place] [facility] [id number] [place] 535724 [place] 2021-05-04 2021-05-04 Telephone [facility] [id number] Univers 00:00:00 00:00:00 Sarika A HEALTH 350.1.13.10 i ty of [place] 4.2.7.2.686 [place] ANNABELLA?BLEA [id number] Fl [address] MEDICAL OFFICE BUILDING 2021-03-29 2021-03-29 Outpatient R SEDRICK [facility] [id number] Univers 15:30:00 15:30:00 ABIMAEL richter [facility] 2021-01-07 2021-01-07 [facility] [id number] Univers 11:30:00 11:30:00 SARIKA richter [facility] 2021-01-05 2021-01-05 [facility] [id number] Univers 08:30:00 08:30:00 SARIKA richter [facility] 2021-01-03 2021-01-03 Telephone [facility] [id number] 00:00:00 00:00:00 Sarika [facility] [id number] [place] 4.2.7.2.686 Professio [phone] nal [facility] 2020-11-30 2020-11-30 Telephone Andree Sahujulio 1.2.840.114 [id number] 00:00:00 00:00:00 , Pamela Judd 350.1.13.10 [place] 4.2.7.2.686 [id number] [id number] 2020-11-22 2020-11-22 Orders Doctor KATELIN 1.2.840.114 [id number] 00:00:00 00:00:00 Only Unassigned, VERÓNICA 350.1.13.10 [place] [facility] 4.2.7.2.686 [id number] 009 2020-11-16 2020-11-16 Outpatient R GERARDO [facility] [id number] Univers 11:00:00 11:00:00 KRANTHI [facility] 2020-11-10 2020-11-10 [facility] [id number] Univers 16:00:00 16:00:00 [facility] 2020-11-10 2020-11-10 Telephone [facility] [id number] 00:00:00 00:00:00 Sarika A [facility] [id number] [place] 4.2.7.2.686 [place] [phone] nal [address] 2020-09-30 2020-09-30 Outpatient [facility] [id number] Univers 16:00:00 16:00:00 [facility] 2020-09-16 2020-09-16 Outpatient R [facility] [id number] Univers 16:40:00 16:40:00 [facility] 2020-09-08 2020-09-08 Outpatient [facility] [id number] Univers 13:00:00 13:00:00 [facility] 2020-08-20 2020-08-20 Outpatient [facility] [id number] Univers 15:00[facility]00 [facility]00[facility] 2020-[facility]-05 2020-03-05 [facility] [id number] Univers 08:00:00 08:00:00 SARIKA richter [facility] 2020-03-04 2020-03-04 Outpatient R SEDRICK [facility] [id number] Univers 11:30:00 11:30:00 ABIMAEL richter [facility] 2020-03-01 2020-03-01 Outpatient R SEDRICK [facility] [id number] Univers 16:15:00 16:15:00 ABIMAEL richter [facility] 2020-02-13 2020-02-13 Outpatient R DMITRI HATHAWAY [facility] [id number] Univers 13:40:00 13:40:00 DMITRI HATHAWAY azam [facility] 2020-01-15 2020-01-15 Outpatient R JOHNATHAN, [facility] [id number] Univers 17:00:00 17:00:00 ADELE ity [facility] 2020-01-09 2020-01-09 [facility] [id number] Univers 09:30:00 09:30:00 KATELIN richter [facility] 2020-01-07 2020-01-07 Outpatient R [facility] [id number] Univers 09:40:00 09:40:00 rober [facility] 2020-01-07 2020-01-07 Outpatient R SEDRICK [facility] [id number] Univers 09:40:00 09:40:00 ABIMAEL richter [facility] 2019-12-18 2019-12-18 Outpatient R GERARDO [facility] [id number] Univers 08:30:00 08:30:00 KRANTHI rober [facility] 2019-12-14 2019-12-14 Outpatient R SEDRICK [facility] [id number] Univers 16:00:00 16:00:00 ABIMAEL richter [facility] 2019-12-05 2019-12-05 Outpatient R CODEY, [facility] [id number] Univers 09:45:00 09:45:00 KATELIN richter [facility] 2019-11-25 2019-11-25 Outpatient R [facility] [id number] Univers 16:20:00 16:20:00 ity [facility] 2019-11-25 2019-11-25 Outpatient R SEDRICK, [facility] [id number] Univers 09:40:00 09:40:00 ABIMAEL itazam [facility] 2019-11-14 2019-11-14 [facility] [id number] Univers 10:15:00 10:15:00 KATELIN itazam [facility] 2019-11-14 2019-11-14 [facility] [id number] Univers 09:45:00 09:45:00 KATELIN [facility] 2019-11-13 2019-11-13 Outpatient R [facility] [id number] Univers 08:40:00 08:40:00 ity [facility] 2019-11-06 2019-11-06 Out[facility] [id number] Univers 00:00:00 00:00:00 KATELIN [facility] 2019-10-31 2019-10-31 Outpatient [facility] [id number] Univers 11:15:00 11:15:00 KATELIN [facility] 2019-10-10 2019-10-10 [facility] [id number] Univers 13:15:00 13:15:00 KRANTHI [facility] 2019-09-27 2019-09-27 Outpatient X DELFINA ELLIS [facility] [id number] Univers 05:53:51 14:24:00 [facility] 2019-09-16 2019-09-16 Outpatient R [facility] [id number] Univers 16:40:00 16:40:00 ity [facility] 2019-09-16 2019-09-16 Outpatient R [facility] [id number] Univers 16:20:00 16:20:00 ity [facility] 2019-08-29 2019-08-29 Out[facility] [id number] Univers 09:30:00 09:30:00 WONDIFUL ity o f [facility] 2019-08-20 2019-08-20 Outpatient R [facility] [id number] Univers 12:20:00 12:20:00 ity [facility] 2019-08-06 2019-08-06 [facility] [id number] Univers 16:30:00 16:30:00 KRANTHI [facility] 2019-07-18 2019-07-18 Emergency X Osmel BROWN [facility] ERT [id number] Univers 13:49:36 15:20:00 [facility] 2019-03-06 2019-03-06 Outpatient R BETHANY, [facility] [id number] Univers 14:55:12 14:55:12 RACIEL [facility] Results Test Description Test Time Test Comments Results Result Comments Source TSH, THIRD GENERATION 2021-09-09 05:03:14 Test Item Value Reference Range Interpretation Comme nts TSH, THIRD GENERATION (test 1.690 UIU/ML 0.400-4.100 UNLESS OTHERWISE INDICATED, code = 2821) ALL TESTING PER FORMED ATCLINICAL PATH [facility] [place] [address] [id number] DIRECTOR OF MARKET ANALYSIS: Desirae AMOS [id number] [place] [id number] HEMOGLOBIN [id number] 04:21:58 Test Item Value Reference Range Interpretation Comments HEMOGLOBIN A1c (test code = 41833) 5.3 % 4.2-5.6 CBC W/AUTO DIFF WITH [id number] 03:33:21 Test Item Value Reference Range Interpretation [...] RBCS 0.00 K/UL 0.00-0.11 (test code = 14360) COMPREHENSIVE METABOLIC [id number] 03:25:43 Test Item Value Reference Range Interpretation Comments GLUCOSE (test code = 91 MG/DL 70-99 2216) BUN (test code = 8 MG/DL 6-20 2207) CREATININE (test 0.70 MG/DL 0.60-1.30 code = 2214) eGFR (2020 CKD-EPI) 108 >60 (test code = 43401) ML/MIN/1.73 CALC BUN/CREAT (test 11 RATIO 6-28 code = 223) SODIUM (test code = 139 MEQ/L 400-600 9933) POTASSIUM (test code 4.4 MEQ/L 3.5-5.4 = 2227) CHLORIDE (test code 100 MEQ/L 95-107 = 2214) CARBON DIOXIDE (test 23 MEQ/L 19-31 code = 220) CALCIUM (test code = 9.7 MG/DL 8.5-10.5 [...] 2203) AST (test code = 18 U/L 9-40 2217) ALT (test code = 19 U/L 5-40 2218) LIPID [id number] 03:25:43 Test Item Value Reference Range Interpretation [...] MOREINFORMATION , SEE CLIENT ANNOUNCE MENT AT [email or web address] RISK RATIO LDL/HDL 2.47 RATIO <3.22 (test code = 2238) CBC W/AUTO DIFF WITH PLATELETS [ADDED]2021-09-09 00:00:00 Test Item Value Reference Range Interpretation Comments WBC (test code = 1001) 5.5 K/UL RBC (test code = 1002) 5.22 M/UL HEMOGLOBIN (test code = 1003) 14.5 G/DL HEMATOCRIT (test code = 1004) 42.7 % MCV (test code = 1005) 81.8 fL MCH (test code = 1006) 27.8 PG MCHC (test code = 1007) 34.0 G/DL RDW (test code = 1038) 13.4 % NEUTROPHILS (test code = 1008) 79.5 % LYMPHOCYTES (test code = 1010) 10.2 % MONOCYTES (test code = 1011) 6.8 % EOSINOPHILS (test code = 1012) 2.4 % BASOPHILS (test code = 1013) 0.7 % IMMATURE GRANULOCYTES (test 0.4 % code = 1036) NUCLEATED RBCS (test code = 0.0 /100WBC'S 1065) PLATELET COUNT (test code = 183 K/UL 1015) ABSOLUTE NEUTROPHILS (test code 4.35 K/UL = 1066) ABSOLUTE LYMPHOCYTES (test code 0.56 K/UL = 1067) ABSOLUTE MONOCYTES (test code = 0.37 K/UL 1068) ABSOLUTE EOSINOPHILS (test code 0.13 K/UL = 1040) ABSOLUTE BASOPHILS (test code = 0.04 K/UL 1069) ABS IMMATURE GRANULOCYTES (test 0.02 K/UL code = 1020) ABS NUCLEATED RBCS (test code = 0.00 K/UL 94674) CBC W/AUTO DIFF WITH PLATELETS [ADDED]2021-09-09 00:00:00 Test Item Value Reference Range Interpretation Comments WBC (test code = 1001) 5.5 K/UL RBC (test code = 1002) 5.22 M/UL HEMOGLOBIN (test code = 1003) 14.5 G/DL HEMATOCRIT (test code = 1004) 42.7 % MCV (test code = 1005) 81.8 fL MCH (test code = 1006) 27.8 PG MCHC (test code = 1007) 34.0 G/DL RDW (test code = 1038) 13.4 % NEUTROPHILS (test code = 1008) 79.5 % LYMPHOCYTES (test code = 1010) 10.2 % MONOCYTES (test code = 1011) 6.8 % EOSINOPHILS (test code = 1012) 2.4 % BASOPHILS (test code = 1013) 0.7 % IMMATURE GRANULOCYTES (test 0.4 % code = 1036) NUCLEATED RBCS (test code = 0.0 /100WBC'S 1065) PLATELET COUNT (test code = 183 K/UL 1015) ABSOLUTE NEUTROPHILS (test code 4.35 K/UL = 1066) ABSOLUTE LYMPHOCYTES (test code 0.56 K/UL = 1067) ABSOLUTE MONOCYTES (test code = 0.37 K/UL 1068) ABSOLUTE EOSINOPHILS (test code 0.13 K/UL = 1040) ABSOLUTE BASOPHILS (test code = 0.04 K/UL 1069) ABS IMMATURE GRANULOCYTES (test 0.02 K/UL code = 1020) ABS NUCLEATED RBCS (test code = 0.00 K/UL 63982) CBC W/AUTO DIFF WITH PLATELETS [ADDED]2021-09-09 00:00:00 Test Item Value Reference Range Interpretation Comments WBC (test code = 1001) 5.5 K/UL RBC (test code = 1002) 5.22 M/UL HEMOGLOBIN (test code = 1003) 14.5 G/DL HEMATOCRIT (test code = 1004) 42.7 % MCV (test code = 1005) 81.8 fL MCH (test code = 1006) 27.8 PG MCHC (test code = 1007) 34.0 G/DL RDW (test code = 1038) 13.4 % NEUTROPHILS (test code = 1008) 79.5 % LYMPHOCYTES (test code = 1010) 10.2 % MONOCYTES (test code = 1011) 6.8 % EOSINOPHILS (test code = 1012) 2.4 % BASOPHILS (test code = 1013) 0.7 % IMMATURE GRANULOCYTES (test 0.4 % code = 1036) NUCLEATED RBCS (test code = 0.0 /100WBC'S 1065) PLATELET COUNT (test code = 183 K/UL 1015) ABSOLUTE NEUTROPHILS (test code 4.35 K/UL = 1066) ABSOLUTE LYMPHOCYTES (test code 0.56 K/UL = 1067) ABSOLUTE MONOCYTES (test code = 0.37 K/UL 1068) ABSOLUTE EOSINOPHILS (test code 0.13 K/UL = 1040) ABSOLUTE BASOPHILS (test code = 0.04 K/UL 1069) ABS IMMATURE GRANULOCYTES (test 0.02 K/UL code = 1020) ABS NUCLEATED RBCS (test code = 0.00 K/UL 61792) COMPREHENSIVE METABOLIC PANEL [ADDED]2021-09-09 00:00:00 Test Item Value Reference Range Interpretation Comments GLUCOSE (test code = 2217) 91 MG/DL BUN (test code = 2208) 8 MG/DL CREATININE (test code = 2214) 0.70 MG/DL eGFR (2020 CKD-EPI) (test 108 ML/MIN/1.73 code = 42256) CALC BUN/CREAT (test code = 11 RATIO 2235) SODIUM (test code = 2231) 139 MEQ/L POTASSIUM (test code = 2228) 4.4 MEQ/L CHLORIDE (test code = 2215) 100 MEQ/L CARBON DIOXIDE (test code = 23 MEQ/L 2206) CALCIUM (test code = 2209) 9.7 MG/DL PROTEIN, TOTAL (test code = 7.7 G/DL 222) ALBUMIN (test code = 2201) 4.8 G/DL CALC GLOBULIN (test code = 2.9 G/DL 2240) CALC A/G RATIO (test code = 1.7 RATIO 2234) BILIRUBIN, TOTAL (test code = 0.9 MG/DL 2206) ALKALINE PHOSPHATASE (test 130 U/L code = 2204) AST (test code = 2218) 18 U/L ALT (test code = 2219) 19 U/L COMPREHENSIVE METABOLIC PANEL [ADDED]2021-09-09 00:00:00 Test Item Value Reference Range Interpretation Comments GLUCOSE (test code = 2217) 91 MG/DL BUN (test code = 2208) 8 MG/DL CREATININE (test code = 2214) 0.70 MG/DL eGFR (2020 CKD-EPI) (test 108 ML/MIN/1.73 code = 83274) CALC BUN/CREAT (test code = 11 RATIO 2235) SODIUM (test code = 2231) 139 MEQ/L POTASSIUM (test code = 2228) 4.4 MEQ/L CHLORIDE (test code = 2215) 100 MEQ/L CARBON DIOXIDE (test code = 23 MEQ/L 2205) CALCIUM (test code = 2209) 9.7 MG/DL PROTEIN, TOTAL (test code = 7.7 G/DL 2228) ALBUMIN (test code = 2201) 4.8 G/DL CALC GLOBULIN (test code = 2.9 G/DL 2240) CALC A/G RATIO (test code = 1.7 RATIO 2234) BILIRUBIN, TOTAL (test code = 0.9 MG/DL 7) ALKALINE PHOSPHATASE (test 130 U/L code = 2204) AST (test code = 2218) 18 U/L ALT (test code = 2219) 19 U/L HEMOGLOBIN A1c [ADDED]2021-09-09 00:00:00 Test Item Value Reference Range Interpretation Comments HEMOGLOBIN A1c (test code = 62153) 5.3 % HEMOGLOBIN A1c [ADDED]2021-09-09 00:00:00 Test Item Value Reference Range Interpretation Comments HEMOGLOBIN A1c (test code = 40386) 5.3 % HEMOGLOBIN A1c [ADDED]2021-09-09 00:00:00 Test Item Value Reference Range Interpretation Comments HEMOGLOBIN A1c (test code = 63827) 5.3 % LIPID PANEL [ADDED]2021-09-09 00:00:00 Test Item Value Reference Range Interpretation Comments CHOLESTEROL (test code = 2210) 188 MG/DL TRIGLYCERIDES (test code = 2232) 140 MG/DL HDL CHOLESTEROL (test code = 2220) 47 MG/DL CALC LDL CHOL (test code = 2237) 116 MG/DL RISK RATIO LDL/HDL (test code = 2.47 RATIO 2238) LIPID PANEL [ADDED]2021-09-09 00:00:00 Test Item Value Reference Range Interpretation Comments CHOLESTEROL (test code = 2210) 188 MG/DL TRIGLYCERIDES (test code = 2232) 140 MG/DL HDL CHOLESTEROL (test code = 2220) 47 MG/DL CALC LDL CHOL (test code = 2237) 116 MG/DL RISK RATIO LDL/HDL (test code = 2.47 RATIO 2238) TSH, THIRD GENERATION [ADDED]2021-09-09 00:00:00 Test Item Value Reference Range Interpretation Comments TSH, THIRD GENERATION (test code 1.690 UIU/ML = 2821) TSH, THIRD GENERATION [ADDED]2021-09-09 00:00:00 Test Item Value Reference Range Interpretation Comments TSH, THIRD GENERATION (test code 1.690 UIU/ML = 2821) TSH, THIRD GENERATION [ADDED]2021-09-09 00:00:00 Test Item Value Reference Range Interpretation Comments TSH, THIRD GENERATION (test code 1.690 UIU/ML = 2821) CBC W/AUTO DIFF WITH PLATELETS [ADDED]2021-09-09 00:00:00 Test Item Value Reference Range Interpretation Comments WBC (test code = 1001) 5.5 K/UL RBC (test code = 1002) 5.22 M/UL HEMOGLOBIN (test code = 1003) 14.5 G/DL HEMATOCRIT (test code = 1004) 42.7 % MCV (test code = 1005) 81.8 fL MCH (test code = 1006) 27.8 PG MCHC (test code = 1007) 34.0 G/DL RDW (test code = 1038) 13.4 % NEUTROPHILS (test code = 1008) 79.5 % LYMPHOCYTES (test code = 1010) 10.2 % MONOCYTES (test code = 1011) 6.8 % EOSINOPHILS (test code = 1012) 2.4 % BASOPHILS (test code = 1013) 0.7 % IMMATURE GRANULOCYTES (test 0.4 % code = 1036) NUCLEATED RBCS (test code = 0.0 /100WBC'S 1065) PLATELET COUNT (test code = 183 K/UL 1015) ABSOLUTE NEUTROPHILS (test code 4.35 K/UL = 1066) ABSOLUTE LYMPHOCYTES (test code 0.56 K/UL = 1067) ABSOLUTE MONOCYTES (test code = 0.37 K/UL 1068) ABSOLUTE EOSINOPHILS (test code 0.13 K/UL = 1040) ABSOLUTE BASOPHILS (test code = 0.04 K/UL 1069) ABS IMMATURE GRANULOCYTES (test 0.02 K/UL code = 1020) ABS NUCLEATED RBCS (test code = 0.00 K/UL 04641) CBC W/AUTO DIFF WITH PLATELETS [ADDED]2021-09-09 00:00:00 Test Item Value Reference Range Interpretation Comments WBC (test code = 1001) 5.5 K/UL RBC (test code = 1002) 5.22 M/UL HEMOGLOBIN (test code = 1003) 14.5 G/DL HEMATOCRIT (test code = 1004) 42.7 % MCV (test code = 1005) 81.8 fL MCH (test code = 1006) 27.8 PG MCHC (test code = 1007) 34.0 G/DL RDW (test code = 1038) 13.4 % NEUTROPHILS (test code = 1008) 79.5 % LYMPHOCYTES (test code = 1010) 10.2 % MONOCYTES (test code = 1011) 6.8 % EOSINOPHILS (test code = 1012) 2.4 % BASOPHILS (test code = 1013) 0.7 % IMMATURE GRANULOCYTES (test 0.4 % code = 1036) NUCLEATED RBCS (test code = 0.0 /100WBC'S 1065) PLATELET COUNT (test code = 183 K/UL 1015) ABSOLUTE NEUTROPHILS (test code 4.35 K/UL = 1066) ABSOLUTE LYMPHOCYTES (test code 0.56 K/UL = 1067) ABSOLUTE MONOCYTES (test code = 0.37 K/UL 1068) ABSOLUTE EOSINOPHILS (test code 0.13 K/UL = 1040) ABSOLUTE BASOPHILS (test code = 0.04 K/UL 1069) ABS IMMATURE GRANULOCYTES (test 0.02 K/UL code = 1020) ABS NUCLEATED RBCS (test code = 0.00 K/UL 67080) CBC W/AUTO DIFF WITH PLATELETS [ADDED]2021-09-09 00:00:00 Test Item Value Reference Range Interpretation Comments WBC (test code = 1001) 5.5 K/UL RBC (test code = 1002) 5.22 M/UL HEMOGLOBIN (test code = 1003) 14.5 G/DL HEMATOCRIT (test code = 1004) 42.7 % MCV (test code = 1005) 81.8 fL MCH (test code = 1006) 27.8 PG MCHC (test code = 1007) 34.0 G/DL RDW (test code = 1038) 13.4 % NEUTROPHILS (test code = 1008) 79.5 % LYMPHOCYTES (test code = 1010) 10.2 % MONOCYTES (test code = 1011) 6.8 % EOSINOPHILS (test code = 1012) 2.4 % BASOPHILS (test code = 1013) 0.7 % IMMATURE GRANULOCYTES (test 0.4 % code = 1036) NUCLEATED RBCS (test code = 0.0 /100WBC'S 1065) PLATELET COUNT (test code = 183 K/UL 1015) ABSOLUTE NEUTROPHILS (test code 4.35 K/UL = 1066) ABSOLUTE LYMPHOCYTES (test code 0.56 K/UL = 1067) ABSOLUTE MONOCYTES (test code = 0.37 K/UL 1068) ABSOLUTE EOSINOPHILS (test code 0.13 K/UL = 1040) ABSOLUTE BASOPHILS (test code = 0.04 K/UL 1069) ABS IMMATURE GRANULOCYTES (test 0.02 K/UL code = 1020) ABS NUCLEATED RBCS (test code = 0.00 K/UL 43163) COMPREHENSIVE METABOLIC PANEL [ADDED]2021-09-09 00:00:00 Test Item Value Reference Range Interpretation Comments GLUCOSE (test code = 2217) 91 MG/DL BUN (test code = 2208) 8 MG/DL CREATININE (test code = 2214) 0.70 MG/DL eGFR (2020 CKD-EPI) (test 108 ML/MIN/1.73 code = 14744) CALC BUN/CREAT (test code = 11 RATIO 2235) SODIUM (test code = 2231) 139 MEQ/L POTASSIUM (test code = 2228) 4.4 MEQ/L CHLORIDE (test code = 2215) 100 MEQ/L CARBON DIOXIDE (test code = 23 MEQ/L 2205) CALCIUM (test code = 2209) 9.7 MG/DL PROTEIN, TOTAL (test code = 7.7 G/DL 2228) ALBUMIN (test code = 2201) 4.8 G/DL CALC GLOBULIN (test code = 2.9 G/DL 2240) CALC A/G RATIO (test code = 1.7 RATIO 2234) BILIRUBIN, TOTAL (test code = 0.9 MG/DL 2206) ALKALINE PHOSPHATASE (test 130 U/L code = 2204) AST (test code = 2218) 18 U/L ALT (test code = 2219) 19 U/L COMPREHENSIVE METABOLIC PANEL [ADDED]2021-09-09 00:00:00 Test Item Value Reference Range Interpretation Comments GLUCOSE (test code = 2217) 91 MG/DL BUN (test code = 2208) 8 MG/DL CREATININE (test code = 2214) 0.70 MG/DL eGFR (2020 CKD-EPI) (test 108 ML/MIN/1.73 code = 56794) CALC BUN/CREAT (test code = 11 RATIO 2235) SODIUM (test code = 2231) 139 MEQ/L POTASSIUM (test code = 2228) 4.4 MEQ/L CHLORIDE (test code = 2215) 100 MEQ/L CARBON DIOXIDE (test code = 23 MEQ/L 2205) CALCIUM (test code = 2209) 9.7 MG/DL PROTEIN, TOTAL (test code = 7.7 G/DL 2228) ALBUMIN (test code = 2201) 4.8 G/DL CALC GLOBULIN (test code = 2.9 G/DL 2240) CALC A/G RATIO (test code = 1.7 RATIO 2234) BILIRUBIN, TOTAL (test code = 0.9 MG/DL 2206) ALKALINE PHOSPHATASE (test 130 U/L code = 2204) AST (test code = 2218) 18 U/L ALT (test code = 2219) 19 U/L HEMOGLOBIN A1c [ADDED]2021-09-09 00:00:00 Test Item Value Reference Range Interpretation Comments HEMOGLOBIN A1c (test code = 20595) 5.3 % HEMOGLOBIN A1c [ADDED]2021-09-09 00:00:00 Test Item Value Reference Range Interpretation Comments HEMOGLOBIN A1c (test code = 70874) 5.3 % HEMOGLOBIN A1c [ADDED]2021-09-09 00:00:00 Test Item Value Reference Range Interpretation Comments HEMOGLOBIN A1c (test code = 95520) 5.3 % LIPID PANEL [ADDED]2021-09-09 00:00:00 Test Item Value Reference Range Interpretation Comments CHOLESTEROL (test code = 2210) 188 MG/DL TRIGLYCERIDES (test code = 2232) 140 MG/DL HDL CHOLESTEROL (test code = 2220) 47 MG/DL CALC LDL CHOL (test code = 2237) 116 MG/DL RISK RATIO LDL/HDL (test code = 2.47 RATIO 2238) LIPID PANEL [ADDED]2021-09-09 00:00:00 Test Item Value Reference Range Interpretation Comments CHOLESTEROL (test code = 2210) 188 MG/DL TRIGLYCERIDES (test code = 2232) 140 MG/DL HDL CHOLESTEROL (test code = 2220) 47 MG/DL CALC LDL CHOL (test code = 2237) 116 MG/DL RISK RATIO LDL/HDL (test code = 2.47 RATIO 2238) TSH, THIRD GENERATION [ADDED]2021-09-09 00:00:00 Test Item Value Reference Range Interpretation Comments TSH, THIRD GENERATION (test code 1.690 UIU/ML = 2821) TSH, THIRD GENERATION [ADDED]2021-09-09 00:00:00 Test Item Value Reference Range Interpretation Comments TSH, THIRD GENERATION (test code 1.690 UIU/ML = 2821) TSH, THIRD GENERATION [ADDED]2021-09-09 00:00:00 Test Item Value Reference Range Interpretation Comments TSH, THIRD GENERATION (test code 1.690 UIU/ML = 2821)
[2022-10-07] MEDS ORDERED: MORPHINE 4 MG/ML SYR ONE (18:02)
[2022-10-07] MEDS ORDERED: ONDANSETRON 4 MG/2 ML VIAL ONE (18:02)
[2022-10-07 18:09] LABS: Absolute Lymphocytes (CBC) 2.1 K/uL (0.7-4.9); Lymphocytes % 34.3 % (15.3-44.8); MPV 9.4 fL (7.6-11.3); RBC Red Blood Cell Count 4.82 M/uL (3.86-4.86)
[2022-10-07 18:16] LABS: Albumin 3.6 g/dL (3.4-5.0); Bilirubin Total 0.6 mg/dL (0.2-1.0); Potassium 3.1 mEq/L (3.5-5.1); Protein, Total 7.3 g/dL (6.4-8.2)
[2022-10-07 18:44] LABS: Specific Gravity 1.025 (1.005-1.030); Urine Bilirubin NEGATIVE (Negative); Urine Blood Negative (Negative); Urine Clarity Clear (Clear); Urine Color Yellow (Yellow); Urine Glucose NEGATIVE (Negative); Urine Protein NEGATIVE (Negative); Urine Urobilinogen Normal (Normal); Urine pH 5.5 (5.0-7.0)
[2022-10-07 18:46] LABS: Specific Gravity 1.025 (1.005-1.030)
--- NOTE | 2022-10-07 19:00 | RAD REPORT ---
[facility] 6:51 [facility] CLINICAL HISTORY: back pain COMPARISON: 01/28/2022 TECHNIQUE: CT of the abdomen and pelvis was performed. All CT scans are performed using dose optimization technique as appropriate and may include automated exposure control or mA/KV adjustment according to patient size. FINDINGS: Lower chest: No acute abnormality. Liver: No acute abnormality or suspicious lesions. Biliary: No biliary ductal dilatation. Cholecystectomy Stomach: No significant focal abnormality. Duodenum: No significant focal abnormality. Pancreas: No significant abnormality. Spleen: No significant abnormality. Adrenal: No suspicious lesions. Kidney/ureter: No hydronephrosis. No renal calculi. Retroperitoneum: No retroperitoneal adenopathy. Vascular: No aneurysm. Bowel: No significant focal abnormality. Normal appendix . Peritoneum: No ascites or free air. Bladder: Grossly unremarkable. Reproductive: No adnexal masses. Bones: No acute fracture. Other: n/a IMPRESSION: No acute intra-abdominal or pelvic finding. Normal appendix. No urinary tract calculi.
--- NOTE | 2022-10-07 19:36 | EDPHYS ---
Physician Documentation [facility] Name: Maranda Quach Age: 47 yrs Sex: Female : 1975 Arrival Date: 10/07/2022 Time: 17:24 Bed 20 Private MD: ED Physician fErain Dodson HPI: 10/07 17:45 This 47 yrs old Female presents to ER via Ambulatory with complaints of Back Pain. cp 17:45 The patient presents with pain that is acute, with no known mechanism of injury. cp 17:45 The symptoms are located in the low back. Onset: The symptoms/episode began/occurred cp today, while at work. The pain radiates to the back of left leg. 17:45 Associated signs and symptoms: Pertinent negatives: abdominal pain, constipation, cp fever, hematuria, incontinence, numbness, urinary retention, weakness. The problem was sustained from unknown cause. Modifying factors: the patient symptoms are aggravated by movement, standing. 17:45 Severity of symptoms: in the emergency department the symptoms are unchanged. 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 - Social history:: Smoking status: Patient denies any tobacco usage or history of. ROS: 17:50 Constitutional: Negative for body aches, chills, fever, poor PO intake. cp 17:50 Eyes: Negative for injury, pain, redness, and discharge. cp 17:50 Back: Positive for pain at rest, pain with movement, of the low back area and mid back cp area, Negative for injury or acute deformity, decreased range of motion. 17:50 ENT: Negative for drainage from ear(s), ear pain, sore throat, difficulty swallowing, cp difficulty handling secretions. 17:50 Cardiovascular: Negative for chest pain, edema, palpitations. 17:50 Respiratory: Negative for cough, shortness of breath, wheezing. 17:50 Abdomen/GI: Negative for abdominal pain, nausea, vomiting, and diarrhea, anorexia, black/tarry stool, rectal bleeding, bowel incontinence. 17:50 : Negative for urinary symptoms, pelvic pain, flank pain, difficulty urinating, bladder incontinence. 17:50 Neuro: Negative for altered mental status, dizziness, headache, numbness, tingling, weakness. 17:50 All other systems are negative. Exam: 17:55 Constitutional: The patient appears in no acute distress, alert, awake, cp non-diaphoretic, non-toxic, well developed, well nourished, uncomfortable. 17:55 Head/Face: Normocephalic, atraumatic. cp 17:55 Eyes: Periorbital structures: appear normal, Conjunctiva: normal, no exudate, no injection, Sclera: no appreciated abnormality, Lids and lashes: appear normal, bilaterally. 17:55 ENT: External ear(s): are unremarkable, Nose: is normal, Mouth: Lips: moist, Oral mucosa: pink and intact, moist, Posterior pharynx: is normal, airway is patent, no erythema, no exudate. 17:55 Neck: ROM/movement: is normal, is supple, without pain, no range of motions limitations, no meningismus, no nuchal rigidity. 17:55 Chest/axilla: Inspection: normal. 17:55 Cardiovascular: Rate: normal, Rhythm: regular, Edema: is not appreciated, JVD: is not appreciated. 17:55 Respiratory: the patient does not display signs of respiratory distress, Respirations: normal, no use of accessory muscles, no retractions, labored breathing, is not present, Breath sounds: are clear throughout, no decreased breath sounds, no stridor, no wheezing. 17:55 Abdomen/GI: Inspection: Bowel sounds: active, all quadrants, Palpation: abdomen is soft and non-tender, in all quadrants. 17:55 Back: pain, that is moderate, of the low back area and mid back area, ROM is painful, with all movement, vertebral tenderness, is not appreciated. 17:55 Skin: cellulitis, is not appreciated, no rash present. 17:55 Neuro: Orientation: to person, place \T\ time. Mentation: is normal, Cerebellar function: Motor: moves all fours, strength is normal, Sensation: is normal, Deep tendon reflexes are 2+ (normal) in the right patellar, right Achilles, left patellar and left Achilles. Vital Signs: 17:27 BP 144 / 82; Pulse 75; Resp 18 S; Temp 98(TE); Pulse Ox 100% on R/A; Weight 74.84 kg aa5 (R); Height 5 ft. 0 in. (R); 18:30 BP 120 / 72; Pulse 58; Resp 18; Pulse Ox 98% on R/A; eh3 19:30 BP 115 / 64; Pulse 61; Resp 18; Pulse Ox 100% on R/A; eh3 17:27 Body Mass Index 32.22 (74.84 kg, 152.4 cm) aa5 MDM: 17:29 Patient medically screened. cp 18:00 Differential diagnosis: Cholelithiasis Pyelonephritis ruptured disc, Ureterolithiasis cp cauda equina, spinal stenosis. 19:35 Data reviewed: vital signs, nurses notes, lab test result(s), radiologic studies, CT cp scan. 19:35 Consideration of Admission/Observation Escalation of care including cp admission/observation considered. I considered the following discharge prescriptions or medication management in the emergency department Medications were administered in the Emergency Department. See MAR. Counseling: I had a detailed discussion with the patient and/or guardian regarding: the historical points, exam findings, and any diagnostic results supporting the discharge/admit diagnosis, lab results, radiology results, the need for outpatient follow up, a family practitioner, to return to the emergency department if symptoms worsen or persist or if there are any questions or concerns that arise at home. Response to treatment: the patient's symptoms have markedly improved after treatment, and as a result, I will discharge patient. 10/07 17:36 Order name: CBC with Diff; Complete Time: 18:29 10/07 17:36 Order name: CMP; Complete Time: 18:29 10/07 18:29 Interpretation: Normal except: K 3.1; CL 108; GFR 87; AST 14; GLOB 3.7; A/G 1.0. 10/07 17:36 Order name: Lipase; Complete Time: 18:29 10/07 17:36 Order name: Test, Urine; Complete Time: 19:09 10/07 19:09 Interpretation: Reviewed. 10/07 17:36 Order name: Urinalysis w/ reflexes; Complete Time: 19:09 10/07 19:09 Interpretation: Reviewed. 10/07 18:10 Order name: CT Stone Protocol; Complete Time: 19:09 10/07 19:10 Interpretation: Report reviewed. cp 10/07 17:36 Order name: IV Saline Lock; Complete Time: 17:58 cp 10/07 17:36 Order name: Labs collected and sent; Complete Time: 17:58 cp Administered Medications: 17:55 Drug: morphine IVP or IV 4 mg Route: IVP; Infused Over: 4 mins; Site: right antecubital;eh3 18:30 Follow up: Response: Pain is decreased eh3 17:55 Drug: Ondansetron IVP 4 mg Route: IVP; Site: right antecubital; eh3 18:30 Follow up: Response: No adverse reaction eh3 19:40 Drug: Lidoderm Topical Patch 5 % (700 mg/patch) 1 patches Route: Topical; Site: eh3 affected area; 19:40 Drug: Ketorolac IVP 15 mg Route: IVP; Site: right antecubital; eh3 19:54 Follow up: Response: No adverse reaction eh3 19:40 Drug: Decadron - Dexamethasone IVP 10 mg Route: IVP; Site: right antecubital; eh3 19:54 Follow up: Response: No adverse reaction eh3 19:40 Drug: Potassium PO Effervescent Tablet 50 mEq Route: PO; eh3 19:54 Follow up: Response: No adverse reaction eh3 Disposition Summary: 10/07/22 19:35 Discharge Ordered Location: Home cp Problem: new cp Symptoms: have improved cp Condition: Stable cp Diagnosis - Low back pain cp - Radiculopathy, lumbar region cp Followup: cp - With: Private Physician - When: 2 - 3 days - Reason: Recheck today's complaints Discharge Instructions: - Discharge Summary Sheet cp - Acute Back Pain, Adult cp - Heat Therapy cp - Back Exercises cp - Form - Excuse from Work, School, or Physical Activity cp Forms: - Medication Reconciliation Form cp - Thank You Letter cp - Antibiotic Education cp - Prescription Opioid Use cp Prescriptions: - Cyclobenzaprine 10 mg Oral Tablet - take 1 tablet by ORAL route every 8 hours As needed; 30 tablet; Refills: 0, cp Product Selection Permitted - Diclofenac Sodium 75 mg Oral Tablet Sustained Release - take 1 tablet by ORAL route 2 times per day; 30 tablet; Refills: 0, Product cp Selection Permitted - Medrol (Lito) 4 mg Oral Tablets, Dose Pack - take 1 tablet by ORAL route as directed - follow package instructions; 1 cp packet; Refills: 0, Product Selection Permitted Signatures: Dispatcher [employer] Daniela Sequeira, RN RN aa5 Jorge Hannah PA PA cp Hall, Erin RN RN eh3
--- NOTE | 2022-10-07 19:36 | ER ---
Nurse's Notes [facility] Name: Maranda Quach Age: 47 yrs Sex: Female : 1975 Arrival Date: 10/07/2022 Time: 17:24 Bed 20 Private MD: Diagnosis: Low back pain;Radiculopathy, lumbar region Presentation: 10/07 17:27 Chief complaint: Patient states: lower back pain since around 1400 today, pt states "I aa5 was at work all day and I think I over did it". 17:27 Coronavirus screen: At this time, the client does not indicate any symptoms associated aa5 with coronavirus-19. Ebola Screen: Patient denies travel to an Ebola-affected area in the 21 days before illness onset. Initial Sepsis Screen: Does the patient meet any 2 criteria? No. Patient's initial sepsis screen is negative. Does the patient have a suspected source of infection? No. Patient's initial sepsis screen is negative. Risk Assessment: Do you want to hurt yourself or someone else? Patient reports no desire to harm self or others. Onset of symptoms was October 07, 2022. 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 - Social history:: Smoking status: Patient denies any tobacco usage or history of. Screenin:30 [facility] ED Fall Risk Assessment (Adult) Score/Fall Risk Level 0 - 2 = Low Risk. Abuse eh3 screen: Denies threats or abuse. Denies injuries from another. Nutritional screening: No deficits noted. Tuberculosis screening: No symptoms or risk factors identified. Assessment: 17:30 General: Appears in no apparent distress. uncomfortable, Behavior is calm, cooperative, eh3 appropriate for age. Pain: Complains of pain in back. Neuro: Level of Consciousness is awake, alert, obeys commands, Oriented to person, place, time, situation. Cardiovascular: Capillary refill < 3 seconds Patient's skin is warm and dry. Respiratory: Airway is patent Respiratory effort is even, unlabored, Respiratory pattern is regular, symmetrical. GI: Abdomen is round non-distended. : No signs and/or symptoms were reported regarding the genitourinary system. EENT: No signs and/or symptoms were reported regarding the EENT system. Derm: Skin is pink, warm \\T\\ dry. Musculoskeletal: Circulation, motion, and sensation intact. 18:30 Reassessment: Patient appears in no apparent distress at this time. Patient and/or 3 family updated on plan of care and expected duration. Pain level reassessed. Patient is alert, oriented x 3, equal unlabored respirations, skin warm/dry/pink. 19:30 Reassessment: Patient appears in no apparent distress at this time. Patient and/or 3 family updated on plan of care and expected duration. Pain level reassessed. Patient is alert, oriented x 3, equal unlabored respirations, skin warm/dry/pink. Vital Signs: 17:27 BP 144 / 82; Pulse 75; Resp 18 S; Temp 98(TE); Pulse Ox 100% on R/A; Weight 74.84 kg aa5 (R); Height 5 ft. 0 in. (R); 18:30 BP 120 / 72; Pulse 58; Resp 18; Pulse Ox 98% on R/A; eh3 19:30 BP 115 / 64; Pulse 61; Resp 18; Pulse Ox 100% on R/A; eh3 17:27 Body Mass Index 32.22 (74.84 kg, 152.4 cm) aa5 ED Course: 17:27 Patient arrived in ED. mr 17:27 Arm band placed on. aa5 17:29 Jorge Hannah PA is PHCP. cp 17:29 Efrain Dodson MD is Attending Physician. cp 17:30 Patient has correct armband on for positive identification. Bed in low position. Call [facility] light in reach. Side rails up X2. Pulse ox on. NIBP on. Door closed. Noise minimized. Lights dimmed. Warm blanket given. 17:33 Terri Lui, ANNABELLE is Primary Nurse. [facility] 17:33 Triage completed. aa5 17:59 CBC with Diff Sent. bc6 17:59 CMP Sent. bc6 17:59 Lipase Sent. 6 17:59 Initial lab(s) drawn, by me, sent to lab. Inserted saline lock: 22 gauge in right bc6 antecubital area, using aseptic technique. 18:53 CT Stone Protocol In Process Unspecified. EDMS 19:52 No provider procedures requiring assistance completed. IV discontinued, intact, eh3 bleeding controlled, No redness/swelling at site. Pressure dressing applied. Administered Medications: 17:55 Drug: morphine IVP or IV 4 mg Route: IVP; Infused Over: 4 mins; Site: right antecubital;eh3 18:30 Follow up: Response: Pain is decreased eh3 17:55 Drug: Ondansetron IVP 4 mg Route: IVP; Site: right antecubital; eh3 18:30 Follow up: Response: No adverse reaction eh3 19:40 Drug: Lidoderm Topical Patch 5 % (700 mg/patch) 1 patches Route: Topical; Site: eh3 affected area; 19:40 Drug: Ketorolac IVP 15 mg Route: IVP; Site: right antecubital; eh3 19:54 Follow up: Response: No adverse reaction eh3 19:40 Drug: Decadron - Dexamethasone IVP 10 mg Route: IVP; Site: right antecubital; eh3 19:54 Follow up: Response: No adverse reaction eh3 19:40 Drug: Potassium PO Effervescent Tablet 50 mEq Route: PO; eh3 19:54 Follow up: Response: No adverse reaction eh3 Medication: 19:52 VIS not applicable for this client. eh3 Outcome: 19:35 Discharge ordered by . cp 19:52 Discharged to home via wheelchair, with significant other. eh3 19:52 Condition: stable 19:52 Discharge instructions given to patient, significant other, Instructed on discharge instructions, follow up and referral plans. medication usage, Demonstrated understanding of instructions, follow-up care, medications, Prescriptions given X 3. 19:53 Patient left the ED. eh3 Signatures: Dispatcher [employer] EDMS Aubree Dahl ValenciaDaniela blackwell, RN RN aa5 Jorge Hannah PA PA Terri Luis RN RN eh3 Cely Edmond 6
[2022-10-07] MEDS ORDERED: LIDOCAINE 4% PATCH ONE (19:44)
[2022-10-07] MEDS ORDERED: POTASSIUM 25 MEQ EFFERV TAB ONE (19:44)
[2022-10-07] MEDS ORDERED: KETOROLAC 30 MG/ML INJ ONE (19:44)
[2022-10-07] MEDS ORDERED: dexAMETHasone 10 MG/ML VIAL ONE (19:44)
[2022-10-07 19:58] VITALS: TEMP 98
[2022-10-07 20:01] VITALS: BP 115/64; O2SAT 100
== END 2022-10-07 19:53 | disposition home or self-care (01) ==
LOC: ER 17:24
DX: M54.16 Radiculopathy, lumbar region (principal)
CPT/HCPCS: 36415; 74176; 76377; 80053; 81003; 81025; 83690; 85025; 96374; 96375; 99284; J1100; J2001; J2405